=== PATIENT | female | born 1960 | race Caucasian/White ===

== ENCOUNTER → 2016-11-18 | Outpatient (CLI) | payer MEDICAID ==
[~2016-11-18] MED LIST: ACHD5005 PO; ALPR.25T PO; AMIT25TA9 PO; AMLO10TA2 PO; ASP81CT PO; ASP81TEC PO; ASPI-587 PO; ASPI-999 PO; ATOR80TA2 PO; ATOR80TA76 PO; CEPH250C PO; CITA20TA4 PO; CLOP75TA PO; CLOP75TA28 PO; CYCL-97 PO; CYCL10TA9 PO; DOCU-143 PO; DOXA2TAB2 PO; DULO30CA48 PO; DULO60CA58 PO; FURO20TA4 PO; FURO40TA4 PO; GABA-488 PO; GABA600T2 PO; GABA800T2 PO; GBPN100C PO; GBPN400C PO; HYDR-3714 PO; HYDR-3729 PO; IBUP-1773 PO; INSASP10V SC; INSU100C7 SQ; INSU100I14 SQ; INSU100I29 SQ; INSU100V16 SC; INSU100V16 SQ; INSU100V5 SQ; INSU100V6 SC; INSU100V6 SQ; ISM30TCR PO; ISOS30TA3 PO; LEVE1U SQ; LEVO75TA6 PO; LEVOTHYROXINE PO; LINA145C PO; LINA5TAB PO; LISI10TA PO; LISI10TA2 PO; LISI20TA PO; LISI40TA PO; LORA-794 PO; LORA0.5T PO; LVT.05T PO; MECL12.579 PO; MELO-195 PO; METF-380 PO; METO-270 PO; METO-333 PO; METO5TAB75 PO; MORP-33 PO; NAPR500T2 PO; NITR0.4T SL; NTR.4SL SL; OMEP-10 PO; OXYC-12 PO; PANT40TA2 PO; PANT40TA3 PO; PRD20T PO; PREG75CA PO; PROC5TAB52 PO; PROM25SU43 PO; SAXA5TAB PO; SUCR1TAB PO; TEMA15CA54 PO; TICA90TA PO; TMZP15C PO; TRAM50TA2; TRAM50TA2 PO; TRAZ150T42 PO
--- OUTSIDE RECORDS SUMMARY | 2016-11-18 13:41 | XMS REPORT | Continuity of Care Document ---
Author Author Interface Organization Interface Address Unknown Phone Unavailable Problems Problem Status Onset Date Classification Date Reported Comments Source No data available for this section Problem 06/02/2015 [facility]. Coronary atherosclerosis of unspecified type of vessel, seminole or graft 05/08/2015 Diagnosis 05/12/2015 [facility]. Benign essential hypertension 05/08/2015 Diagnosis 2014 [facility]. Mononeuritis of unspecified site 05/08/2015 Diagnosis 03/2015 [facility]. Myalgia and myositis, unspecified 05/08/2015 Diagnosis [facility]. Ingrowing nail 05/08/2015 Diagnosis 05/12/2015 [facility]. Fever, unspecified 2014 Diagnosis 06/02/2015 [facility]. Cough 05/29/2015 Diagnosis 06/02/2015 [facility]. Dysuria 05/29/2015 Diagnosis 06/02/2015 [facility]. Medications Medication Details Route Status Patient Instructions Ordering Provider Order Date Source No Known Medications No known medications Active [facility] Allergies, Adverse Reactions, Alerts Substance Category Reaction Severity Reaction type Status Date Reported Comments Source Immunizations Immunization Date Given Site Status Last Updated Comments Source No data available for this section No data available for this section [facility]. Results Order Name Results Value Reference Range Date Interpretation Comments Source Vital Signs Vital Sign Value Date Comments Source Encounters Location Location Details Encounter Type Encounter Number Reason For Visit Attending Provider ADM Date DC Date Status Source [facility] [id number] Clinic ( Outpatient) [id number] Ev Cobine 05/29/2015 Active [facility]FC[facility] [id number] Clinic ( Outpatient) [id number] [facility] 05/29/2015 Active [facility] AFCOS [id number] Clinic ( Outpatient) [id number] Ev Cobine 05/08/2015 Active [facility] AFCOS [id number] Clinic ( Outpatient) [id number] Ev Cobine 05/07/2015 Active [facility] Cancel/No Show [id number] Ev Cobine 05/21/2015 05/21/2015 [facility] Cancel/No Show [id number] Ev Cobine 05/07/2015 05/07/2015 [facility] [id number] Ev Cobine 05/08/20152014 [facility] [id number] Ev Cobine 05/29/20152014 [facility] [id number] Clinic ( Outpatient) [id number] Ev Cobine 05/21/2015 Active [facility] Procedures Procedure Code Date Perfomer Comments Source No data available for this section [facility].
--- NOTE | 2016-11-18 15:33 | Diagnostic Imaging Report ---
PROCEDURE: US Carotid Duplex Bilateral. TECHNIQUE: Multiple real-time grayscale images were obtained over the carotid arteries in various projections bilaterally. Additional duplex Doppler and color Doppler images were also obtained. INDICATION: Headache. FINDINGS: The grayscale images demonstrate no significant plaque. Color Doppler demonstrates patency of the common, internal and external carotid arteries bilaterally. The vertebral arteries demonstrate antegrade flow on both sides. Peak systolic velocities in the right ICA are 60, 74, and 102 cm/s from proximal to distal and on the left side 70, 91, and 132 cm/s from proximal to distal. The ICA/CCA ratios are up to 1.2 on the right and up to 2 on the left. The underlying arterial stenosis is in the range of 0-40% bilaterally. IMPRESSION: No significant plaque or evidence of stenosis. Dictated by: Dictated on workstation # [id number]
--- NOTE | 2016-11-25 08:11 | ECHOCARDIOGRAPHY REPORT ---
PROCEDURE PHYSICIAN: ADALBERTO GONZALEZ DATE OF PROCEDURE: 11/18/2016 TWO DIMENSIONAL ECHOCARDIOGRAM REPORT PRIMARY PHYSICIAN: Dr. Calderon OTHER PHYSICIAN: Dr. Gonzalez REFERRING PHYSICIAN: ORDERING PHYSICIAN: Jaylene Rodrigues APRN INDICATION FOR THE PROCEDURE: Chest discomfort. MEASUREMENTS DERIVED VALUES LV DIAMETER (LAX) NORMALS NORMALS Diastolic 4.3 (3.6-5.2) Eject. Fract. (60%+/-6%) Systolic (2.3-3.9) Diastolic Vol. % Shortening (0.22-0.42) Systolic Vol. Aortic Root 2.2 IVS THICKNESS Diastolic 1.2 (0.6-1.1) LVPW THICKNESS Diastolic 1.2 (0.6-1.1) LA DIAMETER Systolic 4 (2.1-3.7) DESCRIPTION: Two-dimensional echocardiography showed normal global left ventricular systolic function with normal regional wall motion. Aortic, mitral and tricuspid valve leaflets show good leaflet excursion. There does not appear to be significant pericardial effusion. Doppler imaging shows no significant valvular regurgitation or stenosis. Pulmonary artery systolic pressure is estimated to be approximately 20 mmHg. Mitral inflow is suggestive of grade I diastolic dysfunction of the left ventricle. Inferior vena cava does exhibit inspiratory collapse. CONCLUSION: 1. Normal global left ventricular systolic function with an ejection fraction of 60%. 2. No significant valvular regurgitation or stenosis seen on this study. Pulmonary artery systolic pressure is estimated to be approximately 20 mmHg. 3. Mild diastolic dysfunction of the left ventricle is indicated on this study. Job ID: [id number] Dictated Date: 11/24/2016 14:17:20 Pocket Creaser Date: 11/25/2016 08:07:03 / chetan
== END ==
LOC: CARD 13:39
PROVIDERS: ATTEND Nurse Practitioner Family
DX: R07.89 Other chest pain (principal); I25.10 Atherosclerotic heart disease of native coronary artery without angina pectoris; R06.09 Other forms of dyspnea; I65.23 Occlusion and stenosis of bilateral carotid arteries; E78.4 Other hyperlipidemia; I10 Essential (primary) hypertension
CPT/HCPCS: 93306; 93880

== ENCOUNTER → 2017-01-20 | Outpatient (CLI) | payer MEDICAID ==
--- NOTE | 2017-01-20 10:59 | Diagnostic Imaging Report ---
INDICATION: Abnormal laboratory values. TECHNIQUE: Multiple grayscale sonographic images were obtained of the right upper quadrant of the abdomen. CORRELATION STUDY: None FINDINGS: LIVER: The liver measures 17 cm. There is uniform echotexture. GALLBLADDER: Surgically absent. COMMON BILE DUCT: Within normal limits at 5 mm. RIGHT KIDNEY: Measures 13.1 cm. No hydronephrosis. PANCREAS: Obscured by overlying bowel gas. OTHER: None. IMPRESSION: 1. Postcholecystectomy changes. Otherwise unremarkable right upper quadrant ultrasound evaluation. Dictated by: Dictated on workstation # [id number]
== END ==
LOC: RAD 10:05
PROVIDERS: ATTEND Internal Medicine
DX: R74.8 Abnormal levels of other serum enzymes (principal); Z90.49 Acquired absence of other specified parts of digestive tract
CPT/HCPCS: 76705

== ENCOUNTER 2017-01-28 06:51 | Day surgery (SDC) | payer MEDICAID ==
[2017-01-28] VITALS (20 sets, daily range): BP systolic 100–183; BP diastolic 60–102
[~2017-01-28] VITALS: Ht 165.1 cm; Wt 104.4 kg
[~2017-01-28 06:51] MED LIST changes: -AMLO10TA2 PO; -ASPI-999 PO; -CEPH250C PO; -DOCU-143 PO; -DOXA2TAB2 PO; -DULO30CA48 PO; -DULO60CA58 PO; -HYDR-3729 PO; -IBUP-1773 PO; -INSU100V16 SC; -INSU100V16 SQ; -INSU100V5 SQ; -INSU100V6 SQ; -ISOS30TA3 PO; -LEVO75TA6 PO; -LINA145C PO; -LISI10TA2 PO; -LISI40TA PO; -LORA0.5T PO; -METO-270 PO; -MORP-33 PO; -PANT40TA3 PO; -PROC5TAB52 PO; -SAXA5TAB PO; -SUCR1TAB PO; -TICA90TA PO
[2017-01-28] MEDS ORDERED: NS IV 1000 ML 1,000 ML ONE ×2 (07:06→09:11)
[2017-01-28] MEDS ORDERED: HEParin (CATH LAB) 2,000 ML IV ONE (07:06)
[2017-01-28] MEDS ORDERED: LIDOCAINE 1% INJ 20 ML (XYLOCAINE) VIAL ONE (07:06)
[2017-01-28 07:37] LABS: MEAN PLATELET VOLUME 10.9 FL (7.4-10.4); RED BLOOD COUNT 3.92 10^6/uL (4.35-5.85); WHITE BLOOD COUNT 9.9 10^3/uL (4.3-11.0)
[2017-01-28] MEDS: NS IV 1000 ML 1,000 ML IV SCH ×4 (07:37→19:47)
[2017-01-28 07:47] LABS: INR 0.9 (0.8-1.4)
[2017-01-28 07:55] LABS: ALBUMIN 3.1 G/DL (3.2-4.5); BILIRUBIN,TOTAL 0.3 MG/DL (0.1-1.0); CALCIUM 9.1 MG/DL (8.5-10.1); CREATININE SERUM 1.51 MG/DL (0.60-1.30); TOTAL PROTEIN 6.7 G/DL (6.4-8.2)
[2017-01-28] MEDS ORDERED: LINA5TAB PO (08:04)
[2017-01-28] MEDS ORDERED: DULO60CA58 PO (08:04)
[2017-01-28] MEDS ORDERED: SAXA5TAB PO (08:04)
[2017-01-28] MEDS ORDERED: diphenhydrAMINE 50 MG/ML INJ (BENADRYL) ONE (08:23)
[2017-01-28] MEDS ORDERED: MIDAZOLAM 5 MG/5 ML (VERSED) VIAL ONE (08:23)
[2017-01-28] MEDS ORDERED: fentaNYL INJECTION 100 MCG/2 ML AMP ONE (08:23)
[2017-01-28] MEDS ORDERED: HEParin 1000 UNIT/ML (10ML VIAL) FOR BOLUS ONE (09:02)
[2017-01-28] MEDS ORDERED: NITROGLYCERIN DRIP 25 MG/D5W 250 ML IV ONE (09:02)
[2017-01-28] MEDS ORDERED: ADENOSINE 3 MG/1 ML (ADENOSCAN) 30ML VIAL IV ONE (09:02)
[2017-01-28] MEDS ORDERED: EPTIFIBATIDE BOLUS 20 ML IV ONE (09:41)
[2017-01-28] MEDS ORDERED: ASPIRIN 81 MG CHEW (CHILDREN'S ASA) ONE (10:02)
[2017-01-28] MEDS ORDERED: CLOPIDOGREL 300 MG (PLAVIX) TABLET PO ONE (10:02)
--- NOTE | 2017-01-28 10:40 | Cardiac Procedure Note-CS/ASA ---
Pre-Procedure Note Pre-Op Procedure Note H&P Reviewed The H&P was reviewed, patient examined and no changes noted. Date H&P Reviewed: Jan 28, 2017 Time H&P Reviewed: 08:45 Conscious Sedation Pre-Proced Time Reviewed: 08:45 ASA Class: 3 Airway Mallampati Classification: (red devil appropriate class) I. II. III, IV Lungs Heart ASA score ASA 1: a normal healthy patient ASA 2: a patient with a mild systemic disease (mid diabetes, controlled hypertension, obesity ASA 3: a patient with a severe systemic disease that limits activity (angina , COPD, prior Myocardial infarction) ASA 4: a patient with an incapacitating disease that is a constant threat to life (CHF, renal failure) ASA 5: a moribund patient not expected to survive 24 hrs. (ruptured aneurysm) ASA 6: a declared brain patient whose organs are being harvested. For emergent operations, add the letter E after the classification Grade 3 Sedation Plan: Analgesia, Amnesia, Plan communicated to team members, Discussed options with patient/fam, Discussed risks with patient/fam Note The patient is an appropriate candidate to undergo the planned procedure, sedation, and anesthesia. The patient immediately re-assessed prior to indication. ADALBERTO LEAVITT MD FACP FAC CCDS Jan 28, 2017 10:40
[2017-01-28] MEDS ORDERED: PATIENT MAY USE OWN MEDS, ALL PO SCH (10:45)
--- NOTE | 2017-01-28 12:46 | CARDIAC CATHETERIZATION ---
PROCEDURE PHYSICIAN: ADALBERTO LEAVITT DATE OF PROCEDURE: 01/28/2017 Reyna Read is a 56-year old lady with coronary artery disease and continuing coronary artery disease risk factors who has been experiencing chest discomfort suggestive of new angina. Cardiac catheterization was carried out today after having obtained an informed consent for cardiac catheterization and possible ad hoc coronary intervention. PROCEDURE: She was brought to the cardiac catheterization laboratory in a fasting state. The right groin was prepared and draped in usual sterile fashion. 1% lidocaine was used for local anesthesia. Modified Seldinger technique was used to advance a 5-Polish sheath in the right femoral artery. A 5-Polish JL4 catheter was used for the left coronary angiography. 5-Polish JR4 catheter was used for right coronary angiography. A 5-Polish pigtail catheter was used for left heart catheterization. Left ventricular angiography was not performed to conserve dye. The patient was exhibiting prerenal azotemia, as indicated by her lab work. Vigorous perioperative hydration was initiated well ahead of the procedure and continued throughout the procedure and afterwards. This was to reduce contrast-related renal injury. FRACTIONAL FLOW RESERVE MEASUREMENT IN THE LEFT ANTERIOR DESCENDING ARTERY: Fractional flow reserve measurement was carried out in the left anterior descending artery because there seemed to be 40 to 50% stenosis with some haziness just proximal to the proximal edge of a previously placed stent. We exchanged the sheath over a wire for a 6-Polish sheath. We used a 6-Polish JL4 guide catheter. We gave 6000 units of intravenous heparin. A pressure wire was advanced across the lesion and through the left anterior descending artery stent and the tip was placed in the distal vessel. 140 mcg/kg of adenosine was infused for 2 minutes and 15 seconds. Fractional flow reserve of 0.87, indicating hemodynamic non-significance. PERCUTANEOUS INTERVENTION TO THE RIGHT CORONARY ARTERY: We then proceeded with right coronary intervention. We exchanged the sheath over a wire for a 7-Polish sheath. We used a 7-Polish JR4 guide catheter with side holes. We advanced a BMW wire across 70 to 80% ostial stenosis right coronary artery and 90% stenosis in the distal right coronary artery, following the origin of the posterior descending branch of the right coronary artery. The tip of the wire was placed in distal vessel. Balloon angioplasty was carried out in the distal right coronary artery with 2.5 x 20 mm and 2.75 x 20 mm Emerge balloon. This reduced the stenosis to approximately 75%. We then advanced a ChoICE floppy wire into the posterior descending branch of the right coronary artery to protect the posterior descending artery branch while stenting the distal right coronary artery. Over the BMW wire, we advanced Alpine Xience 2.75 x 18 mm stent. This was carefully positioned to cover the entire lesion and the stent was deployed at 12 atmospheres. The balloon was inflated and pulled slightly proximally and then reinflated at 18 atmospheres. This was because the proximal part of the stented area is somewhat larger than the distal part of the stented area. The balloon was removed. Subsequent angiography revealed 0% residual stenosis in the distal right coronary artery. The posterior descending branch of the right coronary artery was patent and had 50% ostial stenosis, as at the beginning of the procedure. The wire was removed from the posterior descending branch while keeping the BMW wire in place. We then turned our attention to the ostial and proximal right coronary artery which was exhibiting 80% stenosis. This was stented with Alpine Xience 3.5 x 23 mm stent. This was carefully positioned so that the entire proximal portion of the right coronary and the ostial of the right coronary artery covered with only minimal projection, if any, into the ascending aorta. Following stent deployment, there is 0% residual stenosis in the ostial and proximal right coronary artery. Angioplasty equipment was removed. Angiography of the right femoral artery was carried out through the sheath. Mynx was used to achieve hemostasis. She tolerated the procedure well. She received a double bolus of Integrilin during the interventional procedure, as well. HEMODYNAMICS: Left ventricular end diastolic pressure following coronary angiography was 15 mmHg. There is no significant pressure gradient on pullback across the aortic valve. Ascending aortic pressure was 121/74 with a mean 112 mmHg. CORONARY ANGIOGRAPHY: The left main coronary artery is free of significant disease. Left anterior descending artery has patent stent, known to be Promus Premier 2.5 x 38 mm placed on 10/11/2014, at its midportion. This does not show significant disease. Proximal to the stented area, there is 40 to 50% stenosis and fractional flow reserve across this lesion is 0.87, indicating hemodynamic insignificance. The left circumflex artery has moderate disease in its very terminal portion. The right coronary artery is large and dominant and had 80% ostial and proximal stenosis and 90% distal stenosis following the origin of the posterior descending branch. The posterior descending branch had approximately 50% stenosis. The distal right coronary artery was successfully stented with Alpine Xience 2.75 x 18 mm stent. The ostial and proximal right coronary artery was successfully stented with Alpine Xience 3.5 x 23 mm stent. This stenting reduced the stenoses to 0% residual. CONCLUSION: 1. Coronary disease as detailed above. There is a widely patent stent in the mid left anterior descending artery that is known to be Promus Premier 2.5 x 38 mm placed on 10/11/2014. There is 40 to 50% proximal stenosis of the left anterior descending artery and fractional flow reserve across that 0.87, indicating hemodynamic insignificance. The right coronary artery had 80% ostial and proximal stenosis, to which successful stenting was carried out with Alpine Xience 3.5 x 23 mm stent. The right coronary artery had 90% distal stenosis, to which successful stenting was carried out using Alpine Xience 2.75 x 18 mm stent. The posterior descending branch of the right coronary artery has 50% ostial stenosis, which was not intervened on. 2. Mild to moderate elevation of left ventricular end diastolic pressure. DISCUSSION AND RECOMMENDATION: Her antiplatelet regimen is being continued. Risk factor modification has again been reviewed. She is being hospitalized for overnight observation and continuing hydration. Job ID: [id number] Dictated Date: 01/28/2017 10:27:28 Wardrobe Mistress Date: 01/28/2017 12:21:04 / bell MATHEWS
[2017-01-28] MEDS ORDERED: METOCLOPRAMIDE 5 MG (REGLAN) TAB PO SCH (13:00)
[2017-01-28] MEDS ORDERED: ANTACID SUSP 30 ML UDC (MYLANTA) PO ONE (14:30)
[2017-01-28] MEDS ORDERED: ANTACID SUSP 30 ML UDC (MYLANTA) PO PRN (14:30)
[2017-01-28] MEDS ORDERED: PANTOPRAZOLE 40 MG/10 ML (PROTONIX) VIAL IV NR (15:02)
[2017-01-28] MEDS ORDERED: inSUlin ASPART (NovoLOG) 1 UNIT/0.01 ML (CHARGE PER UNIT) SC SCH (16:00)
[2017-01-28] MEDS ORDERED: AMLO10TA2 PO (16:26)
[2017-01-28] MEDS ORDERED: LORA0.5T PO (16:26)
[2017-01-28] MEDS ORDERED: INSU100V6 SQ (16:26)
[2017-01-28] MEDS ORDERED: ASPI-999 PO (16:26)
[2017-01-28] MEDS ORDERED: LEVO75TA6 PO (16:26)
[2017-01-28] MEDS ORDERED: DOXA2TAB2 PO (16:26)
[2017-01-28] MEDS ORDERED: LISI40TA PO (16:42)
[2017-01-28] MEDS: GABAPENTIN 300 MG (NEURONTIN) CAP PO SCH ×2 (19:15→20:55)
[2017-01-28] MEDS ORDERED: inSUlin DETERMIR 1 UNIT/0.01 ML (LEVEMIR) CHARGE PER UNIT SQ SCH (21:00)
[2017-01-28] MEDS ORDERED: MELOXICAM 7.5 MG (MOBIC) TABLET PO SCH (21:00)
[2017-01-29] VITALS (10 sets, daily range): BP systolic 115–162; BP diastolic 64–101
[2017-01-29 03:40] LABS: MEAN PLATELET VOLUME 11.2 FL (7.4-10.4); RED BLOOD COUNT 3.23 10^6/uL (4.35-5.85); WHITE BLOOD COUNT 10.4 10^3/uL (4.3-11.0)
[2017-01-29] MEDS: NS IV 1000 ML 1,000 ML IV SCH (03:45)
[2017-01-29 03:58] LABS: CREATININE SERUM 1.47 MG/DL (0.60-1.30); POTASSIUM 4.2 MMOL/L (3.6-5.0)
[2017-01-29] MEDS ORDERED: ATORVASTATIN 80 MG (LIPITOR) TABLET PO SCH (09:00)
[2017-01-29] MEDS ORDERED: CLOPIDOGREL 75 MG (PLAVIX) TABLET PO SCH (09:00)
[2017-01-29] MEDS ORDERED: DULoxetine 30 MG (CYMBALTA) CAP PO SCH (09:00)
[2017-01-29] MEDS ORDERED: sitaGLIPtin 50 MG (JANUVIA) TAB PO SCH (09:00)
[2017-01-29] MEDS ORDERED: FUROSEMIDE 40 MG (LASIX) TAB PO SCH (09:00)
[2017-01-29] MEDS ORDERED: ASPIRIN 81 MG CHEW (CHILDREN'S ASA) PO SCH (09:00)
[2017-01-29] MEDS ORDERED: lisINopril 20 MG (ZESTRIL) TAB PO SCH (09:00)
[2017-01-29] MEDS ORDERED: LINAGLIPTIN 5 MG PO SCH (09:00)
[2017-01-29] MEDS ORDERED: ATOR80TA76 PO (09:36)
--- NOTE | 2017-01-29 09:37 | Discharge Inst-Post CATH ---
Discharge Inst-CATH Post Cardiac Cath D/C Inst Follow Up/Plan F/u with Dr Gonzalez in 1-2 weeks 1500 kCal ADA diet CARDIAC CATH DISCHARGE INSTRUCTIONS *Hold Metformin for 48 hours post heart cath. ACTIVITY * Go Home directly and rest. * Limit activity of the leg (or wrist if it was used) for 7 days including aerobics, swimming, jogging, bicycling, etc. * Restrict stair-climbing for 7 days if possible, if not, climb up with your non -cath leg, then bring together on the same step. * Avoid lifting, pushing, pulling or excessive movement of the affected extremity for 7 days. * Customary sexual activity may be resumed after 2 days-use caution not to use a position that strains or causes pain to the affected extremity. * No driving for 24 hours. * NO SMOKING. * Avoid straining for bowel movements for 7 days. * Gentle walking on level ground is allowed. * Returning to work will depend on the type of procedure and the results. Your doctor will discuss this with you. CALL YOUR DOCTOR FOR ANY OF THE FOLLOWING: *If bleeding from the puncture site occurs- Apply gentle pressure to site with clean cloth and call your doctor or EMS. * If a knot or lump forms under the skin, increases in size, or causes pain. * If bruising appears to be worsening or moving further down your leg instead of disappearing. * Temperature above 101 F. CARE OF YOUR GROIN INCISION; * Bruising or purple discoloration of the skin near the puncture site is common. * You may shower only, no bathtub bathing for 5 days. Be careful to avoid slipping as your leg may feel stiff. * If a closure device was used on your femoral artery, please see the attached guide regarding care of the device and your leg. * REMOVE the dressing from your groin the next day after your procedure in the shower. CARE OF YOUR WRIST INCISION; * Bruising or purple discoloration of the skin near the puncture site is common. * You may shower. * DO NOT submerge wrist. * Remove dressing in 24 hours. ADALBERTO GONZALEZ MD [facility] CCDS Jan 29, 2017 09:37
[2017-01-29] MEDS ORDERED: LISI10TA2 PO (09:39)
--- NOTE | 2017-01-29 09:41 | Discharge Inst-Cardiology ---
Discharge Inst-Cardiac Discharge Medications New Medications: Lisinopril (Lisinopril) 10 Mg Tablet 10 MG PO DAILY, #90 TAB 3 Refills Atorvastatin Calcium (Atorvastatin Calcium) 80 Mg Tablet 80 MG PO DAILY for 90 Days, #90 TAB 3 Refills Continued Medications: Amlodipine Besylate (Amlodipine Besylate) 10 Mg Tablet 10 MG PO DAILY, TAB Aspirin (Aspirin) 81 Mg Tab.chew 81 MG PO HS, TAB Citalopram Hydrobromide (Citalopram Hbr) 20 Mg Tablet 20 MG PO DAILY LAST FILLED 12/12/16 #30 Clopidogrel Bisulfate (Clopidogrel) 75 Mg Tablet 75 MG PO DAILY LAST FILLED 12/05/16 #30 Doxazosin Mesylate (Doxazosin Mesylate) 2 Mg Tablet 2 MG PO DAILY, TAB Duloxetine HCl (Duloxetine HCl) 60 Mg Capsule.dr 60 MG PO DAILY, CAP Furosemide (Furosemide) 40 Mg Tablet 40 MG PO DAILY Gabapentin (Gabapentin) 300 Mg Capsule 900 MG PO TID TAKES 3 (300 MG) CAPSULES Insulin Aspart (Novolog) 10 Unit/0.1 Ml Vial 40 UNIT SC AC LAST FILLED 09/21/16 #3 VIALS (30 ML) Insulin Glargine,Hum.rec.anlog (Lantus) 100 Unit/1 Ml Vial 80 UNITS SQ HS, VIAL LAST FILLED 09/21/16 #3 VIALS (30 ML) Levothyroxine Sodium (Levothyroxine Sodium) 75 Mcg Tablet 75 MCG PO DAILY, TAB Lorazepam (Lorazepam) 0.5 Mg Tablet 0.5 MG PO DAILY PRN for ANXIETY, TAB Meloxicam (Meloxicam) 15 Mg Tablet 15 MG PO HS Saxagliptin HCl (Onglyza) 5 Mg Tablet 5 MG PO DAILY, TAB LAST FILLED 12/12/16 #30 Discontinued Medications: Lisinopril (Lisinopril) 40 Mg Tablet 40 MG PO DAILY, TAB ADALBERTO LEAVITT MD FACP [facility] CCDS Jan 29, 2017 09:41
[2017-01-29] MEDS: GABAPENTIN 300 MG (NEURONTIN) CAP PO SCH (09:53)
--- NOTE | 2017-01-29 10:57 | Progress Note-Cardiology ---
Cardiology SOAP Progress Note Subjective: Feels well. No cp or palp or syncope. Wishes to go home No groin discomfort or leg discomfort Objective: I&O/Vital Signs Vital Sign - Last 12Hours 01/28/17 01/29/17 01/29/17 01/29/17 23:00 00:00 00:00 01:00 Temp 98.7 Pulse 63 66 63 Resp 10 13 10 B/P (MAP) 100/62 119/72 126/64 Pulse Ox 94 98 97 93 O2 Delivery Nasal Cannula Nasal Cannula Nasal Cannula Nasal Cannula O2 Flow Rate 2.00 2.00 2.00 01/29/17 01/29/17 01/29/17 01/29/17 01:13 02:00 03:00 04:00 Pulse 64 62 61 Resp 11 12 B/P (MAP) 119/66 130/72 Pulse Ox 97 97 99 O2 Delivery Nasal Cannula Nasal Cannula Nasal Cannula O2 Flow Rate 2.00 2.00 2.00 01/29/17 01/29/17 01/29/17 01/29/17 04:00 05:00 06:00 07:00 Temp 98.6 Pulse 61 62 60 63 Resp 10 11 10 B/P (MAP) 119/69 133/77 115/75 Pulse Ox 99 95 95 O2 Delivery Nasal Cannula Nasal Cannula Nasal Cannula O2 Flow Rate 2.00 2.00 2.00 01/29/17 01/29/17 01/29/17 07:00 08:00 09:00 Pulse 61 64 65 Resp 10 8 B/P (MAP) 144/78 149/73 162/101 O2 Delivery Nasal Cannula Nasal Cannula O2 Flow Rate 2.00 2.00 Weight (Pounds): 230 Weight (Ounces): 3.2 Weight (Calculated Kilograms): [phone] Groin site without hematoma: Yes Condition: DP/PT pulses palpable Bruising: mild bruising Constitutional: AAO x 3, well-developed, well-nourished Respiratory: No accessory muscle use, No respiratory distress, lungs clear to auscultation Cardiovascular: regular rate-rhythm, S1 and S2, systolic murmur (faint JANI at card base) Gastrointestional: No tender, No guarding, No rebound, audible bowel sounds Extremities: No clubbing, No cyanosis, No significant edema Neurologic/Psychiatric: oriented x 3, power is 5/5 both on sides Skin: No rash on exposed areas, No ulcerations on exposed areas Results/Procedures: Labs Laboratory Tests 01/28/17 19:29: Glucometer 283H 01/28/17 20:54: Glucometer 116H 01/29/17 03:13: White Blood Count 10.4, Red Blood Count 3.23L, Hemoglobin 9.6L, Hematocrit 28L, Mean Corpuscular Volume 88, Mean Corpuscular Hemoglobin 30, Mean Corpuscular Hemoglobin Concent 34, Red Cell Distribution Width 13.0, Platelet Count 267, Mean Platelet Volume 11.2H, Sodium Level 139, Potassium Level 4.2, Chloride Level 105, Carbon Dioxide Level 24, Anion Gap 10, Blood Urea Nitrogen 35H, Creatinine 1.47H, Estimat Glomerular Filtration Rate 37, BUN/Creatinine Ratio 24 , Glucose Level 79, Calcium Level 8.0L Laboratory Tests 01/28/17 07:26 01/29/17 03:13 A/P: Assessment: Coronary disease. Last card cath of 01/28/17 showed is a widely patent stent in the mid left anterior descending artery that is known to be Promus Premier 2.5 x 38 mm placed on 10/11/2014. There is 40 to 50% proximal stenosis of the left anterior descending artery and fractional flow reserve across that 0.87, indicating hemodynamic insignificance. The right coronary artery had 80% ostial and proximal stenosis, to which successful stenting was carried out with Alpine Xience 3.5 x 23 mm stent. The right coronary artery had 90% distal stenosis, to which successful stenting was carried out using Alpine Xience 2.75 x 18 mm stent. The posterior descending branch of the right coronary artery has 50% ostial stenosis, which was not intervened on. There was mild to moderate elevation of left ventricular end diastolic pressure Echocardiogram from November 2016 showed LVEF 60%. No significant valvular regurg or stenosis seen. PASP estimated to be approx 20mmHg. Mild diastolic dysfunction of the LV. 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 We have advised compliance * We recommended wgt loss and discussed strategies * We are reducing JULIA-inhib because of recent contrast use in this lady with CKD due to diabetic nephropathy * I answered her and her family's concerns and questions * Close outpatient f/u is advised ADALBERTO LEAVITT MD FACP [facility] CCDS Jan 29, 2017 10:56
--- OUTSIDE RECORDS SUMMARY | 2017-01-31 08:20 | XMS REPORT | Continuity of Care Document ---
Author Author [employer] Organization [facility] Address Unknown Phone Unavailable Care Team Providers Care Straightening Press Operator Helper Name Role Phone [employer] Unavailable Unavailable Problems Problem Status Onset Date Classification Date Reported Comments Source Fever, unspecified 2014 Diagnosis 06/02/2015 [facility] [place] Cough 05/29/2015 Diagnosis 06/02/2015 [facility] [place] Dysuria 05/29/2015 Diagnosis 06/02[facility]2015 [facility] [place] Coronary atherosclerosis of unspecified type of vessel, [place] or graft 05/08/2015 Diagnosis 05/12/2015 [facility] [place] Benign essential hypertension 05/08/2015 Diagnosis 2014 [facility] [place] Mononeuritis of unspecified site 05/08/2015 Diagnosis 03/2015 [facility] [place] Myalgia and myositis, unspecified 05/08/2015 Diagnosis [facility] [place] Ingrowing nail 05/08/2015 Diagnosis 05/12/2015 [facility] [place] No data available for this section Problem 06/02/2015 [facility] [place] Medications Medication Details Route Status Patient Instructions Ordering Provider Order Date Source No Known Medications No known medications Active [facility] [place] Allergies, Adverse Reactions, Alerts Immunizations Immunization Date Given Site Status Last Updated Comments Source No data available for this section No data available for this section [facility] [place] Results Vital Signs Encounters Location Location Details Encounter Type Encounter Number Reason For Visit Attending Provider ADM Date DC Date Status Source [facility] [place] Cancel/No Show [id number] Ev Knott 05/07/2015 05/07/2015 [facility] [place] [facility] [place] [facility] [id number] Ev Knott 05/08/20152014 [facility] [place] [facility] [place] Cancel/No Show [id number] Ev Knott 05/21/2015 05/21/2015 [facility] [place] AFCOS [id number] Clinic ( Outpatient) [id number] Ev Knott 05/29/2015 Active [facility] [place] [facility] [place] [facility] [id number] Ev Knott 05/29/20152014 [facility] [place] Procedures Procedure Code Date Perfomer Comments Source No data available for this section [facility] [place] Plan of Care Social History Assessment and Plan Family History Value Date Source Advance Directives Order Name Results Value Date Source
--- OUTSIDE RECORDS SUMMARY | 2017-01-31 08:21 | XMS REPORT ---
Author Author [facility] Medical Staff Organization [facility] Address [address] [place], [place] [address] Phone [phone] Summary purpose CCDA Sent to [facility] Chief Complaint and Reason for Visit No authorized Reason for Visit (Admitting Diagnosis) is available for this visit. Problem list No authorized problems tracked for continuity of care are available for this visit. Encounters No authorized problems tracked for encounter diagnoses are available for this visit. Medications No medications recorded for this patient visit Allergies, adverse reactions, alerts No allergy information is available for this patient. Immunizations No immunizations recorded for this patient visit Relevant diagnostic tests and/or laboratory data No authorized results are available for this patient visit History of procedures No procedures recorded for this patient visit. Functional status No functional or cognitive status observations are available for this visit. Vital signs No authorized vital signs are available for this visit. Social history No Social History or smoking status observations were recorded for this visit. ( Unknown if ever smoked.) Treatment Plan No treatment plan text is available for this visit. Hospital discharge instructions No discharge instruction text is available for this visit.
--- OUTSIDE RECORDS SUMMARY | 2017-01-31 08:21 | XMS REPORT ---
Author Author MITCH CARVALHO Organization [employer] Address Unknown Phone Unavailable Care Team Providers Care Resident Care Supervisor Name Role Phone MITCH CARVALHO CP Unavailable Allergies No Known Allergies Problems Problem Type Condition Code Onset Dates Condition Status Problem Coronary atherosclerosis of unspecified type of vessel, [place] or graft 414.00 Active Assessment Anxiety F41.9 Active Problem Diabetes E11.9 Active Problem Hypertension I10 Active Problem Stroke I63.9 Active Problem Reflux esophagitis 530.11 Active Problem Depressive disorder, not elsewhere classified 311 Active Problem Anxiety F41.9 Active Problem Diabetic neuropathy E11.40 Active Medications Medication Code System Code Instructions Start Date End Date Status Dosage Celexa [facility] [address]-72 20 mg Orally Once a day February 25, 2016 1 tablet Results No Known Results Summary Purpose [employer]Clinical[employer] Submission
--- OUTSIDE RECORDS SUMMARY | 2017-01-31 08:21 | XMS REPORT ---
Author Author MITCH CARVALHO [facility] e[employer] Address Unknown Phone Unavailable Care Team Providers Care Supervisor Prep Name Role Phone MITCH CARVALHO CP Unavailable Allergies, Adverse Reactions, Alerts Substance Reaction Event Type Metformin HCl blisters Drug Allergy Estrogens, Conjugated Info Not Available Drug Allergy Problems Problem Type Condition Code Onset Dates Condition Status Assessment Diabetes E11.9 Active Problem Coronary atherosclerosis of unspecified type of vessel, [place] or graft 414.00 Active Assessment Lumbar strain S39.012A Active Assessment Edema R60.9 Active Problem Diabetes E11.9 Active Problem Hypertension I10 Active Problem Stroke I63.9 Active Problem Reflux esophagitis 530.11 Active Problem Depressive disorder, not elsewhere classified 311 Active Problem Anxiety F41.9 Active Problem Diabetic neuropathy E11.40 Active Medications Medication Code System Code Instructions Start Date End Date Status Dosage Lantus [facility] [address]-43 100 UNIT/ML Once a day January 21, 2015 inject 75-85 Units by Subcutaneous route 2 times per day (75 units in AM & 85 units at hs) Lasix [facility] 65938592205 40 MG 1 TAB PO DAILY,x30 day(s) Glucometer NDC 0 1 Sep 16, 2015 as directed Meloxicam [facility] 00013450540 15 MG TAKE ONE TABLET BY MOUTH EACH DAY Aspirin [facility] [address]-31 81 MG Orally Once a day 1 tablet Tradjenta [facility] [address]-36 5 MG Orally Once a day 1 tablet NovoLog [facility] [address]-53 100 UNIT/ML Subcutaneous 3 times a day 40 units atorvastatin ND 0 80 mg January 19, 2014 take 1 tablet (80 mg) by oral route once daily Avoid grapefruit juice Ativan [facility] [address]-07 0.5 MG Oct 15, 2014 1 tablet by Oral route 2 times per day PRN anxiety Gabapentin [facility] [address]-39 300 MG Orally Three times a day Sep 16, 2015 3 capsule Plavix [facility] [address]-77 75 MG Orally Once a day 1 tablet Metoprolol Tartrate [facility] [address]-99 100 MG Orally Twice a day 1 tablet Nitroglycerin [facility] [address]-72 0.4 mg January 19, 2014 place 1 tablet by Sublingual route every 5 min PRN chest pain; NTE 3 tabs within a 15 minutes Cyclobenzaprine HCl [facility] [address]-58 10 mg Orally Once a day, hs February 1 tablet Furosemide [facility] 85164106386 40 MG 1 TAB BY MOUTH DAILY Lisinopril [facility] [address]-81 20 mg Oct 30, 2014 take 1 tablet by Oral route 1 time per day As directed Metoclopramide HCl [facility] [address]-80 5 MG Orally not defined Blood Glucose Test Strip [facility] 0 Blood Glucose 4 times a day Sep 16, 2015 as directed Glimepiride [facility] [address]-17 2 MG Orally Once a day 1 tablet with breakfast or the first main meal of the day levothyroxine [place] 0 50 mcg Jul 03, 2014 take 1 tablet (50 mcg) by oral route once daily Procedures Procedure Coding System Code Date Office Visit, Est Pt., Level 4 CPT-4 72897 February 20, 2016 Vital Signs Date/Time: February 20, 2016 Temperature 98.6 F Weight 261.1 lbs Height 62 in BMI 47.75 Index Blood Pressure Diastolic 89 mmHg Blood Pressure Systolic 138 mmHg Cardiac Monitoring Heart Rate 77 bpm Results No Known Results Summary Purpose [employer]ClinicalWorks Submission
--- OUTSIDE RECORDS SUMMARY | 2017-01-31 08:21 | XMS REPORT ---
Author Author [facility] Medical Staff Organization [facility] Address [address], [place] [address] Phone [phone] Summary purpose CCDA Sent to [facility] Chief Complaint and Reason for Visit No [...] for this patient visit History of procedures Procedure Code Code Type Description Date Performed Performing Physician 87498 CPT-4 OFFICE/OUTPATIENT VISIT, EST 07-20-2016 DARION ANN Functional status No functional or cognitive status [...]
--- OUTSIDE RECORDS SUMMARY | 2017-01-31 08:21 | XMS REPORT ---
Author Author MITCH CARVALHO [facility] [employer] Address Unknown Phone Unavailable Care Team Providers Care Refuse Driver Name Role Phone MITCH CARVALHO CP Unavailable Allergies, Adverse Reactions, Alerts Substance Reaction Event Type Metformin HCl blisters Drug Allergy Estrogens, Conjugated Info Not Available Drug Allergy Problems Problem Type Condition Code Onset Dates Condition Status Problem Pain in joint, ankle and foot 719.47 Active Problem Depressive disorder, not elsewhere classified 311 Active Problem Coronary atherosclerosis of unspecified type of vessel, [place] or graft 414.00 Active Problem Hypertension I10 Active Problem Anxiety F41.9 Active Problem Diabetes E11.9 Active Problem Edema 782.3 Active Problem Reflux esophagitis 530.11 Active Problem Diabetic neuropathy E11.40 Active Problem Other and unspecified hyperlipidemia 272.4 Active Assessment Anxiety F41.9 Active Assessment Hypertension I10 Active Assessment nursing home current use of insulin Z79.4 Active Assessment Encounter for immunization Z23 Active Assessment Diabetic neuropathy E11.40 Active Assessment Diabetes E11.9 Active Medications Medication Code System Code Instructions Start Date End Date Status Dosage Furosemide [facility] 06823237487 40 MG TAKE 1 TABLET BY ORAL ROUTE 1 TIME PER DAY Ativan [facility] [address]-32 0.5 MG Oct 15, 2014 1 tablet by Oral route 2 times per day PRN anxiety atorvastatin [place] 0 80 mg January 19, 2014 take 1 tablet (80 mg) by oral route once daily Avoid grapefruit juice Nitroglycerin [facility] [address]-57 0.4 mg January 19, 2014 place 1 tablet by Sublingual route every 5 min PRN chest pain; NTE 3 tabs within a 15 minutes Tradjenta [facility] [address]-97 5 MG Orally Once a day 1 tablet levothyroxine NDC 0 50 mcg Jul 03, 2014 take 1 tablet (50 mcg) by oral route once daily Plavix [facility] [address]-20 75 MG Orally Once a day 1 tablet Meloxicam [facility] 12651805310 15 MG TAKE ONE TABLET BY MOUTH EACH DAY Glucometer [place] 0 1 Sep 16, 2015 as directed Lisinopril [facility] [address]-73 20 mg Oct 30, 2014 take 1 tablet by Oral route 1 time per day As directed Tramadol HCl [facility] 87218318450 50 MG TAKE ONE TABLET BY MOUTH EVERY SIX HOURS NEEDED Lyrica [facility] [address]-34 75 MG Orally Twice a day 1 capsule Metoprolol Tartrate [facility] [address]-05 100 MG Orally Twice a day 1 tablet Blood Glucose Test Strip [facility] 0 Blood Glucose 4 times a day Sep 16, 2015 as directed Glimepiride [facility] [address]-86 2 MG Orally Once a day 1 tablet with breakfast or the first main meal of the day Lantus [facility] [address]-96 100 unit/mL January 21, 2015 inject 75-85 Units by Subcutaneous route 2 times per day (75 units in AM & 85 units at hs) Gabapentin [facility] [address]-93 300 MG Orally Three times a day Sep 16, 2015 3 capsule Metoclopramide HCl [facility] [address]-38 5 MG Orally not defined Procedures Procedure Coding System Code Date Office Visit, Est Pt., Level 4 CPT-4 16480 Sep 16, 2015 FLUARIX QUAD (3 & UP)-[employer]2014 CPT-4 18839 Sep 16, 2015 GLYCATED HEMOGLOBIN TEST CPT-4 66909 Sep 16, 2015 SINGLE IMMUNIZATION ADMIN CPT-4 51370 Sep 16, 2015 Vital Signs Date/Time: Sep 16, 2015 Temperature 87.0 F Weight 244 lbs Height 62 in BMI 44.62 Index Blood Pressure Diastolic 98 mmHg Blood Pressure Systolic 168 mmHg Cardiac Monitoring Heart Rate 70 bpm Results Name Result Date Reference Range Unit Abnormality Flag A1C (IN HOUSE) Immunizations Vaccine Administration Date FLUARIX QUAD (3 & UP)-[facility]-2014Sep 16, 2015 Summary Purpose eClinicalWorks Submission
--- OUTSIDE RECORDS SUMMARY | 2017-01-31 08:22 | XMS REPORT ---
Author Author MITCH CARVALHO [facility] eClinicalWorks Address Unknown Phone Unavailable Care Team Providers Care Sap Grc Security Name Role Phone MITCH CARVALHO CP Unavailable Allergies, Adverse Reactions, Alerts Substance Reaction Event Type Metformin HCl blisters Drug Allergy Estrogens, Conjugated Info Not Available Drug Allergy Problems Problem Type Condition Code Onset Dates Condition Status Assessment Anxiety F41.9 Active Assessment Diabetes E11.9 Active Assessment Hypertension I10 Active Problem Venous insufficiency I87.2 Active Problem Stroke I63.9 Active Problem Arthritis M19.90 Active Problem Anxiety F41.9 Active Problem Diabetic neuropathy E11.40 Active Problem Diabetes E11.9 Active Problem Hypertension I10 Active Assessment Encounter for immunization Z23 Active Assessment Venous insufficiency I87.2 Active Assessment Arthralgia of left temporomandibular joint M26.622 Active Assessment Arthritis M19.90 Active Medications Medication Code System Code Instructions Start Date End Date Status Dosage Aspirin [facility] [address]-33 81 MG Orally Once a day 1 tablet atorvastatin NDC 0 80 mg January 19, 2014 take 1 tablet (80 mg) by oral route once daily Avoid grapefruit juice Meloxicam [facility] 24969511555 15MG TAKE ONE TABLET BY MOUTH ONCE DAILY [facility] Lancets [facility] 17814-[address]83 - subcutaneously 3 times a day Sep 21, 2016 test FSBS Furosemide [facility] [address]-09 40 mg Orally Once a day 1 tablet Plavix [facility] [address]-05 75 MG Orally Once a day 1 tablet Gabapentin [facility] [address]-20 300 MG Orally Three times a day Sep 16, 2015 3 capsule Blood Glucose Test Strip ND 0 Blood Glucose 3 times a day Sep 16, 2015 test blood sugar Glucometer ND 0 1 subcutaneously one time Sep 16, 2015 use to check FSBS levothyroxine ND 0 50 mcg Once a day Jul 03, 2014 take 1 tablet ( 50 mcg) by oral route once daily Tradjenta [facility] [address]-58 5 mg Orally Once a day 1 tablet Celexa [facility] [address]-79 20 mg Orally Once a day February 25, 2016 1 tablet Lantus [facility] [address]-28 100 UNIT/ML Once a day January 21, 2015 inject 75-85 Units by Subcutaneous route 2 times per day (75 units in AM & 85 units at hs) NovoLog [facility] [address]-52 100 UNIT/ML Subcutaneous 3 times a day 40 units Ativan [facility] [address]-61 0.5 MG Orally qd prn anxiety Oct 15, 2014 1 tablet Procedures Procedure Coding System Code Date [facility]-4 NOBLL Sep 21, 2016 PPV23 (PNEUMOVAX) CPT-4 34065 Sep 21, 2016 GLYCATED HEMOGLOBIN TEST CPT-4 11913 Sep 21, 2016 Office Visit, Est Pt., Level 4 CPT-4 28289 Sep 21, 2016 SINGLE IMMUNIZATION ADMIN CPT-4 15231 Sep 21, 2016 FLUARIX QUAD P-FREE 3 AND UP .50 2015 CPT-4 98441 Sep 21, 2016 VENIPUNCT, ROUTINE* CPT-4 93604 Sep 21, 2016 IMMUNIZATION ADMIN, EACH ADD (please include units) CPT-4 62535 Sep 21, 2016 Vital Signs Date/Time: Sep 21, 2016 Cardiac Monitoring Heart Rate 80 bpm Weight 258 lbs Height 62 in BMI 47.18 Index Blood Pressure Diastolic 100 mmHg Blood Pressure Systolic 150 mmHg Results Name Result Date Reference Range Unit Abnormality Flag A1C (IN HOUSE) ----Lot [id number] ----Exp date [id number] ----A1C IN HOUSE 13.5 20160921 4.3 - 5.6 % ----Previous A1c 11.0 20160921 ROUTINE VENIPUNCTURE CMP ----Sodium, Serum 139 20160921 136-144 mmol/L ----BUN/Creatinine Ratio 14 20160921 9-23 ----Chloride, Serum 97 20160921 97-106 mmol/L ----Potassium, Serum 4.4 20160921 3.5-5.2 mmol/L ----Calcium, Serum 8.9 20160921 8.7-10.2 mg/dL ----Protein, Total, Serum 5.7 20160921 6.0-8.5 g/dL L ----Carbon Dioxide, Total 29 20160921 18-29 mmol/L ----A/G Ratio 1.3 11848222 1.1-2.5 ----eGFR If NonAfricn Am 55 [id number] >59 mL/min/1.73 L ----Bilirubin, Total 0.4 26109422 0.0-1.2 mg/dL ----eGFR If Africn Am 64 [id number] >59 mL/min/1.73 ----BUN 15 20590128 6-24 mg/dL ----Albumin, Serum 3.2 75840484 3.5-5.5 g/dL L ----Globulin, Total 2.5 12492379 1.5-4.5 g/dL ----Creatinine, Serum 1.11 83559341 0.57-1.00 mg/dL H ----ALT (SGPT) 35 58717940 0-32 IU/L H ----Glucose, Serum 537 14069221 65-99 mg/dL > ----Alkaline Phosphatase, S 329 24152429 39-117 IU/L H ----AST (SGOT) 30 97751021 0-40 IU/L Immunizations Vaccine Administration Date PPV23 (PNEUMOVAX) Sep 21, 2016 FLUARIX QUAD P-FREE 3 AND UP .50 2015Sep 21, 2016 Summary Purpose eClinicalWorks Submission
--- OUTSIDE RECORDS SUMMARY | 2017-01-31 08:22 | XMS REPORT ---
Author Author Ra Phelps Organization [employer] Address Unknown Phone Unavailable Care Team Providers Care Survey Superintendent Name Role Phone Ra Phelps CP Unavailable Allergies, Adverse Reactions, Alerts Substance Reaction Event Type Metformin HCl Info Not Available Drug Allergy Estrogens Conjugated Info Not Available Drug Allergy Problems Problem Type Condition Code Onset Dates Condition Status Assessment Type 2 diabetes mellitus with diabetic neuropathy, unspecified E11.40 Active Assessment Postprocedural hypertension I97.3 Active Assessment Angina pectoris, unspecified I20.9 Active Assessment Hypothyroidism, unspecified E03.9 Active Problem Hyperlipidemia, unspecified E78.5 Active Assessment Type 2 diabetes mellitus without complications E11.9 Active Problem Type 2 diabetes mellitus without complications E11.9 Active Assessment Atherosclerotic heart disease of [place] coronary artery with other forms of angina pectoris I25.118 Active Assessment Hyperlipidemia, unspecified E78.5 Active Assessment Other chest pain R07.89 Active Assessment Shortness of breath R06.02 Active Medications Medication Code System Code Instructions Start Date End Date Status Dosage Plavix [facility] [address]-25 75 MG Orally Once a day 1 tablet NovoLog [facility] [address]-46 100 UNIT/ML Subcutaneous 3x a day before meals 20 units Lantus [facility] [address]-51 100 UNIT/ML Subcutaneous Once a day at HS 20 units Tramadol HCl [facility] [address]-69 50 MG Orally every 6 hrs 1 tablet as needed Atorvastatin Calcium [facility] [address]-01 80 MG Orally Once a day 1 tablet Levothyroxine Sodium [facility] [address]-23 50 MCG Orally Once a day 1 tablet on an empty stomach in the morning Tradjenta [facility] [address]-30 5 MG Orally Once a day 1 tablet Lisinopril [facility] [address]-33 20 MG Orally Once a day 1 tablet Procedures Procedure Coding System Code Date OFFICE VISIT, OTOLARYNGOLOGY REP-LOW COMPLEXITY (30 MIN.) CPT-4 10894 Sep 04, 2015 Vital Signs Date/Time: Sep 04, 2015 Height 64 in Weight 231.1 lbs Temperature 97.8 F Blood Pressure Diastolic 86 mm Hg Blood Pressure Systolic 130 mm Hg Cardiac Monitoring Heart Rate 72 /min BMI 39.66 Index Oximetry 97 % Respiratory Rate 16 /min Results No Known Results Summary Purpose eClinicalWorks Submission
--- OUTSIDE RECORDS SUMMARY | 2017-01-31 08:22 | XMS REPORT ---
Author Author DENY AMBROSE [facility] eClinicalWorks Address Unknown Phone Unavailable Care Team Providers Care German Professor Name Role Phone DENY AMBROSE CP Unavailable Allergies, Adverse Reactions, Alerts Substance Reaction Event Type Metformin HCl blisters Drug Allergy Estrogens, Conjugated Info Not Available Drug Allergy Problems Problem Type Condition Code Onset Dates Condition Status Assessment Right elbow pain M25.521 Active Problem Coronary atherosclerosis of unspecified type of vessel, [place] or graft 414.00 Active Assessment Stroke I63.9 Active Assessment Diabetes E11.9 Active Assessment Right hip pain M25.551 Active Problem Diabetes E11.9 Active Problem Hypertension I10 Active Problem Stroke I63.9 Active Problem Reflux esophagitis 530.11 Active Problem Depressive disorder, not elsewhere classified 311 Active Problem Anxiety F41.9 Active Problem Diabetic neuropathy E11.40 Active Medications Medication Code System Code Instructions Start Date End Date Status Dosage Lantus [facility] [address]-65 100 UNIT/ML Once a day January 21, 2015 inject 75-85 Units by Subcutaneous route 2 times per day (75 units in AM & 85 units at hs) Furosemide [facility] 84850251177 40 MG 1 TAB BY MOUTH DAILY Ativan [facility] [address]-99 0.5 MG Oct 15, 2014 1 tablet by Oral route 2 times per day PRN anxiety Blood Glucose Test Strip [facility] 0 Blood Glucose 4 times a day Sep 16, 2015 as directed levothyroxine [facility] 0 50 mcg Jul 03, 2014 take 1 tablet (50 mcg) by oral route once daily Gabapentin [facility] [address]-79 300 MG Orally Three times a day Sep 16, 2015 3 capsule Tradjenta [facility] [address]-74 5 MG Orally Once a day 1 tablet Meloxicam [facility] 46212141722 15 MG TAKE ONE TABLET BY MOUTH EACH DAY Aspirin [facility] [address]-27 81 MG Orally Once a day 1 tablet Glimepiride [facility] [address]-24 2 MG Orally Once a day 1 tablet with breakfast or the first main meal of the day atorvastatin ND 0 80 mg January 19, 2014 take 1 tablet (80 mg) by oral route once daily Avoid grapefruit juice Metoprolol Tartrate [facility] [address]-85 100 MG Orally Twice a day 1 tablet Lisinopril [facility] [address]-60 20 mg Oct 30, 2014 take 1 tablet by Oral route 1 time per day As directed NovoLog [facility] [address]-58 100 UNIT/ML Subcutaneous 3 times a day 40 units Lasix [facility] 86779755420 40 MG 1 TAB PO DAILY,x30 day(s) Metoclopramide HCl [facility] [address]-89 5 MG Orally not defined Glucometer [facility] 0 1 Sep 16, 2015 as directed Nitroglycerin [facility] [address]-04 0.4 mg January 19, 2014 place 1 tablet by Sublingual route every 5 min PRN chest pain; NTE 3 tabs within a 15 minutes Plavix [facility] [address]-38 75 MG Orally Once a day 1 tablet Procedures Procedure Coding System Code Date Office Visit, Est Pt., Level 4 CPT-4 46146 February 12, 2016 GLYCATED HEMOGLOBIN TEST CPT-4 11407 February 12, 2016 Vital Signs Date/Time: February 12, 2016 Temperature 98.4 F Weight 260.0 lbs Height 62 in BMI 47.55 Index Blood Pressure Diastolic 94 mmHg Blood Pressure Systolic 144 mmHg Cardiac Monitoring Heart Rate 68 bpm Results No Known Results Summary Purpose eClinicalWorks Submission
--- OUTSIDE RECORDS SUMMARY | 2017-01-31 08:23 | XMS REPORT ---
Author Author DENY AMBROSE Organization [employer] Address Unknown Phone Unavailable Care Team Providers Care Filter Cloth Maker Name Role Phone DENY AMBROSE CP Unavailable Allergies No Known Allergies Problems Problem Type Condition Code Onset Dates Condition Status Problem Pain in joint, ankle and foot 719.47 Active Problem Depressive disorder, not elsewhere classified 311 Active Problem Coronary atherosclerosis of unspecified type of vessel, [place] or graft 414.00 Active Problem Hypertension I10 Active Problem Anxiety F41.9 Active Problem Diabetes E11.9 Active Problem Edema 782.3 Active Problem Reflux esophagitis 530.11 Active Problem Diabetic neuropathy E11.40 Active Problem Other and unspecified hyperlipidemia 272.4 Active Medications Medication Code System Code Instructions Start Date End Date Status Dosage Glimepiride [facility] [address]-37 2 MG Orally Once a day 1 tablet with breakfast or the first main meal of the day Results No Known Results Summary Purpose [employer] Submission
--- OUTSIDE RECORDS SUMMARY | 2017-01-31 08:23 | XMS REPORT ---
Author Author [facility] Medical Staff Organization [facility] Address [address] [place], [place] [id number] Phone [phone] Summary purpose CCDA Sent to [facility] Chief Complaint and Reason for Visit No [...] Code Type Description Date Performed Performing Physician 96242 CPT-4 OFFICE/OUTPATIENT VISIT, EST 06-24-2016 DARION ANN Functional status No functional or [...]
--- OUTSIDE RECORDS SUMMARY | 2017-01-31 08:23 | XMS REPORT ---
Author Author [facility] Medical Staff Organization [facility] Address [address] [place], [place] [address] Phone [phone] Summary purpose CCDA Sent to [facility] Chief Complaint and Reason for Visit No [...] Code Type Description Date Performed Performing Physician 74406 CPT-4 OFFICE/OUTPATIENT VISIT, EST 07-22-2016 DARION ANN Functional status No functional or [...]
--- OUTSIDE RECORDS SUMMARY | 2017-01-31 08:23 | XMS REPORT ---
Author Author Ra Phelps Organization [employer] Address Unknown Phone Unavailable Care Team Providers Care Program Manager Slp Name Role Phone Ra Phelps CP Unavailable Allergies No Known Allergies Problems Problem Type Condition Code Onset Dates Condition Status Problem Hyperlipidemia, unspecified E78.5 Active Assessment Abnormal results of liver function studies R94.5 Active Problem Type 2 diabetes mellitus without complications E11.9 Active Medications No Known Medications Results No Known Results Summary Purpose [employer] Submission
--- OUTSIDE RECORDS SUMMARY | 2017-01-31 08:25 | XMS REPORT ---
Author Author [facility] Medical Staff Organization [facility] Address [address] [place], [place] [address] Phone [phone] Summary purpose CCDA Sent to [facility] Chief Complaint and Reason for [...] are available for this visit. Vital signs Type Value Date Respirations 20 11-01-291178:24 Pulse 66 :24 O2 Saturation 96% :24 Systolic Blood Press 179mm/HG :24 Diastolic Blood Pres 102mm/HG 94-93-060578:24 Social history No Social History or smoking status observations were recorded for this visit. ( Unknown if ever smoked.) Treatment Plan No treatment plan text is available for this visit. Hospital discharge instructions No discharge instruction text is available for this visit.
--- OUTSIDE RECORDS SUMMARY | 2017-01-31 08:25 | XMS REPORT ---
Author Author MITCH CARVALHO Organization [employer] Address Unknown Phone Unavailable Care Team Providers Care Earth Boring Machine Operator Name Role Phone MITCH CARVALHO CP Unavailable Allergies No Known Allergies Problems Problem Type Condition Code Onset Dates Condition Status Problem Hypertension I10 Active Problem Anxiety F41.9 Active Problem Diabetes E11.9 Active Problem Depressive disorder, not elsewhere classified 311 Active Problem Coronary atherosclerosis of unspecified type of vessel, [place] or graft 414.00 Active Problem Diabetic neuropathy E11.40 Active Problem Reflux esophagitis 530.11 Active Medications No Known Medications Results No Known Results Summary Purpose [employer] Submission
--- OUTSIDE RECORDS SUMMARY | 2017-01-31 08:25 | XMS REPORT ---
Author Author MITCH CARVALHO Organization [employer] Address Unknown Phone Unavailable Care Team Providers Care Historical Archeologist Name Role Phone MITCH CARVALHO CP Unavailable Allergies No Known Allergies Problems Problem Type Condition Code Onset Dates Condition Status Problem Hypertension I10 Active Problem Anxiety F41.9 Active Problem Diabetes E11.9 Active Problem Depressive disorder, not elsewhere classified 311 Active Problem Coronary atherosclerosis of unspecified type of vessel, [place] or graft 414.00 Active Problem Diabetic neuropathy E11.40 Active Problem Reflux esophagitis 530.11 Active Medications No Known Medications Results No Known Results Summary Purpose [employer] Submission
--- OUTSIDE RECORDS SUMMARY | 2017-01-31 08:25 | XMS REPORT ---
Author Author [facility] Medical Staff Organization [facility] Address [address] [place], [place] [address] Phone [phone] Summary purpose CCDA Sent to [facility] Chief Complaint and Reason for Visit [...] Code Type Description Date Performed Performing Physician 98806 CPT-4 OFFICE/OUTPATIENT VISIT, NEW 06-17-2016 DARION ANN Functional status No functional or [...]
--- OUTSIDE RECORDS SUMMARY | 2017-01-31 08:25 | XMS REPORT ---
Author Author Ra Phelps Organization [employer] Address Unknown Phone Unavailable Care Team Providers Care Fruit Sprayer Name Role Phone Ra Phelps CP Unavailable Allergies No Known Allergies Problems Problem Type Condition Code Onset Dates Condition Status Problem Hyperlipidemia, unspecified E78.5 Active Problem Type 2 diabetes mellitus without complications E11.9 Active Medications No Known Medications Results No Known Results Summary Purpose [employer] Submission
--- OUTSIDE RECORDS SUMMARY | 2017-01-31 08:25 | XMS REPORT ---
Author Author Ra Phelps Organization [employer] Address Unknown Phone Unavailable Care Team Providers Care Retail Support Manager Name Role Phone Ra Phelps CP Unavailable Allergies No Known Allergies Problems Problem Type Condition Code Onset Dates Condition Status Problem Hyperlipidemia, unspecified E78.5 Active Assessment Type 2 diabetes mellitus without complications E11.9 Active Problem Type 2 diabetes mellitus without complications E11.9 Active Medications No Known Medications Procedures Procedure Coding System Code Date VITAMIN B12 CPT-4 20346 Sep 04, 2015 COMPLETE CBC W/AUTO DIFF WBC CPT-4 98117 Sep 04, 2015 FOLATE- VIT B12 AND FOLATE CPT-4 20049 Sep 04, 2015 CREATINE KINASE (CPK) CPT-4 62854 Sep 04, 2015 COMPREHENSIVE METABOLIC PANEL CPT-4 23266 Sep 04, 2015 TSH CPT-4 69154 Sep 04, 2015 Results No Known Results Summary Purpose [employer] Submission
--- OUTSIDE RECORDS SUMMARY | 2017-01-31 08:25 | XMS REPORT | Continuity of Care Document ---
Author Author [facility] Address Unknown Phone Unavailable Allergies Active Description Code Type Severity Reaction Onset Reported/Identified Relationship to Patient Clinical Status Yes codeine Drug Allergy N/A N/A 11/12/2011 Yes Ultram Drug Allergy N/A N/A 11/12/2011 Yes codeine Drug Allergy 11/12/2011 Yes Ultram Drug Allergy 11/12/2011 Yes metformin 1000 mg tablet Drug Allergy N/A N/A 01/07/2012 Yes metformin 1000 mg tablet Drug Allergy 01/07/2012 Yes Estrogens Drug Allergy N/A N/A 03/02/2013 Yes codeine [id number] Drug Allergy Unknown RASH 04/19/2013 Yes Estrogens [id number] Drug Allergy Unknown BLISTERS ON BUT 12/17/2014 Yes metformin [id number] Drug Allergy Unknown BLISTERS ON BUT 12/17/2014 Medications Problems Date Dx Coded Attending Type Code Diagnosis Diagnosed By 11/12/2011 CAMILA COWAN MD 250.00 DIABETES MELLITUS WITHOUT MENTION OF COMPLICATION TYPE II OR UNSPECIFIED TYPE NOT STATED UNCONTROLLED 11/12/2011 CAMILA COWAN MD 311 DEPRESSIVE DISORDER NOT ELSEWHERE CLASSIFIED 11/12/2011 CAMILA COWAN MD 357.2 DIABETES MELLITUS DIABETIC PERIPHERAL NEUROPATHY 11/12/2011 CAMILA COWAN MD 401.9 UNSPECIFIED ESSENTIAL HYPERTENSION 11/12/2011 CAMILA COWAN MD 414.00 CORONARY ARTERY DISEASE 11/12/2011 CAMILA COWAN MD 530.11 REFLUX ESOPHAGITIS 11/12/2011 SARATH LEES DO 250.00 DIABETES MELLITUS WITHOUT MENTION OF COMPLICATION TYPE II OR UNSPECIFIED TYPE NOT STATED UNCONTROLLED 11/12/2011 SARATH LEES DO 311 DEPRESSIVE DISORDER NOT ELSEWHERE CLASSIFIED 11/12/2011 SARATH LEES DO 357.2 DIABETES MELLITUS DIABETIC PERIPHERAL NEUROPATHY 11/12/2011 SARATH LEES DO 401.9 UNSPECIFIED ESSENTIAL HYPERTENSION 11/12/2011 SARATH LEES DO 414.00 CORONARY ARTERY DISEASE 11/12/2011 SARATH LEES DO 530.11 REFLUX ESOPHAGITIS 11/12/2011 MITCH CARVALHO MD 250.00 DIABETES MELLITUS WITHOUT MENTION OF COMPLICATION TYPE II OR UNSPECIFIED TYPE NOT STATED UNCONTROLLED 11/12/2011 MITCH CARVALHO MD 311 DEPRESSIVE DISORDER NOT ELSEWHERE CLASSIFIED 11/12/2011 MITCH CARVALHO MD 357.2 DIABETES MELLITUS DIABETIC PERIPHERAL NEUROPATHY 11/12/2011 MITCH CARVALHO MD 401.9 UNSPECIFIED ESSENTIAL HYPERTENSION 11/12/2011 MITCH CARVALHO MD 414.00 CORONARY ARTERY DISEASE 11/12/2011 MITCH CARVALHO MD 530.11 REFLUX ESOPHAGITIS 11/12/2011 250.00 DIABETES MELLITUS WITHOUT MENTION OF COMPLICATION TYPE II OR UNSPECIFIED TYPE NOT STATED UNCONTROLLED 11/12/2011 311 DEPRESSIVE DISORDER NOT ELSEWHERE CLASSIFIED 11/12/2011 357.2 POLYNEUROPATHY IN DIABETES 11/12/2011 401.9 UNSPECIFIED ESSENTIAL HYPERTENSION 11/12/2011 414.00 CAD 11/12/2011 530.11 REFLUX ESOPHAGITIS 11/12/2011 MITCH CARVALHO MD 250.00 DIABETES MELLITUS WITHOUT MENTION OF COMPLICATION TYPE II OR UNSPECIFIED TYPE NOT STATED UNCONTROLLED 11/12/2011 MITCH CARVALHO MD 311 DEPRESSIVE DISORDER NOT ELSEWHERE CLASSIFIED 11/12/2011 MITCH CARVALHO MD 357.2 DIABETES MELLITUS DIABETIC PERIPHERAL NEUROPATHY 11/12/2011 MITCH CARVALHO MD 401.9 UNSPECIFIED ESSENTIAL HYPERTENSION 11/12/2011 MITCH CARVALHO MD 414.00 CORONARY ARTERY DISEASE 11/12/2011 MITCH CARVALHO MD 530.11 REFLUX ESOPHAGITIS 11/12/2011 MITCH CARVALHO MD 250.00 DIABETES MELLITUS WITHOUT MENTION OF COMPLICATION TYPE II OR UNSPECIFIED TYPE NOT STATED UNCONTROLLED 11/12/2011 MITCH CARVALHO MD 311 DEPRESSIVE DISORDER NOT ELSEWHERE CLASSIFIED 11/12/2011 MITCH CARVALHO MD 357.2 DIABETES MELLITUS DIABETIC PERIPHERAL NEUROPATHY 11/12/2011 MITCH CARVALHO MD 401.9 UNSPECIFIED ESSENTIAL HYPERTENSION 11/12/2011 MITCH CARVALHO MD 414.00 CORONARY ARTERY DISEASE 11/12/2011 MITCH CARVALHO MD 530.11 REFLUX ESOPHAGITIS 11/12/2011 MITCH CARVALHO MD 250.00 DIABETES MELLITUS WITHOUT MENTION OF COMPLICATION TYPE II OR UNSPECIFIED TYPE NOT STATED UNCONTROLLED 11/12/2011 MITCH CARVALHO MD 311 DEPRESSIVE DISORDER NOT ELSEWHERE CLASSIFIED 11/12/2011 MITCH CARVALHO MD 357.2 DIABETES MELLITUS DIABETIC PERIPHERAL NEUROPATHY 11/12/2011 MITCH CARVALHO MD 401.9 UNSPECIFIED ESSENTIAL HYPERTENSION 11/12/2011 MITCH CARVALHO MD 414.00 CORONARY ARTERY DISEASE 11/12/2011 MITCH CARVALHO MD 530.11 REFLUX ESOPHAGITIS 11/12/2011 MITCH CARVALHO MD 250.00 DIABETES MELLITUS WITHOUT MENTION OF COMPLICATION TYPE II OR UNSPECIFIED TYPE NOT STATED UNCONTROLLED 11/12/2011 MITCH CARVALHO MD 311 DEPRESSIVE DISORDER NOT ELSEWHERE CLASSIFIED 11/12/2011 MITCH CARVALHO MD 357.2 DIABETES MELLITUS DIABETIC PERIPHERAL NEUROPATHY 11/12/2011 MITCH CARVALHO MD 401.9 UNSPECIFIED ESSENTIAL HYPERTENSION 11/12/2011 MITCH CARVALHO MD 414.00 CORONARY ARTERY DISEASE 11/12/2011 MITCH CARVALHO MD 530.11 REFLUX ESOPHAGITIS 11/12/2011 MITCH CARVALHO MD 250.00 DIABETES MELLITUS WITHOUT MENTION OF COMPLICATION TYPE II OR UNSPECIFIED TYPE NOT STATED UNCONTROLLED 11/12/2011 MITCH CARVALHO MD 311 DEPRESSIVE DISORDER NOT ELSEWHERE CLASSIFIED 11/12/2011 MITCH CARVALHO MD 357.2 DIABETES MELLITUS DIABETIC PERIPHERAL NEUROPATHY 11/12/2011 MITCH CARVALHO MD 401.9 UNSPECIFIED ESSENTIAL HYPERTENSION 11/12/2011 MITCH CARVALHO MD 414.00 CORONARY ARTERY DISEASE 11/12/2011 MITCH CARVALHO MD 530.11 REFLUX ESOPHAGITIS 11/12/2011 MITCH CARVALHO MD 250.00 DIABETES MELLITUS WITHOUT MENTION OF COMPLICATION TYPE II OR UNSPECIFIED TYPE NOT STATED UNCONTROLLED 11/12/2011 MITCH CARVALHO MD 311 DEPRESSIVE DISORDER NOT ELSEWHERE CLASSIFIED 11/12/2011 MITCH CARVALHO MD 357.2 DIABETES MELLITUS DIABETIC PERIPHERAL NEUROPATHY 11/12/2011 MITCH CARVALHO MD 401.9 UNSPECIFIED ESSENTIAL HYPERTENSION 11/12/2011 MITCH CARVALHO MD 414.00 CORONARY ARTERY DISEASE 11/12/2011 MITCH CARVALHO MD 530.11 REFLUX ESOPHAGITIS 11/12/2011 MITCH CARVALHO MD 250.00 DIABETES MELLITUS WITHOUT MENTION OF COMPLICATION TYPE II OR UNSPECIFIED TYPE NOT STATED UNCONTROLLED 11/12/2011 MITCH CARVALHO MD 311 DEPRESSIVE DISORDER NOT ELSEWHERE CLASSIFIED 11/12/2011 MITCH CARVALHO MD 357.2 DIABETES MELLITUS DIABETIC PERIPHERAL NEUROPATHY 11/12/2011 MITCH CARVALHO MD 401.9 UNSPECIFIED ESSENTIAL HYPERTENSION 11/12/2011 MITCH CARVALHO MD 414.00 CORONARY ARTERY DISEASE 11/12/2011 MITCH CARVALHO MD 530.11 REFLUX ESOPHAGITIS 11/12/2011 MITCH CARVALHO MD 250.00 DIABETES MELLITUS WITHOUT MENTION OF COMPLICATION TYPE II OR UNSPECIFIED TYPE NOT STATED UNCONTROLLED 11/12/2011 MITCH CARVALHO MD 311 DEPRESSIVE DISORDER NOT ELSEWHERE CLASSIFIED 11/12/2011 MITCH CARVALHO MD 357.2 DIABETES MELLITUS DIABETIC PERIPHERAL NEUROPATHY 11/12/2011 MITCH CARVALHO MD 401.9 UNSPECIFIED ESSENTIAL HYPERTENSION 11/12/2011 MITCH CARVALHO MD 414.00 CORONARY ARTERY DISEASE 11/12/2011 MITCH CARVALHO MD 530.11 REFLUX ESOPHAGITIS 11/12/2011 MITCH CARVALHO MD 250.00 DIABETES MELLITUS WITHOUT MENTION OF COMPLICATION TYPE II OR UNSPECIFIED TYPE NOT STATED UNCONTROLLED 11/12/2011 MITCH CARVALHO MD 311 DEPRESSIVE DISORDER NOT ELSEWHERE CLASSIFIED 11/12/2011 MITCH CARVALHO MD 357.2 DIABETES MELLITUS DIABETIC PERIPHERAL NEUROPATHY 11/12/2011 MITCH CARVALHO MD 401.9 UNSPECIFIED ESSENTIAL HYPERTENSION 11/12/2011 MITCH CARVALHO MD 414.00 CORONARY ARTERY DISEASE 11/12/2011 MITCH CARVALHO MD 530.11 REFLUX ESOPHAGITIS 11/12/2011 MITCH CARVALHO MD 250.00 DIABETES MELLITUS WITHOUT MENTION OF COMPLICATION TYPE II OR UNSPECIFIED TYPE NOT STATED UNCONTROLLED 11/12/2011 MITCH CARVALHO MD 311 DEPRESSIVE DISORDER NOT ELSEWHERE CLASSIFIED 11/12/2011 MITCH CARVALHO MD 357.2 DIABETES MELLITUS DIABETIC PERIPHERAL NEUROPATHY 11/12/2011 MITCH CARVALHO MD 401.9 UNSPECIFIED ESSENTIAL HYPERTENSION 11/12/2011 MITCH CARVALHO MD 414.00 CORONARY ARTERY DISEASE 11/12/2011 MITCH CARVALHO MD 530.11 REFLUX ESOPHAGITIS 11/12/2011 MITCH CARVALHO MD 250.00 DIABETES MELLITUS WITHOUT MENTION OF COMPLICATION TYPE II OR UNSPECIFIED TYPE NOT STATED UNCONTROLLED 11/12/2011 MITCH CARVALHO MD 311 DEPRESSIVE DISORDER NOT ELSEWHERE CLASSIFIED 11/12/2011 MITCH CARVALHO MD 357.2 DIABETES MELLITUS DIABETIC PERIPHERAL NEUROPATHY 11/12/2011 MITCH CARVALHO MD 401.9 UNSPECIFIED ESSENTIAL HYPERTENSION 11/12/2011 MITCH CARVALHO MD 414.00 CORONARY ARTERY DISEASE 11/12/2011 MITCH CARVALHO MD 530.11 REFLUX ESOPHAGITIS 11/12/2011 MITCH CARVALHO MD 250.00 DIABETES MELLITUS WITHOUT MENTION OF COMPLICATION TYPE II OR UNSPECIFIED TYPE NOT STATED UNCONTROLLED 11/12/2011 MITCH CARVALHO MD 311 DEPRESSIVE DISORDER NOT ELSEWHERE CLASSIFIED 11/12/2011 MITCH CARVALHO MD 357.2 DIABETES MELLITUS DIABETIC PERIPHERAL NEUROPATHY 11/12/2011 MITCH CARVALHO MD 401.9 UNSPECIFIED ESSENTIAL HYPERTENSION 11/12/2011 MITCH CARVALHO MD 414.00 CORONARY ARTERY DISEASE 11/12/2011 MITCH CARVALHO MD 530.11 REFLUX ESOPHAGITIS 11/12/2011 MITCH CARVALHO MD 250.00 DIABETES MELLITUS WITHOUT MENTION OF COMPLICATION TYPE II OR UNSPECIFIED TYPE NOT STATED UNCONTROLLED 11/12/2011 MITCH CARVALHO MD 311 DEPRESSIVE DISORDER NOT ELSEWHERE CLASSIFIED 11/12/2011 MITCH CARVALHO MD 357.2 DIABETES MELLITUS DIABETIC PERIPHERAL NEUROPATHY 11/12/2011 MITCH CARVALHO MD 401.9 UNSPECIFIED ESSENTIAL HYPERTENSION 11/12/2011 MITCH CARVALHO MD 414.00 CORONARY ARTERY DISEASE 11/12/2011 MITCH CARVALHO MD 530.11 REFLUX ESOPHAGITIS 11/12/2011 MITCH CARVALHO MD 250.00 DIABETES MELLITUS WITHOUT MENTION OF COMPLICATION TYPE II OR UNSPECIFIED TYPE NOT STATED UNCONTROLLED 11/12/2011 MITCH CARVALHO MD 311 DEPRESSIVE DISORDER NOT ELSEWHERE CLASSIFIED 11/12/2011 MITCH CARVALHO MD 357.2 DIABETES MELLITUS DIABETIC PERIPHERAL NEUROPATHY 11/12/2011 MITCH CARVALHO MD 401.9 UNSPECIFIED ESSENTIAL HYPERTENSION 11/12/2011 MITCH CARVALHO MD 414.00 CORONARY ARTERY DISEASE 11/12/2011 MITCH CARVALHO MD 530.11 REFLUX ESOPHAGITIS 12/11/2011 CAMILA COWAN MD 782.3 EDEMA 12/11/2011 SARATH LEES DO 782.3 EDEMA 12/11/2011 MAIA JOSEPH, MITCH 782.3 EDEMA 12/11/2011 782.3 EDEMA 12/11/2011 MITCH CARVALHO MD 782.3 EDEMA 12/11/2011 MAIA JOSEPH, MITCH 782.3 EDEMA 12/11/2011 MITCH CARVALHO MD 782.3 EDEMA 12/11/2011 MAIA JOSEPH, MITCH 782.3 EDEMA 12/11/2011 MITCH CARVALHO MD 782.3 EDEMA 12/11/2011 MITCH CARVALHO MD 782.3 EDEMA 12/11/2011 MAIA JOSEPH, MITCH 782.3 EDEMA 12/11/2011 MAIA JOSEPH, MITCH 782.3 EDEMA 12/11/2011 MAIA JOSEPH, MITCH 782.3 EDEMA 12/11/2011 MAIA JOSEPH, MITCH 782.3 EDEMA 12/11/2011 MAIA JOSEPH, MITCH 782.3 EDEMA 12/11/2011 MAIA JOSEPH, MITCH 782.3 EDEMA 12/11/2011 MAIA JOSEPH, MITCH 782.3 EDEMA 12/11/2011 MAIA JOSEPH, MITCH 782.3 EDEMA 12/23/2011 CHAPO JOSEPH, CAMILA 428.0 CONGESTIVE HEART FAILURE UNSPECIFIED 12/23/2011 CHAPO JOSEPH, CAMILA 786.50 CHEST PAIN 12/23/2011 LEES SARATH BYRNE 428.0 CONGESTIVE HEART FAILURE UNSPECIFIED 12/23/2011 LEES SARATH BYRNE 786.50 CHEST PAIN 12/23/2011 MAIA JOSEPH, MITCH 428.0 CONGESTIVE HEART FAILURE UNSPECIFIED 12/23/2011 MAIA JOSEPH, MITCH 786.50 CHEST PAIN 12/23/2011 428.0 CONGESTIVE HEART FAILURE UNSPECIFIED 12/23/2011 786.50 CHEST PAIN 12/23/2011 MAIA JOSEPH, MITCH 428.0 CONGESTIVE HEART FAILURE UNSPECIFIED 12/23/2011 MAIA JOSEPH, MITCH 786.50 CHEST PAIN 12/23/2011 MAIA JOSEPH, MITCH 428.0 CONGESTIVE HEART FAILURE UNSPECIFIED 12/23/2011 MAIA JOSEPH, MITCH 786.50 CHEST PAIN 12/23/2011 MAIA JOSEPH, MITCH 428.0 CONGESTIVE HEART FAILURE UNSPECIFIED 12/23/2011 MAIA JOSEPH, MITCH 786.50 CHEST PAIN 12/23/2011 MAIA JOSEPH, MITCH 428.0 CONGESTIVE HEART FAILURE UNSPECIFIED 12/23/2011 MAIA JOSEPH, MITCH 786.50 CHEST PAIN 12/23/2011 MAIA JOSEPH, MITCH 428.0 CONGESTIVE HEART FAILURE UNSPECIFIED 12/23/2011 MAIA JOSEPH, MITCH 786.50 CHEST PAIN 12/23/2011 MAIA JOSEPH, MITCH 428.0 CONGESTIVE HEART FAILURE UNSPECIFIED 12/23/2011 MAIA JOSEPH, MITCH 786.50 CHEST PAIN 12/23/2011 MAIA JOSEPH, MTICH 428.0 CONGESTIVE HEART FAILURE UNSPECIFIED 12/23/2011 MAIA JOSEPH, MITCH 786.50 CHEST PAIN 12/23/2011 MAIA JOSEPH, MITCH 428.0 CONGESTIVE HEART FAILURE UNSPECIFIED 12/23/2011 MAIA JOSEPH, MITCH 786.50 CHEST PAIN 12/23/2011 MAIA JOSEPH, MITCH 428.0 CONGESTIVE HEART FAILURE UNSPECIFIED 12/23/2011 MAIA JOSEPH, MITCH 786.50 CHEST PAIN 12/23/2011 MAIA JOSEPH, MITCH 428.0 CONGESTIVE HEART FAILURE UNSPECIFIED 12/23/2011 MAIA JOSEPH, MITCH 786.50 CHEST PAIN 12/23/2011 MAIA JOSEPH, MITCH 428.0 CONGESTIVE HEART FAILURE UNSPECIFIED 12/23/2011 MAIA JOSEPH, MITCH 786.50 CHEST PAIN 12/23/2011 MAIA JOSEPH, MITCH 428.0 CONGESTIVE HEART FAILURE UNSPECIFIED 12/23/2011 MAIA JOSEPH, MITCH 786.50 CHEST PAIN 12/23/2011 MAIA JOSEPH, MITCH 428.0 CONGESTIVE HEART FAILURE UNSPECIFIED 12/23/2011 MAIA JOSEPH, MITCH 786.50 CHEST PAIN 12/23/2011 MAIA JOSEPH, MITCH 428.0 CONGESTIVE HEART FAILURE UNSPECIFIED 12/23/2011 MAIA JOSEPH, MITCH 786.50 CHEST PAIN 01/05/2012 Ot 250.00 DIAB ALISON WO COMPL, TYPE II OR UNSPEC TY 01/05/2012 Ot 401.9 HYPERTENSION NOS 01/05/2012 Ot 414.01 CORONARY ATHEROSCLEROSIS OF MARY'S [place]GL[place] CORON 01/05/2012 Ot 428.0 CONGESTIVE HEART FAILURE NOS 01/05/2012 Ot 786.59 CHEST PAIN NEC 01/05/2012 Ot V12.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, CEREBRAL INFARCTION 01/05/2012 Ot V17.49 FAMILY HISTORY OF OTHER CARDIOVASCULAR D 01/05/2012 Ot V58.67 LONG-TERM (CURRENT) USE OF INSULIN 01/05/2012 Ot V58.69 OTH MED,LT,CURRENT USE 04/19/2012 CAMILA COWAN MD 250.03 DIABETES MELLITUS TYPE 1 - UNCONTROLLED 04/19/2012 CAMILA COWAN MD 816.00 CLOSED FRACTURE OF PHALANX OR PHALANGES OF HAND UNSPECIFIED 04/19/2012 SARATH LEES DO 250.03 DIABETES MELLITUS TYPE 1 - UNCONTROLLED 04/19/2012 SARATH LEES DO 816.00 CLOSED FRACTURE OF PHALANX OR PHALANGES OF HAND UNSPECIFIED 04/19/2012 MITCH CARVALHO MD 250.03 DIABETES MELLITUS TYPE 1 - UNCONTROLLED 04/19/2012 MAIA JOSEPH, MITCH 816.00 CLOSED FRACTURE OF PHALANX OR PHALANGES OF HAND UNSPECIFIED 04/19/2012 250.03 DIABETES MELLITUS WITHOUT MENTION OF COMPLICATION TYPE I [ JUVENILE TYPE] UNCONTROLLED 04/19/2012 816.00 CLOSED FRACTURE OF PHALANX OR PHALANGES OF HAND UNSPECIFIED 04/19/2012 MAIA JOSEPH, MITCH 250.03 DIABETES MELLITUS TYPE 1 - UNCONTROLLED 04/19/2012 MAIA JOSEPH, MITCH 816.00 CLOSED FRACTURE OF PHALANX OR PHALANGES OF HAND UNSPECIFIED 04/19/2012 MAIA JOSEPH, MITCH 250.03 DIABETES MELLITUS TYPE 1 - UNCONTROLLED 04/19/2012 MAIA JOSEPH, MITCH 816.00 CLOSED FRACTURE OF PHALANX OR PHALANGES OF HAND UNSPECIFIED 04/19/2012 MAIA JOSEPH, MITCH 250.03 DIABETES MELLITUS TYPE 1 - UNCONTROLLED 04/19/2012 MAIA JOSEPH, MITCH 816.00 CLOSED FRACTURE OF PHALANX OR PHALANGES OF HAND UNSPECIFIED 04/19/2012 MAIA JOSEPH, MITCH 250.03 DIABETES MELLITUS TYPE 1 - UNCONTROLLED 04/19/2012 MAIA JOSEPH, MITCH 816.00 CLOSED FRACTURE OF PHALANX OR PHALANGES OF HAND UNSPECIFIED 04/19/2012 MAIA JOSEPH, MITCH 250.03 DIABETES MELLITUS TYPE 1 - UNCONTROLLED 04/19/2012 MAIA JOSEPH, MITCH 816.00 CLOSED FRACTURE OF PHALANX OR PHALANGES OF HAND UNSPECIFIED 04/19/2012 MAIA JOSEPH, MITCH 250.03 DIABETES MELLITUS TYPE 1 - UNCONTROLLED 04/19/2012 MAIA JOSEPH, MITCH 816.00 CLOSED FRACTURE OF PHALANX OR PHALANGES OF HAND UNSPECIFIED 04/19/2012 MAIA JOSEPH, MITCH 250.03 DIABETES MELLITUS TYPE 1 - UNCONTROLLED 04/19/2012 MAIA JOSEPH, MITCH 816.00 CLOSED FRACTURE OF PHALANX OR PHALANGES OF HAND UNSPECIFIED 04/19/2012 MAIA JOSEPH, MITCH 250.03 DIABETES MELLITUS TYPE 1 - UNCONTROLLED 04/19/2012 MAIA JOSEPH, MITCH 816.00 CLOSED FRACTURE OF PHALANX OR PHALANGES OF HAND UNSPECIFIED 04/19/2012 MAIA JOSEPH, MITCH 250.03 DIABETES MELLITUS TYPE 1 - UNCONTROLLED 04/19/2012 MAIA JOSEPH, MITCH 816.00 CLOSED FRACTURE OF PHALANX OR PHALANGES OF HAND UNSPECIFIED 04/19/2012 MITCH CARVALHO MD 250.03 DIABETES MELLITUS TYPE 1 - UNCONTROLLED 04/19/2012 MITCH CARVALHO MD 816.00 CLOSED FRACTURE OF PHALANX OR PHALANGES OF HAND UNSPECIFIED 04/19/2012 MITCH CARVALHO MD 250.03 DIABETES MELLITUS TYPE 1 - UNCONTROLLED 04/19/2012 MAIA JOSEPH, MITCH 816.00 CLOSED FRACTURE OF PHALANX OR PHALANGES OF HAND UNSPECIFIED 04/19/2012 MITCH CARVALHO MD 250.03 DIABETES MELLITUS TYPE 1 - UNCONTROLLED 04/19/2012 MAIA JOSEPH, MITCH 816.00 CLOSED FRACTURE OF PHALANX OR PHALANGES OF HAND UNSPECIFIED 04/19/2012 MITCH CARVALHO MD 250.03 DIABETES MELLITUS TYPE 1 - UNCONTROLLED 04/19/2012 MAIA JOSEPH, MITCH 816.00 CLOSED FRACTURE OF PHALANX OR PHALANGES OF HAND UNSPECIFIED 04/19/2012 MITCH CARVALHO MD 250.03 DIABETES MELLITUS TYPE 1 - UNCONTROLLED 04/19/2012 MITCH CARVALHO MD 816.00 CLOSED FRACTURE OF PHALANX OR PHALANGES OF HAND UNSPECIFIED 03/10/2013 HILARIO ÁLVAREZ MD Ot 250.00 DIAB ALISON WO COMPL, TYPE II OR UNSPEC TY 03/10/2013 HILARIO ÁLVAREZ MD Ot 401.9 HYPERTENSION NOS 03/10/2013 HILARIO ÁLVAREZ MD Ot 414.01 CORONARY ATHEROSCLEROSIS OF [place]GL[place] CORON 03/10/2013 HILARIO ÁLVAREZ MD Ot 786.50 CHEST PAIN NOS 03/10/2013 HILARIO ÁLVAREZ MD Ot V12.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, CEREBRAL INFARCTION 03/10/2013 HILARIO ÁLVAREZ MD Ot V45.82 PERCUTANEOUS TRANSLUM CORON ANGIOPLASTY 03/10/2013 HILARIO ÁLVAREZ MD Ot V58.63 LONG-TERM(CURRENT)USE OF ANTIPLATELET/AN 03/10/2013 HILARIO ÁLVAREZ MD, Ot V58.66 LONG-TERM (CURRENT) USE OF ASPIRIN 03/10/2013 HILARIO ÁLVAREZ MD, Ot V58.67 LONG-TERM (CURRENT) USE OF INSULIN 03/10/2013 HILARIO ÁLVAREZ MD, Ot V58.69 OTH MED,LT,CURRENT USE 04/20/2013 CHAPO JOSEPH, CAMILA 724.3 SCIATICA 04/20/2013 SARATH LEES DO 724.3 SCIATICA 04/20/2013 MAIA JOSEPH, MITCH 724.3 SCIATICA 04/20/2013 MAIA JOSEPH, MITCH 724.3 SCIATICA 04/20/2013 MAIA JOSEPH, MITCH 724.3 SCIATICA 04/20/2013 MAIA JOSEPH, MITCH 724.3 SCIATICA 04/20/2013 MAIA JOSEPH, MITCH 724.3 SCIATICA 04/20/2013 MAIA JOSEPH, MITCH 724.3 SCIATICA 04/20/2013 MAIA JOSEPH, MITCH 724.3 SCIATICA 04/20/2013 MAIA JOSEPH, MITCH 724.3 SCIATICA 04/20/2013 MAIA JOSEPH, MITCH 724.3 SCIATICA 04/20/2013 MAIA JOSEPH, MITCH 724.3 SCIATICA 04/20/2013 MAIA JOSEPH, MITCH 724.3 SCIATICA 04/20/2013 MAIA JOSEPH, MITCH 724.3 SCIATICA 04/20/2013 MAIA JOSEPH, MITCH 724.3 SCIATICA 04/20/2013 MAIA JOSEPH, MITCH 724.3 SCIATICA 04/20/2013 MAIA JOSEPH, MITCH 724.3 SCIATICA 04/20/2013 CHAPO JOSEPH, CAMILA Deutsch Ot 244.9 HYPOTHYROIDISM NOS 04/20/2013 CHAPO JOSEPH, CAMILA Deutsch Ot 250.02 DIAB ALISON WO COMPL, TYPE II OR UNSPEC TY 04/20/2013 CHAPO JOSEPH, CAMILA Deutsch Ot 278.01 MORBID OBESITY 04/20/2013 CHAPO JOSEPH, CAMILA Deutsch Ot 355.9 MONONEURITIS NOS 04/20/2013 CHAPO JOSEPH, CAMILA Deutsch Ot 414.01 CORONARY ATHEROSCLEROSIS OF [place] CORON 04/20/2013 CAMILA COWAN MD L Ot 724.3 SCIATICA 04/20/2013 CHAPO JOSEPH, CAMILA Deutsch Ot V85.41 BODY MASS INDEX 40.0-44.9, ADULT 05/03/2013 CAMILA COWAN MD 356.9 NEUROPATHY 05/03/2013 YOANA BYRNE SARATH K 356.9 NEUROPATHY 05/03/2013 MITCH CARVALHO MD 356.9 NEUROPATHY 05/03/2013 MAIA JOSEPH, MITCH 356.9 NEUROPATHY 05/03/2013 MITCH CARVALHO MD 356.9 NEUROPATHY 05/03/2013 MITCH CARVALHO MD 356.9 NEUROPATHY 05/03/2013 MAIA JOSEPH, MITCH 356.9 NEUROPATHY 05/03/2013 MAIA JOSEPH, MITCH 356.9 NEUROPATHY 05/03/2013 MAIA JOSEPH, MITCH 356.9 NEUROPATHY 05/03/2013 MAIA JOSEPH, MITCH 356.9 NEUROPATHY 05/03/2013 MAIA JOSEPH, MITCH 356.9 NEUROPATHY 05/03/2013 MAIA JOSEPH, MITCH 356.9 NEUROPATHY 05/03/2013 MAIA JOSEPH, MITCH 356.9 NEUROPATHY 05/03/2013 MAIA JOSEPH, MITCH 356.9 NEUROPATHY 05/03/2013 MAIA JOSEPH, MITCH 356.9 NEUROPATHY 05/03/2013 MAIA JOSEPH, MITCH 356.9 NEUROPATHY 05/03/2013 MAIA JOSEPH, MITCH 356.9 NEUROPATHY 07/07/2013 JUSTIN DO, RUBIA K Ot 780.96 GENERALIZED PAIN 07/07/2013 JUSTIN DO, RUBIA K Ot 787.02 NAUSEA ALONE 08/09/2013 LEES DO, SARAHT K 272.4 HYPERLIPIDEMIA 08/09/2013 LEES DO, SARATH K 401.0 HYPERTENSION MALIGNANT ESSENTIAL 08/09/2013 MITCH CARVALHO MD 272.4 HYPERLIPIDEMIA 08/09/2013 MAIA JOSEPH, MITCH 401.0 HYPERTENSION MALIGNANT ESSENTIAL 08/09/2013 MITCH CARVALHO MD 272.4 HYPERLIPIDEMIA 08/09/2013 MAIA JOSEPH, MITCH 401.0 HYPERTENSION MALIGNANT ESSENTIAL 08/09/2013 MAIA JOSEPH, MITCH 272.4 HYPERLIPIDEMIA 08/09/2013 MAIA JOSEPH, MITCH 401.0 HYPERTENSION MALIGNANT ESSENTIAL 08/09/2013 MITCH CARVALHO MD 272.4 HYPERLIPIDEMIA 08/09/2013 MITCH CARVALHO MD 401.0 HYPERTENSION MALIGNANT ESSENTIAL 08/09/2013 MITCH CARVALHO MD 272.4 HYPERLIPIDEMIA 08/09/2013 MAIA JOSEPH, MITCH 401.0 HYPERTENSION MALIGNANT ESSENTIAL 08/09/2013 MAIA JOSEPH, MITCH 272.4 HYPERLIPIDEMIA 08/09/2013 MAIA JOSEPH, MITCH 401.0 HYPERTENSION MALIGNANT ESSENTIAL 08/09/2013 MAIA JOSEPH, MITCH 272.4 HYPERLIPIDEMIA 08/09/2013 MITCH CARVALHO MD 401.0 HYPERTENSION MALIGNANT ESSENTIAL 08/09/2013 MAIA JOSEPH, MITCH 272.4 HYPERLIPIDEMIA 08/09/2013 MAIA JOSEPH, MITCH 401.0 HYPERTENSION MALIGNANT ESSENTIAL 08/09/2013 MITCH CARVALHO MD 272.4 HYPERLIPIDEMIA 08/09/2013 MAIA JOSEPH, MITCH 401.0 HYPERTENSION MALIGNANT ESSENTIAL 08/09/2013 MAIA JOSEPH, MITCH 272.4 HYPERLIPIDEMIA 08/09/2013 MAIA JOSEPH, MITCH 401.0 HYPERTENSION MALIGNANT ESSENTIAL 08/09/2013 MAIA JOSEPH, MITCH 272.4 HYPERLIPIDEMIA 08/09/2013 MAIA JOSEPH, MITCH 401.0 HYPERTENSION MALIGNANT ESSENTIAL 08/09/2013 MAIA JOSEPH, MITCH 272.4 HYPERLIPIDEMIA 08/09/2013 MAIA JOSEPH, MITCH 401.0 HYPERTENSION MALIGNANT ESSENTIAL 08/09/2013 MAIA JOSEPH, MITCH 272.4 HYPERLIPIDEMIA 08/09/2013 MAIA JOSEPH, MITCH 401.0 HYPERTENSION MALIGNANT ESSENTIAL 08/09/2013 MAIA JOSEPH, MITCH 272.4 HYPERLIPIDEMIA 08/09/2013 MAIA JOSEPH, MITCH 401.0 HYPERTENSION MALIGNANT ESSENTIAL 08/09/2013 MAIA JOSEPH, MITCH 272.4 HYPERLIPIDEMIA 08/09/2013 MAIA JOSEPH, MITCH 401.0 HYPERTENSION MALIGNANT ESSENTIAL 12/28/2013 MAIA JOSEPH, MITCH 436 ACUTE BUT ILL-DEFINED CEREBROVASCULAR DISEASE 12/28/2013 MAIA JOSEPH, MITCH 436 ACUTE BUT ILL-DEFINED CEREBROVASCULAR DISEASE 12/28/2013 MAIA JOSEPH, MITCH 436 ACUTE BUT ILL-DEFINED CEREBROVASCULAR DISEASE 12/28/2013 MAIA JOSEPH, MITCH 436 ACUTE BUT ILL-DEFINED CEREBROVASCULAR DISEASE 12/28/2013 MAIA JOSEPH, MITCH 436 ACUTE BUT ILL-DEFINED CEREBROVASCULAR DISEASE 12/28/2013 MAIA JOSEPH, MITCH 436 ACUTE BUT ILL-DEFINED CEREBROVASCULAR DISEASE 12/28/2013 MAIA JOSEPH, MITCH 436 ACUTE BUT ILL-DEFINED CEREBROVASCULAR DISEASE 12/28/2013 MAIA JOSEPH, MITCH 436 ACUTE BUT ILL-DEFINED CEREBROVASCULAR DISEASE 12/28/2013 MAIA JOSEPH, MITCH 436 ACUTE BUT ILL-DEFINED CEREBROVASCULAR DISEASE 12/28/2013 MAIA JOSEPH, MITCH 436 ACUTE BUT ILL-DEFINED CEREBROVASCULAR DISEASE 12/28/2013 MAIA JOSEPH, MITCH 436 ACUTE BUT ILL-DEFINED CEREBROVASCULAR DISEASE 12/28/2013 MAIA JOSEPH, MITCH 436 ACUTE BUT ILL-DEFINED CEREBROVASCULAR DISEASE 12/28/2013 MAIA JOSEPH, MITCH [place]lower ACUTE BUT ILL-DEFINED CEREBROVASCULAR DISEASE 12/31/2013 MITCH CARVALHO MD Ot 244.9 HYPOTHYROIDISM NOS 12/31/2013 MAIA JOSEPH, MITCH [place] Ot 250.00 DIAB ALISON WO COMPL, TYPE II OR UNSPEC TY 12/31/2013 MITCH CARVALHO MD Ot 272.4 HYPERLIPIDEMIA NEC/NOS 12/31/2013 MITCH CARVALHO MD Ot 401.9 HYPERTENSION NOS 12/31/2013 MITCH CARVALHO MD Ot 414.01 CORONARY ATHEROSCLEROSIS OF [place] CORON 12/31/2013 MITCH CARVALHO MD Ot 715.90 OSTEOARTHROS NOS-UNSPEC 12/31/2013 MITCH CARVALHO MD Ot 729.5 PAIN IN LIMB 12/31/2013 MITCH CARVALHO MD Ot 786.50 CHEST PAIN NOS 12/31/2013 MITCH CARVALHO MD Ot 787.01 NAUSEA WITH VOMITING 12/31/2013 MITCH CARVALHO MD Ot 790.6 ABN BLOOD CHEMISTRY NEC 12/31/2013 MITCH CARVALHO MD Ot V12.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, CEREBRAL INFARCTION 12/31/2013 MITCH CARVALHO MD Ot V45.82 PERCUTANEOUS TRANSLUM CORON ANGIOPLASTY 12/31/2013 MITCH CARVALHO MD Ot V58.67 LONG-TERM (CURRENT) USE OF INSULIN 01/19/2014 MITCH CARVALHO MD 250.02 DIABETES MELLITUS WITHOUT MENTION OF COMPLICATION TYPE II OR UNSPECIFIED TYPE UNCONTROLLED 01/19/2014 MITCH CARVALHO MD 250.02 DIABETES MELLITUS WITHOUT MENTION OF COMPLICATION TYPE II OR UNSPECIFIED TYPE UNCONTROLLED 01/19/2014 MITCH CARVALHO MD 250.02 DIABETES MELLITUS WITHOUT MENTION OF COMPLICATION TYPE II OR UNSPECIFIED TYPE UNCONTROLLED 01/19/2014 MITCH CARVALHO MD 250.02 DIABETES MELLITUS WITHOUT MENTION OF COMPLICATION TYPE II OR UNSPECIFIED TYPE UNCONTROLLED 01/19/2014 MITCH CARVALHO MD 250.02 DIABETES MELLITUS WITHOUT MENTION OF COMPLICATION TYPE II OR UNSPECIFIED TYPE UNCONTROLLED 01/19/2014 MITCH CARVALHO MD 250.02 DIABETES MELLITUS WITHOUT MENTION OF COMPLICATION TYPE II OR UNSPECIFIED TYPE UNCONTROLLED 01/19/2014 MITCH CARVALHO MD 250.02 DIABETES MELLITUS WITHOUT MENTION OF COMPLICATION TYPE II OR UNSPECIFIED TYPE UNCONTROLLED 01/19/2014 MITCH CARVALHO MD 250.02 DIABETES MELLITUS WITHOUT MENTION OF COMPLICATION TYPE II OR UNSPECIFIED TYPE UNCONTROLLED 01/19/2014 MITCH CARVALHO MD 250.02 DIABETES MELLITUS WITHOUT MENTION OF COMPLICATION TYPE II OR UNSPECIFIED TYPE UNCONTROLLED 01/19/2014 MITCH CARVALHO MD 250.02 DIABETES MELLITUS WITHOUT MENTION OF COMPLICATION TYPE II OR UNSPECIFIED TYPE UNCONTROLLED 01/19/2014 MITCH CARVALHO MD 250.02 DIABETES MELLITUS WITHOUT MENTION OF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
--- OUTSIDE RECORDS SUMMARY | 2017-01-31 08:26 | XMS REPORT ---
Author Author BLAS SHIRLEY Organization [employer] Address Unknown Phone Unavailable Care Team Providers Care Back End Web Developer Name Role Phone BLAS SHIRLEY CP Unavailable Allergies, Adverse Reactions, Alerts Substance Reaction Event Type Metformin HCl blisters Drug Allergy Estrogens, Conjugated Info Not Available Drug Allergy Problems Problem Type Condition Code Onset Dates Condition Status Assessment Pain of left knee after injury M25.562 Active Assessment Injury of left hand S69.92XA Active Problem Hypertension I10 Active Problem Anxiety F41.9 Active Problem Diabetes E11.9 Active Problem Depressive disorder, not elsewhere classified 311 Active Problem Coronary atherosclerosis of unspecified type of vessel, [place] or graft 414.00 Active Problem Diabetic neuropathy E11.40 Active Problem Reflux esophagitis 530.11 Active Medications Medication Code System Code Instructions Start Date End Date Status Dosage Ativan [facility] [address]-11 0.5 MG Oct 15, 2014 1 tablet by Oral route 2 times per day PRN anxiety Furosemide [facility] 05703636071 40 MG TAKE 1 TABLET BY ORAL ROUTE 1 TIME PER DAY levothyroxine [facility] 0 50 mcg Jul 03, 2014 take 1 tablet (50 mcg) by oral route once daily Tradjenta [facility] [address]-91 5 MG Orally Once a day 1 tablet Glimepiride [facility] [address]-61 2 MG Orally Once a day 1 tablet with breakfast or the first main meal of the day Gabapentin [facility] [address]-23 300 MG Orally Three times a day Sep 16, 2015 3 capsule Nitroglycerin [facility] [address]-08 0.4 mg January 19, 2014 place 1 tablet by Sublingual route every 5 min PRN chest pain; NTE 3 tabs within a 15 minutes Aspirin [facility] [address]-02 81 MG Orally Once a day 1 tablet NovoLog [facility] [address]-17 100 UNIT/ML Subcutaneous 3 times a day 40 units Metoprolol Tartrate [facility] [address]-68 100 MG Orally Twice a day 1 tablet Plavix NDC [address]-92 75 MG Orally Once a day 1 tablet Meloxicam [facility] 84160957877 15 MG TAKE ONE TABLET BY MOUTH EACH DAY Blood Glucose Test Strip [facility] 0 Blood Glucose 4 times a day Sep 16, 2015 as directed Metoclopramide HCl [facility] [address]-46 5 MG Orally not defined atorvastatin ND 0 80 mg January 19, 2014 take 1 tablet (80 mg) by oral route once daily Avoid grapefruit juice Glucometer ND 0 1 Sep 16, 2015 as directed Lisinopril [facility] [address]-31 20 mg Oct 30, 2014 take 1 tablet by Oral route 1 time per day As directed Lantus [facility] [address]-41 100 UNIT/ML Once a day January 21, 2015 inject 75-85 Units by Subcutaneous route 2 times per day (75 units in AM & 85 units at hs) Procedures Procedure Coding System Code Date X-RAY EXAM OF HAND CPT-4 63505 Dec 10, 2015 Office Visit, Est Pt., Level 3 CPT-4 50222 Dec 10, 2015 X-RAY EXAM OF KNEE, 3 CPT-4 40306 Dec 10, 2015 Vital Signs Date/Time: Dec 10, 2015 Temperature 98.0 F Weight 241.7 lbs Height 62 in BMI 44.20 Index Blood Pressure Diastolic 88 mmHg Blood Pressure Systolic 158 mmHg Cardiac Monitoring Heart Rate 70 bpm Results No Known Results Summary Purpose [employer] Submission
--- OUTSIDE RECORDS SUMMARY | 2017-01-31 08:27 | XMS REPORT ---
Author Author MITCH CARVALHO Organization [employer] Address Unknown Phone Unavailable Care Team Providers Care Signaler Name Role Phone MITCH CARVALHO CP Unavailable Allergies No Known Allergies Problems Problem Type Condition Code Onset Dates Condition Status Problem Venous insufficiency I87.2 Active Problem Stroke I63.9 Active Problem Arthritis M19.90 Active Problem Anxiety F41.9 Active Problem Diabetic neuropathy E11.40 Active Problem Diabetes E11.9 Active Problem Hypertension I10 Active Medications No Known Medications Results No Known Results Summary Purpose [employer] Submission
--- OUTSIDE RECORDS SUMMARY | 2017-01-31 08:27 | XMS REPORT ---
Author Author [facility] Medical Staff Organization [facility] Address [address], [place] [address] Phone [phone] Summary purpose CCDA Sent to [facility] Chief Complaint and Reason for Visit No [...] Code Type Description Date Performed Performing Physician 06981 CPT-4 OFFICE/OUTPATIENT VISIT, EST 08-31-2016 DARION ANN J0696 CPT-4 CEFTRIAXONE SODIUM INJECTION 08-31-2016 DARION ANN Functional status No functional or [...]
--- OUTSIDE RECORDS SUMMARY | 2017-01-31 08:27 | XMS REPORT ---
Author Author GAYLE BOOGIE [facility] [employer] Address Unknown Phone Unavailable Care Team Providers Care Autobody Technician Name Role Phone GAYLE BOOGIE CP Unavailable Allergies No Known Allergies Problems Problem Type Condition Code Onset Dates Condition Status Problem Pain in joint, ankle and foot 719.47 Active Problem Depressive disorder, not elsewhere classified 311 Active Problem Coronary atherosclerosis of unspecified type of vessel, [place] or graft 414.00 Active Assessment Persistent mood [affective] disorder, unspecified F34.9 Active Problem Hypertension I10 Active Problem Anxiety F41.9 Active Problem Diabetes E11.9 Active Problem Edema 782.3 Active Problem Reflux esophagitis 530.11 Active Problem Diabetic neuropathy E11.40 Active Problem Other and unspecified hyperlipidemia 272.4 Active Medications No Known Medications Procedures Procedure Coding System Code Date Psych diagnostic evaluation, new patient CPT-4 33149 Sep 16, 2015 Results No Known Results Summary Purpose [employer] Submission
--- OUTSIDE RECORDS SUMMARY | 2017-01-31 08:27 | XMS REPORT ---
Author Author MITCH CARVALHO Organization [employer] Address Unknown Phone Unavailable Care Team Providers Care Marketing Database Consultant Name Role Phone MITCH CARVALHO CP Unavailable [...]
--- OUTSIDE RECORDS SUMMARY | 2017-01-31 08:27 | XMS REPORT ---
Author Author [facility] Medical Staff Organization [facility] Address [address], [place] [address] Phone [phone] Summary purpose CCDA Sent to [facility] Chief Complaint and Reason for Visit [...] visit Relevant diagnostic tests and/or laboratory data RESULTS Complete Blood Count 06-13-759638:34:00 Result Normal Range Units White Blood Count 9.72 4.8-10.8 x 103/uL Red Blood Cells L 4.29 4.7-6.1 x 106/uL Hemoglobin L 13.2 14.0-18.0 g/dl Hematocrit L 37.9 42.0-52.0 % Mean Darrell Volume 88.3 80-100 FL Mean Darrell Hemoglobin 30.8 27-31 pg Mean Darrell Hemoglobin Conc 34.8 32-36 g/dl Red Cell Distribution Width 12.9 11.5-14.5 % Platelet Count 280 150-350 x 103/uL Mean Platelet Volume H 11.3 7.4-10.4 FL Neutrophil % 59.2 50-70 % Neutrophil # 5.75 1.4-6.5 x 103/uL Lymphocyte % 29.7 20.0-44.0 % Lymphocyte # 2.89 1.2-3.4 x 103/uL Monocyte % 8.0 2.0-9.0 % Monocyte # H 0.78 0.1-0.6 x 103/uL Eosinophil % 2.5 0.0-6.0 % Eosinophil # 0.24 0.0-0.4 x 103/uL Basophil % 0.6 0.0-1.0 % Basophil # 0.06 0.0-0.1 x 103/uL Urinalysis 25-32-196300:34:00 Result Normal Range Units Site Clean Catch Urine Appearance Clear Clear Urine Color Yellow Yellow;Lt Yellow Urine Bilirubin (Dipstick) Negative Negative Urine Blood (Dipstick) AB 1+ Negative Urine Glucose (Dipsitck) AB 2+ Negative Urine Ketones (Dipsitck) Negative Negative Urine Leukocyte (Dipstick) Negative Negative Urine Nitrite (Dipstick) Negative Negative Urine pH (Dipstick) 6.0 Urine Protein (Dipstick) AB 3+ Negative Urine Specific [place] (Dipsti 1.025 Urine Urobilinogen (Dipstick) 0.2 EU/dL Urine RBC 3-5 Urine WBC None Seen Urine Bacteria Few Urine Epi's 3-5 Chemistry Group 42-14-317476:34:00 Result Normal Range Units Urea Nitrogen (BUN) H 26 7-18 mg/dl Creatinine H 1.32 0.6-1.3 mg/dl Glucose HC 405 74-106 mg/dl CALLED TO [facility] Sodium L 135 136-145 mmol/L Potassium 4.4 3.5-5.1 mmol/L Chloride L 96 98-107 mmol/L CO2 29.1 21-32 mmol/L Calcium 9.4 8.5-10.1 mg/dl Albumin L 3.0 3.4-5.0 g/dl Alkaline Phosphatase H 195 46-116 U/L ALT 42 30-65 U/L AST 30 15-37 U/L Protein Total 7.4 6.4-8.2 g/dl Bilirubin Total 0.5 0.2-1.0 mg/dl Osmolality Calculation 292 Hemoglobin A1C H 10.9 4.8-6.0 % Amylase 34 25-115 U/L Lipase 333 73-393 U/L Cholesterol H 350 0-200 mg/dl Triglycerides >400 HDL Cholesterol 50 40-60 mg/dl LDL Calculated NONREPORTABLE DUE TO TRIG Risk 7.0 TSH 2.176 0.358-3.740 uIU/mL History of procedures Procedure Code Code Type Description Date Performed Performing Physician 85145 CPT-4 CT HEAD/BRAIN W/O & W/DYE 06-17-2016 DARION ANN Q9967 CPT-4 LOCM 300-399MG/ML IODINE,1ML 06-17-2016 DARION ANN 79715 CPT-4 COMPLETE CBC W/AUTO DIFF WBC 06-17-2016 DARION ANN 40088 CPT-4 COMPREHEN METABOLIC PANEL 06-17-2016 DARION ANN 95266 CPT-4 LIPID PANEL 06-17-2016 DARION ANN 84992 CPT-4 ASSAY THYROID STIM HORMONE 06-17-2016 DARION ANN 28874 CPT-4 ASSAY OF AMYLASE 06-17-2016 DARION ANN 88472 CPT-4 ASSAY OF LIPASE 06-17-2016 DARION ANN 49127 CPT-4 GLYCOSYLATED HEMOGLOBIN TEST 06-17-2016 DARION ANN 50033 CPT-4 URINALYSIS, AUTO W/SCOPE 06-17-2016 DARION ANN 81223 CPT-4 CHEST X-RAY 06-17-2016 DARION ANN 00738 CPT-4 ROUTINE VENIPUNCTURE 06-17-2016 DARION ANN Functional status No functional [...]
--- OUTSIDE RECORDS SUMMARY | 2017-01-31 08:27 | XMS REPORT ---
Author Author MITCH CARVALHO Organization [employer] Address Unknown Phone Unavailable Care Team Providers Care Transplant Surgeon Name Role Phone MITCH CARVALHO CP Unavailable [...]
[2017-02-25] MEDS ORDERED: HYDR-3729 PO (11:34)
[2017-02-25] MEDS ORDERED: MORP-33 PO (11:34)
[2017-02-25] MEDS ORDERED: IBUP-1773 PO (11:34)
[2017-02-25] MEDS ORDERED: DOCU-143 PO (11:35)
== END 2017-01-29 10:20 ==
LOC: DELPENDDIS → CATH 06:51 → ICU 11:40 → CATH 01-29 10:20
PROVIDERS: ATTEND Internal Medicine Cardiovascular Disease
DX: R07.89 Other chest pain (principal); I25.10 Atherosclerotic heart disease of native coronary artery without angina pectoris; R00.2 Palpitations; R06.00 Dyspnea, unspecified; I10 Essential (primary) hypertension; E78.5 Hyperlipidemia, unspecified; E03.9 Hypothyroidism, unspecified; E11.40 Type 2 diabetes mellitus with diabetic neuropathy, unspecified; Z87.891 Personal history of nicotine dependence; Z79.4 Long term (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; Z79.899 Other long term (current) drug therapy; Z95.5 Presence of coronary angioplasty implant and graft
CPT/HCPCS: 36415; 80048; 80053; 80061; 82962; 85027; 85610; 85730; 87081; 93005; 93458; 93571

== ENCOUNTER 2017-02-10 09:17 | Inpatient (IN) | payer MEDICAID ==
[2017-02-10] VITALS (39 sets, daily range): BP systolic 80–190; BP diastolic 56–113
[~2017-02-10] VITALS: Ht 162.6 cm; Wt 128.6 kg
[~2017-02-10 09:17] MED LIST changes: +AMLO10TA2 PO; +ASPI-999 PO; +DOXA2TAB2 PO; +DULO60CA58 PO; +INSU100V6 SQ; +LEVO75TA6 PO; +LISI10TA2 PO; +LISI40TA PO; +LORA0.5T PO; +SAXA5TAB PO
--- NOTE | 2017-02-10 09:21 | Cardiology History & Physical ---
HPI-Cardiology Cardiology Consultation Date of Consultation 02/10/17 Date of Admission Indication: chest pain HPI 56 years old lady with history of coronary artery disease, hypertension hyperlipidemia in addition to diabetes mellitus, underwent complex stenting to the right coronary artery by Dr. Gonzalez on January 28, 2017, started having chest pain at 5 a.m. went to [place] emergency room where she was noted to have ST elevation myocardial infarction, she was transferred for emergency cardiac catheterization on arrival patient was still having active chest pain. Mildly short of breath and diaphoretic, lethargic. Denied any palpitation, syncope or near syncopal episodes. Has been compliant with her medications. PMH-Cardiology Immunizations Up To Date Tetanus Booster (DTap): Unknown Date of Pneumonia Vaccine: Sep 18, 2014 Date of Influenza Vaccine: Sep 16, 2016 Surgeries HX Surgeries: Yes (right forearm repair with plates et screws) Surgeries: Gall Bladder, Hysterectomy, Cardiac Respiratory Hx Respiratory Disorders: No Respiratory Disorders: Sleep Apnea Cardiovascular Hx Cardiovascular Disorders: Yes Cardiac Disorders: Coronary Artery Disease Neurological Hx Neurological Disorders: Yes Reproductive System Hx Reproductive Disorders: No Sexually Transmitted Disease: No HIV/AIDS: No Female Reproductive Disorders: Denies Genitourinary Hx Genitourinary Disorders: No Gastrointestinal Hx Gastrointestinal Disorders: No Gastrointestinal Disorders: Gastroesophageal Reflux, Gall Bladder Disease Musculoskeletal Hx Musculoskeletal Disorders: Yes (right arm fracture with screws and pin placements) Musculoskeletal Disorders: Arthritis, Fibromyalgia, Fractures Endocrine Hx Endocrine Disorders: Yes Endocrine Disorders: Diabetes, Insulin dep, Hypothyroidsim HEENT HX ENT Disorders: Yes (GLASSES) HEENT Disorders: Double Vision Hearing Impairment: Hard of Hearing Cancer Hx Cancer: Yes Cancer: Ovarian, Uterine Psychosocial Hx Psychiatric Problems: Yes Behavioral Health Disorders: Depression Integumentary HX Skin/Integumentary Disorder: Yes (DIABETIC SORES) Skin/Integumentary Disorders: Recent Skin Changes Blood Transfusions Hx Blood Disorders: No Adverse Reaction to a Blood Tr: No Other PMHx Other PMHx: past medical history as discussed below Social History Patient Social History Marrital Status: Dip or chew tobacco?: No Family Hx Significant Family History: No Pertinent Family Hx Family History: Cardiovascular disease 19 FATHER G8 SISTER Diabetes mellitus 19 FATHER G8 BROTHER G8 SISTER FH: lung cancer 19 MOTHER FH: skin cancer 19 FATHER Parkinson's disease G8 SISTER Psychosocial problem G8 BROTHER ROS-Cardiology Review of Systems General: No Chills, No Night Sweats, Fatigue, Malaise, No Appetite HEENT: No Head Aches, No Visual Changes, No Eye Pain, No Ear Pain, No Dysphasia , No Sinus Congestion, No Post Nasal Drip, No Sore Throat Pulmonary: Dyspnea, No Cough, No Pleuritic Chest Pain Cardiovascular: Chest Pain, No: Edema, Lt Headedness, Orthopnea, Palpitations, Paroxysmal Noc. Dyspnea Gastrointestinal: No: Abdominal Pain, Constipation, Diarrhea, Hematochezia, Melena, Nausea, Vomiting Genitourinary: No Dysuria, No Frequency, No Incontinence, No Hematuria, No Retention Musculoskeletal: No: arm pain, back pain, foot pain, hand pain, leg pain, neck pain, shoulder pain Neurological: No: Change in speech, Confusion, Incoordination, Numbness, Seizures, Weakness Home Medications & Allergies Allergies: Coded Allergies: Estrogens (Unverified Allergy, Unknown, BLISTERS ON BUTT, 12/17/14) metformin (Unverified Allergy, Unknown, BLISTERS ON BUTT, 12/17/14) Exam-Cardiology Exam General Appearance: Alert, Oriented X3, Cooperative, No Acute Distress HEENT: Atraumatic, PERRLA Respiratory: Clear to Auscultation, Normal Air Movement Cardiovascular: Regular Rate, Normal S1, Normal S2, No Murmurs Abdominal: Normal Bowel Sounds, Soft, No Tenderness, No Hepatosplenomegaly, No Masses Extremities: No Clubbing, No Cyanosis, No Edema, Normal Pulses, No Tenderness/ Swelling Skin: No Rashes, No Breakdown, No Significant Lesion Neuro: Normal Gait, Normal Speech, Strength at 5/5 X4 Ext, Normal Tone, Sensation Intact Psych/Mental Status: Mental Status NL, Mood NL Results Labs Labs labs were reviewed from [facility] A/P-Cardiology Admission Diagnosis Acute ST elevation myocardial infarction the inferior wall Coronary artery disease Hypertensive shock Hyperlipidemia Assessment/Plan Acute inferior wall ST elevation myocardial infarction, status post recent stenting to the right coronary artery with Xcience Alpine 3.5 to the proximal right coronary artery and 2.75. The distal right coronary artery and right PDA. Brought for emergency cardiac catheterization, total occlusion of the right coronary artery, underwent emergency angioplasty and thrombectomy door to thrombectomy device was 24 minutes with excellent results. Chest pain, diaphoresis, secondary to acute myocardial infarction Status post severe bradycardia during cardiac catheterization required one dose of atropine. Hypotensive shock, likely better at this time, continue to monitor closely. History of hypertension. Monitor blood pressure Hyperlipidemia. Monitor lipids Diabetes mellitus, restart home medication monitor Obesity. JACK PARISH MD Feb 10, 2017 09:21
--- NOTE | 2017-02-10 09:21 | Cardiac Procedure Note-CS/ASA ---
Pre-Procedure Note Pre-Op Procedure Note H&P Reviewed The H&P was reviewed, patient examined and no changes noted. Date H&P Reviewed: Feb 10, 2017 Time H&P Reviewed: 09:21 Conscious Sedation Pre-Proced Time Reviewed: 09:21 ASA Class: 3 Airway Mallampati Classification: (nightmute appropriate class) I. II. III, IV Lungs Heart ASA score ASA 1: a normal healthy patient ASA 2: a patient with a mild systemic disease (mid diabetes, controlled hypertension, obesity X ASA 3: a patient with a severe systemic disease that limits activity (angina , COPD, prior Myocardial infarction) ASA 4: a patient with an incapacitating disease that is a constant threat to life (CHF, renal failure) ASA 5: a moribund patient not expected to survive 24 hrs. (ruptured aneurysm) ASA 6: a declared brain patient whose organs are being harvested. For emergent operations, add the letter E after the classification Grade 3 Sedation Plan: Analgesia, Amnesia, Plan communicated to team members, Discussed options with patient/fam, Discussed risks with patient/fam Note The patient is an appropriate candidate to undergo the planned procedure, sedation, and anesthesia. The patient immediately re-assessed prior to indication. JACK PARISH MD Feb 10, 2017 09:21
[2017-02-10] MEDS ORDERED: fentaNYL INJECTION 100 MCG/2 ML AMP ONE ×2 (09:23→13:42)
[2017-02-10] MEDS ORDERED: MIDAZOLAM 5 MG/5 ML (VERSED) VIAL ONE (09:23)
[2017-02-10] MEDS ORDERED: ATROPINE INJECTION 1 MG/10 ML SYR (ABBOTT) ONE ×2 (09:30→13:41)
[2017-02-10] MEDS ORDERED: NITROGLYCERIN DRIP 25 MG/D5W 250 ML IV ONE (09:31)
[2017-02-10] MEDS ORDERED: HEParin (CATH LAB) 2,000 ML IV ONE (09:31)
[2017-02-10] MEDS ORDERED: NS IV 1000 ML 1,000 ML ONE (09:31)
[2017-02-10] MEDS ORDERED: LIDOCAINE 1% INJ 20 ML (XYLOCAINE) VIAL ONE (09:31)
[2017-02-10] MEDS ORDERED: NS (IVPB) 250 ML ONE (09:39)
[2017-02-10] MEDS ORDERED: niCARdipine 25 MG/10 ML (CARDENE) AMP IV ONE (09:39)
[2017-02-10] MEDS ORDERED: TICAGRELOR 90 MG TABLET (BRILINTA) PO ONE (10:06)
[2017-02-10] MEDS: NS IV 1000 ML 1,000 ML IV SCH ×2 (10:25→16:00)
[2017-02-10] MEDS ORDERED: LORazepam 0.5 MG (ATIVAN) TABLET PO PRN (10:30)
[2017-02-10] MEDS ORDERED: PATIENT MAY USE OWN MEDS, ALL PO SCH (10:30)
[2017-02-10] MEDS ORDERED: GABAPENTIN 300 MG (NEURONTIN) CAP PO SCH (13:00)
--- NOTE | 2017-02-10 13:59 | CARDIAC CATHETERIZATION ---
PROCEDURE PHYSICIAN: JACK PARISH DATE OF PROCEDURE: 02/10/2017 BRIEF HISTORY: Mrs. Read is a 56-year-old lady with history of coronary artery disease, multiple interventions in the past. On 01/28/2017, she underwent 2 stent deployment to the right coronary artery. The patient woke up at 5 o'clock a.m. with acute chest pain, went to [facility] where she was noted to have ST elevation IN in the inferior wall. She was transferred to [place] for evaluation. PROCEDURE NOTE: After explaining the procedure to the patient, all pros and cons were explained. All questions were answered. The patient was placed on the cardiac catheterization laboratory. The right groin was prepped in a sterile fashion. Local anesthesia applied to right groin. 6-Slovak sheath was placed in the right femoral artery. Dee left was advanced to the left coronary system. One view was obtained. Then FR guide was advanced to the right coronary artery. The patient received 4000 units of heparin in [facility]. I gave her an additional 3000 units of heparin and double bolus of Integrilin. The patient had total occlusion of the right coronary artery. BMW wire was advanced to the right coronary artery then I advanced 6-Slovak Expressway catheter. Door to thrombectomy device was 24 minutes. Flow was established after advancement of the wire and there were multiple clots noted. Expressway catheter did not remove much of the clots. I advanced an Emerge balloon 3.0 x 30 inflated multiple times distally and proximally. Then I used in Quantum balloon to the proximal stent 4.0 x 20 with multiple inflations. Excellent result was noted, establishment of flow and no residual thrombosis. At that point, I advanced the pigtail catheter to the left ventricular cavity. Left ventriculogram was done. Then I reintroduced the Dee left catheter and performed multiple views to the left coronary system. At the end of the procedure, sheath was sutured in place. FINDINGS: HEMODYNAMICS: LV pressure 85/18, end-diastolic pressure of 18, aortic pressure 85/52, mean of 33. ANATOMY: 1. LEFT MAIN CORONARY ARTERY: The left main coronary artery is bifurcating to left anterior descending and left circumflex artery with no obstructive disease. 2. LEFT ANTERIOR DESCENDING ARTERY: The left anterior descending artery is moderate in size. Stent in the proximal LAD has 50% stenosis. It had an FFR done 2 weeks ago and showed moderate disease, nonobstructive disease. 3. RIGHT CORONARY ARTERY: The right coronary artery has multiple stents that was totally occluded. Successful balloon thrombectomy, then balloon angioplasty using 3.0 x 30 mm to the distal stent and 4.0 x 20 mm NC Quantum balloon to the proximal stent with excellent results. Door to thrombectomy device was 24 minutes. 4. LEFT VENTRICULAR: Normal left ventricular size with mild hypokinesia at the inferior wall. Estimated ejection fraction 50%. CONCLUSION: 1. Acute ST elevation myocardial infarction involving the inferior wall, with total occlusion of both stents in the proximal and distal right coronary artery. Successful thrombectomy, then balloon angioplasty using 3.0 x 30 mm Emerge balloon to the distal right coronary artery and 4.0 x 20 mm NC Quantum balloon to the proximal right coronary artery with excellent results. No residual thrombus or stenosis was noted. 2. 50% mid LAD in-stent stenosis, nonobstructive disease with mild disease distally. 3. Normal left ventricular size with mild hypokinesia at the inferior wall. Estimated ejection fraction 50%. DISCUSSION AND RECOMMENDATION: Mrs. Read had subacute thrombosis of the stent in the right coronary artery. It could be due to Plavix resistance. I bolused the patient with Brilinta in addition to the aspirin. I will continue on Brilinta. In addition, I will evaluate [id number] and evaluate Plavix metabolism. Job ID: [id number] Dictated Date: 02/10/2017 11:24:11 Data Center Architect Date: 02/10/2017 13:47:48 / carlo
[2017-02-10] MEDS: inSUlin ASPART (NovoLOG) 1 UNIT/0.01 ML (CHARGE PER UNIT) SC SCH ×4 (14:42→21:00)
[2017-02-10] MEDS ORDERED: LISI40TA PO (14:44)
[2017-02-10] MEDS ORDERED: LINA145C PO (14:44)
[2017-02-10] MEDS ORDERED: MORP-33 PO (14:44)
[2017-02-10] MEDS ORDERED: ATOR80TA76 PO (14:44)
[2017-02-10] MEDS ORDERED: LISI10TA2 PO (14:44)
[2017-02-10] MEDS ORDERED: fentaNYL INJECTION 100 MCG/2 ML AMP IVP ONE (15:30)
[2017-02-10] MEDS ORDERED: DULO30CA48 PO (15:46)
[2017-02-10] MEDS ORDERED: ONDANSETRON 4 MG/2 ML (SDV) Z0FRAN IVP PRN (17:45)
[2017-02-10] MEDS ORDERED: MELOXICAM 7.5 MG (MOBIC) TABLET PO SCH (21:00)
[2017-02-10] MEDS: MELOXICAM 15 MG TAB PO SCH (21:00)
[2017-02-10] MEDS ORDERED: INSULIN GLARGINE HUM REC ANLOG 80 UNIT SQ SCH (21:00)
[2017-02-10] MEDS: inSUlin DETERMIR 1 UNIT/0.01 ML (LEVEMIR) CHARGE PER UNIT SQ SCH (21:03)
[2017-02-10] MEDS: TICAGRELOR 90 MG TABLET (BRILINTA) PO SCH (21:04)
[2017-02-10] MEDS: GABAPENTIN 300 MG (NEURONTIN) CAP PO SCH (21:14)
[2017-02-10] MEDS ORDERED: PANTOPRAZOLE 40 MG/10 ML (PROTONIX) VIAL IV ONE (21:15)
[2017-02-10] MEDS ORDERED: NS IV 1000 ML 1,000 ML IV SCH (21:15)
[2017-02-10] MEDS ORDERED: ONDANSETRON 4 MG/2 ML (SDV) Z0FRAN IVP ONE (21:15)
[2017-02-10] MEDS ORDERED: METOCLOPRAMIDE INJ 10 MG/2 ML (REGLAN) IVP ONE (22:00)
[2017-02-10] MEDS ORDERED: PROCHLORPERAZINE 25 MG (COMPAZINE) SUPP PR PRN (22:00)
[2017-02-10] MEDS ORDERED: PROMETHAZINE 25 MG (PHENERGAN) SUPP ONE (22:01)
[2017-02-10] MEDS: PROCHLORPERAZINE 10 MG/2ML INJ (COMPAZINE) IV PRN (23:24)
[2017-02-11] VITALS (25 sets, daily range): BP systolic 78–136; BP diastolic 51–98
[2017-02-11] MEDS ORDERED: NS IV 500 ML 500 ML ONE (01:17)
[2017-02-11] MEDS: NS IV 500 ML 500 ML IV SCH ×2 (01:21→02:30)
[2017-02-11] MEDS: DOPamine DRIP 250 ML IV SCH (02:24)
[2017-02-11 04:25] LABS: MEAN PLATELET VOLUME 11.2 FL (7.4-10.4); RED BLOOD COUNT 3.4 10^6/uL (4.35-5.85); RED CELL DISTRIBUTION WIDTH 13.7 % (10.0-14.5); WHITE BLOOD COUNT 16.2 10^3/uL (4.3-11.0)
[2017-02-11 04:48] LABS: CALCIUM 8.2 MG/DL (8.5-10.1); CREATININE SERUM 2.25 MG/DL (0.60-1.30); POTASSIUM 4.3 MMOL/L (3.6-5.0)
[2017-02-11] MEDS: NS IV 1000 ML 1,000 ML IV SCH ×2 (05:02→15:26)
[2017-02-11 05:12] LABS: THYROID STIMULATING HORMONE 5.28 UIU/ML (0.35-4.94)
[2017-02-11 05:17] LABS: TROPONIN I 320.42 NG/ML (<0.30)
[2017-02-11] MEDS: inSUlin ASPART (NovoLOG) 1 UNIT/0.01 ML (CHARGE PER UNIT) SC SCH ×7 (05:26→19:57)
[2017-02-11] MEDS: LEVOTHYROXINE 75 MCG (LEVOTHROID) TABLET PO SCH (06:09)
[2017-02-11 08:31] LABS: AMYLASE 38 U/L (25-125); LIPASE 19 U/L (8-78)
[2017-02-11] MEDS: SCOPOLAMINE 1.5 MG (TRANSDERM-SCOP) PATCH TOP SCH (08:48)
[2017-02-11] MEDS: PANTOPRAZOLE 40 MG/10 ML (PROTONIX) VIAL IV SCH (08:52)
[2017-02-11] MEDS ORDERED: lisINopril 10 MG (PRINIVIL) TAB PO SCH (09:00)
[2017-02-11] MEDS ORDERED: ATORVASTATIN 80 MG (LIPITOR) TABLET PO SCH ×2 (09:00→21:00)
[2017-02-11] MEDS ORDERED: SAXAGLIPTIN HCL 5 MG PO SCH (09:00)
[2017-02-11] MEDS: GABAPENTIN 300 MG (NEURONTIN) CAP PO SCH ×3 (09:56→20:19)
[2017-02-11] MEDS: DULoxetine 30 MG (CYMBALTA) CAP PO SCH (09:56)
[2017-02-11] MEDS: TICAGRELOR 90 MG TABLET (BRILINTA) PO SCH ×2 (09:57→20:18)
[2017-02-11] MEDS: ASPIRIN E.C. 81 MG (ECOTRIN) TAB PO SCH (09:57)
[2017-02-11] MEDS: doxAzosin 2 MG (CARDURA) TAB PO SCH (10:11)
--- NOTE | 2017-02-11 10:58 | Consultation ---
Consultation Consultation/Plan Reason for consolation: Severe nausea with ARF HPI: This is a 56yo[address] pt of [address] Calderon at [facility] that presents following an acute SD. Was able to perform intervention within 24 minutes of arrival, Now troponin is 300 but renal insufficient of 2.45 after judicious use in cath. 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 golf ball marker: Zofran makes pt vomit and have nausea. Pt will receive Scopolamine patch now. Pt is having difficulty urinating. Bladder scan will be done. Pt creatinine is elevated today. SW Review: Pt came from [facility] [place]. Troponin was 300. Patient Interview: Pt states she normally does not have nausea. Physical exam was stable. Pt denies smoking and drinking ETOH. Pt states she is disabled. Pt states she has bad DM. Pt states she checks her sugars frequently. Pt states her HgA1C has been getting lower recently. Pt states she received Scopolamine patch. Scribed by Mik Lou under the direct supervision of Dr. Aleman. Allergies and Home Medications Allergies Coded Allergies: ondansetron (Verified Allergy, Severe, N/V, 02/10/17) Estrogens (Unverified Allergy, Unknown, BLISTERS ON BUTT, 12/17/14) metformin (Unverified Allergy, Unknown, BLISTERS ON BUTT, 12/17/14) Home Medications Amlodipine Besylate 10 Mg Tablet, 10 MG PO DAILY, (Reported) Aspirin 81 Mg Tab.chew, 162 MG PO DAILY, (Reported) Atorvastatin Calcium 80 Mg Tablet, 80 MG PO HS, (Reported) Citalopram Hydrobromide 20 Mg Tablet, 20 MG PO DAILY, (Reported) LAST FILLED 02/03/17 #30 Clopidogrel Bisulfate 75 Mg Tablet, 75 MG PO DAILY, (Reported) LAST FILLED 12/05/16 #30 Doxazosin Mesylate 2 Mg Tablet, 2 MG PO DAILY, (Reported) Duloxetine HCl 30 Mg Capsule.dr, 30 MG PO DAILY, (Reported) Furosemide 40 Mg Tablet, 40 MG PO DAILY, (Reported) Gabapentin 300 Mg Capsule, 900 MG PO TID, (Reported) TAKES 3 (300 MG) CAPSULES Insulin Aspart 10 Unit/0.1 Ml Vial, 40 UNIT SC AC, (Reported) LAST FILLED 09/21/16 #3 VIALS (30 ML) Insulin Glargine,Hum.rec.anlog 100 Unit/1 Ml Vial, 80 UNITS SQ HS, (Reported) LAST FILLED 09/21/16 #3 VIALS (30 ML) Levothyroxine Sodium 75 Mcg Tablet, 75 MCG PO DAILY, (Reported) Linaclotide 145 Mcg Capsule, 145 MCG PO DAILY, (Reported) Lisinopril 10 Mg Tablet, 10 MG PO DAILY, (Reported) Lisinopril 40 Mg Tablet, 40 MG PO DAILY, (Reported) Lorazepam 0.5 Mg Tablet, 0.5 MG PO DAILY PRN for ANXIETY, (Reported) Meloxicam 15 Mg Tablet, 15 MG PO HS, (Reported) Morphine Sulfate 15 Mg Tablet.er, 15 MG PO HS, (Reported) Saxagliptin HCl 5 Mg Tablet, 5 MG PO DAILY, (Reported) LAST FILLED 01/2917 #30 Clinical Quality Measures DVT/VTE Risk/Contraindication: Risk Factor Score Per Nursin RFS Level Per Nursing on Admit: 4+=Very High QUINN ALEMAN DO Feb 11, 2017 10:58
--- NOTE | 2017-02-11 11:55 | Consultation-Hospitalist ---
HPI History of Present Illness: HPI/Chief Complaint CC: Reason for consolation: Severe nausea with ARF in DM HPI: This is a 56yoWF pt of Dr. Calderon's at [facility] that presents following an acute ID. Was able to perform intervention within 24 minutes of arrival, Now troponin is 300 but renal insufficient of 2.45 after judicious use of contrast in cath. 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 Pt will receive Scopolamine patch now. Pt is having difficulty urinating. Bladder scan will be done. Pt creatinine is elevated today. SW Review: Pt came from [place]. Troponin was 300. Patient Interview: Pt states she normally does not have nausea. Physical exam was stable. Pt denies smoking and drinking ETOH. Pt states she is disabled. Pt states she has bad DM. Pt states she checks her sugars frequently. Pt states her HgA1C has been getting lower recently. Pt states she received Scopolamine patch. Scribed by Mik Lou under the direct supervision of Dr. Aleman. Source: patient Exam Limitations: no limitations Date Seen 02/11/17 Attending Physician Ana Fenton MD PCP Jose Calderon MD Referring Physician Date of Admission Feb 10, 2017 at 10:19 Home Medications & Allergies Home Medications Reviewed patient Home Medication Reconciliation Form Allergies Allergies Coded Allergies ondansetron (Verified Allergy, Severe, N/V, 02/10/17) Estrogens (Unverified Allergy, Unknown, BLISTERS ON BUTT, 12/17/14) metformin (Unverified Allergy, Unknown, BLISTERS ON BUTT, 12/17/14) Past Pnxietz-Hdtduh-Ahgxom Hx Patient Social History Marrital Status: Employed/Student: unemployed Alcohol Use: Denies Use Recreational Drug Use: No Smoking Status: Never a Smoker Physical Abuse Screen: No Sexual Abuse: No Recent Foreign Travel: No Contact w/other who traveled: No Recent Hopitalizations: Yes (stents placed in dec 2016) Recent Infectious Disease Expo: No Immunizations Up To Date Tetanus Booster (TDap): Unknown Date of Pneumonia Vaccine: Sep 18, 2014 Date of Influenza Vaccine: Sep 16, 2016 Seasonal Allergies Seasonal Allergies: No Surgeries HX Surgeries: Yes (right forearm repair with plates et screws) Surgeries: Coronary Stent, Gallbladder, Hysterectomy Respiratory Hx Respiratory Disorders: No Respiratory Disorders: Sleep Apnea Cardiovascular Hx Cardiovascular Disorders: Yes Cardiac Disorders: Heart Attack, High Cholesterol, Hypertension Neurological Hx Neurological Disorders: Yes Neurological Disorders: Neuropathy Reproductive System Hx Reproductive Disorders: No Sexually Transmitted Disease: No HIV/AIDS: No Female Reproductive Disorders: Denies Genitourinary Hx Genitourinary Disorders: Yes Genitourinary Disorders: Renal Failure Gastrointestinal Hx Gastrointestinal Disorders: No Gastrointestinal Disorders: Gastroesophageal Reflux, Gall Bladder Disease Musculoskeletal Hx Musculoskeletal Disorders: Yes (right arm fracture with screws and pin placements) Musculoskeletal Disorders: Arthritis, Fibromyalgia, Fractures Endocrine Hx Endocrine Disorders: Yes Endocrine Disorders: Diabetes, Insulin dep, Hypothyroidsim HEENT HX ENT Disorders: Yes (GLASSES) HEENT Disorders: Double Vision Hearing Impairment: Hard of Hearing Cancer Hx Cancer: Yes Cancer: Ovarian, Uterine Psychosocial Hx Psychiatric Problems: Yes Behavioral Health Disorders: Depression Integumentary HX Skin/Integumentary Disorder: Yes (DIABETIC SORES) Skin/Integumentary Disorders: Recent Skin Changes Blood Transfusions Hx Blood Disorders: No Adverse Reaction to a Blood Tr: No Family Medical History Significant Family History: No Pertinent Family Hx Family Hx: Cardiovascular disease 19 FATHER G8 SISTER Diabetes mellitus 19 FATHER G8 BROTHER G8 SISTER FH: lung cancer 19 MOTHER FH: skin cancer 19 FATHER Parkinson's disease G8 SISTER Psychosocial problem G8 BROTHER Review of Systems Constitutional: see HPI EENTM: no symptoms reported Respiratory: no symptoms reported Cardiovascular: chest pain (yesterday) Gastrointestinal: nausea Genitourinary: no symptoms reported Musculoskeletal: back pain Skin: no symptoms reported Psychiatric/Neurological: No Symptoms Reported All Other Systems Reviewed Negative Unless Noted: Yes Physical Exam Physical Exam Vital Signs Vital Sign - Last 12Hours 02/10/17 10:17 Temp 96.9 Pulse 76 Resp 12 B/P (MAP) 130/79 145/73 Pulse Ox 97 O2 Delivery Nasal Cannula O2 Flow Rate 2.00 Capillary Refill : Less Than 3 Seconds General Appearance: No Apparent Distress, WD/WN, Chronically ill, Mild Distress (due to nausea) Eyes: Bilateral Eye Normal Inspection, Bilateral Eye PERRL HEENT: PERRL/EOMI, Normal ENT Inspection, Pharynx Normal Neck: Full Range of Motion, Normal Inspection, Non Tender, Supple, Carotid Bruit Respiratory: Chest Non Tender, Lungs Clear, Normal Breath Sounds, No Accessory Muscle Use, No Respiratory Distress Cardiovascular: Regular Rate, Rhythm, No Edema, No Gallop, No JVD, No Murmur, Normal Peripheral Pulses Gastrointestinal: Normal Bowel Sounds, No Organomegaly, No Pulsatile Mass, Non Tender, Soft Back: Normal Inspection, No CVA Tenderness, No Vertebral Tenderness Extremity: Normal Capillary Refill, Normal Inspection, Normal Range of Motion, Non Tender, No Calf Tenderness, No Pedal Edema Neurologic/Psychiatric: Alert, Oriented x3, No Motor/Sensory Deficits, Normal Mood/Affect Skin: Normal Color, Warm/Dry Lymphatic: No Adenopathy Results Results/Procedures Lab Laboratory Tests 02/11/17 03:35 Assessment/Plan Admission Diagnosis Assessment: Status post acute myocardial infarction with troponin of [address] 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
--- NOTE | 2017-02-11 13:03 | Cardiology Progress Note ---
Subjective Subjective/Events-last exam patient was seen earlier this morning, was having nausea and vomiting, currently feeling better, denied any chest pain, denied any palpitation, was started on low-dose dopamine drip but her blood pressure is better, currently off the pressor. Review of Systems General: No Chills, No Night Sweats, No Fatigue, No Malaise, No Appetite, No Other HEENT: No Head Aches, No Visual Changes, No Eye Pain, No Ear Pain, No Dysphasia , No Sinus Congestion, No Post Nasal Drip, No Sore Throat, No Other Pulmonary: No Dyspnea, No Cough, No Pleuritic Chest Pain, No Other Cardiovascular: No: Chest Pain, Edema, Lt Headedness, Orthopnea, Other, Palpitations, Paroxysmal Noc. Dyspnea Gastrointestinal: Nausea, Vomiting Objective-Cardiology Exam Last Set of Vital Signs Vital Signs 02/11/17 02/11/17 02/11/17 02/11/17 02/11/17 06:00 07:00 08:00 08:48 10:19 Temp 99.0 Pulse 81 Resp 11 B/P (MAP) 106/77 Pulse Ox 94 O2 Delivery Room Air O2 Flow Rate 4.00 Capillary Refill : Less Than 3 Seconds I&O Bad tableGeneral: Alert, Oriented X3, Cooperative, No Acute Distress HEENT: Atraumatic, PERRLA Lungs: Clear to Auscultation, Normal Air Movement Heart: Regular Rate, Normal S1, Normal S2, No Murmurs Abdomen: Normal Bowel Sounds, Soft, No Tenderness, No Hepatosplenomegaly, No Masses Extremities: No Clubbing, No Cyanosis, No Edema, Normal Pulses, No Tenderness/ Swelling Skin: No Rashes, No Breakdown, No Significant Lesion Neuro: Normal Gait, Normal Speech, Strength at 5/5 X4 Ext, Normal Tone, Sensation Intact Psych/Mental Status: Mental Status NL, Mood NL Results Lab Laboratory Tests 02/11/17 03:35 A/P-Cardiology Admission Diagnosis Acute ST elevation myocardial infarction the inferior wall Coronary artery disease Hypertensive shock Hyperlipidemia Assessment/Plan Acute inferior wall ST elevation myocardial infarction, status post recent stenting to the right coronary artery with Xcience Alpine 3.5 to the proximal right coronary artery and 2.75 to The distal right coronary artery and right PDA. Brought for emergency cardiac catheterization, total occlusion of the right coronary artery, underwent emergency angioplasty and thrombectomy door to thrombectomy device was 24 minutes with excellent results. Neurogenic shock, hypotensive shock, started on low-dose dopamine, feeling better at this time. Blood pressure is better. Continue to monitor Hyperlipidemia, poorly controlled, maintained on Lipitor 80 mg daily, probably will need Repatha Chest pain, diaphoresis, secondary to acute myocardial infarction, improved, no chest pain at this time. Status post severe bradycardia during cardiac catheterization required one dose of atropine, continue to monitor heart rate Diabetes mellitus, restart home medication monitor Obesity. Clinical Quality Measures DVT/VTE Risk/Contraindication: Risk Factor Score Per Nursin RFS Level Per Nursing on Admit: 4+=Very High JACK PARISH MD Feb 11, 2017 13:03
[2017-02-11] MEDS: MELOXICAM 15 MG TAB PO SCH (20:19)
[2017-02-11] MEDS: inSUlin DETERMIR 1 UNIT/0.01 ML (LEVEMIR) CHARGE PER UNIT SQ SCH (22:23)
[2017-02-11] MEDS: PROCHLORPERAZINE 10 MG/2ML INJ (COMPAZINE) IV PRN (23:34)
[2017-02-12] VITALS (22 sets, daily range): BP systolic 79–169; BP diastolic 62–97
[2017-02-12] MEDS: NS IV 1000 ML 1,000 ML IV SCH ×4 (01:43→17:53)
[2017-02-12] MEDS: DOPamine DRIP 250 ML IV SCH (01:44)
[2017-02-12 03:51] LABS: MEAN PLATELET VOLUME 11.3 FL (7.4-10.4); RED BLOOD COUNT 2.88 10^6/uL (4.35-5.85); RED CELL DISTRIBUTION WIDTH 13.9 % (10.0-14.5); WHITE BLOOD COUNT 12.4 10^3/uL (4.3-11.0)
[2017-02-12 04:21] LABS: ALBUMIN 2.5 G/DL (3.2-4.5); BILIRUBIN,TOTAL 0.4 MG/DL (0.1-1.0); CREATININE SERUM 3.53 MG/DL (0.60-1.30); POTASSIUM 4.1 MMOL/L (3.6-5.0); TOTAL PROTEIN 5.2 G/DL (6.4-8.2)
[2017-02-12 04:51] LABS: TROPONIN I 120.36 NG/ML (<0.30)
[2017-02-12] MEDS: inSUlin ASPART (NovoLOG) 1 UNIT/0.01 ML (CHARGE PER UNIT) SC SCH ×7 (05:52→23:25)
[2017-02-12] MEDS: LEVOTHYROXINE 75 MCG (LEVOTHROID) TABLET PO SCH (06:40)
--- NOTE | 2017-02-12 07:31 | ECHOCARDIOGRAPHY REPORT ---
PROCEDURE PHYSICIAN: JACK PARISH DATE OF PROCEDURE: 02/11/2017 TWO DIMENSIONAL ECHOCARDIOGRAM REPORT PRIMARY PHYSICIAN: OTHER PHYSICIAN: REFERRING PHYSICIAN: Dr. Jose Calderon ORDERING PHYSICIAN: INDICATION FOR THE PROCEDURE: Coronary artery disease, acute myocardial infarction. MEASUREMENTS DERIVED VALUES LV DIAMETER (LAX) NORMALS NORMALS Diastolic 3.9 (3.6-5.2) Eject. Fract. 50% (60%+/-6%) Systolic (2.3-3.9) Diastolic Vol. % Shortening (0.22-0.42) Systolic Vol. Aortic Root IVS THICKNESS Diastolic 1.2 (0.6-1.1) LVPW THICKNESS Diastolic 1.2 (0.6-1.1) LA DIAMETER Systolic 3.8 (2.1-3.7) FINDINGS: 1. Technically suboptimal study. 2. The left ventricle is normal in size with mild to moderate left ventricular hypertrophy noted diffusely. Mild hypokinesia was noted at the inferior wall. Systolic function is preserved. Estimated ejection fraction 50%. 3. The left atrium is normal in size. No clot or thrombus were seen within the left atrium. 4. The right atrium and right ventricle are normal in size. No clot or thrombus were seen within the right side. 5. Mitral valve is calcified with mild mitral regurgitation noted by color Doppler flow. No mitral valve prolapse. No mitral valve stenosis. Doppler across the mitral valve showed equalization of E:A, which is suggestive diastolic dysfunction. 6. Aortic valve is functioning normally trileaflet with normal opening and closing pattern. 7. Tricuspid valve is normal in morphology with mild tricuspid regurgitation noted by color Doppler flow. Doppler across tricuspid valve estimated pulmonary artery pressure of 13+ right atrial pressure. 8. Pulmonic valve is functioning normally. 9. No pericardial effusion. CONCLUSION: 1. Mild to moderate left ventricular hypertrophy noted diffusely. Normal left ventricular size. Mild hypokinesia at the inferior wall. Systolic function is preserved. Estimated ejection fraction 50%. Diastolic dysfunction is suggested by Doppler. 2. Mild mitral and tricuspid regurgitation. 3. Estimated pulmonary artery pressure of 20 mmHg. Job ID: [id number] Dictated Date: 02/11/2017 16:22:00 Costume Seamstress Date: 02/12/2017 07:26:35 / bell
--- NOTE | 2017-02-12 08:36 | Cardiology Progress Note ---
Subjective Subjective/Events-last exam patient is laying down in bed, still having mild nausea, no chest pain. Worsening renal function today. Elevated liver enzymes. Review of Systems General: No Chills, No Night Sweats, No Fatigue, No Malaise, No Appetite, No Other HEENT: No Head Aches, No Visual Changes, No Eye Pain, No Ear Pain, No Dysphasia , No Sinus Congestion, No Post Nasal Drip, No Sore Throat, No Other Pulmonary: No Dyspnea, No Cough, No Pleuritic Chest Pain, No Other Cardiovascular: No: Chest Pain, Edema, Lt Headedness, Orthopnea, Other, Palpitations, Paroxysmal Noc. Dyspnea Objective-Cardiology Exam Last Set of Vital Signs Vital Signs 02/12/17 02/12/17 02/12/17 04:00 06:00 07:00 Temp 97.8 Pulse 63 Resp 11 B/P (MAP) 79/82 Pulse Ox 96 O2 Delivery Nasal Cannula O2 Flow Rate 1.00 Capillary Refill : Less Than 3 Seconds I&O Intake and Output 02/12/17 00:00 Intake Total 3390 ml Output Total 700 ml Balance 2690 ml Intake Oral 890 ml IV Total 2500 ml Output Urine Total 650 ml Oral Regurgitation 50 ml # Voids 2 # Emeses 50 General: Alert, Oriented X3, Cooperative, No Acute Distress HEENT: Atraumatic, PERRLA Neck: Supple, No JVD Lungs: Clear to Auscultation, Normal Air Movement Heart: Regular Rate, Normal S1, Normal S2, No Murmurs Abdomen: Normal Bowel Sounds, Soft, No Tenderness, No Hepatosplenomegaly, No Masses Extremities: No Clubbing, No Cyanosis, No Edema, Normal Pulses, No Tenderness/ Swelling Skin: No Rashes, No Breakdown, No Significant Lesion Neuro: Normal Gait, Normal Speech, Strength at 5/5 X4 Ext, Normal Tone, Sensation Intact Psych/Mental Status: Mental Status NL, Mood NL Results Lab Laboratory Tests 02/12/17 03:35 A/P-Cardiology Admission Diagnosis Acute ST elevation myocardial infarction the inferior wall Coronary artery disease Hypertensive shock Hyperlipidemia Assessment/Plan Acute inferior wall ST elevation myocardial infarction, status post recent stenting to the right coronary artery with Xcience Alpine 3.5 to the proximal right coronary artery and 2.75 to The distal right coronary artery and right PDA. Brought for emergency cardiac catheterization, total occlusion of the right coronary artery, underwent emergency angioplasty and thrombectomy door to thrombectomy device was 24 minutes with excellent results.chest pain is better, reporting improvement. Cardiogenic shock, hypotensive shock, better at this time. Continue to monitor Acute renal failure, probably a combination of chronic renal insufficiency with hypotension and diabetes mellitus and contrast, I will hold lisinopril at this time due to renal failure. Start low-dose beta blockers and evaluate her tolerance. Hyperlipidemia, poorly controlled, maintained on Lipitor 80 mg daily, I think she has been noncompliant with medication. hold Lipitor at this time due to elevated liver enzymes. Chest pain, diaphoresis, secondary to acute myocardial infarction, improved, no chest pain at this time. Status post severe bradycardia during cardiac catheterization required one dose of atropine, continue to monitor heart rate Diabetes mellitus, restart home medication monitor Obesity. Clinical Quality Measures DVT/VTE Risk/Contraindication: Risk Factor Score Per Nursin RFS Level Per Nursing on Admit: 4+=Very High JACK PARISH MD Feb 12, 2017 08:36
[2017-02-12] MEDS: PANTOPRAZOLE 40 MG/10 ML (PROTONIX) VIAL IV SCH (08:47)
[2017-02-12] MEDS: GABAPENTIN 300 MG (NEURONTIN) CAP PO SCH ×3 (08:47→22:03)
[2017-02-12] MEDS: TICAGRELOR 90 MG TABLET (BRILINTA) PO SCH ×2 (08:47→21:59)
[2017-02-12] MEDS: ASPIRIN E.C. 81 MG (ECOTRIN) TAB PO SCH (08:47)
[2017-02-12] MEDS: DULoxetine 30 MG (CYMBALTA) CAP PO SCH (08:49)
[2017-02-12] MEDS: doxAzosin 2 MG (CARDURA) TAB PO SCH (08:51)
--- NOTE | 2017-02-12 10:39 | Progress Note-Hospitalist ---
Progress Note HPI/CC on Admission CC: Reason for consolation: Severe nausea with ARF in DM HPI: This is a 56yoWF pt of Dr. Calderon'yanni at [facility] that presents following an acute [place]. Was able to perform intervention within 24 minutes of arrival, Now troponin is 300 but renal insufficient of 2.45 after judicious use of contrast in cath. 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 Pt will receive Scopolamine patch now. Pt is having difficulty urinating. Bladder scan will be done. Pt creatinine is elevated today. SW Review: Pt came from [facility]. Troponin was 300. Patient Interview: Pt states she normally does not have nausea. Physical exam was stable. Pt denies smoking and drinking ETOH. Pt states she is disabled. Pt states she has bad DM. Pt states she checks her sugars frequently. Pt states her HgA1C has been getting lower recently. Pt states she received Scopolamine patch. Scribed by Mik Lou under the direct supervision of Dr. Aleman. Progress Notes/Assess & Plan Date Seen 02/12/17 Admission Dx/Process Assessment: Status post acute myocardial infarction with troponin of [address] 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 Troponin is coming down. 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 Patient Interview: Pt states she is feeling better today. Pt states she was informed about her elevated creat level. Pt will be given IVF. Pt states she is eating and drinking okay. Pt states she still gets nausea now and then. Pt still has Scopolamine patch on. Physical exam was stable. Pt denies BM. Pt states she has no needs currently. Scribed by Mik Lou under the direct supervision of Dr. Aleman. No fever, vital signs stable, pleasant, improved Regular rate and rhythm, clear to auscultation bilaterally No edema Assessment: Status post acute myocardial infarction with troponin of [address] 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
[2017-02-12] MEDS: PROCHLORPERAZINE 10 MG/2ML INJ (COMPAZINE) IV PRN (11:06)
[2017-02-12] MEDS: MELOXICAM 15 MG TAB PO SCH (22:03)
[2017-02-12] MEDS: inSUlin DETERMIR 1 UNIT/0.01 ML (LEVEMIR) CHARGE PER UNIT SQ SCH (23:27)
[2017-02-13] VITALS (21 sets, daily range): BP systolic 103–164; BP diastolic 36–93
[2017-02-13] MEDS: NS IV 1000 ML 1,000 ML IV SCH ×4 (00:42→21:08)
[2017-02-13 04:16] LABS: ALBUMIN 2.6 G/DL (3.2-4.5); BILIRUBIN,TOTAL 0.3 MG/DL (0.1-1.0); CALCIUM 7.9 MG/DL (8.5-10.1); CREATININE SERUM 4.13 MG/DL (0.60-1.30); POTASSIUM 4.1 MMOL/L (3.6-5.0); TOTAL PROTEIN 5.5 G/DL (6.4-8.2)
[2017-02-13] MEDS ORDERED: NS IV 1000 ML 1,000 ML IV SCH (06:15)
[2017-02-13] MEDS: LEVOTHYROXINE 75 MCG (LEVOTHROID) TABLET PO SCH (06:15)
[2017-02-13] MEDS: inSUlin ASPART (NovoLOG) 1 UNIT/0.01 ML (CHARGE PER UNIT) SC SCH ×7 (07:36→21:00)
[2017-02-13] MEDS: DOPamine DRIP 250 ML IV SCH (07:37)
[2017-02-13] MEDS: TICAGRELOR 90 MG TABLET (BRILINTA) PO SCH ×2 (08:43→21:05)
[2017-02-13] MEDS: ASPIRIN E.C. 81 MG (ECOTRIN) TAB PO SCH (08:43)
[2017-02-13] MEDS: GABAPENTIN 300 MG (NEURONTIN) CAP PO SCH ×2 (08:44→21:07)
[2017-02-13] MEDS: doxAzosin 2 MG (CARDURA) TAB PO SCH (08:44)
[2017-02-13] MEDS: DULoxetine 30 MG (CYMBALTA) CAP PO SCH (08:44)
[2017-02-13] MEDS: PANTOPRAZOLE 40 MG/10 ML (PROTONIX) VIAL IV SCH (08:44)
--- NOTE | 2017-02-13 09:07 | Cardiology Progress Note ---
Subjective Subjective/Events-last exam patient is sitting in a chair, feeling well, still having low urine output, renal function are worse. Denied any chest pain, palpitation. Review of Systems General: No Chills, No Night Sweats, No Fatigue, No Malaise, No Appetite, No Other HEENT: No Head Aches, No Visual Changes, No Eye Pain, No Ear Pain, No Dysphasia , No Sinus Congestion, No Post Nasal Drip, No Sore Throat, No Other Pulmonary: No Dyspnea, No Cough, No Pleuritic Chest Pain, No Other Cardiovascular: Edema, No: Chest Pain, Lt Headedness, Orthopnea, Other, Palpitations, Paroxysmal Noc. Dyspnea Objective-Cardiology Exam Last Set of Vital Signs Vital Signs 02/13/17 08:00 Temp 98.8 Pulse 75 Resp 19 B/P (MAP) 154/91 Pulse Ox 98 O2 Delivery Nasal Cannula O2 Flow Rate 1.50 Capillary Refill : Less Than 3 Seconds I&O Intake and Output 02/13/17 00:00 Intake Total 4530 ml Output Total 450 ml Balance 4080 ml Intake Oral 1530 ml IV Total 3000 ml Output Urine Total 450 ml General: Alert, Oriented X3, Cooperative, No Acute Distress HEENT: Atraumatic, PERRLA Neck: Supple, No JVD Lungs: Clear to Auscultation, Normal Air Movement Heart: Regular Rate, Normal S1, Normal S2, No Murmurs Abdomen: Normal Bowel Sounds, Soft, No Tenderness, No Hepatosplenomegaly, No Masses Extremities: No Clubbing, No Cyanosis, No Edema, Normal Pulses, No Tenderness/ Swelling Skin: No Rashes, No Breakdown, No Significant Lesion Neuro: Normal Gait, Normal Speech, Strength at 5/5 X4 Ext, Normal Tone, Sensation Intact Psych/Mental Status: Mental Status NL, Mood NL Results Lab Laboratory Tests 02/13/17 03:25 A/P-Cardiology Admission Diagnosis Acute ST elevation myocardial infarction the inferior wall Coronary artery disease Hypertensive shock Hyperlipidemia Assessment/Plan Acute inferior wall ST elevation myocardial infarction, status post recent stenting to the right coronary artery with Xcience Alpine 3.5 to the proximal right coronary artery and 2.75 to The distal right coronary artery and right PDA. Brought for emergency cardiac catheterization, total occlusion of the right coronary artery, underwent emergency angioplasty and thrombectomy door to thrombectomy device was 24 minutes with excellent results.chest pain is better, reporting improvement. Cardiogenic shock, hypotensive shock, better at this time. Continue to monitor Acute renal failure, probably a combination of chronic renal insufficiency with hypotension and diabetes mellitus and contrast nephropathy, worsening today, mild oliguria, receiving large amount of fluid, over the past 48 hours she got over 10 L of fluid, I will give one dose of Lasix and evaluate her response. Continue to monitor renal function closely. Hyperlipidemia, poorly controlled, maintained on Lipitor 80 mg daily, I think she has been noncompliant with medication. hold Lipitor at this time due to elevated liver enzymes and continue to monitor, slight improvement in liver enzymes today. Chest pain, diaphoresis, secondary to acute myocardial infarction, improved, no chest pain at this time. Status post severe bradycardia during cardiac catheterization required one dose of atropine, continue to monitor heart rate Diabetes mellitus, restart home medication monitor Obesity. Clinical Quality Measures DVT/VTE Risk/Contraindication: Risk Factor Score Per Nursin RFS Level Per Nursing on Admit: 4+=Very High JACK PARISH MD Feb 13, 2017 09:07
[2017-02-13] MEDS ORDERED: FUROSEMIDE 40 MG/4 ML INJ (LASIX) IVP NR (09:15)
--- NOTE | 2017-02-13 10:53 | Progress Note-Hospitalist ---
Subjective HPI/CC On Admission CC: Reason for consolation: Severe nausea with ARF in DM HPI: This is a 56yoWF pt of Dr[address] Calderon'yanni at [facility] that presents following an acute [place]. Was able to perform intervention within 24 minutes of arrival, Now troponin is 300 but renal insufficient of 2.45 after judicious use of contrast in cath. 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 Pt will receive Scopolamine patch now. Pt is having difficulty urinating. Bladder scan will be done. Pt creatinine is elevated today. SW Review: Pt came from [place]. Troponin was 300. Patient Interview: Pt states she normally does not have nausea. Physical exam was stable. Pt denies smoking and drinking ETOH. Pt states she is disabled. Pt states she has bad DM. Pt states she checks her sugars frequently. Pt states her HgA1C has been getting lower recently. Pt states she received Scopolamine patch. Scribed by Mik Lou under the direct supervision of Dr. Amaya. Date Seen 02/13/17 Subjective/Events-last exam Mrs. Read reports some mild pleuritic chest discomfort and some generalized fatigue. She denies nausea or vomiting. She also denies shortness of breath or cough. Urine output was 450 mL yesterday over the last 10 hours she says 750 mL out. Objective Exam Vital Signs Vital Sign - Last 12Hours 02/10/17 10:17 Temp 96.9 Pulse 76 Resp 12 B/P (MAP) 130/79 145/73 Pulse Ox 97 O2 Delivery Nasal Cannula O2 Flow Rate 2.00 Capillary Refill : Less Than 3 Seconds General Appearance: No Apparent Distress, Obese HEENT: Pale Conjunctivae (L), Pale Conjunctivae (R) Respiratory: Chest Non Tender, Lungs Clear, Normal Breath Sounds, No Accessory Muscle Use, No Respiratory Distress Cardiovascular: Regular Rate, Rhythm, No Edema, No Gallop, No JVD, No Murmur, Normal Peripheral Pulses Gastrointestinal: Normal Bowel Sounds, No Organomegaly, No Pulsatile Mass, Non Tender, Soft Extremity: Normal Inspection, Normal Range of Motion, Other (1+ extremity edema. Calf pain this reported.) Neurologic/Psychiatric: Alert, Oriented x3 Results/Procedures Lab Laboratory Tests 02/13/17 03:25 Assessment/Plan Assessment and Plan Assess & Plan/Chief Complaint 1. Progressive kidney injury compatible with contrast nephropathy patient still has urine output without evidence for heart failure albeit sluggish intake and U IV fluids and monitoring with 1 dose of Lasix. 2. Pleuritic pain may be very early pericarditis if it is getting worse will initiate Solu-Medrol but will hold therapy for now. 3. ST elevation HI secondary to in-stent thrombosis of the right coronary stent status post successful angioplasty per Dr. Perez. KAY STAUFFER MD Feb 13, 2017 10:53
[2017-02-13] MEDS: PROCHLORPERAZINE 10 MG/2ML INJ (COMPAZINE) IV PRN (15:11)
[2017-02-13] MEDS ORDERED: HYDROcodone/APAP 5 MG/325 MG (LORTAB) TAB ONE (17:35)
[2017-02-13] MEDS ORDERED: HYDROcodone/APAP 5 MG/325 MG (LORTAB) TAB PO ONE ×2 (17:45→22:30)
[2017-02-13] MEDS: inSUlin DETERMIR 1 UNIT/0.01 ML (LEVEMIR) CHARGE PER UNIT SQ SCH (21:00)
[2017-02-13] MEDS: MELOXICAM 15 MG TAB PO SCH (21:06)
[2017-02-14] VITALS (22 sets, daily range): BP systolic 92–141; BP diastolic 60–91
[2017-02-14] MEDS: DOPamine DRIP 250 ML IV SCH (02:15)
[2017-02-14] MEDS: NS IV 1000 ML 1,000 ML IV SCH (03:57)
[2017-02-14 04:55] LABS: CREATININE SERUM 4.2 MG/DL (0.60-1.30); POTASSIUM 4.6 MMOL/L (3.6-5.0)
[2017-02-14 04:56] LABS: CALCIUM 7.7 MG/DL (8.5-10.1); MAGNESIUM 1.5 MG/DL (1.8-2.4)
[2017-02-14] MEDS: inSUlin ASPART (NovoLOG) 1 UNIT/0.01 ML (CHARGE PER UNIT) SC SCH ×6 (06:00→21:48)
[2017-02-14] MEDS: LEVOTHYROXINE 75 MCG (LEVOTHROID) TABLET PO SCH (06:31)
[2017-02-14] MEDS: PROCHLORPERAZINE 10 MG/2ML INJ (COMPAZINE) IV PRN ×2 (06:49→21:38)
--- NOTE | 2017-02-14 08:42 | Cardiology Progress Note ---
Subjective Subjective/Events-last exam patient is laying down in bed, denied any chest pain, complaining of shortness of breath, no chest pain. No palpitation. Review of Systems General: No Chills, No Night Sweats, Fatigue, No Malaise, No Appetite, No Other HEENT: No Head Aches, No Visual Changes, No Eye Pain, No Ear Pain, No Dysphasia , No Sinus Congestion, No Post Nasal Drip, No Sore Throat, No Other Pulmonary: Dyspnea, No Cough, No Pleuritic Chest Pain, No Other Cardiovascular: Edema, No: Chest Pain, Lt Headedness, Orthopnea, Other, Palpitations, Paroxysmal Noc. Dyspnea Objective-Cardiology Exam Last Set of Vital Signs Vital Signs 02/13/17 16:15 Temp 97.5 Capillary Refill : Less Than 3 Seconds I&O Intake and Output 02/14/17 00:00 Intake Total 8350 ml Output Total 1900 ml Balance 6450 ml Intake Oral 2350 ml IV Total 6000 ml Output Urine Total 1900 ml General: Alert, Oriented X3, Cooperative, No Acute Distress HEENT: Atraumatic, PERRLA Neck: Supple, No JVD Lungs: Normal Air Movement, Other (bilateral rhonchi) Heart: Regular Rate, Normal S1, Normal S2, No Murmurs Abdomen: Normal Bowel Sounds, Soft, No Tenderness, No Hepatosplenomegaly, No Masses Extremities: No Clubbing, No Cyanosis, Normal Pulses, No Tenderness/Swelling, Other (mild edema) Skin: No Rashes, No Breakdown, No Significant Lesion Neuro: Normal Gait, Normal Speech, Strength at 5/5 X4 Ext, Normal Tone, Sensation Intact Psych/Mental Status: Mental Status NL, Mood NL Results Lab Laboratory Tests 02/14/17 03:53 A/P-Cardiology Admission Diagnosis Acute ST elevation myocardial infarction the inferior wall Coronary artery disease Hypertensive shock Hyperlipidemia Assessment/Plan Acute inferior wall ST elevation myocardial infarction, status post recent stenting to the right coronary artery with Xcience Alpine 3.5 to the proximal right coronary artery and 2.75 to The distal right coronary artery and right PDA. Brought for emergency cardiac catheterization, total occlusion of the right coronary artery, underwent emergency angioplasty and thrombectomy door to thrombectomy device was 24 minutes with excellent results. Continue to monitor. No changes Cardiogenic shock, hypotensive shock, better at this time. Continue to monitor Acute renal failure, combination of chronic renal insufficiency with hypotension and diabetes mellitus and contrast nephropathy, worsening today, mild oliguria, receiving large amount of fluid, had about 20 L intake over the last 3 days, I will discontinue IV fluid, patient is having worsening shortness of breath, responded to Lasix 40, I will start her on Lasix 40 mg IV twice a day and evaluate her response. Hyperlipidemia, poorly controlled, maintained on Lipitor 80 mg daily, I think she has been noncompliant with medication. hold Lipitor at this time due to elevated liver enzymes and continue to monitor, I will reevaluate liver enzymes in the morning Chest pain, diaphoresis, secondary to acute myocardial infarction, improved, no chest pain at this time. Status post severe bradycardia during cardiac catheterization required one dose of atropine, continue to monitor heart rate Diabetes mellitus, restart home medication monitor Obesity. Clinical Quality Measures DVT/VTE Risk/Contraindication: Risk Factor Score Per Nursin RFS Level Per Nursing on Admit: 4+=Very High JACK PARISH MD Feb 14, 2017 08:41
[2017-02-14] MEDS: PANTOPRAZOLE 40 MG/10 ML (PROTONIX) VIAL IV SCH (09:29)
[2017-02-14] MEDS: FUROSEMIDE 40 MG/4 ML INJ (LASIX) IVP SCH ×2 (09:30→17:57)
[2017-02-14] MEDS: ASPIRIN E.C. 81 MG (ECOTRIN) TAB PO SCH (09:30)
[2017-02-14] MEDS: SCOPOLAMINE 1.5 MG (TRANSDERM-SCOP) PATCH TOP SCH (09:30)
[2017-02-14] MEDS: TICAGRELOR 90 MG TABLET (BRILINTA) PO SCH ×2 (09:30→19:53)
[2017-02-14] MEDS: DULoxetine 30 MG (CYMBALTA) CAP PO SCH (09:32)
[2017-02-14] MEDS: doxAzosin 2 MG (CARDURA) TAB PO SCH (09:32)
[2017-02-14] MEDS: SCOPOLAMINE PATCH REMOVAL TP SCH (09:35)
[2017-02-14] MEDS ORDERED: SENNA W/DOCUSATE (SENOKOT S) TABLET ONE (10:05)
[2017-02-14] MEDS ORDERED: SENNA W/DOCUSATE (SENOKOT S) TABLET PO PRN (10:15)
--- NOTE | 2017-02-14 11:13 | Progress Note-Hospitalist ---
Subjective HPI/CC On Admission CC: Reason for consolation: Severe nausea with ARF in DM HPI: This is a 56yo[address] pt of [address] Calderon'yanni at [facility] that presents following an acute OK. Was able to perform intervention within 24 minutes of arrival, Now troponin is 300 but renal insufficient of 2.45 after judicious use of contrast in cath. 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 bi analyst: Zofran makes pt vomit and have nausea. Pt will receive Scopolamine patch now. Pt is having difficulty urinating. Bladder scan will be done. Pt creatinine is elevated today. SW Review: Pt came from [facility]. Troponin was 300. Patient Interview: Pt states she normally does not have nausea. Physical exam was stable. Pt denies smoking and drinking ETOH. Pt states she is disabled. Pt states she has bad DM. Pt states she checks her sugars frequently. Pt states her HgA1C has been getting lower recently. Pt states she received Scopolamine patch. Scribed by Mik Lou under the direct supervision of Dr. Amaya. Date Seen 02/14/17 Subjective/Events-last exam she reports feeling tired with some intermittent vertigo. She denies chest pain pleuritic or otherwise today. She does report constipation and requests a laxative. Objective Exam Vital Signs Vital Sign - Last 12Hours 02/10/17 10:17 Temp 96.9 Pulse 76 Resp 12 B/P (MAP) 130/79 145/73 Pulse Ox 97 O2 Delivery Nasal Cannula O2 Flow Rate 2.00 Capillary Refill : Less Than 3 Seconds General Appearance: No Apparent Distress, Obese Respiratory: Chest Non Tender, Lungs Clear, Normal Breath Sounds, No Accessory Muscle Use, No Respiratory Distress Cardiovascular: Regular Rate, Rhythm, No Edema, No Gallop, No JVD, No Murmur, Normal Peripheral Pulses Gastrointestinal: Normal Bowel Sounds, No Organomegaly, No Pulsatile Mass, Non Tender, Soft Extremity: Non Tender, Other (1+ upper and lower extremity edema.) Results/Procedures Lab Laboratory Tests 02/14/17 03:53 Assessment/Plan Assessment and Plan Assess & Plan/Chief Complaint 1.contrast nephropathy with stable creatinine level 4.2 today is encouraging. Output was significantly increased as well as a little over 1.5 L yesterday. 2. Pleuritic pain improved today as well.. 3. ST elevation OK secondary to in-stent thrombosis of the right coronary stent status post successful angioplasty per Dr. Perez. 4. Constipation order for Talib[place]ot given. KAY STAUFFER MD Feb 14, 2017 11:13
[2017-02-14] MEDS ORDERED: HYDROcodone/APAP 5 MG/325 MG (LORTAB) TAB ONE (13:25)
[2017-02-14] MEDS: HYDROcodone/APAP 5 MG/325 MG (LORTAB) TAB PO PRN ×2 (13:31→21:38)
[2017-02-14] MEDS: MELOXICAM 15 MG TAB PO SCH (19:54)
[2017-02-14] MEDS: GABAPENTIN 300 MG (NEURONTIN) CAP PO SCH (19:54)
[2017-02-14] MEDS: inSUlin DETERMIR 1 UNIT/0.01 ML (LEVEMIR) CHARGE PER UNIT SQ SCH (19:58)
[2017-02-15] VITALS (21 sets, daily range): BP systolic 91–154; BP diastolic 67–99
[2017-02-15] MEDS: inSUlin ASPART (NovoLOG) 1 UNIT/0.01 ML (CHARGE PER UNIT) SC SCH ×8 (01:07→21:54)
[2017-02-15] MEDS: DOPamine DRIP 250 ML IV SCH (02:15)
[2017-02-15 04:27] LABS: BASOPHILS # (AUTO) 0.1 10^3/uL (0.0-0.1); BASOPHILS % (AUTO) 1 % (0-10); EOSINOPHILS # (AUTO) 0.4 10^3/uL (0.0-0.3); EOSINOPHILS % (AUTO) 4 % (0-10); LYMPHOCYTES % (AUTO) 20 % (12-44); MEAN CORPUSCULAR HEMOGLOBIN 29 PG (25-34); MEAN CORPUSCULAR HGB CONC 32 G/DL (32-36); MEAN CORPUSCULAR VOLUME 92 FL (80-99); MEAN PLATELET VOLUME 11.9 FL (7.4-10.4); MONOCYTES # (AUTO) 0.9 X 10^3 (0.0-1.0); MONOCYTES % (AUTO) 9 % (0-12); NEUTROPHILS # (AUTO) 6.6 X 10^3 (1.8-7.8); NEUTROPHILS % (AUTO) 66 % (42-75); PLATELET COUNT 258 10^3/uL (130-400); RED BLOOD COUNT 2.73 10^6/uL (4.35-5.85); RED CELL DISTRIBUTION WIDTH 13.4 % (10.0-14.5)
[2017-02-15 04:48] LABS: ALBUMIN 2.4 G/DL (3.2-4.5); BILIRUBIN,TOTAL 0.4 MG/DL (0.1-1.0); CALCIUM 8.3 MG/DL (8.5-10.1); CREATININE SERUM 4.14 MG/DL (0.60-1.30); MAGNESIUM 1.6 MG/DL (1.8-2.4); PHOSPHORUS 5.7 MG/DL (2.3-4.7); POTASSIUM 4.8 MMOL/L (3.6-5.0); TOTAL PROTEIN 5.4 G/DL (6.4-8.2)
[2017-02-15 05:03] LABS: TROPONIN I 23.15 NG/ML (<0.30)
[2017-02-15] MEDS: MAGNESIUM 1 GM/100 ML IVPB 100 ML IV SCH (05:08)
[2017-02-15] MEDS: POTASSIUM CL 10MEQ/50ML IVPB 50 ML IV SCH (05:08)
[2017-02-15] MEDS: KCL 20 MEQ TAB (K-DUR) PO SCH (05:09)
[2017-02-15] MEDS: FUROSEMIDE 40 MG/4 ML INJ (LASIX) IVP SCH ×3 (06:55→16:36)
[2017-02-15] MEDS: LEVOTHYROXINE 75 MCG (LEVOTHROID) TABLET PO SCH (06:56)
--- NOTE | 2017-02-15 07:27 | Pulmonary Progress Note ---
Subjective Subjective/Events-last exam 56yo with hx of CAD and hx of stent placement last was 01/28/17 presented seconary to acute CP at [place] ED found to have STEMI and was transferred to [facility] [place]. Exam Exam Vital Signs Date Time Temp Pulse Resp B/P (MAP) Pulse Ox O2 Delivery O2 Flow Rate FiO2 02/15/17 06:00 67 10 91/68 92 Room Air 02/15/17 05:00 67 24 117/81 93 Room Air 02/15/17 04:00 65 9 122/79 93 Room Air 02/15/17 04:00 94 Room Air 0.00 02/15/17 03:00 64 11 121/73 93 Room Air 02/15/17 02:00 62 12 122/82 91 Room Air 02/15/17 01:00 65 10 126/88 97 Room Air 02/15/17 01:00 65 02/15/17 00:00 94 Room Air 0.00 02/15/17 00:00 62 11 106/71 100 Room Air 02/14/17 23:00 61 17 101/60 97 Room Air 02/14/17 22:08 97.5 02/14/17 22:00 65 11 137/91 97 Room Air 02/14/17 21:38 97.5 02/14/17 21:00 64 8 102/63 97 Room Air 02/14/17 20:00 100 Nasal Cannula 1.50 02/14/17 20:00 61 17 125/83 100 Nasal Cannula 1.00 02/14/17 19:58 97.5 02/14/17 19:53 1.00 02/14/17 19:00 63 17 141/78 95 Nasal Cannula 1.00 02/14/17 19:00 63 02/14/17 18:00 60 12 93/69 95 Nasal Cannula 1.00 02/14/17 17:00 57 11 116/79 94 Nasal Cannula 1.00 02/14/17 16:00 60 10 119/72 94 Nasal Cannula 1.00 02/14/17 16:00 98 Nasal Cannula 1.50 02/14/17 15:00 64 12 110/72 95 Nasal Cannula 1.00 02/14/17 14:00 65 16 106/71 95 Nasal Cannula 1.00 02/14/17 13:00 63 11 92/61 Nasal Cannula 1.00 02/14/17 13:00 63 02/14/17 12:30 97.5 02/14/17 12:00 98 Nasal Cannula 1.50 02/14/17 12:00 65 21 118/71 Nasal Cannula 1.00 02/14/17 11:00 70 15 Nasal Cannula 1.00 02/14/17 10:00 64 12 93 Nasal Cannula 1.00 02/14/17 09:00 62 8 115/75 91 Nasal Cannula 1.00 02/14/17 08:00 62 10 106/68 92 Nasal Cannula 1.00 02/14/17 08:00 98.0 Nasal Cannula 02/14/17 08:00 98 Nasal Cannula 1.50 I & O 02/15/17 07:00 Intake Total 2100 ml Output Total 1200 ml Balance 900 ml General Appearance: No Apparent Distress, Obese HEENT: Pale Conjunctivae (L), Pale Conjunctivae (R) Neck: Full Range of Motion, Normal Inspection, Non Tender, Supple, Carotid Bruit Respiratory: Chest Non Tender, Lungs Clear, Normal Breath Sounds, No Accessory Muscle Use, No Respiratory Distress Cardiovascular: Regular Rate, Rhythm, No Edema, No Gallop, No JVD, No Murmur, Normal Peripheral Pulses Capillary Refill: Less Than 3 Seconds Extremity: Non Tender, Other (1+ upper and lower extremity edema.) Neurologic/Psychiatric: Alert, Oriented x3 Skin: Normal Color, Warm/Dry Lymphatic: No Adenopathy Results Lab Laboratory Tests 02/14/17 03:53 02/15/17 03:42 Assessment/Plan Assessment/Plan Acute STEMI inferior wall s/p cath - found to have total occlusion of RCA cardiogenic shock - resolved ARF- with decreased UO Clinical Quality Measures DVT/VTE Risk/Contraindication: Risk Factor Score Per Nursin RFS Level Per Nursing on Admit: 4+=Very High ANNIE BECKHAM DO Feb 15, 2017 07:27
--- NOTE | 2017-02-15 07:33 | Pulmonary Consultation ---
History of Present Illness History of Present Illness Date of Consultation 02/15/17 07:33 Date of Admission Reason for Visit: chest pain Allergies and Home Medications Allergies Coded Allergies: ondansetron (Verified Allergy, Severe, N/V, 02/10/17) Estrogens (Unverified Allergy, Unknown, BLISTERS ON BUTT, 12/17/14) metformin (Unverified Allergy, Unknown, BLISTERS ON BUTT, 12/17/14) Home Medications Amlodipine Besylate 10 Mg Tablet, 10 MG PO DAILY, (Reported) Aspirin 81 Mg Tab.chew, 162 MG PO DAILY, (Reported) Atorvastatin Calcium 80 Mg Tablet, 80 MG PO HS, (Reported) Citalopram Hydrobromide 20 Mg Tablet, 20 MG PO DAILY, (Reported) LAST FILLED 02/03/17 #30 Clopidogrel Bisulfate 75 Mg Tablet, 75 MG PO DAILY, (Reported) LAST FILLED 12/05/16 #30 Doxazosin Mesylate 2 Mg Tablet, 2 MG PO DAILY, (Reported) Duloxetine HCl 30 Mg Capsule.dr, 30 MG PO DAILY, (Reported) Furosemide 40 Mg Tablet, 40 MG PO DAILY, (Reported) Gabapentin 300 Mg Capsule, 900 MG PO TID, (Reported) TAKES 3 (300 MG) CAPSULES Insulin Aspart 10 Unit/0.1 Ml Vial, 40 UNIT SC AC, (Reported) LAST FILLED 09/21/16 #3 VIALS (30 ML) Insulin Glargine,Hum.rec.anlog 100 Unit/1 Ml Vial, 80 UNITS SQ HS, (Reported) LAST FILLED 09/21/16 #3 VIALS (30 ML) Levothyroxine Sodium 75 Mcg Tablet, 75 MCG PO DAILY, (Reported) Linaclotide 145 Mcg Capsule, 145 MCG PO DAILY, (Reported) Lisinopril 10 Mg Tablet, 10 MG PO DAILY, (Reported) Lisinopril 40 Mg Tablet, 40 MG PO DAILY, (Reported) Lorazepam 0.5 Mg Tablet, 0.5 MG PO DAILY PRN for ANXIETY, (Reported) Meloxicam 15 Mg Tablet, 15 MG PO HS, (Reported) Morphine Sulfate 15 Mg Tablet.er, 15 MG PO HS, (Reported) Saxagliptin HCl 5 Mg Tablet, 5 MG PO DAILY, (Reported) LAST FILLED 01/2917 #30 Past Jpggiho-Smmuxx-Rtffud Hx Patient Social History Alcohol Use: Denies Use Recreational Drug Use: No Smoking Status: Never a Smoker Recent Foreign Travel: No Contact w/Someone Who Travel: No Recent Infectious Disease Expo: No Recent Hopitalizations: Yes (stents placed in dec 2016) Physical Abuse Screen: No Sexual Abuse: No Immunizations Up To Date Tetanus Booster (TDap): Unknown PED Vaccines UTD: Yes Date of Pneumonia Vaccine: Sep 18, 2014 Date of Influenza Vaccine: Sep 16, 2016 Seasonal Allergies Seasonal Allergies: No Surgeries HX Surgeries: Yes (right forearm repair with plates et screws) Surgeries: Coronary Stent, Gallbladder, Hysterectomy Respiratory Hx Respiratory Disorders: No Respiratory Disorders: Emphysema Cardiovascular Hx Cardiac Disorders: Yes Cardiac Disorders: Heart Attack, High Cholesterol, Hypertension Neurological Hx Neurological Disorders: Yes Neurological Disorders: Neuropathy Reproductive System Hx Reproductive Disorders: No Sexually Transmitted Disease: No HIV/AIDS: No Female 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 Genitourinary Hx Genitourinary Disorders: Yes Genitourinary Disorders: Renal Failure Gastrointestinal Hx Gastrointestinal Disorders: No Gastrointestinal Disorders: Gastroesophageal Reflux, Gall Bladder Disease Musculoskeletal Hx Musculoskeletal Disorders: Yes (right arm fracture with screws and pin placements) Musculoskeletal Disorders: Arthritis, Fibromyalgia, Fractures Endocrine Hx Endocrine Disorders: Yes Endocrine Disorders: Diabetes, Insulin dep, Hypothyroidsim HEENT HX ENT Disorders: Yes (GLASSES) HEENT Disorders: Double Vision Hearing Impairment: Hard of Hearing Cancer Hx Cancer: Yes Cancer: Ovarian, Uterine Psychosocial Hx Psychiatric Problems: Yes Behavioral Health Disorders: Depression Integumentary HX Skin/Integumentary Disorder: Yes (DIABETIC SORES) Skin/Integumentary Disorders: Recent Skin Changes Blood Transfusions Hx Blood Disorders: No Adverse Reaction to a Blood Tr: No Family Medical History Significant Family History: No Pertinent Family Hx Family Medial History: Cardiovascular disease 19 FATHER G8 SISTER Diabetes mellitus 19 FATHER G8 BROTHER G8 SISTER FH: lung cancer 19 MOTHER FH: skin cancer 19 FATHER Parkinson's disease G8 SISTER Psychosocial problem G8 BROTHER Exam Exam Vital Signs Date Time Temp Pulse Resp B/P (MAP) Pulse Ox O2 Delivery O2 Flow Rate FiO2 02/15/17 06:00 67 10 91/68 92 Room Air 02/15/17 05:00 67 24 117/81 93 Room Air 02/15/17 04:00 65 9 122/79 93 Room Air 02/15/17 04:00 94 Room Air 0.00 02/15/17 03:00 64 11 121/73 93 Room Air 02/15/17 02:00 62 12 122/82 91 Room Air 02/15/17 01:00 65 10 126/88 97 Room Air 02/15/17 01:00 65 02/15/17 00:00 94 Room Air 0.00 02/15/17 00:00 62 11 106/71 100 Room Air 02/14/17 23:00 61 17 101/60 97 Room Air 02/14/17 22:08 97.5 02/14/17 22:00 65 11 137/91 97 Room Air 02/14/17 21:38 97.5 02/14/17 21:00 64 8 102/63 97 Room Air 02/14/17 20:00 100 Nasal Cannula 1.50 02/14/17 20:00 61 17 125/83 100 Nasal Cannula 1.00 02/14/17 19:58 97.5 02/14/17 19:53 1.00 02/14/17 19:00 63 17 141/78 95 Nasal Cannula 1.00 02/14/17 19:00 63 02/14/17 18:00 60 12 93/69 95 Nasal Cannula 1.00 02/14/17 17:00 57 11 116/79 94 Nasal Cannula 1.00 02/14/17 16:00 60 10 119/72 94 Nasal Cannula 1.00 02/14/17 16:00 98 Nasal Cannula 1.50 02/14/17 15:00 64 12 110/72 95 Nasal Cannula 1.00 02/14/17 14:00 65 16 106/71 95 Nasal Cannula 1.00 02/14/17 13:00 63 11 92/61 Nasal Cannula 1.00 02/14/17 13:00 63 02/14/17 12:30 97.5 02/14/17 12:00 98 Nasal Cannula 1.50 02/14/17 12:00 65 21 118/71 Nasal Cannula 1.00 02/14/17 11:00 70 15 Nasal Cannula 1.00 02/14/17 10:00 64 12 93 Nasal Cannula 1.00 02/14/17 09:00 62 8 115/75 91 Nasal Cannula 1.00 02/14/17 08:00 62 10 106/68 92 Nasal Cannula 1.00 02/14/17 08:00 98.0 Nasal Cannula 02/14/17 08:00 98 Nasal Cannula 1.50 I & O 02/15/17 07:00 Intake Total 2100 ml Output Total 1200 ml Balance 900 ml General Appearance: No Apparent Distress, Obese HEENT: Pale Conjunctivae (L), Pale Conjunctivae (R) Neck: Full Range of Motion, Normal Inspection, Non Tender, Supple, Carotid Bruit Respiratory: Chest Non Tender, Lungs Clear, Normal Breath Sounds, No Accessory Muscle Use, No Respiratory Distress Cardiovascular: Regular Rate, Rhythm, No Edema, No Gallop, No JVD, No Murmur, Normal Peripheral Pulses Capillary Refill: Less Than 3 Seconds Extremity: Non Tender, Other (1+ upper and lower extremity edema.) Neurologic/Psychiatric: Alert, Oriented x3 Skin: Normal Color, Warm/Dry Lymphatic: No Adenopathy Results Lab Laboratory Tests 02/14/17 03:53 02/15/17 03:42 Assessment/Plan Assessment/Plan Acute STEMI inferior wall s/p cath - found to have total occlusion of RCA cardiogenic shock - resolved ARF- with decreased UO Clinical Quality Measures DVT/VTE Risk/Contraindication: Risk Factor Score Per Nursin RFS Level Per Nursing on Admit: 4+=Very High ANNIE BECKHAM DO Feb 15, 2017 07:33
--- NOTE | 2017-02-15 07:36 | Pulmonary Consultation ---
History of Present Illness History of Present Illness Date of Consultation 02/15/17 07:34 Date of Admission Reason for Visit: chest pain History of Present Illness 56yo with hx of CAD and hx of stent placement last was 01/28/17 presented seconary to acute CP at [place] ED found to have STEMI and was transferred to [facility]. She was admitted to ICU and treated for cardiogenic shock. PT is now doing much better. I am consulted for ICU management. Allergies and Home Medications Allergies Coded Allergies: ondansetron (Verified Allergy, Severe, N/V, 02/10/17) Estrogens (Unverified Allergy, Unknown, BLISTERS ON BUTT, 12/17/14) metformin (Unverified Allergy, Unknown, BLISTERS ON BUTT, 12/17/14) Home Medications Amlodipine Besylate 10 Mg Tablet, 10 MG PO DAILY, (Reported) Aspirin 81 Mg Tab.chew, 162 MG PO DAILY, (Reported) Atorvastatin Calcium 80 Mg Tablet, 80 MG PO HS, (Reported) Citalopram Hydrobromide 20 Mg Tablet, 20 MG PO DAILY, (Reported) LAST FILLED 02/03/17 #30 Clopidogrel Bisulfate 75 Mg Tablet, 75 MG PO DAILY, (Reported) LAST FILLED 12/05/16 #30 Doxazosin Mesylate 2 Mg Tablet, 2 MG PO DAILY, (Reported) Duloxetine HCl 30 Mg Capsule.dr, 30 MG PO DAILY, (Reported) Furosemide 40 Mg Tablet, 40 MG PO DAILY, (Reported) Gabapentin 300 Mg Capsule, 900 MG PO TID, (Reported) TAKES 3 (300 MG) CAPSULES Insulin Aspart 10 Unit/0.1 Ml Vial, 40 UNIT SC AC, (Reported) LAST FILLED 09/21/16 #3 VIALS (30 ML) Insulin Glargine,Hum.rec.anlog 100 Unit/1 Ml Vial, 80 UNITS SQ HS, (Reported) LAST FILLED 09/21/16 #3 VIALS (30 ML) Levothyroxine Sodium 75 Mcg Tablet, 75 MCG PO DAILY, (Reported) Linaclotide 145 Mcg Capsule, 145 MCG PO DAILY, (Reported) Lisinopril 10 Mg Tablet, 10 MG PO DAILY, (Reported) Lisinopril 40 Mg Tablet, 40 MG PO DAILY, (Reported) Lorazepam 0.5 Mg Tablet, 0.5 MG PO DAILY PRN for ANXIETY, (Reported) Meloxicam 15 Mg Tablet, 15 MG PO HS, (Reported) Morphine Sulfate 15 Mg Tablet.er, 15 MG PO HS, (Reported) Saxagliptin HCl 5 Mg Tablet, 5 MG PO DAILY, (Reported) LAST FILLED 01/2917 #30 Past Muilarw-Aurcuz-Nlmeoe Hx Patient Social History Alcohol Use: Denies Use Recreational Drug Use: No Smoking Status: Never a Smoker Recent Foreign Travel: No Contact w/Someone Who Travel: No Recent Infectious Disease Expo: No Recent Hopitalizations: Yes (stents placed in dec 2016) Physical Abuse Screen: No Sexual Abuse: No Immunizations Up To Date Tetanus Booster (TDap): Unknown PED Vaccines UTD: Yes Date of Pneumonia Vaccine: Sep 18, 2014 Date of Influenza Vaccine: Sep 16, 2016 Seasonal Allergies Seasonal Allergies: No Surgeries HX Surgeries: Yes (right forearm repair with plates et screws) Surgeries: Coronary Stent, Gallbladder, Hysterectomy Respiratory Hx Respiratory Disorders: No Respiratory Disorders: Emphysema Cardiovascular Hx Cardiac Disorders: Yes Cardiac Disorders: Heart Attack, High Cholesterol, Hypertension Neurological Hx Neurological Disorders: Yes Neurological Disorders: Neuropathy Reproductive System Hx Reproductive Disorders: No Sexually Transmitted Disease: No HIV/AIDS: No 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 Genitourinary Hx Genitourinary Disorders: Yes Genitourinary Disorders: Renal Failure Gastrointestinal Hx Gastrointestinal Disorders: No Gastrointestinal Disorders: Gastroesophageal Reflux, Gall Bladder Disease Musculoskeletal Hx Musculoskeletal Disorders: Yes (right arm fracture with screws and pin placements) Musculoskeletal Disorders: Arthritis, Fibromyalgia, Fractures Endocrine Hx Endocrine Disorders: Yes Endocrine Disorders: Diabetes, Insulin dep, Hypothyroidsim HEENT HX ENT Disorders: Yes (GLASSES) HEENT Disorders: Double Vision Hearing Impairment: Hard of Hearing Cancer Hx Cancer: Yes Cancer: Ovarian, Uterine Psychosocial Hx Psychiatric Problems: Yes Behavioral Health Disorders: Depression Integumentary HX Skin/Integumentary Disorder: Yes (DIABETIC SORES) Skin/Integumentary Disorders: Recent Skin Changes Blood Transfusions Hx Blood Disorders: No Adverse Reaction to a Blood Tr: No Family Medical History Significant Family History: No Pertinent Family Hx Family Medial History: Cardiovascular disease 19 FATHER G8 SISTER Diabetes mellitus 19 FATHER G8 BROTHER G8 SISTER FH: lung cancer 19 MOTHER FH: skin cancer 19 FATHER Parkinson's disease G8 SISTER Psychosocial problem G8 BROTHER Exam Exam Vital Signs Date Time Temp Pulse Resp B/P (MAP) Pulse Ox O2 Delivery O2 Flow Rate FiO2 02/15/17 06:00 67 10 91/68 92 Room Air 02/15/17 05:00 67 24 117/81 93 Room Air 02/15/17 04:00 65 9 122/79 93 Room Air 02/15/17 04:00 94 Room Air 0.00 02/15/17 03:00 64 11 121/73 93 Room Air 02/15/17 02:00 62 12 122/82 91 Room Air 02/15/17 01:00 65 10 126/88 97 Room Air 02/15/17 01:00 65 02/15/17 00:00 94 Room Air 0.00 02/15/17 00:00 62 11 106/71 100 Room Air 02/14/17 23:00 61 17 101/60 97 Room Air 02/14/17 22:08 97.5 02/14/17 22:00 65 11 137/91 97 Room Air 02/14/17 21:38 97.5 02/14/17 21:00 64 8 102/63 97 Room Air 02/14/17 20:00 100 Nasal Cannula 1.50 02/14/17 20:00 61 17 125/83 100 Nasal Cannula 1.00 02/14/17 19:58 97.5 02/14/17 19:53 1.00 02/14/17 19:00 63 17 141/78 95 Nasal Cannula 1.00 02/14/17 19:00 63 02/14/17 18:00 60 12 93/69 95 Nasal Cannula 1.00 02/14/17 17:00 57 11 116/79 94 Nasal Cannula 1.00 02/14/17 16:00 60 10 119/72 94 Nasal Cannula 1.00 02/14/17 16:00 98 Nasal Cannula 1.50 02/14/17 15:00 64 12 110/72 95 Nasal Cannula 1.00 02/14/17 14:00 65 16 106/71 95 Nasal Cannula 1.00 02/14/17 13:00 63 11 92/61 Nasal Cannula 1.00 02/14/17 13:00 63 02/14/17 12:30 97.5 02/14/17 12:00 98 Nasal Cannula 1.50 02/14/17 12:00 65 21 118/71 Nasal Cannula 1.00 02/14/17 11:00 70 15 Nasal Cannula 1.00 02/14/17 10:00 64 12 93 Nasal Cannula 1.00 02/14/17 09:00 62 8 115/75 91 Nasal Cannula 1.00 02/14/17 08:00 62 10 106/68 92 Nasal Cannula 1.00 02/14/17 08:00 98.0 Nasal Cannula 02/14/17 08:00 98 Nasal Cannula 1.50 I & O 02/15/17 07:00 Intake Total 2100 ml Output Total 1200 ml Balance 900 ml General Appearance: No Apparent Distress, Obese HEENT: Pale Conjunctivae (L), Pale Conjunctivae (R) Neck: Full Range of Motion, Normal Inspection, Non Tender, Supple, Carotid Bruit Respiratory: Chest Non Tender, Lungs Clear, Normal Breath Sounds, No Accessory Muscle Use, No Respiratory Distress Cardiovascular: Regular Rate, Rhythm, No Edema, No Gallop, No JVD, No Murmur, Normal Peripheral Pulses Capillary Refill: Less Than 3 Seconds Extremity: Non Tender, Other (1+ upper and lower extremity edema.) Neurologic/Psychiatric: Alert, Oriented x3 Skin: Normal Color, Warm/Dry Lymphatic: No Adenopathy Results Lab Laboratory Tests 02/14/17 03:53 02/15/17 03:42 Assessment/Plan Assessment/Plan Acute STEMI inferior wall s/p cath - found to have total occlusion of RCA cardiogenic shock - resolved ARF- with decreased UO Clinical Quality Measures DVT/VTE Risk/Contraindication: Risk Factor Score Per Nursin RFS Level Per Nursing on Admit: 4+=Very High ANNIE BECKHAM DO Feb 15, 2017 07:36
--- NOTE | 2017-02-15 07:44 | Diagnostic Imaging Report ---
INDICATION: Dyspnea. COMPARISON: 01/23/2015. FINDINGS: Single frontal radiographic view of the chest was obtained and demonstrates moderate cardiomegaly and probable mild prominence of pulmonary vasculature. Left hemidiaphragm is obscured. There is no pneumothorax. Bony structures show no acute abnormalities. IMPRESSION: 1. Obscuration of left lung base. Findings may be related to atelectasis and obscuration by overlying soft tissue structures. Underlying infiltrate cannot be excluded. 2. Cardiomegaly and probable mild pulmonary vascular congestion. Dictated by: Dictated on workstation # [id number]
[2017-02-15] MEDS: PANTOPRAZOLE 40 MG/10 ML (PROTONIX) VIAL IV SCH (09:00)
--- NOTE | 2017-02-15 09:20 | Diagnostic Imaging Report ---
EXAMINATION: PA and lateral views of the chest. INDICATION: Shortness of breath. COMPARISON: 02/15/2017. FINDINGS: The heart is moderately enlarged. The pulmonary vascular congestion has improved compared to a prior study performed on the same day 4 hours earlier. There is a left basilar infiltrate or atelectasis with a small left effusion. No pneumothorax. IMPRESSION: Cardiomegaly with improving pulmonary vascular congestion. Left basilar infiltrate or atelectasis with a small left effusion seen. Dictated by: Dictated on workstation # [id number]
[2017-02-15] MEDS: ASPIRIN E.C. 81 MG (ECOTRIN) TAB PO SCH (09:21)
[2017-02-15] MEDS: TICAGRELOR 90 MG TABLET (BRILINTA) PO SCH ×2 (09:22→21:53)
[2017-02-15] MEDS: doxAzosin 2 MG (CARDURA) TAB PO SCH (09:23)
[2017-02-15] MEDS: DULoxetine 30 MG (CYMBALTA) CAP PO SCH (09:26)
[2017-02-15] MEDS: SCOPOLAMINE PATCH REMOVAL TP SCH (09:28)
--- NOTE | 2017-02-15 09:29 | Progress Note-Hospitalist ---
Progress Note HPI/CC on Admission CC: Reason for consolation: Severe nausea with ARF in DM HPI: This is a 56yoWF pt of Dr. Calderon'yanni at [facility] that presents following an acute OR. Was able to perform intervention within 24 minutes of arrival, Now troponin is 300 but renal insufficient of 2.45 after judicious use of contrast in cath. 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 Pt will receive Scopolamine patch now. Pt is having difficulty urinating. Bladder scan will be done. Pt creatinine is elevated today. SW Review: Pt came from [place]. Troponin was 300. Patient Interview: Pt states she normally does not have nausea. Physical exam was stable. Pt denies smoking and drinking ETOH. Pt states she is disabled. Pt states she has bad DM. Pt states she checks her sugars frequently. Pt states her HgA1C has been getting lower recently. Pt states she received Scopolamine patch. Scribed by Mik Lou under the direct supervision of Dr. Aleman. Progress Notes/Assess & Plan Date Seen 02/15/17 Admission Dx/Process Assessment: Status post acute myocardial infarction with troponin of [address] Fenton Severe nausea likely due to myocardial infarction and gastroparesis from diabetes Acute renal failure on chronic renal insufficiency Diabetes mellitus with history of neuropathy causing disability Diagonsis/Assessment & Plan Feeling dyspneic so ordered BNP and CXR Creat 4.1 no elevated potassium Checked meds and labs Updated patient and No fever, vital signs stable, pleasant, improved Regular rate and rhythm, clear to auscultation bilaterally No edema Assessment: Status post acute myocardial infarction with troponin of [address] Fenton now 23 Severe nausea likely due to myocardial infarction and gastroparesis from diabetes responded to scopolamine patch and doing well and now resolved Acute renal failure on chronic renal insufficiency elevated creatinine to 3.5 after cath placed on IV fluids and stopped lisinopril and Lasix now 4.1 but non- oliguric Diabetes mellitus with history of neuropathy causing disability Plan: Scopolamine patch to be maintained Monitor creatinine Gentle IV fluids Monitor blood sugar Will follow with you until Dr Colindres takes over the case tomorrow 02/16/17 QUINN ALEMAN DO Feb 15, 2017 09:29
[2017-02-15] MEDS: PANTOPRAZOLE 40 MG (PROTONIX) TAB PO SCH (09:30)
[2017-02-15 09:35] LABS: CYP2C19 GENO *17/Neg; CYP2C19 SPEC Whole Blood
[2017-02-15 09:36] LABS: CYP2C19 PHENOTYPE INTERP Rapid
--- NOTE | 2017-02-15 10:37 | Diagnostic Imaging Report ---
EXAMINATION: Portable upright radiograph of the chest. INDICATION: PICC line placement. FINDINGS: There is cardiomegaly with pulmonary vascular congestion. There is a PICC line in place over the left arm with the tip at the cavoatrial junction. There are bibasilar infiltrates, more on the left side, and a small left effusion. IMPRESSION: Cardiomegaly with pulmonary vascular congestion and bibasilar infiltrate or atelectasis. Dictated by: Dictated on workstation # [id number]
--- NOTE | 2017-02-15 11:12 | Cardiology Progress Note ---
Subjective Subjective/Events-last exam patient is sitting in bed, feeling better, reporting episodes of chest pain and shortness of breath with exertion which has been worsening. Review of Systems General: No Chills, No Night Sweats, No Fatigue, No Malaise, No Appetite, No Other HEENT: No Head Aches, No Visual Changes, No Eye Pain, No Ear Pain, No Dysphasia , No Sinus Congestion, No Post Nasal Drip, No Sore Throat, No Other Pulmonary: Dyspnea, No Cough, No Pleuritic Chest Pain, No Other Cardiovascular: Chest Pain, No: Edema, Lt Headedness, Orthopnea, Other, Palpitations, Paroxysmal Noc. Dyspnea Objective-Cardiology Exam Last Set of Vital Signs Vital Signs 02/14/17 02/15/17 02/15/17 22:08 04:00 06:00 Temp 97.5 Pulse 67 Resp 10 B/P (MAP) 91/68 Pulse Ox 92 O2 Delivery Room Air O2 Flow Rate 0.00 Capillary Refill : Less Than 3 Seconds I&O Intake and Output 02/15/17 00:00 Intake Total 1950 ml Output Total 1350 ml Balance 600 ml Intake Oral 1050 ml IV Total 900 ml Output Urine Total 1350 ml # Voids 1 # Bowel Movements 1 General: Alert, Oriented X3, Cooperative, No Acute Distress HEENT: Atraumatic, PERRLA Neck: Supple, No JVD Lungs: Normal Air Movement, Other (bilateral rhonchi) Heart: Regular Rate, Normal S1, Normal S2, No Murmurs Abdomen: Normal Bowel Sounds, Soft, No Tenderness, No Hepatosplenomegaly, No Masses Extremities: No Clubbing, No Cyanosis, Normal Pulses, No Tenderness/Swelling, Other (mild edema) Skin: No Rashes, No Breakdown, No Significant Lesion Neuro: Normal Gait, Normal Speech, Strength at 5/5 X4 Ext, Normal Tone, Sensation Intact Psych/Mental Status: Mental Status NL, Mood NL Results Lab Laboratory Tests 02/15/17 03:42 A/P-Cardiology Admission Diagnosis Acute ST elevation myocardial infarction the inferior wall Coronary artery disease Hypertensive shock Hyperlipidemia Assessment/Plan Acute inferior wall ST elevation myocardial infarction, status post recent stenting to the right coronary artery with Xcience Alpine 3.5 to the proximal right coronary artery and 2.75 to The distal right coronary artery and right PDA. Brought for emergency cardiac catheterization, total occlusion of the right coronary artery, underwent emergency angioplasty and thrombectomy door to thrombectomy device was 24 minutes with excellent results. Chest pain and shortness of breath, EKG showed Q wave in the inferior leads. Chest x-ray showed worsening pulmonary edema, received large amount of fluid over the past few days, IV fluid was his continued yesterday, I still encouraged her to increase fluid intake and I am using Lasix 40 mg IV twice a day, continue to monitor renal function closely. Cardiogenic shock, hypotensive shock, better at this time. Continue to monitor Acute renal failure, combination of chronic renal insufficiency with hypotension and diabetes mellitus and contrast nephropathy, worsening today, mild oliguria, receiving large amount of fluid, had about 20 L intake over the last 3 days, I will discontinue IV fluid, patient is having worsening shortness of breath, pulmonary edema, continue with IV Lasix. Hyperlipidemia, poorly controlled, maintained on Lipitor 80 mg daily, I think she has been noncompliant with medication. hold Lipitor at this time due to elevated liver enzymes and continue to monitor, I will reevaluate liver enzymes in the morning Chest pain, diaphoresis, secondary to acute myocardial infarction, improved, no chest pain at this time. Status post severe bradycardia during cardiac catheterization required one dose of atropine, continue to monitor heart rate Diabetes mellitus, restart home medication monitor Obesity. Clinical Quality Measures DVT/VTE Risk/Contraindication: Risk Factor Score Per Nursin RFS Level Per Nursing on Admit: 4+=Very High JACK PARISH MD Feb 15, 2017 11:12
[2017-02-15] MEDS ORDERED: inSUlin ASPART (NovoLOG) 1 UNIT/0.01 ML (CHARGE PER UNIT) SC SCH (18:00)
[2017-02-15] MEDS: inSUlin DETERMIR 1 UNIT/0.01 ML (LEVEMIR) CHARGE PER UNIT SQ SCH (21:00)
[2017-02-15] MEDS: MELOXICAM 15 MG TAB PO SCH (21:52)
[2017-02-15] MEDS: GABAPENTIN 300 MG (NEURONTIN) CAP PO SCH (21:53)
[2017-02-15] MEDS: PROCHLORPERAZINE 10 MG/2ML INJ (COMPAZINE) IV PRN (23:19)
[2017-02-16] VITALS (14 sets, daily range): BP systolic 117–172; BP diastolic 68–97
[2017-02-16] MEDS: HYDROcodone/APAP 5 MG/325 MG (LORTAB) TAB PO PRN ×2 (00:05→20:30)
[2017-02-16] MEDS: LORazepam 0.5 MG (ATIVAN) TABLET PO PRN (00:05)
[2017-02-16] MEDS: DOPamine DRIP 250 ML IV SCH (02:15)
[2017-02-16 05:12] LABS: BASOPHILS % (AUTO) 0 % (0-10); EOSINOPHILS # (AUTO) 0.4 10^3/uL (0.0-0.3); EOSINOPHILS % (AUTO) 4 % (0-10); LYMPHOCYTES # (AUTO) 2.1 X 10^3 (1.0-4.0); LYMPHOCYTES % (AUTO) 21 % (12-44); MEAN CORPUSCULAR HEMOGLOBIN 30 PG (25-34); MEAN CORPUSCULAR HGB CONC 32 G/DL (32-36); MEAN CORPUSCULAR VOLUME 92 FL (80-99); MEAN PLATELET VOLUME 11.3 FL (7.4-10.4); MONOCYTES # (AUTO) 1.1 X 10^3 (0.0-1.0); MONOCYTES % (AUTO) 12 % (0-12); NEUTROPHILS # (AUTO) 6.1 X 10^3 (1.8-7.8); NEUTROPHILS % (AUTO) 63 % (42-75); PLATELET COUNT 262 10^3/uL (130-400); RED BLOOD COUNT 2.49 10^6/uL (4.35-5.85); RED CELL DISTRIBUTION WIDTH 13.5 % (10.0-14.5); WHITE BLOOD COUNT 9.7 10^3/uL (4.3-11.0)
[2017-02-16 05:39] LABS: CALCIUM 8.3 MG/DL (8.5-10.1); CREATININE SERUM 3.19 MG/DL (0.60-1.30); MAGNESIUM 1.6 MG/DL (1.8-2.4); PHOSPHORUS 5.1 MG/DL (2.3-4.7)
[2017-02-16] MEDS: MAGNESIUM 1 GM/100 ML IVPB 100 ML IV SCH (06:00)
[2017-02-16] MEDS: POTASSIUM CL 10MEQ/50ML IVPB 50 ML IV SCH (06:00)
[2017-02-16] MEDS: inSUlin ASPART (NovoLOG) 1 UNIT/0.01 ML (CHARGE PER UNIT) SC SCH ×7 (06:00→21:00)
[2017-02-16] MEDS: KCL 20 MEQ TAB (K-DUR) PO SCH (06:00)
[2017-02-16] MEDS: FUROSEMIDE 40 MG/4 ML INJ (LASIX) IVP SCH ×2 (06:39→17:24)
[2017-02-16] MEDS: LEVOTHYROXINE 75 MCG (LEVOTHROID) TABLET PO SCH (06:40)
[2017-02-16] MEDS: PANTOPRAZOLE 40 MG (PROTONIX) TAB PO SCH (06:40)
[2017-02-16] MEDS ORDERED: METO-270 PO (06:45)
[2017-02-16] MEDS ORDERED: PANT40TA3 PO (06:45)
[2017-02-16] MEDS ORDERED: TICA90TA PO (06:45)
--- NOTE | 2017-02-16 06:46 | Discharge Inst-Post CATH ---
Discharge Inst-CATH Post Cardiac Cath D/C Inst Follow Up/Plan Appointment with Dr. Fenton's office next week CARDIAC CATH DISCHARGE INSTRUCTIONS *Hold Metformin for 48 hours post heart cath. ACTIVITY * Go Home directly and rest. * Limit activity of the leg (or wrist if it was used) for 7 days including aerobics, swimming, jogging, bicycling, etc. * Restrict stair-climbing for 7 days if possible, if not, climb up with your non -cath leg, then bring together on the same step. * Avoid lifting, pushing, pulling or excessive movement of the affected extremity for 7 days. * Customary sexual activity may be resumed after 2 days-use caution not to use a position that strains or causes pain to the affected extremity. * No driving for 24 hours. * NO SMOKING. * Avoid straining for bowel movements for 7 days. * Gentle walking on level ground is allowed. * Returning to work will depend on the type of procedure and the results. Your doctor will discuss this with you. CALL YOUR DOCTOR FOR ANY OF THE FOLLOWING: *If bleeding from the puncture site occurs- Apply gentle pressure to site with clean cloth and call your doctor or EMS. * If a knot or lump forms under the skin, increases in size, or causes pain. * If bruising appears to be worsening or moving further down your leg instead of disappearing. * Temperature above 101 F. CARE OF YOUR GROIN INCISION; * Bruising or purple discoloration of the skin near the puncture site is common. * You may shower only, no bathtub bathing for 5 days. Be careful to avoid slipping as your leg may feel stiff. * If a closure device was used on your femoral artery, please see the attached guide regarding care of the device and your leg. * REMOVE the dressing from your groin the next day after your procedure in the shower. CARE OF YOUR WRIST INCISION; * Bruising or purple discoloration of the skin near the puncture site is common. * You may shower. * DO NOT submerge wrist. * Remove dressing in 24 hours. JACK FENTON MD Feb 16, 2017 06:46
--- NOTE | 2017-02-16 06:51 | Cardiology Discharge Summary ---
Diagnosis/Chief Complaint Date of Admission Feb 10, 2017 at 10:19 Date of Discharge Admission Diagnosis Acute ST elevation myocardial infarction the inferior wall Coronary artery disease Hypotensive shock Hyperlipidemia Discharge Diagnosis acute ST elevation myocardial infarction that her wall Coronary artery disease Hypotensive shock Hyperlipidemia Chief Complaint/HPI Chief Complaint/HPI 56 years old lady with history of coronary artery disease, diabetes mellitus, chronic renal insufficiency, had a recent stent, admitted with acute ST elevation myocardial infarction in the inferior wall. Patient was brought for emergency cardiac catheterization and angioplasty and stenting. Postintervention she did well continue to have chest pain and shortness of breath. It appear that she progressed into acute renal failure, today she is feeling better, good diuresis. Planning to discharge home Discharge Summary Hospital Course Hospital Course Acute inferior wall ST elevation myocardial infarction, status post recent stenting to the right coronary artery with Xcience Alpine 3.5 to the proximal right coronary artery and 2.75 to The distal right coronary artery and right PDA. Brought for emergency cardiac catheterization, total occlusion of the right coronary artery, underwent emergency angioplasty and thrombectomy door to thrombectomy device was 24 minutes with excellent results. Chest pain and shortness of breath, EKG showed Q wave in the inferior leads. better at this time. Continue to monitor. Congestive heart failure, acute left ventricular systolic dysfunction, ischemic cardiomyopathy secondary to acute myocardial infarction mild hypokinesia of them for wall, preserved ejection fraction, elevated BMP, responding to diuretics, continue on Lasix and monitor renal function closely. Cannot tolerate JULIA inhibitor and/or ARB due to acute renal failure. Cardiogenic shock, hypotensive shock, better at this time. Continue to monitor Acute renal failure, combination of chronic renal insufficiency with hypotension and diabetes mellitus and contrast nephropathy, Improving, continue on Lasix as an outpatient. Monitor renal function closely. Hyperlipidemia, poorly controlled, maintained on Lipitor 80 mg daily, I think she has been noncompliant with medication. liver enzymes are better, restart Lipitor at 10 mg daily and monitor, and fish oil daily. Chest pain, diaphoresis, secondary to acute myocardial infarction, improved, no chest pain at this time. Status post severe bradycardia during cardiac catheterization required one dose of atropine, continue to monitor heart rate Diabetes mellitus, restart home medication monitor Obesity. Labs Laboratory Tests 02/13/17 12:47: 02/13/17 17:44: Glucometer 168H 02/13/17 21:10: 02/14/17 03:53: Chloride Level 112H, Carbon Dioxide Level 17L, Blood Urea Nitrogen 52H, Creatinine 4.20H, Glucose Level 118H, Calcium Level 7.7L, Magnesium Level 1.5L 02/14/17 12:06: Glucometer 223H 02/14/17 17:58: Glucometer 137H 02/14/17 20:00: Glucometer 122H 02/14/17 21:46: Glucometer 123H 02/15/17 03:42: Red Blood Count 2.73L, Hemoglobin 8.0L, Hematocrit 25L, Mean Platelet Volume 11.9H, Eosinophils # (Auto) 0.4H, Chloride Level 110H, Carbon Dioxide Level 18L , Blood Urea Nitrogen 58H, Creatinine 4.14H, Calcium Level 8.3L, Phosphorus Level 5.7H, Magnesium Level 1.6L, Alkaline Phosphatase 395H, Troponin I 23.15*H , Total Protein 5.4L, Albumin 2.4L 02/15/17 12:03: Glucometer 171H 02/15/17 12:05: B-Type Natriuretic Peptide 573.0H 02/15/17 16:33: 02/15/17 17:18: Glucometer 63L 02/15/17 21:39: Glucometer 68L 02/15/17 23:29: Glucometer 63L 02/16/17 00:32: Glucometer 116H 02/16/17 05:00: Red Blood Count 2.49L, Hemoglobin 7.4L, Hematocrit 23L, Mean Platelet Volume 11.3H, Monocytes # (Auto) 1.1H, Eosinophils # (Auto) 0.4H, Chloride Level 112H, Carbon Dioxide Level 18L, Blood Urea Nitrogen 57H, Creatinine 3.19H, Glucose Level 107H, Calcium Level 8.3L, Phosphorus Level 5.1H, Magnesium Level 1.6L, B- Type Natriuretic Peptide 768.8H Procedures None. Discharge Physical Examination Allergies: Coded Allergies: ondansetron (Verified Allergy, Severe, N/V, 02/10/17) Estrogens (Unverified Allergy, Unknown, BLISTERS ON BUTT, 12/17/14) metformin (Unverified Allergy, Unknown, BLISTERS ON BUTT, 12/17/14) Vitals & I&Os Vital Signs Date Time Temp Pulse Resp B/P (MAP) Pulse Ox O2 Delivery O2 Flow Rate FiO2 02/16/17 06:00 66 10 117/68 99 Nasal Cannula 3.00 02/14/17 22:08 97.5 General Appearance: Alert, Oriented X3, Cooperative, No Acute Distress HEENT: Atraumatic, PERRLA Respiratory: Clear to Auscultation, Normal Air Movement Cardiovascular: Regular Rate, Normal S1, Normal S2, No Murmurs Abdominal: Normal Bowel Sounds, Soft, No Tenderness, No Hepatosplenomegaly, No Masses Extremities: No Clubbing, No Cyanosis, No Edema, Normal Pulses, No Tenderness/ Swelling Skin: No Rashes, No Breakdown, No Significant Lesion Neuro: Normal Gait, Normal Speech, Strength at 5/5 X4 Ext, Normal Tone, Sensation Intact, Cranial Nerves 3-12 NL, Reflexes 2+ Psych/Mental Status: Mental Status NL, Mood NL Discharge Home Medications Reviewed and agree with Discharge Medication list on patient's Discharge Instruction sheet Instructions to Patient/Family Please see electonic discharge instructions given to patient. Clinical Quality Measures DVT/VTE Risk/Contraindication: Risk Factor Score Per Nursin RFS Level Per Nursing on Admit: 4+=Very High JACK PARISH MD Feb 16, 2017 06:51
--- NOTE | 2017-02-16 07:30 | Pulmonary Progress Note ---
Subjective Subjective/Events-last exam PT is doing much better. Exam Exam Vital Signs Date Time Temp Pulse Resp B/P (MAP) Pulse Ox O2 Delivery O2 Flow Rate FiO2 02/16/17 06:00 66 10 117/68 99 Nasal Cannula 3.00 02/16/17 05:00 70 10 121/72 94 Nasal Cannula 3.00 02/16/17 04:00 94 Room Air 3.00 02/16/17 04:00 68 12 117/83 97 Nasal Cannula 3.00 02/16/17 03:00 71 12 144/95 98 Nasal Cannula 3.00 02/16/17 02:00 68 10 126/81 98 Nasal Cannula 3.00 02/16/17 01:00 71 13 132/88 99 Nasal Cannula 3.00 02/16/17 01:00 71 02/16/17 00:00 94 Room Air 3.00 02/16/17 00:00 80 19 142/84 100 Nasal Cannula 3.00 02/15/17 23:00 74 14 122/77 97 Nasal Cannula 3.00 02/15/17 22:00 73 21 133/82 98 Nasal Cannula 3.00 02/15/17 21:00 72 18 126/77 99 Nasal Cannula 3.00 02/15/17 20:00 75 21 142/80 97 Nasal Cannula 3.00 02/15/17 20:00 94 Room Air 3.00 02/15/17 19:00 71 02/15/17 19:00 71 12 128/89 100 Nasal Cannula 3.00 02/15/17 18:00 66 9 140/86 97 Room Air 02/15/17 17:00 71 16 148/91 98 Room Air 02/15/17 16:00 94 Room Air 3.00 02/15/17 16:00 70 12 110/96 98 Room Air 02/15/17 15:00 73 19 125/93 96 Room Air 02/15/17 14:00 74 14 154/92 98 Room Air 02/15/17 13:00 71 20 154/77 97 Room Air 02/15/17 13:00 72 02/15/17 12:00 73 16 120/67 100 Room Air 02/15/17 12:00 94 Room Air 3.00 02/15/17 11:00 73 14 96 Room Air 02/15/17 10:00 78 19 96 Room Air 02/15/17 09:00 153/99 Room Air 02/15/17 08:00 94 Room Air 3.00 02/15/17 08:00 75 11 95 Room Air I & O 02/16/17 07:00 Intake Total 1820 ml Output Total 3875 ml Balance -2055 ml General Appearance: No Apparent Distress, Obese HEENT: Pale Conjunctivae (L), Pale Conjunctivae (R) Neck: Full Range of Motion, Normal Inspection, Non Tender, Supple, Carotid Bruit Respiratory: Chest Non Tender, Lungs Clear, Normal Breath Sounds, No Accessory Muscle Use, No Respiratory Distress Cardiovascular: Regular Rate, Rhythm, No Edema, No Gallop, No JVD, No Murmur, Normal Peripheral Pulses Capillary Refill: Less Than 3 Seconds Extremity: Non Tender, Other (1+ upper and lower extremity edema.) Neurologic/Psychiatric: Alert, Oriented x3 Skin: Normal Color, Warm/Dry Lymphatic: No Adenopathy Results Lab Laboratory Tests 02/15/17 03:42 02/16/17 05:00 Assessment/Plan Assessment/Plan Acute STEMI inferior wall s/p cath - found to have total occlusion of RCA cardiogenic shock - resolved ARF- with decreased UO Morbid obesity, snoring, waking up SOB -Will order PSG as out patient Pt is doing better. Dr. Fenton is planning on sending her home today. Clinical Quality Measures DVT/VTE Risk/Contraindication: Risk Factor Score Per Nursin RFS Level Per Nursing on Admit: 4+=Very High ANNIE BECKHAM DO Feb 16, 2017 07:30
[2017-02-16] MEDS: SCOPOLAMINE PATCH REMOVAL TP SCH (08:44)
--- NOTE | 2017-02-16 08:47 | Diagnostic Imaging Report ---
EXAMINATION: Portable upright radiograph of the chest. INDICATION: Dyspnea. FINDINGS: The heart is moderately enlarged. There is a stable left basilar infiltrate or atelectasis with a small effusion. There is a tiny right pleural effusion and minimal atelectasis on the right side as well. There is mild background vascular congestion. The mediastinum and natividad appear unremarkable. The PICC line with the tip at the distal SVC level is again seen. There is minimal change compared to the prior study from one day prior to this exam. IMPRESSION: Cardiomegaly with mild vascular congestion. Bibasilar infiltrates, atelectasis, and effusion, worse on the left side. Dictated by: Dictated on workstation # [id number]
[2017-02-16] MEDS ORDERED: GABA-488 PO (09:05)
--- NOTE | 2017-02-16 09:07 | Discharge Instructions ---
Discharge [facility] Discharge Medications New, Converted or Re-Newed RX: Transmitted to Pharmacy New Medications: Gabapentin (Gabapentin) 300 Mg Capsule 600 MG PO Q24H, #60 CAP 0 Refills Metoprolol Succinate (Metoprolol Succinate) 25 Mg Tab.er.24h 25 MG PO DAILY, #30 TAB 3 Refills Pantoprazole Sodium (Pantoprazole Sodium) 40 Mg Tablet.dr 40 MG PO DAILY@0700, #30 TAB 4 Refills Ticagrelor (Brilinta) 90 Mg Tablet 90 MG PO BID, #60 TAB 6 Refills Continued Medications: Amlodipine Besylate (Amlodipine Besylate) 10 Mg Tablet 10 MG PO DAILY, TAB Aspirin (Aspirin) 81 Mg Tab.chew 162 MG PO DAILY, TAB Atorvastatin Calcium (Atorvastatin Calcium) 80 Mg Tablet 80 MG PO HS, TAB Citalopram Hydrobromide (Citalopram Hbr) 20 Mg Tablet 20 MG PO DAILY LAST FILLED 02/03/17 #30 Doxazosin Mesylate (Doxazosin Mesylate) 2 Mg Tablet 2 MG PO DAILY, TAB Duloxetine HCl (Duloxetine HCl) 30 Mg Capsule.dr 30 MG PO DAILY, CAP Furosemide (Furosemide) 40 Mg Tablet 40 MG PO DAILY Insulin Aspart (Novolog) 10 Unit/0.1 Ml Vial 40 UNIT SC AC LAST FILLED 09/21/16 #3 VIALS (30 ML) Insulin Glargine,Hum.rec.anlog (Lantus) 100 Unit/1 Ml Vial 80 UNITS SQ HS, VIAL LAST FILLED 09/21/16 #3 VIALS (30 ML) Levothyroxine Sodium (Levothyroxine Sodium) 75 Mcg Tablet 75 MCG PO DAILY, TAB Linaclotide (Linzess) 145 Mcg Capsule 145 MCG PO DAILY, CAP Lorazepam (Lorazepam) 0.5 Mg Tablet 0.5 MG PO DAILY PRN for ANXIETY, TAB Morphine Sulfate (Morphine Sulfate ER) 15 Mg Tablet.er 15 MG PO HS, TAB Saxagliptin HCl (Onglyza) 5 Mg Tablet 5 MG PO DAILY, TAB LAST FILLED 01/2917 #30 Discontinued Medications: Clopidogrel Bisulfate (Clopidogrel) 75 Mg Tablet 75 MG PO DAILY LAST FILLED 12/05/16 #30 Gabapentin (Gabapentin) 300 Mg Capsule 900 MG PO TID TAKES 3 (300 MG) CAPSULES Lisinopril (Lisinopril) 10 Mg Tablet 10 MG PO DAILY, TAB Lisinopril (Lisinopril) 40 Mg Tablet 40 MG PO DAILY, TAB Meloxicam (Meloxicam) 15 Mg Tablet 15 MG PO HS Patient Instructions Goal/Follow Up Appt: Follow up with Dr. Fenton as instructed. Follow up with Dr. Carvalho February 19 at 10:20 am. Patient Instructions: Decrease gabapentin dose from 900 mg three times per day to 600 mg once per day until kidney function is improved (when Dr. Carvalho instructs to increase). Copy Copies To 1: MITCH CARVALHO MD, BETHANY N MD Feb 16, 2017 09:07
[2017-02-16] MEDS: doxAzosin 2 MG (CARDURA) TAB PO SCH (09:12)
[2017-02-16] MEDS: ASPIRIN E.C. 81 MG (ECOTRIN) TAB PO SCH (09:12)
[2017-02-16] MEDS: TICAGRELOR 90 MG TABLET (BRILINTA) PO SCH ×2 (09:12→20:30)
[2017-02-16] MEDS: DULoxetine 30 MG (CYMBALTA) CAP PO SCH (09:12)
--- NOTE | 2017-02-16 10:34 | Progress Note (SOAP) ---
Subjective Subjective/Events-last exam Afebrile, kidney function slightly improved this am and increasing urine output , but weight is still increasing. Objective Exam Last Set of Vital Signs Vital Signs Date Time Temp Pulse Resp B/P (MAP) Pulse Ox O2 Delivery O2 Flow Rate FiO2 02/16/17 08:00 98.7 02/16/17 07:00 74 02/16/17 06:00 10 117/68 99 Nasal Cannula 3.00 Capillary Refill : Less Than 3 Seconds I&O Intake and Output 02/16/17 00:00 Intake Total 2120 ml Output Total 3025 ml Balance -905 ml Intake Oral 2120 ml Output Urine Total 3025 ml General: Alert, No Acute Distress Neuro: Normal Speech Psych/Mental Status: Mental Status NL Results/Procedures Lab Laboratory Tests 02/15/17 12:03: Glucometer 171H 02/15/17 12:05: B-Type Natriuretic Peptide 573.0H 02/15/17 16:33: Glucometer 71 02/15/17 17:18: Glucometer 63L 02/15/17 21:39: Glucometer 68L 02/15/17 23:29: Glucometer 63L 02/16/17 00:32: Glucometer 116H 02/16/17 05:00: White Blood Count 9.7, Red Blood Count 2.49L, Hemoglobin 7.4L, Hematocrit 23L, Mean Corpuscular Volume 92, Mean Corpuscular Hemoglobin 30, Mean Corpuscular Hemoglobin Concent 32, Red Cell Distribution Width 13.5, Platelet Count 262, Mean Platelet Volume 11.3H, Neutrophils (%) (Auto) 63, Lymphocytes (%) (Auto) 21 , Monocytes (%) (Auto) 12, Eosinophils (%) (Auto) 4, Basophils (%) (Auto) 0, Neutrophils # (Auto) 6.1, Lymphocytes # (Auto) 2.1, Monocytes # (Auto) 1.1H, Eosinophils # (Auto) 0.4H, Basophils # (Auto) 0.0, Sodium Level 140, Potassium Level 5.0, Chloride Level 112H, Carbon Dioxide Level 18L, Anion Gap 10, Blood Urea Nitrogen 57H, Creatinine 3.19H, Estimat Glomerular Filtration Rate 15, BUN/ Creatinine Ratio 18, Glucose Level 107H, Calcium Level 8.3L, Phosphorus Level 5.1H, Magnesium Level 1.6L, B-Type Natriuretic Peptide 768.8H Microbiology 02/10/17 MRSA Screen - Final, Complete MRSA not isolated Procedures None. Assessment/Plan Assessment/Plan Admission Dx 1. Acute inferior wall ST elevation myocardial infarction, s/p recent stenting to the right coronary artery found to have total occlusion of the right coronary artery, underwent emergency angioplasty and thrombectomy 2. Hypotensive shock 3. History of hypertension 4. Hyperlipidemia 5. Acute renal insufficiency 6. Diabetes mellitus with peripheral neuropathy 7. Hypoxia Plan 1. Acute inferior wall ST elevation myocardial infarction, s/p recent stenting to the right coronary artery found to have total occlusion of the right coronary artery, underwent emergency angioplasty and thrombectomy -Management per Cardiology 2. Hypotensive shock -Improved but renal function still poor 3. History of hypertension -Management per Cardiology -Holding lisinopril due to renal insufficiency 4. Hyperlipidemia -Management per Cardiology 5. Acute renal insufficiency likely secondary to hypotension and contrast -Improving slowly, increased urination noted today, will continue to monitor for today given increased weight and BNP increasing still -Continue lasix 40 mg BID 6. Diabetes mellitus with peripheral neuropathy -Decreased gabapentin due to renal function -Resumed home long acting 80 units qhs but is getting 40 units or less per night due to low blood sugars, diet is not the same at home per patient report. Resumed home 40 units of mealtime insulin but not receiving consistently due to low blood sugars -Diabetic diet, sliding scale insulin prn 7. Hypoxia- likely secondary to fluid overload due to renal dysfunction -Was on oxygen at home at night for unclear diagnosis, now using oxygen consistently, will monitor with diuresis and have RT check for need for home continuous O2 tomorrow if ready for d/c Diagnosis/Problems: Clinical Quality Measures DVT/VTE Risk/Contraindication: Risk Factor Score Per Nursin RFS Level Per Nursing on Admit: 4+=Very High TWIN ERICKSON MD Feb 16, 2017 10:34 am
--- NOTE | 2017-02-16 10:54 | Progress Note-Hospitalist ---
Subjective HPI/CC On Admission CC: Reason for consolation: Severe nausea with ARF in DM HPI: This is a 56yoWF pt of Dr. Calderon'yanni at [facility] that presents following an acute WI. Was able to perform intervention within 24 minutes of arrival, Now troponin is 300 but renal insufficient of 2.45 after judicious use of contrast in cath. 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 chief merchandising officer: Zofran makes pt vomit and have nausea. Pt will receive Scopolamine patch now. Pt is having difficulty urinating. Bladder scan will be done. Pt creatinine is elevated today. SW Review: Pt came from [facility]. Troponin was 300. Patient Interview: Pt states she normally does not have nausea. Physical exam was stable. Pt denies smoking and drinking ETOH. Pt states she is disabled. Pt states she has bad DM. Pt states she checks her sugars frequently. Pt states her HgA1C has been getting lower recently. Pt states she received Scopolamine patch. Scribed by Mik Lou under the direct supervision of Dr. Amaya. Date Seen 02/16/17 Subjective/Events-last exam patient denies shortness of breath at rest with increasing urine output she denies chest discomfort. Objective Exam Vital Signs Vital Sign - Last 12Hours 02/10/17 10:17 Temp 96.9 Pulse 76 Resp 12 B/P (MAP) 130/79 145/73 Pulse Ox 97 O2 Delivery Nasal Cannula O2 Flow Rate 2.00 Capillary Refill : Less Than 3 Seconds General Appearance: No Apparent Distress Respiratory: Chest Non Tender, Lungs Clear, Normal Breath Sounds, No Accessory Muscle Use, No Respiratory Distress Cardiovascular: Regular Rate, Rhythm, No Edema, No Gallop, No JVD, No Murmur, Normal Peripheral Pulses Neurologic/Psychiatric: Other (1-2+ edema of the hands and feet.) Results/Procedures Lab Laboratory Tests 02/16/17 05:00 Assessment/Plan Assessment and Plan Assess & Plan/Chief Complaint 1.contrast nephropathy with stable creatinine level down appointment to the low 3 range today today is encouraging. Output was significantly increased as well as a little over 2L yesterday.while she has been on a significant amount of fluid weight she started to mobilize. We discussed the importance of continuing diuretic therapy for now. She'll be following up with [facility] on Wednesday and agree with discharge later today. 2. Pleuritic pain improved today as well.. 3. ST elevation WI secondary to in-stent thrombosis of the right coronary stent status post successful angioplasty per Dr. Perez. KAY STAUFFER MD Feb 16, 2017 10:54
[2017-02-16] MEDS: PROCHLORPERAZINE 10 MG/2ML INJ (COMPAZINE) IV PRN (19:15)
[2017-02-16] MEDS: MELOXICAM 15 MG TAB PO SCH (20:31)
[2017-02-16] MEDS: GABAPENTIN 300 MG (NEURONTIN) CAP PO SCH (20:31)
[2017-02-16] MEDS: inSUlin DETERMIR 1 UNIT/0.01 ML (LEVEMIR) CHARGE PER UNIT SQ SCH (21:24)
[2017-02-17 00:40] VITALS: BP 158/87
[2017-02-17] MEDS: DOPamine DRIP 250 ML IV SCH (02:15)
[2017-02-17 03:59] LABS: BASOPHILS # (AUTO) 0.1 10^3/uL (0.0-0.1); BASOPHILS % (AUTO) 1 % (0-10); EOSINOPHILS # (AUTO) 0.3 10^3/uL (0.0-0.3); EOSINOPHILS % (AUTO) 3 % (0-10); LYMPHOCYTES # (AUTO) 1.6 X 10^3 (1.0-4.0); LYMPHOCYTES % (AUTO) 16 % (12-44); MEAN CORPUSCULAR HEMOGLOBIN 29 PG (25-34); MEAN CORPUSCULAR HGB CONC 32 G/DL (32-36); MEAN CORPUSCULAR VOLUME 92 FL (80-99); MEAN PLATELET VOLUME 11.9 FL (7.4-10.4); MONOCYTES # (AUTO) 1.4 X 10^3 (0.0-1.0); MONOCYTES % (AUTO) 13 % (0-12); NEUTROPHILS # (AUTO) 6.9 X 10^3 (1.8-7.8); NEUTROPHILS % (AUTO) 68 % (42-75); PLATELET COUNT 285 10^3/uL (130-400); RED BLOOD COUNT 2.66 10^6/uL (4.35-5.85); RED CELL DISTRIBUTION WIDTH 13.3 % (10.0-14.5); WHITE BLOOD COUNT 10.2 10^3/uL (4.3-11.0)
[2017-02-17 04:19] LABS: ALBUMIN 2.5 G/DL (3.2-4.5); BILIRUBIN,TOTAL 0.6 MG/DL (0.1-1.0); CALCIUM 8.7 MG/DL (8.5-10.1); CREATININE SERUM 2.7 MG/DL (0.60-1.30); MAGNESIUM 1.5 MG/DL (1.8-2.4); PHOSPHORUS 4.1 MG/DL (2.3-4.7); POTASSIUM 4.8 MMOL/L (3.6-5.0); TOTAL PROTEIN 5.7 G/DL (6.4-8.2)
[2017-02-17 04:26] VITALS: BP 150/78
[2017-02-17] MEDS: KCL 20 MEQ TAB (K-DUR) PO SCH (06:00)
[2017-02-17] MEDS: inSUlin ASPART (NovoLOG) 1 UNIT/0.01 ML (CHARGE PER UNIT) SC SCH ×4 (06:00→11:00)
[2017-02-17] MEDS: POTASSIUM CL 10MEQ/50ML IVPB 50 ML IV SCH (06:00)
[2017-02-17] MEDS: FUROSEMIDE 40 MG/4 ML INJ (LASIX) IVP SCH (06:12)
[2017-02-17] MEDS: LEVOTHYROXINE 75 MCG (LEVOTHROID) TABLET PO SCH (06:13)
[2017-02-17] MEDS: PANTOPRAZOLE 40 MG (PROTONIX) TAB PO SCH (06:13)
[2017-02-17] MEDS: MAGNESIUM 1 GM/100 ML IVPB 100 ML IV SCH ×4 (06:13→08:02)
--- NOTE | 2017-02-17 07:28 | Pulmonary Progress Note ---
Subjective Subjective/Events-last exam Pt plans on discharge today. Exam Exam Vital Signs Date Time Temp Pulse Resp B/P (MAP) Pulse Ox O2 Delivery O2 Flow Rate FiO2 02/17/17 04:27 Nasal Cannula 2.00 02/17/17 04:26 98.4 83 22 150/78 97 Nasal Cannula 2.00 02/17/17 01:00 75 02/17/17 00:48 Nasal Cannula 2.00 02/17/17 00:40 99.1 78 20 158/87 94 Nasal Cannula 2.00 02/16/17 20:00 Nasal Cannula 2.00 02/16/17 20:00 100.3 99 22 159/91 95 Nasal Cannula 2.00 02/16/17 19:00 79 02/16/17 16:30 97.9 73 18 155/87 100 Nasal Cannula 2.00 02/16/17 16:00 98 Nasal Cannula 2.00 02/16/17 13:00 74 02/16/17 12:00 98 Nasal Cannula 2.00 02/16/17 11:00 75 13 126/85 100 Nasal Cannula 3.00 02/16/17 10:00 77 28 172/96 95 Nasal Cannula 3.00 02/16/17 09:00 76 12 149/89 94 Nasal Cannula 3.00 02/16/17 08:00 77 17 152/97 99 Nasal Cannula 3.00 02/16/17 08:00 98 Nasal Cannula 2.00 02/16/17 08:00 98.7 I & O 02/17/17 07:00 Intake Total 720 ml Output Total 4250 ml Balance -3530 ml General Appearance: No Apparent Distress HEENT: Pale Conjunctivae (L), Pale Conjunctivae (R) Neck: Full Range of Motion, Normal Inspection, Non Tender, Supple, Carotid Bruit Respiratory: Chest Non Tender, Lungs Clear, Normal Breath Sounds, No Accessory Muscle Use, No Respiratory Distress Cardiovascular: Regular Rate, Rhythm, No Edema, No Gallop, No JVD, No Murmur, Normal Peripheral Pulses Capillary Refill: Less Than 3 Seconds Extremity: Non Tender, Other (1+ upper and lower extremity edema.) Neurologic/Psychiatric: Other (1-2+ edema of the hands and feet.) Skin: Normal Color, Warm/Dry Lymphatic: No Adenopathy Results Lab Laboratory Tests 02/16/17 05:00 02/17/17 03:20 Assessment/Plan Assessment/Plan Acute STEMI inferior wall s/p cath - found to have total occlusion of RCA cardiogenic shock - resolved ARF- with decreased UO Morbid obesity, snoring, waking up SOB -Will order PSG as out patient Pt is doing better. Dr. Fenton is planning on sending her home today. discharge was held yesterday secondary to confusion about oxygen. Pt states she does have oxygen at home. I will follow her as out patient Clinical Quality Measures DVT/VTE Risk/Contraindication: Risk Factor Score Per Nursin RFS Level Per Nursing on Admit: 4+=Very High ANNIE BECKHAM DO Feb 17, 2017 07:28
[2017-02-17 07:59] VITALS: BP 150/82
--- NOTE | 2017-02-17 08:27 | Diagnostic Imaging Report ---
INDICATION: Dyspnea. COMPARISON: 02/16/2017 FINDINGS: Single frontal radiographic view of the chest was obtained and again demonstrates cardiomegaly and pulmonary vascular congestion. Lungs continue to show bibasilar airspace opacities, left greater than right. Overall, there has been no significant change since prior exam. Small effusions cannot be excluded. There is no pneumothorax. Bony structures show no acute interval change. IMPRESSION: 1. Essentially stable exam of the chest demonstrating bibasilar airspace disease and possible effusions, left greater than right. 2. Cardiomegaly with pulmonary vascular congestion. Dictated by: Dictated on workstation # [id number]
[2017-02-17] MEDS: ASPIRIN E.C. 81 MG (ECOTRIN) TAB PO SCH (08:32)
[2017-02-17] MEDS: TICAGRELOR 90 MG TABLET (BRILINTA) PO SCH (08:32)
[2017-02-17] MEDS: DULoxetine 30 MG (CYMBALTA) CAP PO SCH (08:33)
[2017-02-17] MEDS: doxAzosin 2 MG (CARDURA) TAB PO SCH (08:34)
[2017-02-17] MEDS: SCOPOLAMINE 1.5 MG (TRANSDERM-SCOP) PATCH TOP SCH (08:34)
[2017-02-17] MEDS: SCOPOLAMINE PATCH REMOVAL TP SCH (08:35)
[2017-02-17] MEDS ORDERED: ISOSORBIDE MONONITRATE 30 MG (IMDUR) TAB PO NR (10:00)
--- NOTE | 2017-02-17 10:10 | Progress Note (SOAP) ---
Subjective Subjective/Events-last exam Afebrile, increasing urine output and decreasing creatinine. This morning when I arrived, her nurse was in her room because Reyna was complaining of left sided chest pain, shortness of breath and fatigue. Reyna states this started a few moments ago while laying in bed. She did eat breakfast about 45 minutes prior. Her oxygen level was normal and unchanged from prior. She denies dizziness, nausea, sweatiness and her heart rate was also normal. Clarified her home oxygen, she states she was to use 3 lpm at home 24 hours per day, but mostly used it at night. She feels she does need it all the time now and will use it. She has an oxygen concentrator and a couple of large bottles at home and 8 bottles of portable oxygen. She states she needs a script for more portable bottles. Date seen by provider: Feb 17, 2017 Time seen by provider: 09:00 Objective Exam Last Set of Vital Signs Vital Signs Date Time Temp Pulse Resp B/P (MAP) Pulse Ox O2 Delivery O2 Flow Rate FiO2 02/17/17 07:59 97.3 80 20 150/82 96 Nasal Cannula 2.00 Capillary Refill : Less Than 3 Seconds I&O Intake and Output 02/17/17 00:00 Intake Total 820 ml Output Total 4900 ml Balance -4080 ml Intake Oral 820 ml Output Urine Total 4900 ml # Bowel Movements 2 General: Alert, No Acute Distress Lungs: Clear to Auscultation Heart: Regular Rate, No Murmurs Abdomen: Normal Bowel Sounds, Soft Neuro: Normal Speech Psych/Mental Status: Mental Status NL Results/Procedures Lab Laboratory Tests 02/16/17 12:44: Glucometer 167H 02/16/17 13:46: Glucometer 217H 02/16/17 19:10: Glucometer 75 02/16/17 21:19: Glucometer 182H 02/17/17 03:20: White Blood Count 10.2, Red Blood Count 2.66L, Hemoglobin 7.8L, Hematocrit 24L, Mean Corpuscular Volume 92, Mean Corpuscular Hemoglobin 29, Mean Corpuscular Hemoglobin Concent 32, Red Cell Distribution Width 13.3, Platelet Count 285, Mean Platelet Volume 11.9H, Neutrophils (%) (Auto) 68, Lymphocytes (%) (Auto) 16 , Monocytes (%) (Auto) 13H, Eosinophils (%) (Auto) 3, Basophils (%) (Auto) 1, Neutrophils # (Auto) 6.9, Lymphocytes # (Auto) 1.6, Monocytes # (Auto) 1.4H, Eosinophils # (Auto) 0.3, Basophils # (Auto) 0.1, Sodium Level 141, Potassium Level 4.8, Chloride Level 108H, Carbon Dioxide Level 26, Anion Gap 7, Blood Urea Nitrogen 54H, Creatinine 2.70H, Estimat Glomerular Filtration Rate 18, BUN/ Creatinine Ratio 20, Glucose Level 126H, Calcium Level 8.7, Phosphorus Level 4.1 , Magnesium Level 1.5L, Total Bilirubin 0.6, Aspartate Amino Transf (AST/SGOT) 28, Alanine Aminotransferase (ALT/SGPT) 35, Alkaline Phosphatase 688H, B-Type Natriuretic Peptide 875.7H, Total Protein 5.7L, Albumin 2.5L 02/17/17 09:27: Microbiology 02/10/17 MRSA Screen - Final, Complete MRSA not isolated Procedures None. Assessment/Plan Assessment/Plan Admission Dx 1. Acute inferior wall ST elevation myocardial infarction, s/p recent stenting to the right coronary artery found to have total occlusion of the right coronary artery, underwent emergency angioplasty and thrombectomy 2. Hypotensive shock 3. History of hypertension 4. Hyperlipidemia 5. Acute renal insufficiency 6. Diabetes mellitus with peripheral neuropathy 7. Hypoxia Plan 1. Acute inferior wall ST elevation myocardial infarction, s/p recent stenting to the right coronary artery found to have total occlusion of the right coronary artery, underwent emergency angioplasty and thrombectomy -Management per Cardiology -02/17 Chest pain this am- EKG unchanged, no increase in oxygen requirement and CXR this am without significant change from prior, check troponin. Dr. Fenton aware and suspects related to pulmonary edema. Will f/u on troponin, if negative , plan to proceed with d/c today. 2. Hypotensive shock -Improved but renal function still poor 3. History of hypertension -Management per Cardiology -Holding lisinopril due to renal insufficiency 4. Hyperlipidemia -Management per Cardiology 5. Acute renal insufficiency likely secondary to hypotension and contrast -Improving slowly, increased urination noted today, will continue to monitor for today given increased weight and BNP increasing still -Continue lasix 40 mg BID 6. Diabetes mellitus with peripheral neuropathy -Decreased gabapentin due to renal function -Resumed home long acting 80 units qhs but is getting 40 units or less per night due to low blood sugars, diet is not the same at home per patient report. Resumed home 40 units of mealtime insulin but not receiving consistently due to low blood sugars -Diabetic diet, sliding scale insulin prn 7. Hypoxia- likely secondary to fluid overload due to renal dysfunction -Was on oxygen at home at night for unclear diagnosis, now using oxygen consistently, will monitor with diuresis and have RT check for need for home continuous O2 tomorrow if ready for d/c -02/17 patient reports adequate oxygen supply currently, just needs new script for more, will consult social work to ensure her oxygen needs are addressed Diagnosis/Problems: Clinical Quality Measures DVT/VTE Risk/Contraindication: Risk Factor Score Per Nursin RFS Level Per Nursing on Admit: 4+=Very High TWIN ERICKSON MD Feb 17, 2017 10:10 am
[2017-02-17] MEDS: LORazepam 0.5 MG (ATIVAN) TABLET PO PRN (10:11)
[2017-02-17] MEDS: PROCHLORPERAZINE 10 MG/2ML INJ (COMPAZINE) IV PRN (11:32)
[2017-02-17] MEDS: HYDROcodone/APAP 5 MG/325 MG (LORTAB) TAB PO PRN (11:32)
[2017-02-17 11:51] VITALS: BP 151/89
[2017-02-17] MEDS ORDERED: ISOS30TA3 PO (13:02)
[2017-02-17 16:00] VITALS: BP 151/89
[2017-02-25] MEDS ORDERED: IBUP-1773 PO (11:34)
[2017-02-25] MEDS ORDERED: MORP-33 PO (11:34)
[2017-02-25] MEDS ORDERED: HYDR-3729 PO (11:34)
[2017-02-25] MEDS ORDERED: DOCU-143 PO (11:35)
== END 2017-02-17 16:00 | disposition home or self-care (01) | DRG 250 ==
LOC: CATH 09:17 → ICU 10:17 → CATH 10:18 → ICU 10:19
PROVIDERS: ADMIT Internal Medicine Cardiovascular Disease; ATTEND Internal Medicine Cardiovascular Disease
PROC: 02C03ZZ Extirpation of Matter from Coronary Artery, One Artery, Percutaneous Approach (ICD-10-PCS; principal; 2017-02-10)
PROC: 4A023N7 Measurement of Cardiac Sampling and Pressure, Left Heart, Percutaneous Approach (ICD-10-PCS; 2017-02-10)
PROC: B2111ZZ Fluoroscopy of Multiple Coronary Arteries using Low Osmolar Contrast (ICD-10-PCS; 2017-02-10)
PROC: B2151ZZ Fluoroscopy of Left Heart using Low Osmolar Contrast (ICD-10-PCS; 2017-02-10)
DX: T82.868A Thrombosis due to vascular prosthetic devices, implants and grafts, initial encounter (principal); T82.858A Stenosis of other vascular prosthetic devices, implants and grafts, initial encounter; I21.19 ST elevation (STEMI) myocardial infarction involving other coronary artery of inferior wall; R57.0 Cardiogenic shock; R57.8 Other shock; N17.9 Acute kidney failure, unspecified; I13.0 Hypertensive heart and chronic kidney disease with heart failure and stage 1 through stage 4 chronic kidney disease, or unspecified chronic kidney disease; I50.21 Acute systolic (congestive) heart failure; I25.10 Atherosclerotic heart disease of native coronary artery without angina pectoris; E11.43 Type 2 diabetes mellitus with diabetic autonomic (poly)neuropathy; E11.42 Type 2 diabetes mellitus with diabetic polyneuropathy; N18.9 Chronic kidney disease, unspecified; I25.5 Ischemic cardiomyopathy; E66.01 Morbid (severe) obesity due to excess calories; Z68.42 Body mass index [BMI] 45.0-49.9, adult; K59.00 Constipation, unspecified; E78.5 Hyperlipidemia, unspecified; K21.9 Gastro-esophageal reflux disease without esophagitis; E03.9 Hypothyroidism, unspecified; Z79.4 Long term (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; Z95.5 Presence of coronary angioplasty implant and graft
CPT/HCPCS: 36415; 36569; 71010; 71020; 76937; 80048; 80053; 80061; 81225; 82150; 82962; 83690; 83735; 83880; 84100; 84443; 84484; 85025; 85027; 85347; 85730; 87081; 92941; 93005; 93306; 93458; 94761

== ENCOUNTER 2017-02-21 13:07 | Inpatient (IN) | payer MEDICAID ==
[2017-02-21] VITALS (13 sets, daily range): BP systolic 124–159; BP diastolic 68–89
[~2017-02-21] VITALS: Ht 162.6 cm; Wt 128.4 kg
[~2017-02-21 13:07] MED LIST changes: +DULO30CA48 PO; +ISOS30TA3 PO; +LINA145C PO; +METO-270 PO; +MORP-33 PO; +PANT40TA3 PO; +TICA90TA PO
[2017-02-21 14:01] LABS: BASOPHILS % (AUTO) 0 % (0-10); EOSINOPHILS # (AUTO) 0.3 10^3/uL (0.0-0.3); EOSINOPHILS % (AUTO) 3 % (0-10); LYMPHOCYTES # (AUTO) 1.9 X 10^3 (1.0-4.0); LYMPHOCYTES % (AUTO) 20 % (12-44); MEAN CORPUSCULAR HEMOGLOBIN 29 PG (25-34); MEAN CORPUSCULAR HGB CONC 31 G/DL (32-36); MEAN CORPUSCULAR VOLUME 92 FL (80-99); MEAN PLATELET VOLUME 11.1 FL (7.4-10.4); MONOCYTES # (AUTO) 0.7 X 10^3 (0.0-1.0); MONOCYTES % (AUTO) 8 % (0-12); NEUTROPHILS # (AUTO) 6.6 X 10^3 (1.8-7.8); NEUTROPHILS % (AUTO) 69 % (42-75); PLATELET COUNT 362 10^3/uL (130-400); RED BLOOD COUNT 2.57 10^6/uL (4.35-5.85); RED CELL DISTRIBUTION WIDTH 13.3 % (10.0-14.5); WHITE BLOOD COUNT 9.5 10^3/uL (4.3-11.0)
[2017-02-21] MEDS ORDERED: ASPIRIN 81 MG CHEW (CHILDREN'S ASA) ONE (14:02)
[2017-02-21 14:05] LABS: PROTHROMBIN TIME PATIENT 13.3 SEC (12.2-14.7)
[2017-02-21 14:12] LABS: POTASSIUM 3.7 MMOL/L (3.6-5.0)
[2017-02-21 14:13] LABS: ALBUMIN 2.8 G/DL (3.2-4.5); BILIRUBIN,TOTAL 0.6 MG/DL (0.1-1.0); CALCIUM 8.9 MG/DL (8.5-10.1); CREATININE SERUM 1.36 MG/DL (0.60-1.30); MAGNESIUM 1.5 MG/DL (1.8-2.4); TOTAL PROTEIN 6.3 G/DL (6.4-8.2)
[2017-02-21] MEDS ORDERED: NITROGLYCERIN 2% OINT 1 GM UNIT DOSE PACKET TOP ONE (14:15)
[2017-02-21] MEDS ORDERED: ASPIRIN 81 MG CHEW (CHILDREN'S ASA) PO ONE (14:15)
[2017-02-21] MEDS ORDERED: FUROSEMIDE 40 MG/4 ML INJ (LASIX) IVP ONE (14:15)
[2017-02-21 14:19] LABS: MYOGLOBIN SERUM 70.7 NG/ML (10.0-92.0)
--- NOTE | 2017-02-21 14:25 | Diagnostic Imaging Report ---
EXAM: CHEST 1 VIEW, AP/PA ONLY INDICATION: Chest pain. COMPARISON: Chest radiograph 02/17/2017. FINDINGS: Prominent heart size and pulmonary vascularity. Bibasilar atelectasis and or infiltrate, greater on the left. Small bilateral pleural effusions. No pneumothorax. No acute osseous findings. IMPRESSION: 1. Persistent cardiomegaly and increased pulmonary venous congestion. 2. Probable bilateral pleural effusions, greater on the left. 3. Bibasilar atelectasis and/or infiltrate, similar to the prior exam. Dictated by: Dictated on workstation # [id number]
--- NOTE | 2017-02-21 14:36 | ED Cardiac General ---
History of Present Illness General Chief Complaint: Respiratory Problems Stated Complaint: SOA/CP Nursing Triage Note: PT C/O SOA AND CP. SHE REPORTS HAVING 4 STENTS PLACED APPROX 1 WEEK AGO AND WAS PLACED ON HOME O2 AT DISCHARGE. SHE C/O INCREASED SOA WITH EXERTION. Source: patient, old records History of Present Illness Time seen by provider: 14:00 Initial Comments C/O CHEST PAIN AND SHORTNESS OF BREATH FOR OVER 2 WEEKS CHEST PAIN RADIATES THROUGH TO BACK STATES PAIN AND SHORTNESS OF BREATH IS CONSTANT AND NEVER GOES AWAY, AND HAS NOT IMPROVED AND IS GETTING WORSE C/O SHORTNESS OF BREATH WITH MINIMAL MOVEMENT/EXERTION PT IS ALSO VERY ORTHOPNEIC HAS CHRONIC SWELLING IN LEGS/ FEET AND IS GETTING WORSE NO SWEATS NO NAUSEA/VOMITING NO DIZZINESS NO PALPITATIONS PT HAD AN OUTPATIENT CARDIAC CATH WITH 2 STENTS 01/28 PT ADMITTED 02/10-02/17 FOR STEMI AND HAD 2 MORE STENTS PLACED PT STATES SHE HAS HAD SHORTNESS OF BREATH AND CHEST PAIN SINCE THEN PT HAS AN APPOINTMENT WITH DR. PARISH ON WEDNESDAY, BUT DID NOT FEEL LIKE SHE COULD WAIT PCP:[facility] [employer] CAR MECHANIC: DR. PARISH Allergies and Home Medications Allergies Coded Allergies: ondansetron (Verified Allergy, Severe, N/V, 02/10/17) Estrogens (Unverified Allergy, Unknown, BLISTERS ON BUTT, 12/17/14) metformin (Unverified Allergy, Unknown, BLISTERS ON BUTT, 12/17/14) Home Medications Amlodipine Besylate 10 Mg Tablet, 10 MG PO DAILY, (Reported) Aspirin 81 Mg Tab.chew, 162 MG PO DAILY, (Reported) Atorvastatin Calcium 80 Mg Tablet, 80 MG PO HS, (Reported) Citalopram Hydrobromide 20 Mg Tablet, 20 MG PO DAILY, (Reported) LAST FILLED 02/03/17 #30 Doxazosin Mesylate 2 Mg Tablet, 2 MG PO DAILY, (Reported) Duloxetine HCl 30 Mg Capsule.dr, 30 MG PO DAILY, (Reported) Furosemide 40 Mg Tablet, 40 MG PO DAILY, (Reported) Gabapentin 300 Mg Capsule, 600 MG PO Q24H, #60 Ref 0 Prescribed by: TWIN ERICKSON on 02/16/17 0905 Insulin Aspart 10 Unit/0.1 Ml Vial, 40 UNIT SC AC, (Reported) LAST FILLED 09/21/16 #3 VIALS (30 ML) Insulin Glargine,Hum.rec.anlog 100 Unit/1 Ml Vial, 80 UNITS SQ HS, (Reported) LAST FILLED 09/21/16 #3 VIALS (30 ML) Isosorbide Mononitrate 30 Mg Tab.er.24h, 30 MG PO DAILY, #30 Ref 3 Prescribed by: JACK PARISH on 02/17/17 1302 Levothyroxine Sodium 75 Mcg Tablet, 75 MCG PO DAILY, (Reported) Linaclotide 145 Mcg Capsule, 145 MCG PO DAILY, (Reported) Lorazepam 0.5 Mg Tablet, 0.5 MG PO DAILY PRN for ANXIETY, (Reported) Metoprolol Succinate 25 Mg Tab.er.24h, 25 MG PO DAILY, #30 Ref 3 Prescribed by: JACK PARISH on 02/16/17 0645 Morphine Sulfate 15 Mg Tablet.er, 15 MG PO HS, (Reported) Pantoprazole Sodium 40 Mg Tablet.dr, 40 MG PO DAILY@0700, #30 Ref 4 Prescribed by: JACK PARISH on 02/16/17 0645 Saxagliptin HCl 5 Mg Tablet, 5 MG PO DAILY, (Reported) LAST FILLED 01/2917 #30 Ticagrelor 90 Mg Tablet, 90 MG PO BID, #60 Ref 6 Prescribed by: JACK PARISH on 02/16/17 0645 Review of Systems Constitutional: no symptoms reported Respiratory: See HPI, Denies Cough, Orthopnea, Shortness of Air, SOA With Exertion, SOA at Rest, Denies Wheezing Cardiovascular: See HPI, Edema, Denies Lightheadedness, Denies Palpitations, Denies Syncope Gastrointestinal: No Symptoms Reported Genitourinary: No Symptoms Reported Musculoskeletal: see HPI Skin: no symptoms reported Psychiatric/Neurological: No Symptoms Reported Endocrine: No Symptoms Reported Hematologic/Lymphatic: No Symptoms Reported Past Fsaghwu-Mvpgsk-Xhjyxa Hx Patient Social History Alcohol Use: Denies Use Recreational Drug Use: No Smoking Status: Former Smoker 2nd Hand Smoke Exposure: Yes Recent Foreign Travel: No Contact w/Someone Who Travel: No Recent Infectious Disease Expo: No Recent Hopitalizations: Yes (02/10/17-02/17/17) Immunizations Up To Date Tetanus Booster (TDap): Unknown PED Vaccines UTD: Yes Date of Pneumonia Vaccine: Sep 18, 2014 Date of Influenza Vaccine: Sep 16, 2016 Seasonal Allergies Seasonal Allergies: No Surgeries HX Surgeries: Yes (RIGHT FOREARM FX/ORIF; CARDIAC CATHS --STENTS X 4; HYST/BSO) Surgeries: Cardiac, Coronary Stent, Gallbladder, Hysterectomy, Oophorectomy Respiratory Hx Respiratory Disorders: No Respiratory Disorders: Emphysema Cardiovascular Hx Cardiac Disorders: Yes (CAROTID DISEASE) Cardiac Disorders: Coronary Artery Disease, Heart Attack, High Cholesterol, Hypertension Neurological Hx Neurological Disorders: Yes Neurological Disorders: Neuropathy, TIA Reproductive System Hx Reproductive Disorders: No Sexually Transmitted Disease: No HIV/AIDS: No Female Reproductive Disorders: Denies [employer]CH[employer]IC History: Hysterectomy Genitourinary Hx Genitourinary Disorders: Yes Genitourinary Disorders: Renal Failure Gastrointestinal Hx Gastrointestinal Disorders: Yes Gastrointestinal Disorders: Gastroesophageal Reflux, Gall Bladder Disease Musculoskeletal Hx Musculoskeletal Disorders: Yes (right arm fracture with screws and pin placements) Musculoskeletal Disorders: Arthritis, Fibromyalgia, Fractures Endocrine Hx Endocrine Disorders: Yes Endocrine Disorders: Diabetes, Insulin dep, Hypothyroidsim HEENT HX ENT Disorders: Yes (GLASSES) HEENT Disorders: Double Vision Hearing Impairment: Hard of Hearing Cancer Hx Cancer: Yes Cancer: Ovarian, Uterine Psychosocial Hx Psychiatric Problems: Yes Behavioral Health Disorders: Depression Integumentary HX Skin/Integumentary Disorder: Yes (DIABETIC SORES) Skin/Integumentary Disorders: Recent Skin Changes Blood Transfusions Hx Blood Disorders: Yes (ANEMIA) Adverse Reaction to a Blood Tr: No Family Medical History Significant Family History: No Pertinent Family Hx Family Medial History: Cardiovascular disease 19 FATHER G8 SISTER Diabetes mellitus 19 FATHER G8 BROTHER G8 SISTER FH: lung cancer 19 MOTHER FH: skin cancer 19 FATHER Parkinson's disease G8 SISTER Psychosocial problem G8 BROTHER Physical Exam Vital Signs Vital Sign - Last 12Hours 02/21/17 13:20 Temp 98.4 Pulse 81 Resp 27 B/P (MAP) 158/78 Pulse Ox 91 O2 Delivery Nasal Cannula O2 Flow Rate 3.00 Capillary Refill : Less Than 3 Seconds General Appearance: No Apparent Distress, Obese HEENT: Other (EDENTULOUS) Neck: Full Range of Motion, Normal Inspection, Non Tender Respiratory: Normal Breath Sounds, No Accessory Muscle Use, No Respiratory Distress Cardiovascular: Regular Rate, Rhythm, No Murmur, Normal Peripheral Pulses Gastrointestinal: Soft Extremity: Normal Range of Motion, Non Tender, No Calf Tenderness, Pedal Edema (1+ BILATERALLY) Neurologic/Psychiatric: Alert, Oriented x3, No Motor/Sensory Deficits, Normal Mood/Affect, project account manager II-XII Norm as Tested Skin: Normal Color, Warm/Dry Progress/Results/Core Measures Results/Orders Lab Results Laboratory Tests Test 02/21/17 13:38 Range/Units White Blood Count 9.5 4.3-11.0 10^3/uL Red Blood Count 2.57 L 4.35-5.85 10^6/uL Hemoglobin 7.4 L 11.5-16.0 G/DL Hematocrit 24 L 35-52 % Mean Corpuscular Volume 92 80-99 FL Mean Corpuscular Hemoglobin 29 25-34 PG Mean Corpuscular Hemoglobin Concent 31 L 32-36 G/DL Red Cell Distribution Width 13.3 10.0-14.5 % Platelet Count 362 130-400 10^3/uL Mean Platelet Volume 11.1 H 7.4-10.4 FL Neutrophils (%) (Auto) 69 42-75 % Lymphocytes (%) (Auto) 20 12-44 % Monocytes (%) (Auto) 8 0-12 % Eosinophils (%) (Auto) 3 0-10 % Basophils (%) (Auto) 0 0-10 % Neutrophils # (Auto) 6.6 1.8-7.8 X 10^3 Lymphocytes # (Auto) 1.9 1.0-4.0 X 10^3 Monocytes # (Auto) 0.7 0.0-1.0 X 10^3 Eosinophils # (Auto) 0.3 0.0-0.3 10^3/uL Basophils # (Auto) 0.0 0.0-0.1 10^3/uL Prothrombin Time 13.3 12.2-14.7 SEC INR Comment 1.0 0.8-1.4 Activated Partial Thromboplast Time 41 H 24-35 SEC Sodium Level 142 135-145 MMOL/L Potassium Level 3.7 3.6-5.0 MMOL/L Chloride Level 104 98-107 MMOL/L Carbon Dioxide Level 27 21-32 MMOL/L Anion Gap 11 5-14 MMOL/L Blood Urea Nitrogen 27 H 7-18 MG/DL Creatinine 1.36 H 0.60-1.30 MG/DL Estimat Glomerular Filtration Rate 40 BUN/Creatinine Ratio 20 Glucose Level 193 H 70-105 MG/DL Calcium Level 8.9 8.5-10.1 MG/DL Magnesium Level 1.5 L 1.8-2.4 MG/DL Total Bilirubin 0.6 0.1-1.0 MG/DL Aspartate Amino Transf (AST/SGOT) 19 5-34 U/L Alanine Aminotransferase (ALT/SGPT) 29 0-55 U/L Alkaline Phosphatase 757 H 40-136 U/L Myoglobin 70.7 10.0-92.0 NG/ML Troponin I 1.19 *H <0.30 NG/ML B-Type Natriuretic Peptide 509.5 H <100.0 PG/ML Total Protein 6.3 L 6.4-8.2 G/DL Albumin 2.8 L 3.2-4.5 G/DL My Orders Orders - RUBIA ANDERSON DO Cbc With Automated Diff (02/21/17 13:54) Magnesium (02/21/17 13:54) Chest 1 View, Ap/Pa Only (02/21/17 13:54) Ekg Tracing (02/21/17 13:54) Cardiac Profile 1 (02/21/17 13:54) Comprehensive Metabolic Panel (02/21/17 13:54) Myoglobin Serum (02/21/17 13:54) Protime With Inr (02/21/17 13:54) Partial Thromboplastin Time (02/21/17 13:54) O2 (02/21/17 13:54) Monitor-Rhythm Ecg Trace Only (02/21/17 13:54) Lipid Panel (02/22/17 06:00) Saline Lock/Iv-Start (02/21/17 13:54) Aspirin Chewable Tablet (Baby Aspirin Ch (02/21/17 14:15) BNP (02/21/17 14:01) Aspirin Chewable Tablet (Baby Aspirin Ch (02/21/17 14:02) Nitroglycerin Ointment (Nitrobid Ointme (02/21/17 14:15) Furosemide Injection (Lasix Injection) (02/21/17 14:15) Catheter(Urinary) Insert & Ass ,15 (02/21/17 14:13) Medications Given in ED Current Medications Medications Dose Ordered Sig/Irineo Route Start Time Stop Time Status Last Admin Dose Admin Aspirin 324 mg ONCE ONCE PO 02/21/17 14:15 02/21/17 14:16 DC 02/21/17 14:06 324 MG Furosemide 80 mg ONCE ONCE IVP 02/21/17 14:15 02/21/17 14:16 DC 02/21/17 14:31 80 MG Nitroglycerin 1 inch ONCE ONCE TOP 02/21/17 14:15 02/21/17 14:16 DC 02/21/17 14:25 1 INCH Vital Signs/I&O Vital Sign - Last 12Hours 02/21/17 02/21/17 13:20 13:25 Temp 98.4 Pulse 81 Resp 27 B/P (MAP) 158/78 Pulse Ox 91 94 O2 Delivery Nasal Cannula Nasal Cannula O2 Flow Rate 3.00 4.00 Blood Pressure Mean: 104 Progress Note : Progress Note INITIAL O2 SAT 91% ON O2 AT 2L/NC--O2 INCREASED TO 4L/NC AND SATS UP TO 94% PAIN AND SHORTNESS OF BREATH ALSO IMPROVED WITH NITROPASTE. NO DETERIORATION IN PT'S CONDITION DURING ER STAY ECG Initial ECG Impression Time: 13:25 Initial ECG Rate: 53 Initial ECG Rhythm: Normal Sinus Initial ECG Comparisson: Unchanged Diagnostic Imaging Comments CXR--INCREASED VASCULAR CONGESTION, BILATERAL PLEURAL EFFUSIONS, BILATERAL ATELECTASIS/INFILTRATES--PER RADIOLOGIST REPORT @ 1430 Reviewed: Reviewed by Me Departure Communication Progress Notes 1430--ATTEMPTING TO CONTACT. DR. MAYES, [employer]IC [employer]. MESSAGE LEFT ON CELL PHONE 1433--SPOKE WITH DR. ARTHUR, SILK WEAVER FOR [facility], ACCEPTS PT FOR ADMITS 1448--SPOKE WITH DR. MAYES, INFORMED OF CONSULT. Impression Impression: Primary Impression: Chest pain Additional Impressions: CHF (congestive heart failure) Recent myocardial infarction Anemia Disposition: 09 ADMITTED INPATIENT Condition: Improved Decision to Admit Reason: Admit from ER (General) Decision to Admit/Date: Feb 21, 2017 Time/Decision to Admit Time: 14:35 Departure-Patient Inst. Referrals: MITCH CARVALHO MD (PCP/Family) Primary Care Physician RBUIA ANDERSON DO Feb 21, 2017 14:36
[2017-02-21] MEDS ORDERED: NS IV 500 ML 500 ML ONE ×2 (16:19→19:53)
[2017-02-21] MEDS ORDERED: NITROGLYCERIN SUBLINGUAL 0.4 MG TAB (NITROSTAT) SL ONE ×2 (16:49→18:24)
[2017-02-21] MEDS ORDERED: FUROSEMIDE 40 MG/4 ML INJ (LASIX) ONE (18:23)
--- NOTE | 2017-02-21 18:28 | History & Physicial (CHS) ---
HPI History of Present Illness: 56-year-old female presents to [facility] emergency department with reports of chest pain as well as shortness of breath. She reports the chest pain does radiate clear through to her back. She has had shortness of breath off and on over the past 2 weeks. Apparently her shortness of breath is with minimal exertion. She does have a history of chronic swelling in her lower extremities as well. She does have a history of 2 stent placements twice over the past few months. She denies any nausea, vomiting, sweats, or dizziness. Source: patient Exam Limitations: clinical condition Date seen by provider: Feb 21, 2017 Attending Physician Trenton Arthur MD PCP Jose Calderon MD Consult Date of Admission Feb 21, 2017 at 14:35 Home Medications Home Medications Reviewed patient Home Medication Reconciliation Form Allergies Coded Allergies: ondansetron (Verified Allergy, Severe, N/V, 02/10/17) Estrogens (Unverified Allergy, Unknown, BLISTERS ON BUTT, 12/17/14) metformin (Unverified Allergy, Unknown, BLISTERS ON BUTT, 12/17/14) [id number] Hx Patient Social History Alcohol Use: Denies Use Recreational Drug Use: No Smoking Status: Former Smoker 2nd Hand Smoke Exposure: Yes Recent Foreign Travel: No Contact w/other who traveled: No Recent Hopitalizations: Yes (02/10/17-02/17/17) Recent Infectious Disease Expo: No Physical Abuse Screen: No Sexual Abuse: No Immunizations Up To Date Tetanus Booster (TDap): Unknown Date of Pneumonia Vaccine: Sep 18, 2014 Date of Influenza Vaccine: Sep 16, 2016 Past Medical History Past medical history 1. Diabetes mellitus2 2. Hypothyroidism 3. Peripheral neuropathy 4. Coronary artery disease with history of stent 5. Hypertension 6. Morbid obesity 7. Depression 8. Achilles tendon rupture Past surgical history 1. Cardiac catheterization 3 2. Cholecystectomy 3. Hysterectomy 4. Surgical repair of right arm fracture Family Medical History Significant Family History: No Pertinent Family Hx Family History: Cardiovascular disease 19 FATHER G8 SISTER Diabetes mellitus 19 FATHER G8 BROTHER G8 SISTER FH: lung cancer 19 MOTHER FH: skin cancer 19 FATHER Parkinson's disease G8 SISTER Psychosocial problem G8 BROTHER Review of Systems (CHC) Constitutional: see HPI Reviewed Test Results Reviewed Test Results Lab Laboratory Tests Test 02/21/17 13:38 Range/Units White Blood Count 9.5 4.3-11.0 10^3/uL Red Blood Count 2.57 L 4.35-5.85 10^6/uL Hemoglobin 7.4 L 11.5-16.0 G/DL Hematocrit 24 L 35-52 % Mean Corpuscular Volume 92 80-99 FL Mean Corpuscular Hemoglobin 29 25-34 PG Mean Corpuscular Hemoglobin Concent 31 L 32-36 G/DL Red Cell Distribution Width 13.3 10.0-14.5 % Platelet Count 362 130-400 10^3/uL Mean Platelet Volume 11.1 H 7.4-10.4 FL Neutrophils (%) (Auto) 69 42-75 % Lymphocytes (%) (Auto) 20 12-44 % Monocytes (%) (Auto) 8 0-12 % Eosinophils (%) (Auto) 3 0-10 % Basophils (%) (Auto) 0 0-10 % Neutrophils # (Auto) 6.6 1.8-7.8 X 10^3 Lymphocytes # (Auto) 1.9 1.0-4.0 X 10^3 Monocytes # (Auto) 0.7 0.0-1.0 X 10^3 Eosinophils # (Auto) 0.3 0.0-0.3 10^3/uL Basophils # (Auto) 0.0 0.0-0.1 10^3/uL Prothrombin Time 13.3 12.2-14.7 SEC INR Comment 1.0 0.8-1.4 Activated Partial Thromboplast Time 41 H 24-35 SEC Sodium Level 142 135-145 MMOL/L Potassium Level 3.7 3.6-5.0 MMOL/L Chloride Level 104 98-107 MMOL/L Carbon Dioxide Level 27 21-32 MMOL/L Anion Gap 11 5-14 MMOL/L Blood Urea Nitrogen 27 H 7-18 MG/DL Creatinine 1.36 H 0.60-1.30 MG/DL Estimat Glomerular Filtration Rate 40 BUN/Creatinine Ratio 20 Glucose Level 193 H 70-105 MG/DL Calcium Level 8.9 8.5-10.1 MG/DL Magnesium Level 1.5 L 1.8-2.4 MG/DL Total Bilirubin 0.6 0.1-1.0 MG/DL Aspartate Amino Transf (AST/SGOT) 19 5-34 U/L Alanine Aminotransferase (ALT/SGPT) 29 0-55 U/L Alkaline Phosphatase 757 H 40-136 U/L Myoglobin 70.7 10.0-92.0 NG/ML Troponin I 1.19 *H <0.30 NG/ML B-Type Natriuretic Peptide 509.5 H <100.0 PG/ML Total Protein 6.3 L 6.4-8.2 G/DL Albumin 2.8 L 3.2-4.5 G/DL Radiology NAME: ANGIE JANE [facility] REC#: [id number] PT STATUS: ADM IN : 1960 PHYSICIAN: RUBIA ANDERSON DO ADMIT DATE: 02/21/17/ICU Signed Date of Exam: 02/21/17 CHEST 1 VIEW, AP/PA ONLY EXAM: CHEST 1 VIEW, AP/PA ONLY INDICATION: Chest pain. COMPARISON: Chest radiograph 02/17/2017. FINDINGS: Prominent heart size and pulmonary vascularity. Bibasilar atelectasis and or infiltrate, greater on the left. Small bilateral pleural effusions. No pneumothorax. No acute osseous findings. IMPRESSION: 1. Persistent cardiomegaly and increased pulmonary venous congestion. 2. Probable bilateral pleural effusions, greater on the left. 3. Bibasilar atelectasis and/or infiltrate, similar to the prior exam. Dictated by: Dictated on workstation # [id number] <Dictated by FRANSISCO MORRIS MD> 02/21/17 1652 Physical Exam-(CHC) Physical Exam Vital Signs VS - Last 72 Hours, by Label 02/21/17 02/21/17 02/21/17 02/21/17 13:20 13:25 15:29 15:35 Temp 98.4 98.4 Pulse 81 73 82 Resp 27 25 B/P (MAP) 158/78 Pulse Ox 91 94 94 O2 Delivery Nasal Cannula Nasal Cannula O2 Flow Rate 3.00 4.00 4.00 02/21/17 02/21/17 02/21/17 02/21/17 16:00 16:00 16:00 16:27 Temp 98.3 Pulse 78 80 Resp 11 15 B/P (MAP) 155/80 153/82 Pulse Ox 93 98 93 O2 Delivery Nasal Cannula Nasal Cannula O2 Flow Rate 3.00 4.00 3.00 3.00 02/21/17 02/21/17 02/21/17 02/21/17 16:27 16:45 17:00 18:00 Temp 98.5 Pulse 80 80 77 Resp 13 13 20 B/P (MAP) 155/80 154/73 139/75 Pulse Ox 98 93 O2 Delivery Nasal Cannula Nasal Cannula O2 Flow Rate 3.00 4.00 4.00 02/21/17 18:35 Temp 98.7 Pulse 77 Resp 18 B/P (MAP) 135/75 Pulse Ox 98 O2 Flow Rate 3.00 Capillary Refill : Less Than 3 Seconds General Appearance: no apparent distress Eyes: Bilateral Eye Normal Inspection HEENT: other (Slight irritation along the gumline upper) Neck: supple Respiratory: decreased breath sounds (In the bases) Cardiovascular: normal peripheral pulses, regular rate, rhythm Gastrointestinal: soft Rectal: deferred Extremities: pedal edema (And is pitting bilaterally) Neurologic/Psychiatric: alert, oriented x 3 Skin: normal color Assessment/Plan Assessment/Plan Admission Dx 1. Chest pain with a history of coronary artery disease 2. Congestive heart failure 3. Recent myocardial infarction 4. Anemia Plan 1. Chest pain with a history of coronary artery disease -To be admitted to cardiac stepdown -Cardiology consultation 2. Congestive heart failure -IV Lasix 80 mg given in the emergency department 3. Recent myocardial infarction -Cardiology input 4. Anemia -Transfuse with 1 unit of packed red blood cells -Recheck CBC in the a.m. Diagnosis/Problems: Clinical Quality Measures DVT/VTE Risk/Contraindication: Risk Factor Score Per Nursin RFS Level Per Nursing on Admit: 4+=Very High TRENTON ARTHUR MD Feb 21, 2017 18:28
[2017-02-21] MEDS ORDERED: NITROGLYCERIN SUBLINGUAL 0.4 MG TAB (NITROSTAT) SL PRN (20:15)
[2017-02-21] MEDS ORDERED: morphine INJ 4 MG/ML 1 ML (VIAL/SYRINGE) IVP PRN (20:15)
[2017-02-21] MEDS ORDERED: LORazepam 0.5 MG (ATIVAN) TABLET PO PRN (20:15)
[2017-02-21] MEDS ORDERED: GABAPENTIN 300 MG (NEURONTIN) CAP PO SCH (20:15)
[2017-02-21] MEDS ORDERED: GABAPENTIN 600 MG (NEURONTIN) TAB ONE (20:37)
[2017-02-21] MEDS ORDERED: INSULIN GLARGINE HUM REC ANLOG 80 UNIT SQ SCH (21:00)
[2017-02-21] MEDS ORDERED: ATORVASTATIN 80 MG (LIPITOR) TABLET PO SCH (21:00)
[2017-02-21] MEDS ORDERED: inSUlin DETERMIR 1 UNIT/0.01 ML (LEVEMIR) CHARGE PER UNIT SQ ONE (21:17)
[2017-02-21] MEDS: morphine ER 15 MG (MS CONTIN) TAB PO SCH (21:22)
[2017-02-21] MEDS: TICAGRELOR 90 MG TABLET (BRILINTA) PO SCH (21:22)
[2017-02-21] MEDS: NITROGLYCERIN 2% OINT 1 GM UNIT DOSE PACKET TOP SCH (23:57)
[2017-02-22] VITALS (20 sets, daily range): BP systolic 96–152; BP diastolic 60–86
[2017-02-22 04:10] LABS: BASOPHILS # (AUTO) 0.1 10^3/uL (0.0-0.1); BASOPHILS % (AUTO) 1 % (0-10); EOSINOPHILS # (AUTO) 0.3 10^3/uL (0.0-0.3); EOSINOPHILS % (AUTO) 4 % (0-10); LYMPHOCYTES # (AUTO) 2.6 X 10^3 (1.0-4.0); LYMPHOCYTES % (AUTO) 30 % (12-44); MEAN CORPUSCULAR HEMOGLOBIN 29 PG (25-34); MEAN CORPUSCULAR HGB CONC 32 G/DL (32-36); MEAN CORPUSCULAR VOLUME 91 FL (80-99); MEAN PLATELET VOLUME 10.6 FL (7.4-10.4); MONOCYTES % (AUTO) 11 % (0-12); NEUTROPHILS # (AUTO) 4.7 X 10^3 (1.8-7.8); NEUTROPHILS % (AUTO) 55 % (42-75); PLATELET COUNT 329 10^3/uL (130-400); RED BLOOD COUNT 2.82 10^6/uL (4.35-5.85); WHITE BLOOD COUNT 8.6 10^3/uL (4.3-11.0)
[2017-02-22 04:44] LABS: ALBUMIN 2.6 G/DL (3.2-4.5); BILIRUBIN,TOTAL 0.9 MG/DL (0.1-1.0); CALCIUM 8.7 MG/DL (8.5-10.1); CREATININE SERUM 1.48 MG/DL (0.60-1.30); POTASSIUM 3.5 MMOL/L (3.6-5.0); TOTAL PROTEIN 5.8 G/DL (6.4-8.2)
[2017-02-22 04:50] LABS: MYOGLOBIN SERUM 49.6 NG/ML (10.0-92.0)
[2017-02-22] MEDS ORDERED: INSULIN ASPART 40 UNIT SC SCH (06:00)
[2017-02-22] MEDS: NITROGLYCERIN 2% OINT 1 GM UNIT DOSE PACKET TOP SCH ×3 (06:47→18:10)
[2017-02-22] MEDS ORDERED: PANTOPRAZOLE 40 MG (PROTONIX) TAB PO SCH (07:00)
--- NOTE | 2017-02-22 08:07 | Progress Note (SOAP) ---
Subjective Subjective/Events-last exam Patient reports she is breathing better this morning. No chest pain. Date seen by provider: Feb 22, 2017 Objective Exam Last Set of Vital Signs Vital Signs Date Time Temp Pulse Resp B/P (MAP) Pulse Ox O2 Delivery O2 Flow Rate FiO2 02/22/17 06:21 63 12 121/78 93 Nasal Cannula 3.00 02/22/17 04:00 97.5 Capillary Refill : Less Than 3 Seconds I&O Bad tableGeneral: No Acute Distress Lungs: Clear to Auscultation Heart: Regular Rate Extremities: Other (She is noted to have edema of the ankles and senior living up the legs but decreased from yesterday) Results/Procedures Lab Laboratory Tests 02/21/17 13:38: White Blood Count 9.5, Red Blood Count 2.57L, Hemoglobin 7.4L, Hematocrit 24L, Mean Corpuscular Volume 92, Mean Corpuscular Hemoglobin 29, Mean Corpuscular Hemoglobin Concent 31L, Red Cell Distribution Width 13.3, Platelet Count 362, Mean Platelet Volume 11.1H, Neutrophils (%) (Auto) 69, Lymphocytes (%) (Auto) 20 , Monocytes (%) (Auto) 8, Eosinophils (%) (Auto) 3, Basophils (%) (Auto) 0, Neutrophils # (Auto) 6.6, Lymphocytes # (Auto) 1.9, Monocytes # (Auto) 0.7, Eosinophils # (Auto) 0.3, Basophils # (Auto) 0.0, Prothrombin Time 13.3, INR Comment 1.0, Activated Partial Thromboplast Time 41H, Sodium Level 142, Potassium Level 3.7, Chloride Level 104, Carbon Dioxide Level 27, Anion Gap 11, Blood Urea Nitrogen 27H, Creatinine 1.36H, Estimat Glomerular Filtration Rate 40 , BUN/Creatinine Ratio 20, Glucose Level 193H, Calcium Level 8.9, Magnesium Level 1.5L, Total Bilirubin 0.6, Aspartate Amino Transf (AST/SGOT) 19, Alanine Aminotransferase (ALT/SGPT) 29, Alkaline Phosphatase 757H, Myoglobin 70.7, Troponin I 1.19*H, B-Type Natriuretic Peptide 509.5H, Total Protein 6.3L, Albumin 2.8L 02/21/17 19:39: Troponin I 1.09*H 02/21/17 21:16: Glucometer 225H 02/22/17 04:06: White Blood Count 8.6, Red Blood Count 2.82L, Hemoglobin 8.2L, Hematocrit 26L, Mean Corpuscular Volume 91, Mean Corpuscular Hemoglobin 29, Mean Corpuscular Hemoglobin Concent 32, Red Cell Distribution Width 14.0, Platelet Count 329, Mean Platelet Volume 10.6H, Neutrophils (%) (Auto) 55, Lymphocytes (%) (Auto) 30 , Monocytes (%) (Auto) 11, Eosinophils (%) (Auto) 4, Basophils (%) (Auto) 1, Neutrophils # (Auto) 4.7, Lymphocytes # (Auto) 2.6, Monocytes # (Auto) 1.0, Eosinophils # (Auto) 0.3, Basophils # (Auto) 0.1, Sodium Level 142, Potassium Level 3.5L, Chloride Level 104, Carbon Dioxide Level 30, Anion Gap 8, Blood Urea Nitrogen 26H, Creatinine 1.48H, Estimat Glomerular Filtration Rate 36, BUN/ Creatinine Ratio 18, Glucose Level 138H, Calcium Level 8.7, Total Bilirubin 0.9 , Aspartate Amino Transf (AST/SGOT) 23, Alanine Aminotransferase (ALT/SGPT) 27, Alkaline Phosphatase 838H, Myoglobin 49.6, Total Protein 5.8L, Albumin 2.6L, Triglycerides Level 102, Cholesterol Level 124, LDL Cholesterol Direct 56, VLDL Cholesterol 20, HDL Cholesterol 36L Radiology NAME: ANGIE JANE [facility] REC#: [id number] PT STATUS: ADM IN : 1960 PHYSICIAN: RUBIA ANDERSON DO ADMIT DATE: 02/21/17/ICU Signed Date of Exam: 02/21/17 CHEST 1 VIEW, AP/PA ONLY EXAM: CHEST 1 VIEW, AP/PA ONLY INDICATION: Chest pain. COMPARISON: Chest radiograph 02/17/2017. FINDINGS: Prominent heart size and pulmonary vascularity. Bibasilar atelectasis and or infiltrate, greater on the left. Small bilateral pleural effusions. No pneumothorax. No acute osseous findings. IMPRESSION: 1. Persistent cardiomegaly and increased pulmonary venous congestion. 2. Probable bilateral pleural effusions, greater on the left. 3. Bibasilar atelectasis and/or infiltrate, similar to the prior exam. Dictated by: Dictated on workstation # [id number] <Dictated by FRANSISCO MORRIS MD> 02/21/17 3579 Assessment/Plan Assessment/Plan Admission Dx 1. Chest pain with a history of coronary artery disease 2. Congestive heart failure 3. Recent myocardial infarction 4. Anemia Plan 1. Chest pain with a history of coronary artery disease -To be admitted to cardiac stepdown -Cardiology consultation 2. Congestive heart failure -IV Lasix 80 mg given in the emergency department 02/22 diuresis continues -Careful monitoring of creatinine 3. Recent myocardial infarction -Cardiology input 4. Anemia -Transfuse with 1 unit of packed red blood cells -Recheck CBC in the a.m. 02/22 hemoglobin increased to 8.2 Diagnosis/Problems: Clinical Quality Measures DVT/VTE Risk/Contraindication: Risk Factor Score Per Nursin RFS Level Per Nursing on Admit: 4+=Very High MARGOT ARTHUR MD Feb 22, 2017 08:07
[2017-02-22] MEDS ORDERED: NS IV 1000 ML 1,000 ML IV SCH (08:30)
[2017-02-22] MEDS ORDERED: TICAGRELOR 90 MG TABLET (BRILINTA) PO NR (08:30)
--- NOTE | 2017-02-22 08:33 | Consultation-Cardiology ---
HPI-Cardiology Cardiology Consultation Date of Consultation 02/22/17 Date of Admission Indication: chest pain HPI 56 years old lady with history of coronary artery disease, admitted with acute chest pain recently, had acute ST elevation myocardial infarction with occlusion of the right coronary artery, underwent complex intervention with stenting to the right coronary artery with excellent results, continue to have waxing and waning chest pain and shortness of breath. She was discharged home, up and her discharge she was educated and encouraged on taking her medication as prescribed. Her previous myocardial infarction was probably due to noncompliance with medications. Patient expressed that up and going home the pharmacy did not fill in her prescription, did not take her antiplatelet medications, returned last night with acute chest pain and shortness of breath reporting increasing tightness in her chest and shortness of breath with minimal exertion progressed to shortness of breath at rest. Denied any palpitation, syncope or near syncopal episodes. Upon my evaluation she was laying down in bed, having nitroglycerin patch and still having mild chest pain. Home Medications & Allergies Allergies: Coded Allergies: ondansetron (Verified Allergy, Severe, N/V, 02/10/17) Estrogens (Unverified Allergy, Unknown, BLISTERS ON BUTT, 12/17/14) metformin (Unverified Allergy, Unknown, BLISTERS ON BUTT, 12/17/14) Home Medication List Reviewed: Yes [id number] Hx Patient Social History Marital Status: Employed/Student: unemployed Alcohol Use: Denies Use Recreational Drug Use: No Smoking Status: Former Smoker 2nd Hand Smoke Exposure: Yes Recent Foreign Travel: No Recent Infectious Disease Expo: No Recent Hopitalizations: Yes (02/10/17-02/17/17) Physical Abuse Screen: No Sexual Abuse: No Immunizations Up To Date Tetanus Booster (TDap): Unknown Date of Pneumonia Vaccine: Sep 18, 2014 Date of Influenza Vaccine: Sep 16, 2016 Past Medical History past medical history as discussed below Family Medical History Significant Family History: No Pertinent Family Hx Family History: 19 FATHER Cardiovascular disease Diabetes mellitus FH: skin cancer 19 MOTHER FH: lung cancer G8 BROTHER Diabetes mellitus Psychosocial problem G8 SISTER Cardiovascular disease Diabetes mellitus Parkinson's disease Constitutional: see HPI, malaise, weakness EENTM: no symptoms reported, see HPI Respiratory: see HPI, No cough, dyspnea on exertion, No hemoptysis, No orthopnea, No phlegm, short of breath, No stridor, No wheezing, No other Cardiovascular: see HPI, chest pain, No edema, No Hx of Intervention, No palpitations, No syncope, No vascular heart diseas, No other Gastrointestinal: see HPI Genitourinary: no symptoms reported, see HPI Musculoskeletal: see HPI Skin: no symptoms reported, see HPI Psychiatric/Neurological: No Symptoms Reported, See HPI Reviewed Test Results Reviewed Test Results Lab Laboratory Tests Test 02/21/17 13:38 02/21/17 19:39 02/21/17 21:16 02/22/17 04:06 Range/Units White Blood Count 9.5 8.6 4.3-11.0 10^3/uL Red Blood Count 2.57 L 2.82 L 4.35-5.85 10^6/uL Hemoglobin 7.4 L 8.2 L 11.5-16.0 G/DL Hematocrit 24 L 26 L 35-52 % Mean Corpuscular Volume 92 91 80-99 FL Mean Corpuscular Hemoglobin 29 29 25-34 PG Mean Corpuscular Hemoglobin Concent 31 L 32 32-36 G/DL Red Cell Distribution Width 13.3 14.0 10.0-14.5 % Platelet Count 362 329 130-400 10^3/uL Mean Platelet Volume 11.1 H 10.6 H 7.4-10.4 FL Neutrophils (%) (Auto) 69 55 42-75 % Lymphocytes (%) (Auto) 20 30 12-44 % Monocytes (%) (Auto) 8 11 0-12 % Eosinophils (%) (Auto) 3 4 0-10 % Basophils (%) (Auto) 0 1 0-10 % Neutrophils # (Auto) 6.6 4.7 1.8-7.8 X 10^3 Lymphocytes # (Auto) 1.9 2.6 1.0-4.0 X 10^3 Monocytes # (Auto) 0.7 1.0 0.0-1.0 X 10^3 Eosinophils # (Auto) 0.3 0.3 0.0-0.3 10^3/uL Basophils # (Auto) 0.0 0.1 0.0-0.1 10^3/uL Prothrombin Time 13.3 12.2-14.7 SEC INR Comment 1.0 0.8-1.4 Activated Partial Thromboplast Time 41 H 24-35 SEC Sodium Level 142 142 135-145 MMOL/L Potassium Level 3.7 3.5 L 3.6-5.0 MMOL/L Chloride Level 104 104 98-107 MMOL/L Carbon Dioxide Level 27 30 21-32 MMOL/L Anion Gap 11 8 5-14 MMOL/L Blood Urea Nitrogen 27 H 26 H 7-18 MG/DL Creatinine 1.36 H 1.48 H 0.60-1.30 MG/DL Estimat Glomerular Filtration Rate 40 36 BUN/Creatinine Ratio 20 18 Glucose Level 193 H 138 H 70-105 MG/DL Calcium Level 8.9 8.7 8.5-10.1 MG/DL Magnesium Level 1.5 L 1.8-2.4 MG/DL Total Bilirubin 0.6 0.9 0.1-1.0 MG/DL Aspartate Amino Transf (AST/SGOT) 19 23 5-34 U/L Alanine Aminotransferase (ALT/SGPT) 29 27 0-55 U/L Alkaline Phosphatase 757 H 838 H 40-136 U/L Myoglobin 70.7 49.6 10.0-92.0 NG/ML Troponin I 1.19 *H 1.09 *H <0.30 NG/ML B-Type Natriuretic Peptide 509.5 H <100.0 PG/ML Total Protein 6.3 L 5.8 L 6.4-8.2 G/DL Albumin 2.8 L 2.6 L 3.2-4.5 G/DL Glucometer 225 H 70-110 MG/DL Triglycerides Level 102 <150 MG/DL Cholesterol Level 124 < 200 MG/DL LDL Cholesterol Direct 56 1-129 MG/DL VLDL Cholesterol 20 5-40 MG/DL HDL Cholesterol 36 L 40-60 MG/DL Physical Exam Vital Signs Vital Sign - Last 12Hours 02/21/17 13:20 Temp 98.4 Pulse 81 Resp 27 B/P (MAP) 158/78 Pulse Ox 91 O2 Delivery Nasal Cannula O2 Flow Rate 3.00 Capillary Refill : Less Than 3 Seconds General Appearance: No Apparent Distress, WD/WN Eyes: Bilateral Eye EOMI, Bilateral Eye Normal Inspection, Bilateral Eye PERRL HEENT: PERRL/EOMI, TMs Normal, Normal ENT Inspection, Pharynx Normal Neck: Full Range of Motion, Normal Inspection, Non Tender, Supple, Carotid Bruit Respiratory: Chest Non Tender, Lungs Clear, Normal Breath Sounds, No Accessory Muscle Use, No Respiratory Distress Cardiovascular: Regular Rate, Rhythm, No Edema, No Gallop, No JVD, No Murmur, Normal Peripheral Pulses Gastrointestinal: Normal Bowel Sounds, No Organomegaly, No Pulsatile Mass, Non Tender, Soft Back: Normal Inspection, No CVA Tenderness, No Vertebral Tenderness Extremity: Normal Capillary Refill, Normal Inspection, Normal Range of Motion, Non Tender, No Calf Tenderness, No Pedal Edema Neurologic/Psychiatric: Alert, Oriented x3, No Motor/Sensory Deficits, Normal Mood/Affect Skin: Normal Color, Warm/Dry Lymphatic: No Adenopathy A/P-Cardiology Admission Diagnosis Anterior chest wall pain Shortness of breath Coronary artery disease Hypertension Hyperlipidemia Assessment/Plan Acute chest pain, noncompliance with medication, patient had a recent stenting after acute myocardial infarction, did not take her prescribed medication although it was explained to her the importance of taking the medication, EKG showed Q wave in the inferior leads, still having active chest pain at rest, I will give her loading dose of Brilinta in addition to the aspirin and planning to proceed with coronary angiogram and evaluate the right coronary artery. Shortness of breath, saeed puntam has been having increasing dyspnea on exertion, she uses oxygen at home, had underlying COPD and was seen by Dr. Bui, her BNP was mildly elevated, echocardiogram showed mild hypokinesia at the inferior wall with preserved systolic function, I will evaluate left ventricular pressure Anemia, post transfusion, probably multifactorial, couldn't evaluate analyzer due to transfusion yesterday, continue to monitor Noncompliance with medication, patient was educated about the importance of taking her medication as prescribed, did not fill in her Brilinta, I will contact the pharmacy and evaluate the reason it was not felt Status post recent acute inferior wall ST elevation myocardial infarction, status post recent stenting to the right coronary artery with Xience Alpine 3.5 to the proximal right coronary artery and 2.75 to The distal right coronary artery and right PDA. Brought for emergency cardiac catheterization, total occlusion of the right coronary artery, had angioplasty and thrombectomy then stenting of the right coronary artery Congestive heart failure, acute on chronic left ventricular systolic dysfunction , ischemic cardiomyopathy secondary to acute myocardial infarction mild hypokinesia of them for wall, preserved ejection fraction, patient had mildly elevated BNP, received Lasix earlier, due to the fact that she is undergoing coronary angiogram I will give her 1 L of normal saline. Cannot tolerate JULIA inhibitor and/or ARB due to acute renal failure. Status post cardiogenic shock, hypotensive shock on the last admission, currently feeling better. status post acute renal failure multi-factorial, appear to be recovered, patient achieved creatinine level of over 4.5, creatinine clearance of 11, I will monitor her closely. Hyperlipidemia, poorly controlled, I will reevaluate lipid profile in the near future. Diabetes mellitus, followed and managed by primary care physician Obesity. Clinical Quality Measures DVT/VTE Risk/Contraindication: Risk Factor Score Per Nursin RFS Level Per Nursing on Admit: 4+=Very High JACK PARISH MD Feb 22, 2017 08:33
--- NOTE | 2017-02-22 08:34 | Cardiac Procedure Note-CS/ASA ---
Pre-Procedure Note Pre-Op Procedure Note H&P Reviewed The H&P was reviewed, patient examined and no changes noted. Date H&P Reviewed: Feb 22, 2017 Time H&P Reviewed: 08:33 Conscious Sedation Pre-Proced Time Reviewed: 08:33 ASA Class: 3 Airway Mallampati Classification: ([place] appropriate class) I. II. III, IV Lungs Heart ASA score ASA 1: a normal healthy patient ASA 2: a patient with a mild systemic disease (mid diabetes, controlled hypertension, obesity x ASA 3: a patient with a severe systemic disease that limits activity (angina , COPD, prior Myocardial infarction) ASA 4: a patient with an incapacitating disease that is a constant threat to life (CHF, renal failure) ASA 5: a moribund patient not expected to survive 24 hrs. (ruptured aneurysm) ASA 6: a declared brain patient whose organs are being harvested. For emergent operations, add the letter E after the classification Grade 3 Sedation Plan: Analgesia, Amnesia, Plan communicated to team members, Discussed options with patient/fam, Discussed risks with patient/fam Note The patient is an appropriate candidate to undergo the planned procedure, sedation, and anesthesia. The patient immediately re-assessed prior to indication. JACK PARISH MD Feb 22, 2017 8:34 am
--- NOTE | 2017-02-22 08:48 | Diagnostic Imaging Report ---
INDICATION: Congestive heart failure. FINDINGS: The heart is enlarged. There are perihilar and basilar infiltrates or edema, greatest at the level of the left lower lobe, now obscuring the left diaphragm. The upper lobe pulmonary veins are not grossly overdistended. No pneumothorax. IMPRESSION: The perihilar and basilar infiltrates, greatest on the left, have increased without gross overdistention of the vascularity. Dictated by: Dictated on workstation # [id number]
[2017-02-22] MEDS ORDERED: DULoxetine 30 MG (CYMBALTA) CAP PO SCH (09:00)
[2017-02-22] MEDS ORDERED: amLODIPine 10 MG (NORVASC) TAB PO SCH (09:00)
[2017-02-22] MEDS ORDERED: ASPIRIN 325 MG (5 GR) TABLET PO SCH (09:00)
[2017-02-22] MEDS ORDERED: FUROSEMIDE 40 MG (LASIX) TAB PO SCH (09:00)
[2017-02-22] MEDS ORDERED: NON-FORMULARY MEDICATION 1 EA EA (Linaclotide (Linzess) 145 MCG) PO SCH (09:00)
[2017-02-22] MEDS ORDERED: ISOSORBIDE MONONITRATE 30 MG (IMDUR) TAB PO SCH (09:00)
[2017-02-22] MEDS ORDERED: doxAzosin 2 MG (CARDURA) TAB PO SCH (09:00)
[2017-02-22] MEDS: sitaGLIPtin 50 MG (JANUVIA) TAB PO SCH (09:00)
[2017-02-22] MEDS ORDERED: LEVOTHYROXINE 75 MCG (LEVOTHROID) TABLET PO SCH (09:00)
[2017-02-22] MEDS ORDERED: SAXAGLIPTIN HCL 5 MG PO SCH (09:00)
[2017-02-22] MEDS: inSUlin ASPART (NovoLOG) 1 UNIT/0.01 ML (CHARGE PER UNIT) SC SCH ×3 (09:00→18:10)
[2017-02-22] MEDS: TICAGRELOR 90 MG TABLET (BRILINTA) PO SCH ×2 (09:00→21:58)
[2017-02-22] MEDS ORDERED: ASPIRIN 81 MG CHEW (CHILDREN'S ASA) PO SCH (09:00)
[2017-02-22] MEDS: MAGNESIUM 1 GM/100 ML IVPB 100 ML IV SCH ×2 (09:15→11:22)
[2017-02-22] MEDS ORDERED: LIDOCAINE 1% INJ 20 ML (XYLOCAINE) VIAL ONE (09:27)
[2017-02-22] MEDS ORDERED: HEParin (CATH LAB) 2,000 ML IV ONE (09:27)
[2017-02-22] MEDS ORDERED: NS IV 1000 ML 0 ML ONE (09:27)
[2017-02-22] MEDS ORDERED: MIDAZOLAM 5 MG/5 ML (VERSED) VIAL ONE (09:31)
[2017-02-22] MEDS ORDERED: fentaNYL INJECTION 100 MCG/2 ML AMP ONE (09:31)
[2017-02-22] MEDS ORDERED: GABA-488 PO (09:57)
[2017-02-22] MEDS ORDERED: ISOS30TA3 PO (09:57)
[2017-02-22] MEDS ORDERED: PANT40TA2 PO (09:57)
[2017-02-22] MEDS ORDERED: METO-270 PO (09:57)
[2017-02-22] MEDS ORDERED: LISI40TA PO (09:57)
[2017-02-22] MEDS ORDERED: TICA90TA PO (10:02)
[2017-02-22] MEDS: NS IV 1000 ML 1,000 ML IV SCH ×2 (10:20→18:10)
[2017-02-22] MEDS ORDERED: PATIENT MAY USE OWN MEDS, ALL PO SCH (10:30)
[2017-02-22] MEDS ORDERED: FUROSEMIDE 40 MG/4 ML INJ (LASIX) IVP NR (10:30)
--- NOTE | 2017-02-22 12:06 | CARDIAC CATHETERIZATION ---
PROCEDURE PHYSICIAN: JACK PARISH DATE OF PROCEDURE: 02/22/2017 REFERRING PHYSICIAN: [facility]. BRIEF HISTORY: Mrs. Read is a 56-year-old lady who has a history of coronary artery disease. She was admitted recently with acute ST elevation myocardial infarction due to noncompliance with medication and had a emergency angioplasty and stenting to the right coronary artery. Then the patient was discharged home, instructed on taking her medication. She expressed that she did not take the medicine that was prescribed especially the Brilinta. She returned with acute chest pain. She still has elevated troponin probably residual of her cardiac catheterization. During my evaluation, the patient was having active chest pain. I decided to proceed with cardiac catheterization. PROCEDURE NOTE: After explaining the procedure to the patient, all pros and cons were explained. All questions were answered. The patient signed a consent, then she was placed on the cardiac catheterization laboratory. The right groin was prepped in a sterile fashion. Local anesthesia applied right groin. 6-Maori sheath was placed in the right femoral artery. Dee right was advanced to the right coronary artery. Angiogram with minimal amount of contrast was used and it was prolapsed into the left ventricular cavity. Pressure was measured. Pullback LV to aorta was measured. At the end of the procedure, sheath was removed. Mynx device deployed. Hemostasis achieved. Total contrast used was 7 mL. Total radiation dose was 55 mGy. FINDINGS: HEMODYNAMICS: LV pressure 132/24, end-diastolic pressure of 24, aortic pressure 129/67, mean of 89. ANATOMY: 1. RIGHT CORONARY ARTERY: The right coronary artery is known to have stenting. The stent appeared patent with good flow in the right coronary system. 2. LEFT CORONARY SYSTEM: The left coronary system was not evaluated. It is known to have a stent in the LAD that has moderate disease. 3. LEFT VENTRICULOGRAM: No left ventriculogram was done to conserve the amount of contrast due to the renal insufficiency. CONCLUSION: 1. Patent stent in the right coronary artery with good brisk flow. 2. Elevated left ventricular end-diastolic pressure. DISCUSSION AND RECOMMENDATION: The patient will be diuresed aggressively. She has underlying anemia, which is multifactorial, for which I will transfuse her 1 unit of packed RBCs and evaluate anemia analyzer and educated again and instructed on compliance with medicine, Job ID: [id number] Dictated Date: 02/22/2017 10:27:56 Cardiac Exercise Specialist Date: 02/22/2017 12:00:25 / carlo
--- NOTE | 2017-02-22 12:12 | ECHOCARDIOGRAPHY REPORT ---
PROCEDURE PHYSICIAN: JACK PARISH DATE OF PROCEDURE: 02/21/2017 TWO DIMENSIONAL ECHOCARDIOGRAM REPORT PRIMARY PHYSICIAN: OTHER PHYSICIAN: REFERRING PHYSICIAN: Dr. Campa, [facility] ORDERING PHYSICIAN: INDICATION FOR THE PROCEDURE: 1. Chest pain. 2. Shortness of breath. MEASUREMENTS DERIVED VALUES LV DIAMETER (LAX) NORMALS NORMALS Diastolic 4.3 (3.6-5.2) Eject. Fract. 50% (60%+/-6%) Systolic (2.3-3.9) Diastolic Vol. % Shortening (0.22-0.42) Systolic Vol. Aortic Root IVS THICKNESS Diastolic 1.2 (0.6-1.1) LVPW THICKNESS Diastolic 1.3 (0.6-1.1) LA DIAMETER Systolic 3.7 (2.1-3.7) FINDINGS: 1. Technical quality is good. 2. The left ventricle is normal in size with mild left ventricular hypertrophy noted diffusely. Systolic function appeared to be preserved except for moderate hypokinesia involving the basal to mid inferior wall and inferolateral wall. Estimated ejection fraction 50%. 3. Left atrium is normal in size. No clot or thrombus were seen within the left atrium. 4. The right atrium and right ventricle are normal in size. No clot or thrombus were seen within the right side. 5. Mitral valve is normal in morphology with mild mitral regurgitation noted by color Doppler flow. No mitral valve prolapse. No mitral valve stenosis. 6. Aortic valve is trileaflet with normal opening and closing pattern. No significant aortic valve stenosis was seen. Mild aortic regurgitation noted by color Doppler flow. 7. Tricuspid valve is normal in morphology with mild tricuspid regurgitation noted by color Doppler flow. Doppler across tricuspid valve estimated pulmonary artery pressure of 23+ right atrial pressure. 8. Pulmonic valve is functioning normally. 9. No pericardial effusion. CONCLUSION: 1. Mild left ventricular hypertrophy with hypokinesia involving the basal to mid inferior wall and inferolateral wall. Systolic function is preserved in the lower normal limits. Estimated ejection fraction 50%. 2. Mild mitral and tricuspid regurgitation. 3. Mild aortic regurgitation. 4. Estimated pulmonary artery pressure of 30 mmHg. Job ID: [id number] Dictated Date: 02/22/2017 10:40:01 Cinder Snapper Date: 02/22/2017 12:08:24 / carlo
[2017-02-22] MEDS ORDERED: GABAPENTIN 300 MG (NEURONTIN) CAP PO SCH (15:45)
[2017-02-22] MEDS: FUROSEMIDE 40 MG/4 ML INJ (LASIX) IVP SCH (18:10)
[2017-02-22] MEDS ORDERED: inSUlin DETERMIR 1 UNIT/0.01 ML (LEVEMIR) CHARGE PER UNIT SQ SCH (21:00)
[2017-02-22] MEDS ORDERED: TICAGRELOR 90 MG TABLET (BRILINTA) PO SCH (21:00)
[2017-02-22] MEDS ORDERED: ATORVASTATIN 80 MG (LIPITOR) TABLET PO SCH (21:00)
[2017-02-22] MEDS: morphine ER 15 MG (MS CONTIN) TAB PO SCH (21:58)
[2017-02-22] MEDS ORDERED: DEXTROSE 50% 50 ML (IMS) SYR IV ONE (22:00)
[2017-02-23] VITALS: BP 130/85
[2017-02-23] MEDS: NITROGLYCERIN 2% OINT 1 GM UNIT DOSE PACKET TOP SCH ×2 (00:43→06:35)
[2017-02-23 04:00] VITALS: BP 147/85
[2017-02-23 04:03] LABS: MEAN PLATELET VOLUME 11.1 FL (7.4-10.4); RED BLOOD COUNT 2.94 10^6/uL (4.35-5.85)
[2017-02-23 04:59] LABS: CALCIUM 8.4 MG/DL (8.5-10.1); CREATININE SERUM 1.53 MG/DL (0.60-1.30); POTASSIUM 4.2 MMOL/L (3.6-5.0)
[2017-02-23] MEDS: inSUlin ASPART (NovoLOG) 1 UNIT/0.01 ML (CHARGE PER UNIT) SC SCH (06:35)
[2017-02-23] MEDS: NS IV 1000 ML 1,000 ML IV SCH (06:36)
[2017-02-23] MEDS ORDERED: PANTOPRAZOLE 40 MG (PROTONIX) TAB PO SCH (07:00)
[2017-02-23] MEDS: FUROSEMIDE 40 MG/4 ML INJ (LASIX) IVP SCH (07:02)
--- NOTE | 2017-02-23 07:50 | Progress Note (SOAP) ---
Subjective Subjective/Events-last exam Glucose low last evening. Date seen by provider: Feb 23, 2017 Objective Exam Last Set of Vital Signs Vital Signs Date Time Temp Pulse Resp B/P (MAP) Pulse Ox O2 Delivery O2 Flow Rate FiO2 02/23/17 04:00 97.6 63 16 147/85 95 Nasal Cannula 3.00 Capillary Refill : Less Than 3 Seconds I&O Intake and Output 02/23/17 00:00 Intake Total 1990 ml Output Total 1425 ml Balance 565 ml Intake Oral 790 ml IV Total 1200 ml Output Urine Total 1425 ml General: No Acute Distress Lungs: Clear to Auscultation Heart: Regular Rate Abdomen: Soft Results/Procedures Lab Laboratory Tests 02/22/17 12:08: Glucometer 68L 02/22/17 16:38: Glucometer 93 02/22/17 21:46: Glucometer 40*L 02/22/17 22:00: Glucometer 123H 02/23/17 03:45: White Blood Count 10.0, Red Blood Count 2.94L, Hemoglobin 8.6L, Hematocrit 27L, Mean Corpuscular Volume 93, Mean Corpuscular Hemoglobin 29, Mean Corpuscular Hemoglobin Concent 32, Red Cell Distribution Width 14.0, Platelet Count 313, Mean Platelet Volume 11.1H, Sodium Level 140, Potassium Level 4.2, Chloride Level 105, Carbon Dioxide Level 25, Anion Gap 10, Blood Urea Nitrogen 28H, Creatinine 1.53H, Estimat Glomerular Filtration Rate 35, BUN/Creatinine Ratio 18 , Glucose Level 87, Calcium Level 8.4L Assessment/Plan Assessment/Plan Admission Dx 1. Chest pain with a history of coronary artery disease 2. Congestive heart failure 3. Recent myocardial infarction 4. Anemia Plan 1. Chest pain with a history of coronary artery disease -To be admitted to cardiac stepdown -Cardiology consultation 2. Congestive heart failure -IV Lasix 80 mg given in the emergency department 02/22 diuresis continues -Careful monitoring of creatinine 3. Recent myocardial infarction -Cardiology input 4. Anemia -Transfuse with 1 unit of packed red blood cells -Recheck CBC in the a.m. 02/22 hemoglobin increased to 8.2 5. Diabetes -adjust novolog today to 20 u with meals. -Increase back up O/P as she improves. Diagnosis/Problems: Clinical Quality Measures DVT/VTE Risk/Contraindication: Risk Factor Score Per Nursin RFS Level Per Nursing on Admit: 4+=Very High MARGOT ARTHUR MD Feb 23, 2017 07:49
[2017-02-23] MEDS: TICAGRELOR 90 MG TABLET (BRILINTA) PO SCH (08:11)
[2017-02-23] MEDS ORDERED: TICA90TA PO (08:12)
--- NOTE | 2017-02-23 08:13 | Discharge Inst-Post CATH ---
Discharge Inst-CATH Post Cardiac Cath D/C Inst Follow Up/Plan Appointment with Dr. Fenton's office next week CARDIAC CATH DISCHARGE INSTRUCTIONS *Hold Metformin for 48 hours post heart cath. ACTIVITY * Go Home directly and rest. * Limit activity of the leg (or wrist if it was used) for 7 days including aerobics, swimming, jogging, bicycling, etc. * Restrict stair-climbing for 7 days if possible, if not, climb up with your non -cath leg, then bring together on the same step. * Avoid lifting, pushing, pulling or excessive movement of the affected extremity for 7 days. * Customary sexual activity may be resumed after 2 days-use caution not to use a position that strains or causes pain to the affected extremity. * No driving for 24 hours. * NO SMOKING. * Avoid straining for bowel movements for 7 days. * Gentle walking on level ground is allowed. * Returning to work will depend on the type of procedure and the results. Your doctor will discuss this with you. CALL YOUR DOCTOR FOR ANY OF THE FOLLOWING: *If bleeding from the puncture site occurs- Apply gentle pressure to site with clean cloth and call your doctor or EMS. * If a knot or lump forms under the skin, increases in size, or causes pain. * If bruising appears to be worsening or moving further down your leg instead of disappearing. * Temperature above 101 F. CARE OF YOUR GROIN INCISION; * Bruising or purple discoloration of the skin near the puncture site is common. * You may shower only, no bathtub bathing for 5 days. Be careful to avoid slipping as your leg may feel stiff. * If a closure device was used on your femoral artery, please see the attached guide regarding care of the device and your leg. * REMOVE the dressing from your groin the next day after your procedure in the shower. CARE OF YOUR WRIST INCISION; * Bruising or purple discoloration of the skin near the puncture site is common. * You may shower. * DO NOT submerge wrist. * Remove dressing in 24 hours. JACK FENTON MD Feb 23, 2017 08:13
--- NOTE | 2017-02-23 08:16 | Cardiology Progress Note ---
Subjective Subjective/Events-last exam patient is laying down in bed, feeling better, breathing better, no chest pain today Review of Systems General: No Chills, No Night Sweats, No Fatigue, No Malaise, No Appetite, No Other HEENT: No Head Aches, No Visual Changes, No Eye Pain, No Ear Pain, No Dysphasia , No Sinus Congestion, No Post Nasal Drip, No Sore Throat, No Other Pulmonary: No Dyspnea, No Cough, No Pleuritic Chest Pain, No Other Cardiovascular: No: Chest Pain, Edema, Lt Headedness, Orthopnea, Other, Palpitations, Paroxysmal Noc. Dyspnea Objective-Cardiology Exam Last Set of Vital Signs Vital Signs 02/23/17 04:00 Temp 97.6 Pulse 63 Resp 16 B/P (MAP) 147/85 Pulse Ox 95 O2 Delivery Nasal Cannula O2 Flow Rate 3.00 Capillary Refill : Less Than 3 Seconds I&O Intake and Output 02/23/17 00:00 Intake Total 1990 ml Output Total 1425 ml Balance 565 ml Intake Oral 790 ml IV Total 1200 ml Output Urine Total 1425 ml General: No Acute Distress HEENT: Atraumatic, PERRLA Neck: Supple, No JVD, No Thyromegaly Lungs: Clear to Auscultation Heart: Regular Rate, Normal S1, Normal S2 Abdomen: Soft Extremities: No Clubbing, No Cyanosis Skin: No Rashes, No Breakdown, No Significant Lesion Neuro: Normal Gait, Normal Speech, Strength at 5/5 X4 Ext, Normal Tone, Sensation Intact Psych/Mental Status: Mental Status NL, Mood NL Results Lab Laboratory Tests 02/23/17 03:45 A/P-Cardiology Admission Diagnosis Anterior chest wall pain Shortness of breath Coronary artery disease Hypertension Hyperlipidemia Assessment/Plan Anterior chest wall pain, cardiac catheterization showed patent stent in the right coronary artery with elevated left ventricular end-diastolic pressure, educated on compliance with medication. Shortness of breath, reporting improvement. Continue to monitor Anemia, post transfusion, probably multifactorial, couldn't evaluate analyzer due to transfusion yesterday, followed by primary care physician Noncompliance with medication, did not fill in her Brilinta, educated in length on the importance of compliance with medication, I asked her to stop by my office on the way out to take some samples Status post recent acute inferior wall ST elevation myocardial infarction, status post recent stenting to the right coronary artery with Xience Alpine 3.5 to the proximal right coronary artery and 2.75 to The distal right coronary artery and right PDA. Brought for emergency cardiac catheterization, total occlusion of the right coronary artery, had angioplasty and thrombectomy then stenting of the right coronary artery Congestive heart failure, acute on chronic left ventricular systolic dysfunction , ischemic cardiomyopathy secondary to acute myocardial infarction mild hypokinesia of them for wall, preserved ejection fraction 50 percent, responded to aggressive diuretics, slight deterioration kidney function, continue to monitor, planning to discharge today on beta blockers. Cannot tolerate JULIA inhibitor and/or ARB due to acute renal failure, she was started back on lisinopril 40 mg daily, I will evaluate metabolic profile in one week and evaluate her tolerance and response Status post cardiogenic shock, hypotensive shock on the last admission, currently feeling better. Status post acute renal failure multi-factorial, appear to be recovered, patient achieved creatinine level of over 4.5, creatinine clearance of 11, I will monitor her closely. Hyperlipidemia, poorly controlled, I will reevaluate lipid profile in the near future. Diabetes mellitus, followed and managed by primary care physician Obesity. Clinical Quality Measures DVT/VTE Risk/Contraindication: Risk Factor Score Per Nursin RFS Level Per Nursing on Admit: 4+=Very High JACK PARISH MD Feb 23, 2017 08:16
[2017-02-23 08:17] VITALS: BP 166/88
[2017-02-23] MEDS: sitaGLIPtin 50 MG (JANUVIA) TAB PO SCH (08:20)
[2017-02-23] MEDS ORDERED: INSU100V5 SQ (08:57)
[2017-02-23] MEDS ORDERED: INSU100V16 SC (08:57)
[2017-02-23] MEDS ORDERED: ASPIRIN E.C. 81 MG (ECOTRIN) TAB PO SCH (09:00)
[2017-02-23] MEDS ORDERED: LEVOTHYROXINE 75 MCG (LEVOTHROID) TABLET PO SCH (09:00)
[2017-02-23] MEDS ORDERED: doxAzosin 2 MG (CARDURA) TAB PO SCH (09:00)
[2017-02-23] MEDS ORDERED: ISOSORBIDE MONONITRATE 30 MG (IMDUR) TAB PO SCH (09:00)
[2017-02-23] MEDS ORDERED: amLODIPine 10 MG (NORVASC) TAB PO SCH (09:00)
[2017-02-23] MEDS ORDERED: DULoxetine 30 MG (CYMBALTA) CAP PO SCH (09:00)
[2017-02-23] MEDS ORDERED: LISI40TA PO (09:43)
[2017-02-23 10:45] VITALS: BP 166/88
[2017-02-23] MEDS ORDERED: inSUlin ASPART (NovoLOG) 1 UNIT/0.01 ML (CHARGE PER UNIT) SC SCH (11:00)
[2017-02-23] MEDS ORDERED: inSUlin DETERMIR 1 UNIT/0.01 ML (LEVEMIR) CHARGE PER UNIT SQ SCH (21:00)
[2017-02-25] MEDS ORDERED: MORP-33 PO (11:34)
[2017-02-25] MEDS ORDERED: IBUP-1773 PO (11:34)
[2017-02-25] MEDS ORDERED: HYDR-3729 PO (11:34)
[2017-02-25] MEDS ORDERED: DOCU-143 PO (11:35)
== END 2017-02-23 10:45 | disposition home or self-care (01) | DRG 280 ==
LOC: EDUNIT# 13:07 → ER 13:09 → ICU 14:35
PROVIDERS: ADMIT Family Medicine; ATTEND Family Medicine
PROC: 4A023N7 Measurement of Cardiac Sampling and Pressure, Left Heart, Percutaneous Approach (ICD-10-PCS; principal; 2017-02-22)
PROC: B2101ZZ Fluoroscopy of Single Coronary Artery using Low Osmolar Contrast (ICD-10-PCS; 2017-02-22)
DX: R07.89 Other chest pain (principal); I21.19 ST elevation (STEMI) myocardial infarction involving other coronary artery of inferior wall; I25.10 Atherosclerotic heart disease of native coronary artery without angina pectoris; I50.23 Acute on chronic systolic (congestive) heart failure; E11.9 Type 2 diabetes mellitus without complications; I10 Essential (primary) hypertension; D64.9 Anemia, unspecified; Z91.14 Patient's other noncompliance with medication regimen; Z68.42 Body mass index [BMI] 45.0-49.9, adult; E66.9 Obesity, unspecified; N28.9 Disorder of kidney and ureter, unspecified; E03.9 Hypothyroidism, unspecified; K21.9 Gastro-esophageal reflux disease without esophagitis; Z79.4 Long term (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; Z87.891 Personal history of nicotine dependence
CPT/HCPCS: 36415; 51702; 71010; 80048; 80053; 80061; 82962; 83735; 83874; 83880; 84484; 85025; 85027; 85610; 85730; 86850; 86900; 86901; 86920; 93005; 93041; 93306; 93458; 96374

== ENCOUNTER 2017-02-24 00:30 | Inpatient (IN) | payer MEDICAID ==
[~2017-02-24] VITALS: Ht 162.6 cm; Wt 125.2 kg
[2017-02-24] VITALS (31 sets, daily range): BP systolic 128–168; BP diastolic 62–98
[~2017-02-24 00:30] MED LIST changes: +INSU100V16 SC; +INSU100V5 SQ
[2017-02-24] MEDS ORDERED: HEParin DRIP 25000 UNIT/500ML 500 ML IV ONE (01:43)
[2017-02-24 02:02] LABS: BILIRUBIN,URINE NEGATIVE (NEGATIVE); KETONES,URINE NEGATIVE (NEGATIVE); LEUKOCYTE ESTERASE ,URINE NEGATIVE (NEGATIVE); NITRITE,URINE NEGATIVE (NEGATIVE); PH,URINE 5 (5-9); PROTEIN,URINE 3+ (NEGATIVE); UROBILINOGEN,URINE NORMAL (NORMAL)
[2017-02-24 02:12] LABS: WBC,URINE RARE /HPF
[2017-02-24 02:13] LABS: HYALINE CASTS, URINE RARE /LPF
[2017-02-24 02:28] LABS: BASOPHILS # (AUTO) 0.1 10^3/uL (0.0-0.1); BASOPHILS % (AUTO) 1 % (0-10); EOSINOPHILS # (AUTO) 0.4 10^3/uL (0.0-0.3); EOSINOPHILS % (AUTO) 4 % (0-10); LYMPHOCYTES # (AUTO) 1.9 X 10^3 (1.0-4.0); LYMPHOCYTES % (AUTO) 18 % (12-44); MEAN CORPUSCULAR HEMOGLOBIN 29 PG (25-34); MEAN CORPUSCULAR HGB CONC 32 G/DL (32-36); MEAN CORPUSCULAR VOLUME 92 FL (80-99); MEAN PLATELET VOLUME 10.5 FL (7.4-10.4); MONOCYTES # (AUTO) 0.9 X 10^3 (0.0-1.0); MONOCYTES % (AUTO) 9 % (0-12); NEUTROPHILS # (AUTO) 7.3 X 10^3 (1.8-7.8); NEUTROPHILS % (AUTO) 69 % (42-75); PLATELET COUNT 346 10^3/uL (130-400); RED BLOOD COUNT 3.17 10^6/uL (4.35-5.85); RED CELL DISTRIBUTION WIDTH 13.7 % (10.0-14.5); WHITE BLOOD COUNT 10.6 10^3/uL (4.3-11.0)
[2017-02-24 02:32] LABS: INR 1.1 (0.8-1.4); PROTHROMBIN TIME PATIENT 13.8 SEC (12.2-14.7)
[2017-02-24 02:43] LABS: ALBUMIN 2.8 G/DL (3.2-4.5); BILIRUBIN,TOTAL 0.5 MG/DL (0.1-1.0); CALCIUM 8.7 MG/DL (8.5-10.1); CREATININE SERUM 1.56 MG/DL (0.60-1.30); MAGNESIUM 1.8 MG/DL (1.8-2.4); PHOSPHORUS 3.3 MG/DL (2.3-4.7); POTASSIUM 3.9 MMOL/L (3.6-5.0); TOTAL PROTEIN 6.4 G/DL (6.4-8.2)
[2017-02-24] MEDS ORDERED: NITROGLYCERIN DRIP 25 MG/D5W 250 ML IV SCH (03:00)
[2017-02-24 03:22] LABS: CHOLESTEROL 120 MG/DL (< 200); DIRECT LDL 53 MG/DL (1-129); TRIGLYCERIDES 193 MG/DL (<150); VLDL CHOLESTEROL 39 MG/DL (5-40)
[2017-02-24] MEDS ORDERED: METOCLOPRAMIDE INJ 10 MG/2 ML (REGLAN) IVP ONE (03:45)
[2017-02-24] MEDS ORDERED: NITROGLYCERIN SUBLINGUAL 0.4 MG TAB (NITROSTAT) SL PRN (04:45)
[2017-02-24] MEDS: POTASSIUM CL 10MEQ/50ML IVPB 50 ML IV SCH (06:01)
[2017-02-24] MEDS: KCL 20 MEQ TAB (K-DUR) PO SCH (06:02)
[2017-02-24] MEDS: MAGNESIUM 1 GM/100 ML IVPB 100 ML IV SCH (06:02)
--- NOTE | 2017-02-24 07:04 | Diagnostic Imaging Report ---
INDICATION: Chest pain. COMPARISON: 02/22/2017. FINDINGS: There is cardiomegaly present. There is alveolar infiltrate noted throughout right lung. There are small bilateral pleural effusions. Left upper lung is relatively clear. Left hemidiaphragm is obscured. IMPRESSION: 1. Bilateral alveolar infiltrate with obscuration of the left hemidiaphragm. 2. Small bilateral pleural effusions. Could not exclude underlying pulmonary edema with superimposed pneumonia. Dictated by: Dictated on workstation # [id number]
[2017-02-24] MEDS ORDERED: ASPIRIN E.C. 325 MG (ECOTRIN) TABLET PO SCH (09:00)
[2017-02-24] MEDS ORDERED: LORazepam 0.5 MG (ATIVAN) TABLET PO PRN (10:00)
[2017-02-24] MEDS: morphine INJ 4 MG/ML 1 ML (VIAL/SYRINGE) IV PRN ×2 (10:28→18:58)
[2017-02-24] MEDS: FUROSEMIDE 40 MG (LASIX) TAB PO SCH (10:28)
[2017-02-24] MEDS: lisINopril 20 MG (ZESTRIL) TAB PO SCH (10:29)
[2017-02-24] MEDS: sitaGLIPtin 50 MG (JANUVIA) TAB PO SCH (10:29)
[2017-02-24] MEDS: GABAPENTIN 600 MG (NEURONTIN) TAB PO SCH (10:29)
[2017-02-24] MEDS: LEVOTHYROXINE 75 MCG (LEVOTHROID) TABLET PO SCH (10:29)
[2017-02-24] MEDS: DULoxetine 30 MG (CYMBALTA) CAP PO SCH (10:29)
[2017-02-24] MEDS: amLODIPine 10 MG (NORVASC) TAB PO SCH (10:29)
[2017-02-24] MEDS: ASPIRIN 81 MG CHEW (CHILDREN'S ASA) PO SCH (10:29)
[2017-02-24] MEDS: doxAzosin 2 MG (CARDURA) TAB PO SCH (10:29)
[2017-02-24] MEDS: TICAGRELOR 90 MG TABLET (BRILINTA) PO SCH ×2 (10:29→21:40)
[2017-02-24] MEDS: PANTOPRAZOLE 40 MG (PROTONIX) TAB PO SCH (10:30)
[2017-02-24] MEDS: ISOSORBIDE MONONITRATE 30 MG (IMDUR) TAB PO SCH (10:30)
--- NOTE | 2017-02-24 10:56 | Consultation-Cardiology ---
HPI-Cardiology Cardiology Consultation Date of Consultation 02/24/17 Date of Admission Indication: Chest pain HPI Mrs. Read is a 56 years old lady with recent ST elevation myocardial infarction, multiple admissions for chest pain, patient was discharged home yesterday, return to the emergency room with severe chest pain up and laying down, feeling better up and sitting up, having shortness of breath and hypoxemia , required oxygen, upper my evaluation she was fairly anxious, having chest pain up and laying down, pain was significantly worse when she lay down flat radiating up to her upper chest and neck, immediately feeling better up and sitting upright and leaning forward. She had mild shortness of breath. I reassured her that she is not having a heart attack, patient was feeling better at that time. Home Medications & Allergies Allergies: Coded Allergies: ondansetron (Verified Allergy, Severe, N/V, 02/10/17) Estrogens (Unverified Allergy, Unknown, BLISTERS ON BUTT, 12/17/14) metformin (Unverified Allergy, Unknown, BLISTERS ON BUTT, 12/17/14) Home Medication List Reviewed: Yes DND-[id number]-Zgmvfr Hx Patient Social History Marital Status: Alcohol Use: Denies Use Recreational Drug Use: No Smoking Status: Unknown if Ever Smoked 2nd Hand Smoke Exposure: Yes Recent Foreign Travel: No Recent Infectious Disease Expo: No Recent Hopitalizations: Yes (02/10/17-02/17/17, THEN WAS D/C 02/23/17) Physical Abuse Screen: No Sexual Abuse: No Immunizations Up To Date Tetanus Booster (TDap): Unknown Date of Pneumonia Vaccine: Sep 18, 2014 Date of Influenza Vaccine: Sep 16, 2016 Past Medical History past medical history as discussed below Family Medical History Significant Family History: No Pertinent Family Hx Family History: 19 FATHER Cardiovascular disease Diabetes mellitus FH: skin cancer 19 MOTHER FH: lung cancer G8 BROTHER Diabetes mellitus Psychosocial problem G8 SISTER Cardiovascular disease Diabetes mellitus Parkinson's disease Constitutional: see HPI, malaise, weakness EENTM: no symptoms reported, see HPI Respiratory: see HPI, No cough, dyspnea on exertion, No hemoptysis, No orthopnea, No phlegm, short of breath, No stridor, No wheezing, No other Cardiovascular: see HPI, chest pain, edema, No Hx of Intervention, No palpitations, No syncope, No vascular heart diseas, No other Gastrointestinal: no symptoms reported, see HPI Genitourinary: no symptoms reported, see HPI Musculoskeletal: no symptoms reported, see HPI Skin: no symptoms reported, see HPI Psychiatric/Neurological: No Symptoms Reported, See HPI Reviewed Test Results Reviewed Test Results Lab Laboratory Tests Test 02/24/17 01:35 02/24/17 02:14 02/24/17 07:25 02/24/17 09:22 Range/Units Urine Color YELLOW Urine Clarity CLEAR Urine pH 5 5-9 Urine Specific [place] 1.010 L 1.016-1.022 Urine Protein 3+ H NEGATIVE Urine Glucose (UA) 2+ H NEGATIVE Urine Ketones NEGATIVE NEGATIVE Urine Nitrite NEGATIVE NEGATIVE Urine Bilirubin NEGATIVE NEGATIVE Urine Urobilinogen NORMAL NORMAL MG/DL Urine Leukocyte Esterase NEGATIVE NEGATIVE Urine RBC (Auto) 1+ H NEGATIVE Urine RBC 0-2 /HPF Urine WBC RARE /HPF Urine Squamous Epithelial Cells NONE /HPF Urine Crystals NONE /LPF Urine Bacteria FEW H /HPF Urine Casts PRESENT /LPF Urine Hyaline Casts RARE /LPF Urine Mucus MODERATE H /LPF Urine Culture Indicated YES White Blood Count 10.6 4.3-11.0 10^3/uL Red Blood Count 3.17 L 4.35-5.85 10^6/uL Hemoglobin 9.3 L 11.5-16.0 G/DL Hematocrit 29 L 35-52 % Mean Corpuscular Volume 92 80-99 FL Mean Corpuscular Hemoglobin 29 25-34 PG Mean Corpuscular Hemoglobin Concent 32 32-36 G/DL Red Cell Distribution Width 13.7 10.0-14.5 % Platelet Count 346 130-400 10^3/uL Mean Platelet Volume 10.5 H 7.4-10.4 FL Neutrophils (%) (Auto) 69 42-75 % Lymphocytes (%) (Auto) 18 12-44 % Monocytes (%) (Auto) 9 0-12 % Eosinophils (%) (Auto) 4 0-10 % Basophils (%) (Auto) 1 0-10 % Neutrophils # (Auto) 7.3 1.8-7.8 X 10^3 Lymphocytes # (Auto) 1.9 1.0-4.0 X 10^3 Monocytes # (Auto) 0.9 0.0-1.0 X 10^3 Eosinophils # (Auto) 0.4 H 0.0-0.3 10^3/uL Basophils # (Auto) 0.1 0.0-0.1 10^3/uL Prothrombin Time 13.8 12.2-14.7 SEC INR Comment 1.1 0.8-1.4 Activated Partial Thromboplast Time 108 H 24-35 SEC Sodium Level 143 135-145 MMOL/L Potassium Level 3.9 3.6-5.0 MMOL/L Chloride Level 100 98-107 MMOL/L Carbon Dioxide Level 31 21-32 MMOL/L Anion Gap 12 5-14 MMOL/L Blood Urea Nitrogen 25 H 7-18 MG/DL Creatinine 1.56 H 0.60-1.30 MG/DL Estimat Glomerular Filtration Rate 34 BUN/Creatinine Ratio 16 Glucose Level 239 H 70-105 MG/DL Calcium Level 8.7 8.5-10.1 MG/DL Phosphorus Level 3.3 2.3-4.7 MG/DL Magnesium Level 1.8 1.8-2.4 MG/DL Total Bilirubin 0.5 0.1-1.0 MG/DL Aspartate Amino Transf (AST/SGOT) 24 5-34 U/L Alanine Aminotransferase (ALT/SGPT) 25 0-55 U/L Alkaline Phosphatase 982 H 40-136 U/L Total Protein 6.4 6.4-8.2 G/DL Albumin 2.8 L 3.2-4.5 G/DL Triglycerides Level 193 H <150 MG/DL Cholesterol Level 120 < 200 MG/DL LDL Cholesterol Direct 53 1-129 MG/DL VLDL Cholesterol 39 5-40 MG/DL HDL Cholesterol 33 L 40-60 MG/DL Glucometer 201 H 188 H 70-110 MG/DL Test 02/24/17 09:35 02/24/17 10:06 Range/Units Activated Partial Thromboplast Time 89 H 24-35 SEC Troponin I 0.72 *H <0.30 NG/ML Erythrocyte Sedimentation Rate > 140 H 0-30 MM/HR B-Type Natriuretic Peptide 811.9 H <100.0 PG/ML Physical Exam Vital Signs Vital Sign - Last 12Hours 02/24/17 02/24/17 01:20 01:21 Temp 98.9 Pulse 69 Resp 26 B/P (MAP) 134/80 Pulse Ox 91 O2 Delivery Nasal Cannula O2 Flow Rate 12.00 Capillary Refill : General Appearance: No Apparent Distress, WD/WN Eyes: Bilateral Eye EOMI, Bilateral Eye Normal Inspection, Bilateral Eye PERRL HEENT: PERRL/EOMI, TMs Normal, Normal ENT Inspection, Pharynx Normal Neck: Full Range of Motion, Normal Inspection, Non Tender, Supple, Carotid Bruit Respiratory: Chest Non Tender, Normal Breath Sounds, No Accessory Muscle Use, No Respiratory Distress, Decreased Breath Sounds Cardiovascular: Regular Rate, Rhythm, No JVD, Normal Peripheral Pulses, Systolic Murmur, Friction Rub Gastrointestinal: Normal Bowel Sounds, No Organomegaly, No Pulsatile Mass, Non Tender, Soft Back: Normal Inspection, No CVA Tenderness, No Vertebral Tenderness Extremity: Normal Capillary Refill, Normal Inspection, Normal Range of Motion, Non Tender, No Calf Tenderness, No Pedal Edema Neurologic/Psychiatric: Alert, Oriented x3, No Motor/Sensory Deficits, Normal Mood/Affect Skin: Normal Color, Warm/Dry Lymphatic: No Adenopathy A/P-Cardiology Admission Diagnosis Acute pericarditis Coronary artery disease Hypertension Hyperlipidemia Assessment/Plan Anterior chest wall pain, acute pericarditis, Ivnay syndrome post myocardial infarction pericarditis, elevated sedimentation rate, minimal EKG changes. I started the patient on Motrin 600 mg every 6 hours, added Carafate to the proton For GI protection. Continue to monitor. Shortness of breath, advanced COPD and pulmonary edema. Anemia, post transfusion, probably multifactorial, continue to monitor H&H Noncompliance with medication, patient was provided with samples, expressed that she took her medication last night. Status post recent acute inferior wall ST elevation myocardial infarction, status post recent stenting to the right coronary artery with Xience Alpine 3.5 to the proximal right coronary artery and 2.75 to The distal right coronary artery and right PDA. Brought for emergency cardiac catheterization, total occlusion of the right coronary artery, had angioplasty and thrombectomy then stenting of the right coronary artery, troponin was up to 300 initially after the TX, still coming down slowly. Repeat cardiac catheterization was done on February 22, 2017 which showed mild disease nonobstructive disease. Congestive heart failure, acute on chronic left ventricular systolic dysfunction , ischemic cardiomyopathy secondary to acute myocardial infarction mild hypokinesia of them for wall, preserved ejection fraction 50 percent, responded to aggressive diuretics, slight deterioration kidney function, continue to monitor, planning to discharge today on beta blockers. Cannot tolerate JULIA inhibitor and/or ARB due to acute renal failure, she was started back on lisinopril 40 mg daily, continue to monitor closely. Acute on chronic renal insufficiency, patient had acute renal failure reaching creatinine level up to 4.5, currently on JULIA inhibitor and Motrin, continue to monitor renal function closely. Receiving diuretics cautiously. Status post cardiogenic shock, hypotensive shock post myocardial infarction, severe bradycardia, occurred during the previous admission with her ST elevation myocardial infarction, currently better. Continue to monitor Hyperlipidemia, poorly controlled, continue to monitor lipids. Elevated alkaline phosphatase, normal liver enzymes at this time, no abdominal pain. Continue to monitor closely. Diabetes mellitus, followed and managed by primary care physician Obesity. Clinical Quality Measures DVT/VTE Risk/Contraindication: Risk Factor Score Per Nursin RFS Level Per Nursing on Admit: 3=High JACK PARISH MD Feb 24, 2017 10:55
[2017-02-24] MEDS ORDERED: inSUlin ASPART (NovoLOG) 1 UNIT/0.01 ML (CHARGE PER UNIT) SC SCH (11:00)
--- NOTE | 2017-02-24 11:20 | History & Physical-Hospitalist ---
HPI History of Present Illness: HPI/Chief Complaint CC: Chest Pain HPI: Pt was DC'd yesterday, but she presented to [facility] ER for chest pain. Had elevated Troponin and had a direct admit to [facility]. 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 Blood sugar at 200 Pt will be given something to eat. Patient Interview: Pt had the AK before, she had a stent placed. Dr. Fenton did her cath last time, but pt would like to leave without cath this admission. Pt will start seeing Dr. Fenton next Wednesday. Pt would like to leave AMA Pt uses 3L O2 at home and feels that current O2 is excessive. Pt does not use breathing treatments at home. Physical Exam was stable. Scribed by Manny Mcneil under the direct supervision of Dr. Amaya. Source: patient Date Seen 02/24/17 Attending Physician Luli Amaya David F MD Referring Physician Date of Admission Feb 24, 2017 at 01:21 Home Medications & Allergies Home Medications Reviewed patient Home Medication Reconciliation Form Allergies Allergies Coded Allergies ondansetron (Verified Allergy, Severe, N/V, 02/10/17) Estrogens (Unverified Allergy, Unknown, BLISTERS ON BUTT, 12/17/14) metformin (Unverified Allergy, Unknown, BLISTERS ON BUTT, 12/17/14) Past Zcleewx-Hzycro-Nijpkc Hx Patient Social History Marrital Status: Alcohol Use: Denies Use Recreational Drug Use: No Smoking Status: Unknown if Ever Smoked 2nd Hand Smoke Exposure: Yes Physical Abuse Screen: No Sexual Abuse: No Recent Foreign Travel: No Contact w/other who traveled: No Recent Hopitalizations: Yes (02/10/17-02/17/17, THEN WAS D/C 02/23/17) Recent Infectious Disease Expo: No Immunizations Up To Date Tetanus Booster (TDap): Unknown Date of Pneumonia Vaccine: Sep 18, 2014 Date of Influenza Vaccine: Sep 16, 2016 Seasonal Allergies Seasonal Allergies: No Surgeries HX Surgeries: Yes (RIGHT FOREARM FX/ORIF; CARDIAC CATHS --STENTS X 4; HYST/BSO) Surgeries: Cardiac, Coronary Stent, Gallbladder, Hysterectomy, Oophorectomy Respiratory Hx Respiratory Disorders: Yes Respiratory Disorders: Sleep Apnea Cardiovascular Hx Cardiovascular Disorders: Yes (CAROTID DISEASE) Cardiac Disorders: Coronary Artery Disease, Heart Attack, High Cholesterol, Hypertension Neurological Hx Neurological Disorders: Yes Neurological Disorders: Neuropathy, TIA Reproductive System Hx Reproductive Disorders: No Sexually Transmitted Disease: No HIV/AIDS: No Female Reproductive Disorders: Denies Genitourinary Hx Genitourinary Disorders: Yes Genitourinary Disorders: Renal Failure Gastrointestinal Hx Gastrointestinal Disorders: Yes Gastrointestinal Disorders: Gastroesophageal Reflux, Gall Bladder Disease Musculoskeletal Hx Musculoskeletal Disorders: Yes (right arm fracture with screws and pin placements) Musculoskeletal Disorders: Arthritis, Fibromyalgia, Fractures Endocrine Hx Endocrine Disorders: Yes Endocrine Disorders: Diabetes, Insulin dep, Hypothyroidsim HEENT HX ENT Disorders: Yes (GLASSES) HEENT Disorders: Double Vision Hearing Impairment: Hard of Hearing Cancer Hx Cancer: Yes Cancer: Ovarian, Uterine Psychosocial Hx Psychiatric Problems: Yes Behavioral Health Disorders: Anxiety, Depression Integumentary HX Skin/Integumentary Disorder: Yes (DIABETIC SORES) Skin/Integumentary Disorders: Recent Skin Changes Blood Transfusions Hx Blood Disorders: Yes (ANEMIA) Adverse Reaction to a Blood Tr: No Family Medical History Significant Family History: No Pertinent Family Hx Family Hx: Cardiovascular disease 19 FATHER G8 SISTER Diabetes mellitus 19 FATHER G8 BROTHER G8 SISTER FH: lung cancer 19 MOTHER FH: skin cancer 19 FATHER Parkinson's disease G8 SISTER Psychosocial problem G8 BROTHER Review of Systems Constitutional: see HPI, weakness EENTM: no symptoms reported Respiratory: short of breath Cardiovascular: chest pain Gastrointestinal: no symptoms reported Genitourinary: no symptoms reported Musculoskeletal: no symptoms reported Skin: no symptoms reported Psychiatric/Neurological: No Symptoms Reported All Other Systems Reviewed Negative Unless Noted: Yes Physical Exam Physical Exam Vital Signs Vital Sign - Last 12Hours 02/24/17 02/24/17 01:20 01:21 Temp 98.9 Pulse 69 Resp 26 B/P (MAP) 134/80 Pulse Ox 91 O2 Delivery Nasal Cannula O2 Flow Rate 12.00 Capillary Refill : General Appearance: No Apparent Distress, WD/WN, Chronically ill, Obese Eyes: Bilateral Eye Normal Inspection, Bilateral Eye PERRL HEENT: PERRL/EOMI, Normal ENT Inspection, Pharynx Normal Neck: Full Range of Motion, Normal Inspection, Non Tender, Supple, Carotid Bruit Respiratory: Chest Non Tender, Lungs Clear, Normal Breath Sounds, No Accessory Muscle Use, No Respiratory Distress Cardiovascular: Regular Rate, Rhythm, No Edema, No Gallop, No JVD, No Murmur, Normal Peripheral Pulses Gastrointestinal: Normal Bowel Sounds, No Organomegaly, No Pulsatile Mass, Non Tender, Soft Back: Normal Inspection, No CVA Tenderness, No Vertebral Tenderness Extremity: Normal Capillary Refill, Normal Inspection, Normal Range of Motion, Non Tender, No Calf Tenderness, No Pedal Edema Neurologic/Psychiatric: Alert, Oriented x3, No Motor/Sensory Deficits, Normal Mood/Affect Skin: Normal Color, Warm/Dry Lymphatic: No Adenopathy Results Results/Procedures Lab Laboratory Tests 02/24/17 02:14 Assessment/Plan Admission Diagnosis Assessment: Chest pain with recent AK with stent placement Chronic COPD on home oxygen Hyperlipidemia Hypertension Hypothyroidism Chronic angina Diabetes mellitus Obesity Assessment and Plan Plan: Restart home meds Reduce O2 if possible. Maintain O2 sat of 89% Heart healthy diet Patient may leave AMA Await cardiology recommendations Clinical Quality Measures DVT/VTE Risk/Contraindication: Risk Factor Score Per Nursin RFS Level Per Nursing on Admit: 3=High LULI AMAYA DO Feb 24, 2017 11:20
--- NOTE | 2017-02-24 13:05 | Pulmonary Consultation ---
History of Present Illness History of Present Illness Date of Consultation 02/24/17 13:00 Date of Admission Reason for Visit: Chest pain History of Present Illness 56yo with hx of severe COPD with home oxygen and recent STEMI with recent hospitalization and recently discharged home yesterday returned to ED seconary to severe CP upon laying down. PT is also have progressive SOB with hypoxemia. I am consulted for pulmonary management. Allergies and Home Medications Allergies Coded Allergies: ondansetron (Verified Allergy, Severe, N/V, 02/10/17) Estrogens (Unverified Allergy, Unknown, BLISTERS ON BUTT, 12/17/14) metformin (Unverified Allergy, Unknown, BLISTERS ON BUTT, 12/17/14) Home Medications Amlodipine Besylate 10 Mg Tablet, 10 MG PO DAILY, (Reported) Aspirin 81 Mg Tab.chew, 162 MG PO DAILY, (Reported) Citalopram Hydrobromide 20 Mg Tablet, 20 MG PO DAILY, (Reported) Doxazosin Mesylate 2 Mg Tablet, 2 MG PO DAILY, (Reported) Duloxetine HCl 30 Mg Capsule.dr, 30 MG PO DAILY, (Reported) Furosemide 40 Mg Tablet, 40 MG PO DAILY, (Reported) Gabapentin 300 Mg Capsule, 600 MG PO DAILY, (Reported) TAKES 2 (300 MG) CAPSULES Insulin Aspart 100 Unit/1 Ml Susp, 20 UNIT SC AC for 1 Days Please Decrease Your Dosage from 40 units to 20 units before meals Prescribed by: SUSAN CANTU on 02/23/17 0857 Insulin Determir 1,000 Units/10 Ml Soln, 60 UNIT SQ HS for 1 Days Please decrease Your scheduled dosage from 80 units to 60 units Prescribed by: SUSAN CANTU on 02/23/17 0857 Isosorbide Mononitrate 30 Mg Tab.er.24h, 30 MG PO DAILY, (Reported) Levothyroxine Sodium 75 Mcg Tablet, 75 MCG PO DAILY, (Reported) Lisinopril 40 Mg Tablet, 40 MG PO DAILY for 30 Days RESTART TOMORROW 02/24/17 Prescribed by: JACK PARISH on 02/23/17 0943 Lorazepam 0.5 Mg Tablet, 0.5 MG PO DAILY PRN for ANXIETY, (Reported) Metoprolol Succinate 25 Mg Tab.er.24h, 25 MG PO DAILY, (Reported) Morphine Sulfate 15 Mg Tablet.er, 15 MG PO HS, (Reported) Pantoprazole Sodium 40 Mg Tablet.dr, 40 MG PO DAILY, (Reported) Saxagliptin HCl 5 Mg Tablet, 5 MG PO DAILY, (Reported) Ticagrelor 90 Mg Tablet, 90 MG PO BID, #60 Ref 4 Prescribed by: JACK PARISH on 02/23/17 0812 Past Kodojoy-Qxtsfl-Xinpxu Hx Patient Social History Alcohol Use: Denies Use Recreational Drug Use: No Smoking Status: Unknown if Ever Smoked 2nd Hand Smoke Exposure: Yes Recent Foreign Travel: No Contact w/Someone Who Travel: No Recent Infectious Disease Expo: No Recent Hopitalizations: Yes (02/10/17-02/17/17, THEN WAS D/C 02/23/17) Physical Abuse Screen: No Sexual Abuse: No Immunizations Up To Date Tetanus Booster (TDap): Unknown PED Vaccines UTD: Yes Date of Pneumonia Vaccine: Sep 18, 2014 Date of Influenza Vaccine: Sep 16, 2016 Seasonal Allergies Seasonal Allergies: No Surgeries HX Surgeries: Yes (RIGHT FOREARM FX/ORIF; CARDIAC CATHS --STENTS X 4; HYST/BSO) Surgeries: Cardiac, Coronary Stent, Gallbladder, Hysterectomy, Oophorectomy Respiratory Hx Respiratory Disorders: Yes Respiratory Disorders: Emphysema Cardiovascular Hx Cardiac Disorders: Yes (CAROTID DISEASE) Cardiac Disorders: Coronary Artery Disease, Heart Attack, High Cholesterol, Hypertension Neurological Hx Neurological Disorders: Yes Neurological Disorders: Neuropathy, TIA Reproductive System Hx Reproductive Disorders: No Sexually Transmitted Disease: No HIV/AIDS: No Female Reproductive Disorders: 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 Genitourinary Hx Genitourinary Disorders: Yes Genitourinary Disorders: Renal Failure Gastrointestinal Hx Gastrointestinal Disorders: Yes Gastrointestinal Disorders: Gastroesophageal Reflux, Gall Bladder Disease Musculoskeletal Hx Musculoskeletal Disorders: Yes (right arm fracture with screws and pin placements) Musculoskeletal Disorders: Arthritis, Fibromyalgia, Fractures Endocrine Hx Endocrine Disorders: Yes Endocrine Disorders: Diabetes, Insulin dep, Hypothyroidsim HEENT HX ENT Disorders: Yes (GLASSES) HEENT Disorders: Double Vision Hearing Impairment: Hard of Hearing Cancer Hx Cancer: Yes Cancer: Ovarian, Uterine Psychosocial Hx Psychiatric Problems: Yes Behavioral Health Disorders: Anxiety, Depression Integumentary HX Skin/Integumentary Disorder: Yes (DIABETIC SORES) Skin/Integumentary Disorders: Recent Skin Changes Blood Transfusions Hx Blood Disorders: Yes (ANEMIA) Adverse Reaction to a Blood Tr: No Family Medical History Significant Family History: No Pertinent Family Hx Family Medial History: Cardiovascular disease 19 FATHER G8 SISTER Diabetes mellitus 19 FATHER G8 BROTHER G8 SISTER FH: lung cancer 19 MOTHER FH: skin cancer 19 FATHER Parkinson's disease G8 SISTER Psychosocial problem G8 BROTHER Exam Exam Vital Signs Date Time Temp Pulse Resp B/P (MAP) Pulse Ox O2 Delivery O2 Flow Rate FiO2 02/24/17 12:15 67 12 164/85 High Flow N/C 4.00 02/24/17 12:00 90 OxyMask 5.00 02/24/17 12:00 98.4 High Flow N/C 4.00 02/24/17 11:00 68 14 156/82 OxyMask 10.00 02/24/17 10:00 69 22 168/89 OxyMask 10.00 02/24/17 09:00 66 12 165/85 92 OxyMask 10.00 02/24/17 08:47 94 10.00 02/24/17 08:00 90 OxyMask 10.00 02/24/17 08:00 63 12 158/88 92 OxyMask 10.00 02/24/17 08:00 97.9 OxyMask 10.00 02/24/17 07:00 65 02/24/17 07:00 61 12 166/94 93 OxyMask 8.00 02/24/17 06:45 62 11 162/86 94 OxyMask 8.00 02/24/17 06:30 62 11 162/93 94 OxyMask 8.00 02/24/17 06:15 64 16 148/95 93 OxyMask 8.00 02/24/17 06:00 67 12 157/89 94 OxyMask 8.00 02/24/17 05:45 60 11 154/82 94 OxyMask 8.00 02/24/17 05:30 62 19 153/81 89 OxyMask 12.00 02/24/17 05:15 59 11 141/79 92 OxyMask 12.00 02/24/17 05:00 62 19 140/71 89 OxyMask 12.00 02/24/17 04:45 60 13 155/84 95 OxyMask 12.00 02/24/17 04:30 60 12 128/64 90 OxyMask 12.00 02/24/17 04:15 61 11 143/86 93 OxyMask 12.00 02/24/17 04:00 97.1 60 10 139/74 94 OxyMask 12.00 02/24/17 04:00 92 OxyMask 12.00 02/24/17 03:45 59 10 130/65 93 OxyMask 12.00 02/24/17 03:30 61 19 139/94 92 OxyMask 12.00 02/24/17 03:26 163/95 02/24/17 03:15 60 14 163/95 95 OxyMask 12.00 02/24/17 03:09 156/97 02/24/17 03:00 62 12 156/97 94 OxyMask 12.00 02/24/17 02:45 63 14 159/98 92 OxyMask 12.00 02/24/17 02:30 64 13 93 OxyMask 12.00 02/24/17 02:15 62 17 167/94 93 Nasal Cannula 12.00 02/24/17 02:01 61 02/24/17 02:00 62 20 151/81 95 Nasal Cannula 12.00 02/24/17 01:45 62 13 140/82 93 Nasal Cannula 12.00 02/24/17 01:30 68 25 158/88 91 Nasal Cannula 12.00 02/24/17 01:21 98.9 69 26 134/80 88 Nasal Cannula 12.00 02/24/17 01:20 91 12.00 I & O 02/24/17 07:00 Intake Total 0 ml Output Total 800 ml Balance -800 ml General Appearance: No Apparent Distress, WD/WN, Chronically ill, Obese HEENT: PERRL/EOMI, Normal ENT Inspection, Pharynx Normal Neck: Full Range of Motion, Normal Inspection, Non Tender, Supple, Carotid Bruit Respiratory: Chest Non Tender, Lungs Clear, Normal Breath Sounds, No Accessory Muscle Use, No Respiratory Distress Cardiovascular: Regular Rate, Rhythm, No Edema, No Gallop, No JVD, No Murmur, Normal Peripheral Pulses Extremity: Normal Capillary Refill, Normal Inspection, Normal Range of Motion, Non Tender, No Calf Tenderness, No Pedal Edema Neurologic/Psychiatric: Alert, Oriented x3, No Motor/Sensory Deficits, Normal Mood/Affect Skin: Normal Color, Warm/Dry Lymphatic: No Adenopathy Results Lab Laboratory Tests 02/24/17 02:14 Assessment/Plan Assessment/Plan Acute pericarditis -Cardilogy following Severe COPD with hypoxia -SVNS, oxygen Recent inferior wall STEMI Chf with EF of 50% -Continue lasix Atelectasis -IS, SVNs Acute on chronic renal insuff Clinical Quality Measures DVT/VTE Risk/Contraindication: Risk Factor Score Per Nursin RFS Level Per Nursing on Admit: 3=High ANNIE BECKHAM DO Feb 24, 2017 13:05
[2017-02-24] MEDS: IBUPROFEN 600 MG (MOTRIN) TAB PO SCH ×2 (13:34→18:21)
--- NOTE | 2017-02-24 14:22 | Diagnostic Imaging Report ---
EXAMINATION: Bilateral lower extremity duplex venous ultrasound. TECHNIQUE: DVT protocol. Multiple sonographic images with color Doppler and waveform interrogation were performed of the lower extremity veins, bilaterally, with compression and augmentation maneuvers. INDICATION: Bilateral leg weakness. FINDINGS: The lower extremity veins from the common femoral veins to below the knee veins were examined with normal color-flow, compressibility and normal waveform demonstrated. The great saphenous vein bilaterally is patent. IMPRESSION: No evidence of DVT in either lower extremity. Dictated by: Dictated on workstation # [id number]
[2017-02-24] MEDS: SUCRALFATE 1 GM (CARAFATE) TAB PO SCH ×3 (14:43→21:40)
[2017-02-24] MEDS: inSUlin ASPART (NovoLOG) 1 UNIT/0.01 ML (CHARGE PER UNIT) SC SCH (16:12)
[2017-02-24] MEDS: RT-ALBUTEROL/IPRATROPIUM 3 ML (DUONEB) VIAL INH SCH (18:37)
[2017-02-24] MEDS ORDERED: RT-ALBUTEROL/IPRATROPIUM 3 ML (DUONEB) VIAL INH PRN (20:00)
[2017-02-24] MEDS ORDERED: inSUlin DETERMIR 1 UNIT/0.01 ML (LEVEMIR) CHARGE PER UNIT SQ SCH (21:00)
[2017-02-24] MEDS ORDERED: morphine ER 15 MG (MS CONTIN) TAB PO SCH (21:00)
[2017-02-25] VITALS: BP 117/63
[2017-02-25] MEDS: IBUPROFEN 600 MG (MOTRIN) TAB PO SCH ×2 (00:28→06:33)
[2017-02-25] MEDS: RT-ALBUTEROL/IPRATROPIUM 3 ML (DUONEB) VIAL INH SCH ×4 (02:29→10:40)
[2017-02-25 04:00] VITALS: BP 118/72
[2017-02-25 05:17] LABS: BASOPHILS % (AUTO) 0 % (0-10); EOSINOPHILS # (AUTO) 0.3 10^3/uL (0.0-0.3); EOSINOPHILS % (AUTO) 3 % (0-10); LYMPHOCYTES # (AUTO) 2.1 X 10^3 (1.0-4.0); LYMPHOCYTES % (AUTO) 20 % (12-44); MEAN CORPUSCULAR HEMOGLOBIN 29 PG (25-34); MEAN CORPUSCULAR HGB CONC 31 G/DL (32-36); MEAN CORPUSCULAR VOLUME 93 FL (80-99); MEAN PLATELET VOLUME 10.6 FL (7.4-10.4); MONOCYTES # (AUTO) 1.2 X 10^3 (0.0-1.0); MONOCYTES % (AUTO) 11 % (0-12); NEUTROPHILS # (AUTO) 6.9 X 10^3 (1.8-7.8); NEUTROPHILS % (AUTO) 65 % (42-75); PLATELET COUNT 300 10^3/uL (130-400); RED BLOOD COUNT 3.03 10^6/uL (4.35-5.85); RED CELL DISTRIBUTION WIDTH 13.7 % (10.0-14.5); WHITE BLOOD COUNT 10.6 10^3/uL (4.3-11.0)
[2017-02-25 05:34] LABS: CALCIUM 8.8 MG/DL (8.5-10.1); CREATININE SERUM 1.58 MG/DL (0.60-1.30); MAGNESIUM 1.5 MG/DL (1.8-2.4); PHOSPHORUS 4.8 MG/DL (2.3-4.7); POTASSIUM 3.7 MMOL/L (3.6-5.0)
[2017-02-25] MEDS: POTASSIUM CL 10MEQ/50ML IVPB 50 ML IV SCH (05:58)
[2017-02-25] MEDS: MAGNESIUM 1 GM/100 ML IVPB 100 ML IV SCH (05:59)
[2017-02-25] MEDS: KCL 20 MEQ TAB (K-DUR) PO SCH (06:32)
[2017-02-25] MEDS: PANTOPRAZOLE 40 MG (PROTONIX) TAB PO SCH (06:33)
[2017-02-25] MEDS: LEVOTHYROXINE 75 MCG (LEVOTHROID) TABLET PO SCH (06:33)
[2017-02-25] MEDS: SUCRALFATE 1 GM (CARAFATE) TAB PO SCH ×2 (06:33→11:05)
--- NOTE | 2017-02-25 07:18 | Pulmonary Progress Note ---
Subjective Subjective/Events-last exam PT feels improved currently. Exam Exam Vital Signs Date Time Temp Pulse Resp B/P (MAP) Pulse Ox O2 Delivery O2 Flow Rate FiO2 02/25/17 06:39 91 4.00 02/25/17 04:00 98.7 62 19 118/72 92 Nasal Cannula 4.00 02/25/17 02:29 91 4.00 02/25/17 01:00 59 02/25/17 00:00 97.8 58 19 117/63 92 Nasal Cannula 4.00 02/24/17 21:00 Nasal Cannula 12.00 02/24/17 19:00 97.3 65 23 130/62 92 Nasal Cannula 4.00 02/24/17 19:00 65 02/24/17 18:38 90 4.00 02/24/17 16:27 91 02/24/17 16:00 97.3 67 19 138/72 92 Nasal Cannula 4.00 02/24/17 13:00 72 02/24/17 12:15 67 12 164/85 High Flow N/C 4.00 02/24/17 12:00 90 OxyMask 5.00 02/24/17 12:00 98.4 High Flow N/C 4.00 02/24/17 11:40 97.5 68 16 147/88 93 Nasal Cannula 4.00 02/24/17 11:00 68 14 156/82 OxyMask 10.00 02/24/17 10:00 69 22 168/89 OxyMask 10.00 02/24/17 09:00 66 12 165/85 92 OxyMask 10.00 02/24/17 08:47 94 10.00 02/24/17 08:00 90 OxyMask 10.00 02/24/17 08:00 63 12 158/88 92 OxyMask 10.00 02/24/17 08:00 97.9 OxyMask 10.00 I & O 02/25/17 07:00 Intake Total 1890 ml Output Total 1900 ml Balance -10 ml General Appearance: No Apparent Distress, WD/WN, Chronically ill, Obese HEENT: PERRL/EOMI, Normal ENT Inspection, Pharynx Normal Neck: Full Range of Motion, Normal Inspection, Non Tender, Supple, Carotid Bruit Respiratory: Chest Non Tender, Lungs Clear, Normal Breath Sounds, No Accessory Muscle Use, No Respiratory Distress Cardiovascular: Regular Rate, Rhythm, No Edema, No Gallop, No JVD, No Murmur, Normal Peripheral Pulses Extremity: Normal Capillary Refill, Normal Inspection, Normal Range of Motion, Non Tender, No Calf Tenderness, No Pedal Edema Neurologic/Psychiatric: Alert, Oriented x3, No Motor/Sensory Deficits, Normal Mood/Affect Skin: Normal Color, Warm/Dry Lymphatic: No Adenopathy Results Lab Laboratory Tests 02/24/17 02:14 02/25/17 04:50 Assessment/Plan Assessment/Plan Acute pericarditis -Cardilogy following Severe COPD with hypoxia -SVNS, oxygen Recent inferior wall STEMI Chf with EF of 50% -Continue lasix Atelectasis -IS, SVNs Acute on chronic renal insuff Clinical Quality Measures DVT/VTE Risk/Contraindication: Risk Factor Score Per Nursin RFS Level Per Nursing on Admit: 3=High ANNIE BECKHAM DO Feb 25, 2017 07:18
[2017-02-25 08:00] VITALS: BP 145/75
[2017-02-25] MEDS: inSUlin ASPART (NovoLOG) 1 UNIT/0.01 ML (CHARGE PER UNIT) SC SCH (08:39)
[2017-02-25] MEDS: GABAPENTIN 600 MG (NEURONTIN) TAB PO SCH (10:00)
[2017-02-25] MEDS: DULoxetine 30 MG (CYMBALTA) CAP PO SCH (10:00)
[2017-02-25] MEDS: doxAzosin 2 MG (CARDURA) TAB PO SCH (10:01)
[2017-02-25] MEDS: lisINopril 20 MG (ZESTRIL) TAB PO SCH (10:01)
[2017-02-25] MEDS: ASPIRIN 81 MG CHEW (CHILDREN'S ASA) PO SCH (10:01)
[2017-02-25] MEDS: ISOSORBIDE MONONITRATE 30 MG (IMDUR) TAB PO SCH (10:01)
[2017-02-25] MEDS: FUROSEMIDE 40 MG (LASIX) TAB PO SCH (10:01)
[2017-02-25] MEDS: amLODIPine 10 MG (NORVASC) TAB PO SCH (10:01)
[2017-02-25] MEDS: TICAGRELOR 90 MG TABLET (BRILINTA) PO SCH (10:01)
[2017-02-25] MEDS: sitaGLIPtin 50 MG (JANUVIA) TAB PO SCH (10:02)
--- NOTE | 2017-02-25 10:20 | Progress Note-Cardiology ---
Cardiology SOAP Progress Note Subjective: Chest pain is better, but not completely resolved Had a good night's rest without pain, but has had sharp pain in the L lateral area (2 finger breadth in size) that is somewhat worse with inspiration this morning Denies palp or syncope Has chronic exertional shortness of breath, unchanged Objective: I&O/Vital Signs Vital Sign - Last 12Hours 02/25/17 02/25/17 02/25/17 02/25/17 00:00 01:00 02:29 04:00 Temp 97.8 98.7 Pulse 58 59 62 Resp 19 19 B/P (MAP) 117/63 118/72 Pulse Ox 92 91 92 O2 Delivery Nasal Cannula Nasal Cannula O2 Flow Rate 4.00 4.00 4.00 02/25/17 02/25/17 02/25/17 06:39 07:00 07:56 Pulse 63 Pulse Ox 91 O2 Delivery Nasal Cannula O2 Flow Rate 4.00 12.00 Intake and Output 02/25/17 00:00 Intake Total 1290 ml Output Total 1000 ml Balance 290 ml Weight (Pounds): 276 Weight (Ounces): 1.0 Weight (Calculated Kilograms): [id number] Constitutional: AAO x 3, well-developed, well-nourished Respiratory: No accessory muscle use, other (good bilateral air entry; no wheezing or rales) Cardiovascular: regular rate-rhythm, other (S1 and S2 with faint MSM, no rub or yi[) Gastrointestional: No tender, soft, No guarding, No rebound, audible bowel sounds Extremities: No clubbing, No cyanosis, No significant edema Neurologic/Psychiatric: grossly intact, power is 5/5 both on sides Skin: No rash on exposed areas, No ulcerations on exposed areas Results/Procedures: Labs Laboratory Tests 02/24/17 13:50: Glucometer 222H 02/24/17 16:02: Glucometer 214H 02/24/17 19:30: Glucometer 51*L 02/24/17 20:01: Glucometer 70 02/24/17 20:32: Glucometer 98 02/25/17 04:50: White Blood Count 10.6, Red Blood Count 3.03L, Hemoglobin 8.7L, Hematocrit 28L, Mean Corpuscular Volume 93, Mean Corpuscular Hemoglobin 29, Mean Corpuscular Hemoglobin Concent 31L, Red Cell Distribution Width 13.7, Platelet Count 300, Mean Platelet Volume 10.6H, Neutrophils (%) (Auto) 65, Lymphocytes (%) (Auto) 20 , Monocytes (%) (Auto) 11, Eosinophils (%) (Auto) 3, Basophils (%) (Auto) 0, Neutrophils # (Auto) 6.9, Lymphocytes # (Auto) 2.1, Monocytes # (Auto) 1.2H, Eosinophils # (Auto) 0.3, Basophils # (Auto) 0.0, Sodium Level 143, Potassium Level 3.7, Chloride Level 101, Carbon Dioxide Level 31, Anion Gap 11, Blood Urea Nitrogen 27H, Creatinine 1.58H, Estimat Glomerular Filtration Rate 34, BUN/ Creatinine Ratio 17, Glucose Level 96, Calcium Level 8.8, Phosphorus Level 4.8H , Magnesium Level 1.5L, Triglycerides Level 54, Cholesterol Level 122, LDL Cholesterol Direct 57, VLDL Cholesterol 11, HDL Cholesterol 40 02/25/17 08:01: Glucometer 123H Microbiology 02/24/17 Urine Culture - Final, Complete Klebsiella Pneumoniae Laboratory Tests 02/24/17 02:14 02/25/17 04:50 A/P: Assessment: Anterior and L lateral chest wall pain, probably acute pericarditis, Vinay syndrome post myocardial infarction pericarditis, symptoms improved Chronic shortness of breath: advanced COPD and chronic systolic and diastolic CHF Anemia, probably multifactorial, managed by the Medical Service H/o noncompliance with medication CAD with h/o cor PCI. On 01/28/17, had stenting to the right coronary artery with Xience Alpine 3.5 to the proximal right coronary artery and 2.75 to the distal right coronary artery and right PDA. Ac Inf MN on 02/10/17 due to noncompliance with clopidogrel: repeat cath showed total occlusion of the right coronary artery, had thrombectomy and balloon angioplasty of the right coronary artery, troponin was up to 300 initially after the MN, still coming down slowly. Repeat cardiac catheterization was done on February 22, 2017 which showed mild disease nonobstructive disease. Echo of 02/21/17: LVEF 50%, hypokinesis of inf and inf-lat wall, mild MR & TR & AI Acute on chronic renal insufficiency during last hosp of 02/10/17, likely related to ac MN and LV dysfunction (transient cardiogenic shock due to MN): patient had acute renal failure reaching creatinine level up to 4.5, currently creatinine is approx 1.6 and stable Hyperlipidemia H/o elevated alkaline phosphatase Diabetes mellitus, followed and managed by primary care physician Obesity Plan: * Complex management due to multiple CV comorbidities * I spoke with her, examined her, and reviewed her hosp records of previous and this hosp * I discussed her case with Dr Fenton for whom I am covering today * I spoke in detail with Dr Amaya of the Medical Service * It may be reasonable to discharge, but would need close outpatient monitoring (Medical and Cardiology Services) * We have stressed the importance of med compliance and close clinical f/u to her. She understands and has stated compliance ADALBETRO LEAVITT MD FACP FAC CCDS Feb 25, 2017 10:20
--- NOTE | 2017-02-25 11:08 | Discharge Summary-Hospitalist ---
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 Maintain O2 sat of 89% Heart healthy diet Patient may leave AMA Await cardiology recommendations Reason Hospital Visit/Course CC: Chest Pain HPI: Pt was DC'd yesterday, but she presented to [facility] for chest pain. Had elevated Troponin and had a direct admit to [facility]. 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 Blood sugar at 200 Pt will be given something to eat. Patient Interview: Pt had the MA before, she had a stent placed. Dr. Fenton did her cath last time, but pt would like to leave without cath this admission. Pt will start seeing Dr. Fenton next Wednesday. Pt would like to leave AMA Pt uses 3L O2 at home and feels that current O2 is excessive. Pt does not use breathing treatments at home. Physical Exam was stable. Scribed by Manny Mcneil under the direct supervision of Dr. Aleman. Notes from 02/25/17 Chart Review: No fever, vitals stable WBC normal 10 .6, Hgb 8.7, Creat 1.5 which is her baseline, Alk Phos 982 previously 232 which is elevated since January. Ucx revealed gram negative growth. Dr. Gonzalez Review: Pt may benefit from additional day, but stable for DC. Pt is having stabbing pain. Dr. Gonzalez recommends adding Motrin 600 TID Pharmacy Review: Ibuprofen approved for current treatment. Extended release Morphine, BID for a few days if acute pain persists Celexa interacts w/bleeding, hold Celexa for a week Patient Interview: Pt was informed that the chest pain will persist. Pt will start to feel better in about a week. Pt admits that the morphine helps, but the pain always comes back. Pt asked about Ibuprofen, she does not want to take it due to her kidneys. PCP is Dr. Calderon. Pt is having irregular BMs. Physical exam stable. Pt is able to ambulate. Pt takes Tramadol and Morphine 15 at night at home. These were given to her after heart attack. Pt received 2 units of Morphine yesterday. Pts heart work up looks good. Pt [facility] in [facility]. Sleeping positions discussed w/pt. Pt will need to sleep in a recliner. No fever, vital signs stable, pleasant, improved Regular rate and rhythm, clear to all sedation bilaterally No edema Plan: Follow up with [facility] tomorrow Dr. Calderon Add Motrin [address] Carlos SHIN Spelter Home pain meds MI today with adjustment to home morphine Scribed by Manny Mcneil under the direct supervision of Dr. Aleman. Hospital course: Patient had an uneventful hospital course she was admitted for chest pain as a direct admission from [facility] after recent stent placed by Dr. Fenton. Due to these symptoms that she had in the lab results she was diagnosed with Vinay syndrome placed on low dose ibuprofen for short time to treat that condition and placed on morphine for further pain control. I did have an in-depth conversation with Dr. Gonzalez regarding her case and with close follow-up I did inform her that the chest pain with likely continue but resolve over the next several days and several weeks and she will have a close follow-up with Dr. Asencio and she is to avoid positions that cause the chest pain to get worse such as lying supine so she will accommodate those positions and will be monitored closely but overall the chest pain is going to be an issue that will only improve with time and conservative therapy. Discharge Summary Discharge Physical Examination Allergies: Coded Allergies: ondansetron (Verified Allergy, Severe, N/V, 02/10/17) Estrogens (Unverified Allergy, Unknown, BLISTERS ON BUTT, 12/17/14) metformin (Unverified Allergy, Unknown, BLISTERS ON BUTT, 12/17/14) Vitals & I&Os Vital Signs Date Time Temp Pulse Resp B/P (MAP) Pulse Ox O2 Delivery O2 Flow Rate FiO2 02/25/17 10:40 94 5.00 02/25/17 08:00 98.0 70 20 145/75 Nasal Cannula Hospital Course Labs (last 24 hrs) Laboratory Tests 02/24/17 13:50: Glucometer 222H 02/24/17 16:02: Glucometer 214H 02/24/17 19:30: Glucometer 51*L 02/24/17 20:01: Glucometer 70 02/24/17 20:32: Glucometer 98 02/25/17 04:50: White Blood Count 10.6, Red Blood Count 3.03L, Hemoglobin 8.7L, Hematocrit 28L, Mean Corpuscular Volume 93, Mean Corpuscular Hemoglobin 29, Mean Corpuscular Hemoglobin Concent 31L, Red Cell Distribution Width 13.7, Platelet Count 300, Mean Platelet Volume 10.6H, Neutrophils (%) (Auto) 65, Lymphocytes (%) (Auto) 20 , Monocytes (%) (Auto) 11, Eosinophils (%) (Auto) 3, Basophils (%) (Auto) 0, Neutrophils # (Auto) 6.9, Lymphocytes # (Auto) 2.1, Monocytes # (Auto) 1.2H, Eosinophils # (Auto) 0.3, Basophils # (Auto) 0.0, Sodium Level 143, Potassium Level 3.7, Chloride Level 101, Carbon Dioxide Level 31, Anion Gap 11, Blood Urea Nitrogen 27H, Creatinine 1.58H, Estimat Glomerular Filtration Rate 34, BUN/ Creatinine Ratio 17, Glucose Level 96, Calcium Level 8.8, Phosphorus Level 4.8H , Magnesium Level 1.5L, Triglycerides Level 54, Cholesterol Level 122, LDL Cholesterol Direct 57, VLDL Cholesterol 11, HDL Cholesterol 40 02/25/17 08:01: Glucometer 123H 02/25/17 11:08: Glucometer 148H Microbiology 02/24/17 Urine Culture - Final, Complete Klebsiella Pneumoniae Pending Labs Laboratory Tests 02/25/17 04:50: White Blood Count 10.6, Red Blood Count 3.03, Hemoglobin 8.7, Hematocrit 28, Mean Corpuscular Volume 93, Mean Corpuscular Hemoglobin 29, Mean Corpuscular Hemoglobin Concent 31, Red Cell Distribution Width 13.7, Platelet Count 300, Mean Platelet Volume 10.6, Neutrophils (%) (Auto) 65, Lymphocytes (%) (Auto) 20 , Monocytes (%) (Auto) 11, Eosinophils (%) (Auto) 3, Basophils (%) (Auto) 0, Neutrophils # (Auto) 6.9, Lymphocytes # (Auto) 2.1, Monocytes # (Auto) 1.2, Eosinophils # (Auto) 0.3, Basophils # (Auto) 0.0, Sodium Level 143, Potassium Level 3.7, Chloride Level 101, Carbon Dioxide Level 31, Anion Gap 11, Blood Urea Nitrogen 27, Creatinine 1.58, Estimat Glomerular Filtration Rate 34, BUN/ Creatinine Ratio 17, Glucose Level 96, Calcium Level 8.8, Phosphorus Level 4.8, Magnesium Level 1.5, Triglycerides Level 54, Cholesterol Level 122, LDL Cholesterol Direct 57, VLDL Cholesterol 11, HDL Cholesterol 40 02/25/17 08:01: Glucometer 123 02/25/17 11:08: Glucometer 148 Discharge Home Medications: Active Scripts Active Colace (Docusate Sodium) 100 Mg Capsule 100 Mg PO DAILY Lortab 5-325 mg Tablet (Hydrocodone/Acetaminophen) 1 Each Tablet 1 Each PO TID Morphine Sulfate ER (Morphine Sulfate) 15 Mg Tablet.er 15 Mg PO BID Ibuprofen 600 Mg Tablet 600 Mg PO Q6HR Lisinopril 40 Mg Tablet 40 Mg PO DAILY 30 Days RESTART TOMORROW 02/24/17 Levemir (Insulin Determir) 1,000 Units/10 Ml Soln 60 Unit SQ HS 1 Days Please decrease Your scheduled dosage from 80 units to 60 units Novolog (Insulin Aspart) 100 Unit/1 Ml Susp 20 Unit SC AC 1 Days Please Decrease Your Dosage from 40 units to 20 units before meals Brilinta (Ticagrelor) 90 Mg Tablet 90 Mg PO BID Reported Isosorbide Mononitrate ER (Isosorbide Mononitrate) 30 Mg Tab.er.24h 30 Mg PO DAILY Gabapentin 300 Mg Capsule 600 Mg PO DAILY TAKES 2 (300 MG) CAPSULES Protonix (Pantoprazole Sodium) 40 Mg Tablet.dr 40 Mg PO DAILY Metoprolol Succinate 25 Mg Tab.er.24h 25 Mg PO DAILY Duloxetine HCl 30 Mg Capsule.dr 30 Mg PO DAILY Morphine Sulfate ER (Morphine Sulfate) 15 Mg Tablet.er 15 Mg PO HS Doxazosin Mesylate 2 Mg Tablet 2 Mg PO DAILY Amlodipine Besylate 10 Mg Tablet 10 Mg PO DAILY Levothyroxine Sodium 75 Mcg Tablet 75 Mcg PO DAILY Lorazepam 0.5 Mg Tablet 0.5 Mg PO DAILY PRN Aspirin 81 Mg Tab.chew 162 Mg PO DAILY Onglyza (Saxagliptin HCl) 5 Mg Tablet 5 Mg PO DAILY Citalopram Hbr (Citalopram Hydrobromide) 20 Mg Tablet 20 Mg PO DAILY Furosemide 40 Mg Tablet 40 Mg PO DAILY Instructions to patient/family Please see electonic discharge instructions given to patient. Clinical Quality Measures DVT/VTE Risk/Contraindication: Risk Factor Score Per Nursin RFS Level Per Nursing on Admit: 3=High QUINN ALEMAN DO Feb 25, 2017 11:08
[2017-02-25] MEDS ORDERED: HYDR-3729 PO (11:34)
[2017-02-25] MEDS ORDERED: IBUP-1773 PO (11:34)
[2017-02-25] MEDS ORDERED: MORP-33 PO (11:34)
[2017-02-25] MEDS ORDERED: DOCU-143 PO (11:35)
[2017-02-25 12:45] VITALS: BP 145/75
[2017-02-26] MEDS ORDERED: ATOR80TA76 PO (21:25)
[2017-03-09] MEDS ORDERED: INSU100V16 SQ (09:22)
[2017-03-09] MEDS ORDERED: INSU100V5 SQ ×2 (09:22→09:46)
[2017-03-09] MEDS ORDERED: PANT40TA3 PO (09:22)
[2017-03-09] MEDS ORDERED: SUCR1TAB PO (09:22)
[2017-03-09] MEDS ORDERED: CEPH250C PO (09:22)
[2017-03-09] MEDS ORDERED: PANT40TA2 PO (09:53)
[2017-03-09] MEDS ORDERED: INSU100V16 SC (09:53)
== END 2017-02-25 12:45 | disposition home or self-care (01) | DRG 314 ==
LOC: OBSVTOIN 01:21 → ICU 01:21 → 4TH 15:23
PROVIDERS: ADMIT Internal Medicine; ATTEND Internal Medicine
DX: I24.1 Dressler's syndrome (principal); R57.0 Cardiogenic shock; J98.11 Atelectasis; D64.9 Anemia, unspecified; I25.119 Atherosclerotic heart disease of native coronary artery with unspecified angina pectoris; I25.2 Old myocardial infarction; E78.00 Pure hypercholesterolemia, unspecified; I12.9 Hypertensive chronic kidney disease with stage 1 through stage 4 chronic kidney disease, or unspecified chronic kidney disease; Z86.73 Personal history of transient ischemic attack (TIA), and cerebral infarction without residual deficits; K21.9 Gastro-esophageal reflux disease without esophagitis; E11.9 Type 2 diabetes mellitus without complications; E03.9 Hypothyroidism, unspecified; Z79.4 Long term (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; F41.9 Anxiety disorder, unspecified; F32.9 Major depressive disorder, single episode, unspecified; Z95.5 Presence of coronary angioplasty implant and graft; E66.9 Obesity, unspecified; J44.9 Chronic obstructive pulmonary disease, unspecified; Z99.81 Dependence on supplemental oxygen; R09.02 Hypoxemia; I50.9 Heart failure, unspecified; N18.9 Chronic kidney disease, unspecified; Z91.14 Patient's other noncompliance with medication regimen
CPT/HCPCS: 36415; 71010; 80048; 80053; 80061; 81000; 82962; 83735; 83880; 84100; 84484; 85025; 85610; 85652; 85730; 87077; 87088; 87186; 93005; 93970; 94640; 94760

== ENCOUNTER 2017-02-26 17:27 | Inpatient (IN) | payer MEDICAID ==
[2017-02-26] VITALS (7 sets, daily range): BP systolic 138–184; BP diastolic 84–97
[~2017-02-26] VITALS: Ht 162.6 cm; Wt 123.9 kg
[~2017-02-26 17:27] MED LIST changes: +DOCU-143 PO; +HYDR-3729 PO; +IBUP-1773 PO
--- NOTE | 2017-02-26 17:43 | ED Chest Pain ---
General Chief Complaint: Respiratory Problems Stated Complaint: DECREASED O2 Source: patient Exam Limitations: no limitations (DONNIE COTTON MD) History of Present Illness Time seen by provider: 17:28 Initial Comments Here from clinic with increasing shortness of breath over the last 24 hours. She was discharged after heart attack and stent placement and was doing better yesterday but was much worse today at her clinic appointment. Reports chills but no fever. Reports constipation but denies dysuria. Reports taking her meds as directed. Denies sweating. Chest pain is on the left side. Timing/Duration: 24 hours Severity/Quality: moderate, aching Location: other (left lateral chest wall) Radiation: no radiation Activities at Onset: none Prior CP/Workup: cardiac cath, echocardiography, heart attack Modifying Factors: worse with movement, improves with oxygen ASA po LEAD QA ANALYST: Yes NTG SL LEAD QA ANALYST: No Associated Symptoms: No abdominal pain, No back pain, fever/chills, nausea/ vomiting, shortness of breath (DONNIE COTTON MD) Allergies and Home Medications Allergies Coded Allergies: ondansetron (Verified Allergy, Severe, N/V, 02/26/17) Estrogens (Unverified Allergy, Unknown, BLISTERS ON BUTT, 02/26/17) metformin (Unverified Allergy, Unknown, BLISTERS ON BUTT, 02/26/17) Home Medications Amlodipine Besylate 10 Mg Tablet, 10 MG PO DAILY, (Reported) Aspirin 81 Mg Tab.chew, 162 MG PO DAILY, (Reported) Docusate Sodium 100 Mg Capsule, 100 MG PO DAILY, #30 Prescribed by: QUINN ALEMAN on 02/25/17 1135 Doxazosin Mesylate 2 Mg Tablet, 2 MG PO DAILY, (Reported) Duloxetine HCl 30 Mg Capsule.dr, 30 MG PO DAILY, (Reported) Furosemide 40 Mg Tablet, 40 MG PO DAILY, (Reported) Gabapentin 300 Mg Capsule, 600 MG PO DAILY, (Reported) TAKES 2 (300 MG) CAPSULES Hydrocodone/Acetaminophen 1 Each Tablet, 1 EACH PO TID, #30 Prescribed by: QUINN ALEMAN on 02/25/17 1134 Ibuprofen 600 Mg Tablet, 600 MG PO Q6HR, #12 Prescribed by: QUINN ALEMAN on 02/25/17 1134 Insulin Aspart 100 Unit/1 Ml Susp, 20 UNIT SC AC for 1 Days Please Decrease Your Dosage from 40 units to 20 units before meals Prescribed by: SUSAN CANTU on 02/23/17 0857 Insulin Determir 1,000 Units/10 Ml Soln, 60 UNIT SQ HS for 1 Days Please decrease Your scheduled dosage from 80 units to 60 units Prescribed by: SUSAN CANTU on 02/23/17 0857 Isosorbide Mononitrate 30 Mg Tab.er.24h, 30 MG PO DAILY, (Reported) Levothyroxine Sodium 75 Mcg Tablet, 75 MCG PO DAILY, (Reported) Lisinopril 40 Mg Tablet, 40 MG PO DAILY for 30 Days RESTART TOMORROW 02/24/17 Prescribed by: JACK PARISH on 02/23/17 0943 Lorazepam 0.5 Mg Tablet, 0.5 MG PO DAILY PRN for ANXIETY, (Reported) Metoprolol Succinate 25 Mg Tab.er.24h, 25 MG PO DAILY, (Reported) Morphine Sulfate 15 Mg Tablet.er, 15 MG PO BID, #14 Prescribed by: QUINN ALEMAN on 02/25/17 1134 Pantoprazole Sodium 40 Mg Tablet.dr, 40 MG PO DAILY, (Reported) Saxagliptin HCl 5 Mg Tablet, 5 MG PO DAILY, (Reported) Ticagrelor 90 Mg Tablet, 90 MG PO BID, #60 Ref 4 Prescribed by: JACK PARISH on 02/23/17 0812 Review of Systems Constitutional: see HPI, No chills, No fever EENTM: No Symptoms Reported Respiratory: Shortness of Air, SOA at Rest, Denies Wheezing Cardiovascular: Chest Pain, Edema Gastrointestinal: Denies Abdominal Pain, Constipated, Denies Nausea, Denies Vomiting Genitourinary: No Symptoms Reported Musculoskeletal: no symptoms reported Skin: no symptoms reported Psychiatric/Neurological: No Symptoms Reported Endocrine: No Symptoms Reported (DONNIE COTTON MD) All Other Systems Reviewed Negative Unless Noted: Yes (DONNIE COTTON MD) Past Kuebkjt-Yaabki-Xowgrv Hx Patient Social History Alcohol Use: Denies Use Recreational Drug Use: No Smoking Status: Never a Smoker 2nd Hand Smoke Exposure: Yes Recent Foreign Travel: No Contact w/Someone Who Travel: No Recent Hopitalizations: Yes (02/10/17-02/17/17, 02/23/17, dc 02/25/17) (DONNIE COTTON MD) Immunizations Up To Date Tetanus Booster (TDap): Unknown PED Vaccines UTD: Yes Date of Pneumonia Vaccine: Sep 18, 2014 Date of Influenza Vaccine: Sep 16, 2016 (DONNIE COTTON MD) Seasonal Allergies Seasonal Allergies: No (DONNIE COTTON MD) Surgeries HX Surgeries: Yes (right forearm repair with plates et screws) Surgeries: Cardiac, Coronary Stent, Gallbladder, Hysterectomy, Oophorectomy (DONNIE COTTON MD) Respiratory Hx Respiratory Disorders: Yes Respiratory Disorders: Emphysema (DONNIE COTTON MD) Cardiovascular Hx Cardiac Disorders: Yes (CAROTID DISEASE, stent 02/22) Cardiac Disorders: Coronary Artery Disease, Heart Attack, High Cholesterol, Hypertension (DONNIE COTTON MD) Neurological Hx Neurological Disorders: Yes Neurological Disorders: Neuropathy, TIA (DONNIE COTTON MD) Reproductive System Hx Reproductive Disorders: No Sexually Transmitted Disease: No HIV/AIDS: No Female Reproductive Disorders: 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 (DONNIE COTTON MD) Genitourinary Hx Genitourinary Disorders: Yes Genitourinary Disorders: Renal Failure (DONNIE COTTON MD) Gastrointestinal Hx Gastrointestinal Disorders: Yes Gastrointestinal Disorders: Gastroesophageal Reflux, Gall Bladder Disease (DONNIE COTTON MD) Musculoskeletal Hx Musculoskeletal Disorders: Yes (right arm fracture with screws and pin placements) Musculoskeletal Disorders: Arthritis, Fibromyalgia, Fractures (DONNIE COTTON MD) Endocrine Hx Endocrine Disorders: Yes Endocrine Disorders: Diabetes, Insulin dep, Hypothyroidsim (DONNIE COTTON MD) HEENT HX ENT Disorders: Yes (GLASSES) HEENT Disorders: Double Vision Hearing Impairment: Hard of Hearing (DONNIE COTTON MD) Cancer Hx Cancer: Yes Cancer: Ovarian, Uterine (DONNIE COTTON MD) Psychosocial Hx Psychiatric Problems: Yes Behavioral Health Disorders: Anxiety, Depression (DONNIE COTTON MD) Integumentary HX Skin/Integumentary Disorder: Yes (DIABETIC SORES) Skin/Integumentary Disorders: Recent Skin Changes (DONNIE COTTON MD) Blood Transfusions Hx Blood Disorders: No (ANEMIA) Adverse Reaction to a Blood Tr: No (DONNIE COTTON MD) Reviewed Nursing Assessment Reviewed/Agree w Nursing PMH: Yes (DONNIE COTTON MD) Family Medical History Significant Family History: No Pertinent Family Hx Family Medial History: Cardiovascular disease 19 FATHER G8 SISTER Diabetes mellitus 19 FATHER G8 BROTHER G8 SISTER FH: lung cancer 19 MOTHER FH: skin cancer 19 FATHER Parkinson's disease G8 SISTER Psychosocial problem G8 BROTHER (DONNIE COTTON MD) Family Medial History: Cardiovascular disease 19 FATHER G8 SISTER Diabetes mellitus 19 FATHER G8 BROTHER G8 SISTER FH: lung cancer 19 MOTHER FH: skin cancer 19 FATHER Parkinson's disease G8 SISTER Psychosocial problem G8 BROTHER (ELLEN MARTIN APRN) Physical Exam Vital Signs Vital Sign - Last 12Hours 02/26/17 17:31 Temp 98.2 Pulse 70 Resp 26 B/P (MAP) 165/104 Pulse Ox 95 O2 Delivery Nasal Cannula O2 Flow Rate 4.00 FiO2 100 (ELLEN MARTIN APRN) Vital Signs Capillary Refill : (DONNIE COTTON MD) General Appearance: No Apparent Distress, WD/WN HEENT: PERRL/EOMI, Pharynx Normal Neck: Non Tender, Supple Respiratory: Crackles (bilateral bases left greater than right), Decreased Breath Sounds Cardiovascular: Regular Rate, Rhythm, No Murmur Gastrointestinal: Non Tender, Soft Extremity: Normal Range of Motion, Pedal Edema (3+ to mid tibia bilaterally) Neurologic/Psychiatric: Alert, Oriented x3 Skin: Normal Color, Warm/Dry (DONNIE COTTON MD) Progress/Results/Core Measures Results/Orders Lab Results Laboratory Tests Test 02/26/17 17:46 02/26/17 17:58 Range/Units White Blood Count 14.3 H 4.3-11.0 10^3/uL Red Blood Count 3.48 L 4.35-5.85 10^6/uL Hemoglobin 10.1 L 11.5-16.0 G/DL Hematocrit 32 L 35-52 % Mean Corpuscular Volume 92 80-99 FL Mean Corpuscular Hemoglobin 29 25-34 PG Mean Corpuscular Hemoglobin Concent 32 32-36 G/DL Red Cell Distribution Width 13.7 10.0-14.5 % Platelet Count 326 130-400 10^3/uL Mean Platelet Volume 10.7 H 7.4-10.4 FL Neutrophils (%) (Auto) 79 H 42-75 % Lymphocytes (%) (Auto) 11 L 12-44 % Monocytes (%) (Auto) 6 0-12 % Eosinophils (%) (Auto) 4 0-10 % Basophils (%) (Auto) 0 0-10 % Neutrophils # (Auto) 11.2 H 1.8-7.8 X 10^3 Lymphocytes # (Auto) 1.6 1.0-4.0 X 10^3 Monocytes # (Auto) 0.9 0.0-1.0 X 10^3 Eosinophils # (Auto) 0.5 H 0.0-0.3 10^3/uL Basophils # (Auto) 0.1 0.0-0.1 10^3/uL Neutrophils % (Manual) 81 % Lymphocytes % (Manual) 11 % Monocytes % (Manual) 4 % Eosinophils % (Manual) 3 % Basophils % (Manual) 1 % Band Neutrophils 0 % Blood Morphology Comment NORMAL Prothrombin Time 13.3 12.2-14.7 SEC INR Comment 1.0 0.8-1.4 Activated Partial Thromboplast Time 39 H 24-35 SEC Sodium Level 142 135-145 MMOL/L Potassium Level 3.9 3.6-5.0 MMOL/L Chloride Level 99 98-107 MMOL/L Carbon Dioxide Level 31 21-32 MMOL/L Anion Gap 12 5-14 MMOL/L Blood Urea Nitrogen 26 H 7-18 MG/DL Creatinine 1.36 H 0.60-1.30 MG/DL Estimat Glomerular Filtration Rate 40 BUN/Creatinine Ratio 19 Glucose Level 219 H 70-105 MG/DL Calcium Level 9.2 8.5-10.1 MG/DL Magnesium Level 1.6 L 1.8-2.4 MG/DL Total Bilirubin 0.7 0.1-1.0 MG/DL Aspartate Amino Transf (AST/SGOT) 30 5-34 U/L Alanine Aminotransferase (ALT/SGPT) 28 0-55 U/L Alkaline Phosphatase 1085 H 40-136 U/L Troponin I 0.36 *H <0.30 NG/ML B-Type Natriuretic Peptide 1042.1 H <100.0 PG/ML Total Protein 7.2 6.4-8.2 G/DL Albumin 3.1 L 3.2-4.5 G/DL Blood Gas Puncture Site LEFT RADIAL Blood Gas Patient Temperature 98.3 Arterial Blood pH 7.41 7.37-7.43 Arterial Blood Partial Pressure CO2 56 H 35-45 MMHG Arterial Blood Partial Pressure O2 59 L 79-93 MMHG Arterial Blood HCO3 35 H 23-27 MMOL/L Arterial Blood Total CO2 36.6 H 21.0-31.0 MMOL/L Arterial Blood Oxygen Saturation 92 L 94-100 % Arterial Blood Base Excess 9.9 H -2.5-2.5 MMOL/L Charanjit Test POSITIVE Blood Gas Ventilator Setting NO Blood Gas Inspired Oxygen 10 (ELLEN MARTIN APRN) My Orders Orders - ELLEN MARTIN APRN Cbc With Automated Diff (02/26/17 17:29) Magnesium (02/26/17 17:29) Chest 1 View, Ap/Pa Only (02/26/17:29) Ekg Tracing (02/26/17:29) Cardiac Profile 1 (02/26/17:29) Comprehensive Metabolic Panel (02/26/17:29) Protime With Inr (02/26/17:29) Partial Thromboplastin Time (02/26/17:29) O2 (02/26/17:29) Monitor-Rhythm Ecg Trace Only (02/26/17 17:29) Saline Lock/Iv-Start (02/26/17 17:29) BNP (02/26/17 17:29) Manual Differential (02/26/17 17:46) Arterial Blood Gas (02/26/17 18:00) Furosemide Injection (Lasix Injection) (02/26/17 18:15) Furosemide Injection (Lasix Injection) (02/26/17 18:45) (ELLEN MARTIN APRN) Medications Given in ED Current Medications Medications Dose Ordered Sig/Irieno Route Start Time Stop Time Status Last Admin Dose Admin Furosemide 40 mg ONCE ONCE IVP 02/26/17 18:15 02/26/17 18:16 DC 02/26/17 18:25 40 MG (ELLEN MARTIN APRN) Vital Signs/I&O Vital Sign - Last 12Hours 02/26/17 02/26/17 02/26/17 17:31 17:31 17:48 Temp 98.2 Pulse 70 66 Resp 26 21 B/P (MAP) 165/104 171/95 Pulse Ox 95 94 O2 Delivery Nasal Cannula Non Rebreather OxyMask O2 Flow Rate 4.00 15.00 10.00 FiO2 100 (ELLEN MARTIN APRN) Progress Note : Progress Note Seen and evaluated. IV, labs, EKG and chest x-ray ordered. Monitor patient. Patient required oxygen mask to keep sats greater than 90 percent. (DONNIE COTTON MD) ECG Initial ECG Impression Date: Feb 26, 2017 Initial ECG Impression Time: 17:51 Initial ECG Rate: 67 Initial ECG Rhythm: Normal Sinus Comment Sinus rhythm with normal axis. No evidence of ST elevation CA. Overall similar to previous of 02/25/17. Interpreted by me. (DONNIE COTTON MD) Diagnostic Imaging Diagonstic Imaging: Xray Plain Films/CT/US/NM/MRI: chest Comments NAME: ANGIE JANE [facility] REC#: [id number] PT STATUS: REG ER : 1960 PHYSICIAN: ELLEN MARTIN APRN ADMIT DATE: 02/26/17/ER Draft Date of Exam:02/26/17 CHEST 1 VIEW, AP/PA ONLY INDICATION: Shortness of breath. Recent coronary artery stent placement. EXAMINATION: Single view of the chest was obtained. COMPARISON: 02/24/2017. FINDINGS: There is increasing cardiomegaly with increasing bilateral pleural effusions and increasing bilateral alveolar infiltrates. IMPRESSION: Findings are consistent with congestive failure with increasing pulmonary edema and pleural effusions since previous exam. Dictated on workstation # [id number] Dict: 02/26/17 1809 Trans: 02/26/17 1810 [facility] [id number] Interpreted by: SANG SCHUSTER MD Electronically signed by: (ELLEN MARTIN APRN) Departure Communication Time/Spoke to Admitting Phy: 18:42 Communication I discussed the case with Dr. Aleman. We will admit, consult cardiology Time/Spoke to Consulting Physi: 18:42 Communication/Consulting Discussed with Dr. Gonzalez. We will give an additional 80 mg of IV Lasix to total 80 mg IV then continue that twice a day in addition to potassium supplementation. Progress Notes 1821-patient is on an oxymask at 10 L. Oxygen saturation 97 percent. Respirations are much less labored and she states she feels better. I've turned this down to 8 L. (ELLEN MARTIN APRN) Impression Impression: Primary Impression: CHF exacerbation Disposition: ADMITTED INPATIENT Condition: Stable Departure-Patient Inst. Referrals: MITCH CARVALHO MD (PCP/Family) Primary Care Physician DONNIE COTTON MD Feb 26, 2017 17:43 ELLEN MARTIN APRN Feb 26, 2017 18:14
[2017-02-26 17:58] LABS: BASOPHILS # (AUTO) 0.1 10^3/uL (0.0-0.1); BASOPHILS % (AUTO) 0 % (0-10); EOSINOPHILS # (AUTO) 0.5 10^3/uL (0.0-0.3); EOSINOPHILS % (AUTO) 4 % (0-10); LYMPHOCYTES # (AUTO) 1.6 X 10^3 (1.0-4.0); LYMPHOCYTES % (AUTO) 11 % (12-44); MEAN CORPUSCULAR HEMOGLOBIN 29 PG (25-34); MEAN CORPUSCULAR HGB CONC 32 G/DL (32-36); MEAN CORPUSCULAR VOLUME 92 FL (80-99); MEAN PLATELET VOLUME 10.7 FL (7.4-10.4); MONOCYTES # (AUTO) 0.9 X 10^3 (0.0-1.0); MONOCYTES % (AUTO) 6 % (0-12); NEUTROPHILS # (AUTO) 11.2 X 10^3 (1.8-7.8); NEUTROPHILS % (AUTO) 79 % (42-75); PLATELET COUNT 326 10^3/uL (130-400); RED BLOOD COUNT 3.48 10^6/uL (4.35-5.85); RED CELL DISTRIBUTION WIDTH 13.7 % (10.0-14.5); WHITE BLOOD COUNT 14.3 10^3/uL (4.3-11.0)
[2017-02-26 18:04] LABS: ABG BASE EXCESS 9.9 MMOL/L (-2.5-2.5); ABG HCO3 35 MMOL/L (23-27); ABG OXYGEN SATURATION 92 % (94-100); ABG PCO2 56 MMHG (35-45); ABG PH 7.41 (7.37-7.43); ABG PO2 59 MMHG (79-93); ABG TCO2 36.6 MMOL/L (21.0-31.0); ALLENS TEST POSITIVE; PATIENT TEMP 98.3
[2017-02-26 18:07] LABS: PROTHROMBIN TIME PATIENT 13.3 SEC (12.2-14.7)
--- NOTE | 2017-02-26 18:11 | Diagnostic Imaging Report ---
INDICATION: Shortness of breath. Recent coronary artery stent placement. EXAMINATION: Single view of the chest was obtained. COMPARISON: 02/24/2017. FINDINGS: There is increasing cardiomegaly with increasing bilateral pleural effusions and increasing bilateral alveolar infiltrates. IMPRESSION: Findings are consistent with congestive failure with increasing pulmonary edema and pleural effusions since previous exam. Dictated by: Dictated on workstation # [id number]
[2017-02-26] MEDS ORDERED: FUROSEMIDE 40 MG/4 ML INJ (LASIX) IVP ONE ×3 (18:15→19:00)
[2017-02-26 18:17] LABS: ALBUMIN 3.1 G/DL (3.2-4.5); BAND NEUTROPHILS 0 %; BASOPHILS % (MANUAL) 1 %; BILIRUBIN,TOTAL 0.7 MG/DL (0.1-1.0); CALCIUM 9.2 MG/DL (8.5-10.1); CREATININE SERUM 1.36 MG/DL (0.60-1.30); EOSINOPHILS % (MANUAL) 3 %; LYMPHOCYTES % (MANUAL) 11 %; MAGNESIUM 1.6 MG/DL (1.8-2.4); NEUTROPHILS % (MANUAL) 81 %; POTASSIUM 3.9 MMOL/L (3.6-5.0); TOTAL PROTEIN 7.2 G/DL (6.4-8.2)
[2017-02-26] MEDS ORDERED: morphine INJ 10 MG/ML 1ML (SYR OR VIAL) ONE (19:22)
[2017-02-26] MEDS ORDERED: morphine INJ 10 MG/ML 1ML (SYR OR VIAL) IVP ONE ×2 (19:30)
[2017-02-26] MEDS ORDERED: CATHETER FLUSH 10 ML SYR IV PRN (20:15)
[2017-02-26] MEDS: TICAGRELOR 90 MG TABLET (BRILINTA) PO SCH (21:02)
[2017-02-26] MEDS ORDERED: ATOR80TA76 PO (21:25)
[2017-02-26] MEDS: RT-ALBUTEROL/IPRATROPIUM 3 ML (DUONEB) VIAL INH SCH (21:27)
[2017-02-26] MEDS: CATHETER FLUSH 10 ML SYR IV SCH (21:57)
[2017-02-27] VITALS (21 sets, daily range): BP systolic 125–188; BP diastolic 60–103
[2017-02-27] MEDS: RT-ALBUTEROL/IPRATROPIUM 3 ML (DUONEB) VIAL INH SCH ×6 (02:41→22:13)
[2017-02-27 04:11] LABS: BASOPHILS % (AUTO) 0 % (0-10); EOSINOPHILS # (AUTO) 0.4 10^3/uL (0.0-0.3); EOSINOPHILS % (AUTO) 4 % (0-10); LYMPHOCYTES # (AUTO) 2.3 X 10^3 (1.0-4.0); LYMPHOCYTES % (AUTO) 22 % (12-44); MEAN CORPUSCULAR HEMOGLOBIN 29 PG (25-34); MEAN CORPUSCULAR HGB CONC 31 G/DL (32-36); MEAN CORPUSCULAR VOLUME 93 FL (80-99); MEAN PLATELET VOLUME 10.8 FL (7.4-10.4); MONOCYTES % (AUTO) 9 % (0-12); NEUTROPHILS # (AUTO) 6.8 X 10^3 (1.8-7.8); NEUTROPHILS % (AUTO) 65 % (42-75); PLATELET COUNT 283 10^3/uL (130-400); RED BLOOD COUNT 3.09 10^6/uL (4.35-5.85); RED CELL DISTRIBUTION WIDTH 13.5 % (10.0-14.5); WHITE BLOOD COUNT 10.4 10^3/uL (4.3-11.0)
[2017-02-27 04:23] LABS: CALCIUM 9.2 MG/DL (8.5-10.1); CREATININE SERUM 1.26 MG/DL (0.60-1.30); MAGNESIUM 1.7 MG/DL (1.8-2.4); PHOSPHORUS 3.5 MG/DL (2.3-4.7); POTASSIUM 3.3 MMOL/L (3.6-5.0)
[2017-02-27] MEDS: RT-ALBUTEROL/IPRATROPIUM 3 ML (DUONEB) VIAL INH PRN (04:38)
[2017-02-27] MEDS: MAGNESIUM 1 GM/100 ML IVPB 100 ML IV SCH ×2 (05:17→06:15)
[2017-02-27] MEDS ORDERED: POTASSIUM CL 10MEQ/50ML IVPB 50 ML IV SCH (06:00)
[2017-02-27] MEDS ORDERED: MAGNESIUM 1 GM/100 ML IVPB 100 ML IV SCH (06:00)
[2017-02-27] MEDS ORDERED: KCL 20 MEQ TAB (K-DUR) PO SCH (06:00)
[2017-02-27] MEDS: inSUlin (REGULAR) HUMAN 1 UNIT/0.01 ML (CHARGE PER UNIT) SC SCH ×4 (06:23→22:04)
[2017-02-27] MEDS: CATHETER FLUSH 10 ML SYR IV SCH ×3 (06:24→22:04)
[2017-02-27] MEDS: KCL 20 MEQ TAB (K-DUR) PO SCH ×2 (06:24→08:59)
[2017-02-27] MEDS ORDERED: FUROSEMIDE 40 MG/4 ML INJ (LASIX) IV SCH (07:00)
[2017-02-27] MEDS: KCL 10 MEQ TAB (MICRO K) PO SCH ×2 (07:29→18:48)
--- NOTE | 2017-02-27 08:05 | Diagnostic Imaging Report ---
INDICATION: Shortness of breath EXAMINATION: Portable chest 4:44 AM There is cardiomegaly. Pulmonary vascularity is normal. There is some basilar atelectasis and questionable small effusions. IMPRESSION: No change in the chest compared to the previous day. There is some basilar atelectasis and questionable small pleural effusions. Dictated by: Dictated on workstation # [id number]
[2017-02-27] MEDS ORDERED: IBUPROFEN 600 MG (MOTRIN) TAB PO ONE (08:54)
[2017-02-27] MEDS ORDERED: PANTOPRAZOLE 40 MG (PROTONIX) TAB PO ONE ×2 (08:54→09:00)
[2017-02-27] MEDS: TICAGRELOR 90 MG TABLET (BRILINTA) PO SCH ×2 (08:59→21:57)
[2017-02-27] MEDS: IBUPROFEN 600 MG (MOTRIN) TAB PO SCH ×3 (08:59→21:58)
[2017-02-27] MEDS: ASPIRIN 81 MG CHEW (CHILDREN'S ASA) PO SCH (08:59)
[2017-02-27] MEDS ORDERED: LORazepam 0.5 MG (ATIVAN) TABLET PO PRN (10:00)
--- NOTE | 2017-02-27 10:00 | Consultation-Cardiology ---
HPI-Cardiology Cardiology Consultation: Date of Consultation 02/27/17 Date of Admission 02/26/17 Attending Physician Luli Aleman DO Admitting Physician Jose Calderon MD Consulting Physician ADALBERTO LEAVITT MD, FACP, FACC, [facility] [place], [facility] HPI: Chief Complaint: Shortness of breath 56 yo woman recently admitted with post-PR pericarditis and discharged only to be admitted a day later with new symptoms of shortness of breath (associated with hypoxia, as noted at her pcp office). Pleuritic L-sided cp has improved. Denies palp or syncope. Denies fever of chills. Notes ome leg swelling Review of Systems-Cardiology Review of Systems Constitutional: lightheadedness, malaise Eyes: No vision change Ears/Nose/Throat: No ear discharge, No nasal drainage, No recent hearing loss Respiratory: As described under HPI Cardiovascular: As described under HPI Gastrointestinal: No constipation, No diarrhea, No nausea, No vomiting Genitourinary: No dysuria, No hematuria, No urine frequency changes Musculoskeletal: back pain Skin: No lumps, No ulcerations Psychiatric/Neurological: No focal weakness, No seizure, No syncope Hematologic: No bleeding abnormalities All Other Systems Reviewed Negative Unless Noted: Yes [id number] Hx Patient Social History Alcohol Use: Denies Use Recreational Drug Use: No Smoking Status: Never a Smoker 2nd Hand Smoke Exposure: Yes Recent Foreign Travel: No Recent Infectious Disease Expo: No Physical Abuse Screen: No Sexual Abuse: No Immunizations Up To Date Tetanus Booster (TDap): Unknown Date of Pneumonia Vaccine: Sep 18, 2014 Date of Influenza Vaccine: Sep 16, 2016 Past Medical History PMH As described under Assessment. Family Medical History Family History: Cardiovascular disease 19 FATHER G8 SISTER Diabetes mellitus 19 FATHER G8 BROTHER G8 SISTER FH: lung cancer 19 MOTHER FH: skin cancer 19 FATHER Parkinson's disease G8 SISTER Psychosocial problem G8 BROTHER Allergies and Home Medications Allergies Coded Allergies: ondansetron (Verified Allergy, Severe, N/V, 02/26/17) Estrogens (Unverified Allergy, Unknown, BLISTERS ON BUTT, 02/26/17) metformin (Unverified Allergy, Unknown, BLISTERS ON BUTT, 02/26/17) Home Medications Amlodipine Besylate 10 Mg Tablet, 10 MG PO DAILY, (Reported) Aspirin 81 Mg Tab.chew, 162 MG PO DAILY, (Reported) Atorvastatin Calcium 80 Mg Tablet, 80 MG PO DAILY, (Reported) Doxazosin Mesylate 2 Mg Tablet, 2 MG PO DAILY, (Reported) Duloxetine HCl 30 Mg Capsule.dr, 30 MG PO DAILY, (Reported) Furosemide 40 Mg Tablet, 40 MG PO DAILY, (Reported) Gabapentin 300 Mg Capsule, 600 MG PO DAILY, (Reported) TAKES 2 (300 MG) CAPSULES Hydrocodone/Acetaminophen 1 Each Tablet, 1 EACH PO TID, #30 Prescribed by: LULI ALEMAN on 02/25/17 1134 Ibuprofen 600 Mg Tablet, 600 MG PO Q6HR, #12 Prescribed by: LULI ALEMAN on 02/25/17 1134 Insulin Aspart 100 Unit/1 Ml Susp, 20 UNIT SC AC for 1 Days Please Decrease Your Dosage from 40 units to 20 units before meals Prescribed by: SUSAN CANTU on 02/23/17 0857 Insulin Determir 1,000 Units/10 Ml Soln, 60 UNIT SQ HS for 1 Days Please decrease Your scheduled dosage from 80 units to 60 units Prescribed by: SUSAN CANTU on 02/23/17 0857 Isosorbide Mononitrate 30 Mg Tab.er.24h, 30 MG PO DAILY, (Reported) Levothyroxine Sodium 75 Mcg Tablet, 75 MCG PO DAILY, (Reported) Lisinopril 40 Mg Tablet, 40 MG PO DAILY for 30 Days RESTART TOMORROW 02/24/17 Prescribed by: JACK PARISH on 02/23/17 0943 Lorazepam 0.5 Mg Tablet, 0.5 MG PO DAILY PRN for ANXIETY, (Reported) Metoprolol Succinate 25 Mg Tab.er.24h, 25 MG PO DAILY, (Reported) Morphine Sulfate 15 Mg Tablet.er, 15 MG PO BID, #14 Prescribed by: LULI ALEMAN on 02/25/17 1134 Pantoprazole Sodium 40 Mg Tablet.dr, 40 MG PO DAILY, (Reported) Saxagliptin HCl 5 Mg Tablet, 5 MG PO DAILY, (Reported) Ticagrelor 90 Mg Tablet, 90 MG PO BID, #60 Ref 4 Prescribed by: JACK PARISH on 02/23/17 0812 Physical Exam-Cardiology Physical Exam Vital Signs/I&O Vital Sign - Last 12Hours 02/26/17 02/26/17 02/27/17 02/27/17 22:00 23:00 00:00 00:00 Temp 98.5 Pulse 67 66 71 Resp 11 12 18 B/P (MAP) 153/89 168/84 154/77 Pulse Ox 95 94 O2 Delivery OxyMask OxyMask OxyMask O2 Flow Rate 9.00 8.00 8.00 8.00 02/27/17 02/27/17 02/27/17 02/27/17 01:00 01:00 02:00 02:41 Pulse 68 66 66 Resp 10 10 B/P (MAP) 150/74 155/103 Pulse Ox 93 96 O2 Delivery OxyMask OxyMask O2 Flow Rate 8.00 8.00 8.00 02/27/17 02/27/17 02/27/17 02/27/17 03:00 03:50 04:00 04:00 Temp 99.4 Pulse 74 72 Resp 18 12 B/P (MAP) 142/65 164/86 Pulse Ox 91 87 90 O2 Delivery OxyMask OxyMask OxyMask O2 Flow Rate 5.00 7.00 7.00 7.00 02/27/17 02/27/17 02/27/17 02/27/17 04:25 04:38 05:45 06:25 Pulse Ox 86 88 98 89 O2 Delivery OxyMask OxyMask OxyMask O2 Flow Rate 9.00 10.00 8.00 10.00 02/27/17 02/27/17 02/27/17 02/27/17 06:41 07:00 07:42 07:43 Temp 96.9 Pulse 76 75 Resp 29 B/P (MAP) 148/68 Pulse Ox 93 92 O2 Delivery High Flow N/C O2 Flow Rate 8.00 10.00 10.00 Intake and Output 02/27/17 00:00 Intake Total 50 ml Output Total 1050 ml Balance -1000 ml Capillary Refill : Less Than 3 Seconds Constitutional: AAO x 3, well-developed, well-nourished HEENT: hearing is well preserved, No xanthelasmas are seen Neck: carotid pulses are 2 + bilaterally, with good upstrokes Respiratory: No accessory muscle use, other (a few bibasilar crackles and rales ) Cardiovascular: regular rate-rhythm, S1 and S2, systolic murmur (faint JANI at card base) Gastrointestinal: No tender, soft, No guarding, No rebound, audible bowel sounds Extremities: pedal edema (mild, bilat), No clubbing, No cyanosis Neurologic/Psychiatric: oriented x 3, grossly intact, power is 5/5 both on sides Skin: No rash on exposed areas, No ulcerations on exposed areas Data Review Labs Laboratory Tests 02/26/17 17:46: White Blood Count 14.3H, Red Blood Count 3.48L, Hemoglobin 10.1L, Hematocrit 32L , Mean Corpuscular Volume 92, Mean Corpuscular Hemoglobin 29, Mean Corpuscular Hemoglobin Concent 32, Red Cell Distribution Width 13.7, Platelet Count 326, Mean Platelet Volume 10.7H, Neutrophils (%) (Auto) 79H, Lymphocytes (%) (Auto) 11L, Monocytes (%) (Auto) 6, Eosinophils (%) (Auto) 4, Basophils (%) (Auto) 0, Neutrophils # (Auto) 11.2H, Lymphocytes # (Auto) 1.6, Monocytes # (Auto) 0.9, Eosinophils # (Auto) 0.5H, Basophils # (Auto) 0.1, Neutrophils % (Manual) 81, Lymphocytes % (Manual) 11, Monocytes % (Manual) 4, Eosinophils % (Manual) 3, Basophils % (Manual) 1, Band Neutrophils 0, Blood Morphology Comment NORMAL, Prothrombin Time 13.3, INR Comment 1.0, Activated Partial Thromboplast Time 39H , Sodium Level 142, Potassium Level 3.9, Chloride Level 99, Carbon Dioxide Level 31, Anion Gap 12, Blood Urea Nitrogen 26H, Creatinine 1.36H, Estimat Glomerular Filtration Rate 40, BUN/Creatinine Ratio 19, Glucose Level 219H, Calcium Level 9.2, Magnesium Level 1.6L, Total Bilirubin 0.7, Aspartate Amino Transf (AST/SGOT) 30, Alanine Aminotransferase (ALT/SGPT) 28, Alkaline Phosphatase 1085H, Troponin I 0.36*H, B-Type Natriuretic Peptide 1042.1H, Total Protein 7.2, Albumin 3.1L 02/26/17 17:58: Blood Gas Puncture Site LEFT RADIAL, Blood Gas Patient Temperature 98.3, Arterial Blood pH 7.41, Arterial Blood Partial Pressure CO2 56H, Arterial Blood Partial Pressure O2 59L, Arterial Blood HCO3 35H, Arterial Blood Total CO2 36.6H , Arterial Blood Oxygen Saturation 92L, Arterial Blood Base Excess 9.9H, Charanjit Test POSITIVE, Blood Gas Ventilator Setting NO, Blood Gas Inspired Oxygen 10 02/27/17 03:50: White Blood Count 10.4, Red Blood Count 3.09L, Hemoglobin 8.9L, Hematocrit 29L, Mean Corpuscular Volume 93, Mean Corpuscular Hemoglobin 29, Mean Corpuscular Hemoglobin Concent 31L, Red Cell Distribution Width 13.5, Platelet Count 283, Mean Platelet Volume 10.8H, Neutrophils (%) (Auto) 65, Lymphocytes (%) (Auto) 22 , Monocytes (%) (Auto) 9, Eosinophils (%) (Auto) 4, Basophils (%) (Auto) 0, Neutrophils # (Auto) 6.8, Lymphocytes # (Auto) 2.3, Monocytes # (Auto) 1.0, Eosinophils # (Auto) 0.4H, Basophils # (Auto) 0.0, Sodium Level 144, Potassium Level 3.3L, Chloride Level 99, Carbon Dioxide Level 33H, Anion Gap 12, Blood Urea Nitrogen 26H, Creatinine 1.26, Estimat Glomerular Filtration Rate 44, BUN/ Creatinine Ratio 21, Glucose Level 169H, Calcium Level 9.2, Magnesium Level 1.7L , B-Type Natriuretic Peptide 1119.7H, Glucometer 168H, Phosphorus Level 3.5 02/27/17 06:00: Glucometer 212H Laboratory Tests 02/26/17 17:46 02/27/17 03:50 A/P-Cardiology Assessment/Admission Diagnosis Ac systolic and diastolic CHF Anterior and L lateral chest wall pain, probably acute pericarditis, Vinay syndrome post myocardial infarction pericarditis, symptoms improved Chronic shortness of breath: advanced COPD and chronic systolic and diastolic CHF Anemia, probably multifactorial, managed by the Medical Service H/o noncompliance with medication CAD with h/o cor PCI. On 01/28/17, had stenting to the right coronary artery with Xience Alpine 3.5 to the proximal right coronary artery and 2.75 to the distal right coronary artery and right PDA. Ac Inf PR on 02/10/17 due to noncompliance with clopidogrel: repeat cath showed total occlusion of the right coronary artery, had thrombectomy and balloon angioplasty of the right coronary artery, troponin was up to 300 initially after the PR, still coming down slowly. Repeat cardiac catheterization was done on February 22, 2017 which showed mild disease nonobstructive disease. Echo of 02/21/17: LVEF 50%, hypokinesis of inf and inf-lat wall, mild MR & TR & AI Acute on chronic renal insufficiency during last hosp of 02/10/17, likely related to ac PR and LV dysfunction (transient cardiogenic shock due to PR): patient had acute renal failure reaching creatinine level up to 4.5, currently creatinine is approx 1.3 and stable Hyperlipidemia H/o elevated alkaline phosphatase Diabetes mellitus, followed and managed by primary care physician Obesity Discussion and Recomendations * Complex management due to multiple comorbidities * Treat with iv diuretics as needed and as tolerated * Replenish K * Monitor labs closely * I spoke with her and her fam in detail and answered questions Clinical Quality Measures AMI/AHF: ASA po Prior to arrival: Yes DVT/VTE Risk/Contraindication: Risk Factor Score Per Nursin RFS Level Per Nursing on Admit: 4+=Very High ADALBERTO LEAVITT MD FACP FAC CCDS Feb 27, 2017 10:00
--- NOTE | 2017-02-27 11:29 | History & Physical-Hospitalist ---
HPI History of Present Illness: HPI/Chief Complaint CC: Shortness of breath with hypoxia HPI: This is a 56-year-old white female clinic patient of Dr. Cisneros that is known to me from recent discharge from hospital 2 days ago after she was diagnosed with Vinay syndrome after an admission recently for acute myocardial infarction with stent placement the presented to Dr. Calderon's office as scheduled by this examiner on Wednesday at 415 and found to be in respiratory insufficiency with hypoxia of 80 percent in office and evidence of volume overload. She had a mild elevation in BNP last time she was admitted but is never been in a significant congestive heart failure scenario per past record review so she was sent to the ER because of her possible instability was found to have significant elevated BNP evidence of congestive heart failure acute so she was placed on IV diuresis and cardiology was consulted. Source: patient Exam Limitations: no limitations Date Seen 02/27/17 Attending Physician Luli Amaya DO PCP Jose Calderon MD Referring Physician Date of Admission Feb 26, 2017 at 18:49 Home Medications & Allergies Home Medications Reviewed patient Home Medication Reconciliation Form Allergies Allergies Coded Allergies ondansetron (Verified Allergy, Severe, N/V, 02/26/17) Estrogens (Unverified Allergy, Unknown, BLISTERS ON BUTT, 02/26/17) metformin (Unverified Allergy, Unknown, BLISTERS ON BUTT, 02/26/17) Past Mezsbul-Vjdtau-Ouecjh Hx Patient Social History Marrital Status: single Employed/Student: unemployed Alcohol Use: Denies Use Recreational Drug Use: No Smoking Status: Never a Smoker 2nd Hand Smoke Exposure: Yes Physical Abuse Screen: No Sexual Abuse: No Recent Foreign Travel: No Contact w/other who traveled: No Recent Hopitalizations: Yes (02/10/17-02/17/17, 02/23/17, dc 02/25/17) Recent Infectious Disease Expo: No Immunizations Up To Date Tetanus Booster (TDap): Unknown Date of Pneumonia Vaccine: Sep 18, 2014 Date of Influenza Vaccine: Sep 16, 2016 Seasonal Allergies Seasonal Allergies: No Surgeries HX Surgeries: Yes (right forearm repair with plates et screws) Surgeries: Cardiac, Coronary Stent, Gallbladder, Hysterectomy, Oophorectomy Respiratory Hx Respiratory Disorders: Yes Respiratory Disorders: Sleep Apnea Cardiovascular Hx Cardiovascular Disorders: Yes (CAROTID DISEASE, stent 02/22) Cardiac Disorders: Coronary Artery Disease, Heart Attack, High Cholesterol, Hypertension Neurological Hx Neurological Disorders: Yes Neurological Disorders: Neuropathy, TIA Reproductive System : No Hx Reproductive Disorders: No Sexually Transmitted Disease: No HIV/AIDS: No Female Reproductive Disorders: Denies Genitourinary Hx Genitourinary Disorders: Yes Genitourinary Disorders: Renal Failure Gastrointestinal Hx Gastrointestinal Disorders: Yes Gastrointestinal Disorders: Gastroesophageal Reflux, Gall Bladder Disease Musculoskeletal Hx Musculoskeletal Disorders: Yes (right arm fracture with screws and pin placements) Musculoskeletal Disorders: Arthritis, Fibromyalgia, Fractures Endocrine Hx Endocrine Disorders: Yes Endocrine Disorders: Diabetes, Insulin dep, Hypothyroidsim HEENT HX ENT Disorders: Yes (GLASSES) HEENT Disorders: Double Vision Hearing Impairment: Hard of Hearing Cancer Hx Cancer: Yes Cancer: Ovarian, Uterine Psychosocial Hx Psychiatric Problems: Yes Behavioral Health Disorders: Anxiety, Depression Integumentary HX Skin/Integumentary Disorder: Yes (DIABETIC SORES) Skin/Integumentary Disorders: Recent Skin Changes Blood Transfusions Hx Blood Disorders: No (ANEMIA) Adverse Reaction to a Blood Tr: No Reviewed Nursing Assessment Reviewed/Agree w Nursing PMH: Yes Family Medical History Significant Family History: No Pertinent Family Hx Family Hx: Cardiovascular disease 19 FATHER G8 SISTER Diabetes mellitus 19 FATHER G8 BROTHER G8 SISTER FH: lung cancer 19 MOTHER FH: skin cancer 19 FATHER Parkinson's disease G8 SISTER Psychosocial problem G8 BROTHER Review of Systems Constitutional: see HPI, weakness EENTM: no symptoms reported Respiratory: short of breath, wheezing Cardiovascular: chest pain Gastrointestinal: no symptoms reported Genitourinary: no symptoms reported Musculoskeletal: no symptoms reported Skin: no symptoms reported Psychiatric/Neurological: No Symptoms Reported All Other Systems Reviewed Negative Unless Noted: Yes Physical Exam Physical Exam Vital Signs Vital Sign - Last 12Hours 02/26/17 17:31 Temp 98.2 Pulse 70 Resp 26 B/P (MAP) 165/104 Pulse Ox 95 O2 Delivery Nasal Cannula O2 Flow Rate 4.00 FiO2 100 Capillary Refill : Less Than 3 Seconds General Appearance: No Apparent Distress, WD/WN, Chronically ill Eyes: Bilateral Eye Normal Inspection, Bilateral Eye PERRL HEENT: PERRL/EOMI, Normal ENT Inspection, Pharynx Normal Neck: Full Range of Motion, Normal Inspection, Non Tender, Supple, Carotid Bruit Respiratory: Chest Non Tender, No Accessory Muscle Use, No Respiratory Distress , Decreased Breath Sounds, Wheezing (subtle wheezing) Cardiovascular: Regular Rate, Rhythm, No Edema, No Gallop, No JVD, No Murmur, Normal Peripheral Pulses Gastrointestinal: Normal Bowel Sounds, No Organomegaly, No Pulsatile Mass, Non Tender, Soft Back: Normal Inspection, No CVA Tenderness, No Vertebral Tenderness Extremity: Normal Capillary Refill, Normal Inspection, Normal Range of Motion, Non Tender, No Calf Tenderness, No Pedal Edema Neurologic/Psychiatric: Alert, Oriented x3, No Motor/Sensory Deficits, Normal Mood/Affect Skin: Normal Color, Warm/Dry Lymphatic: No Adenopathy Results Results/Procedures Lab Laboratory Tests 02/26/17 17:46 02/27/17 03:50 Assessment/Plan Admission Diagnosis Assessment: Acute congestive heart failure with hypoxia and pleural effusions on chest x- ray with elevated BNP 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 just discharged 2 days ago Chronic hypoxia wears oxygen at night Diabetes mellitus out of control insulin-dependent Hypertension Hyperlipidemia Hypothyroidism Anemia of chronic disease Hypokalemia Assessment and Plan Plan: IV diuresis Potassium supplementation Monitor labs Restart insulin but lower dose and she is prone to hypoglycemia due to diet restrictions while hospitalized Will need home oxygen at discharge Prognosis guarded considering her young age and such severe comorbidities and now heart failure Clinical Quality Measures AMI/AHF: ASA po Prior to arrival: Yes DVT/VTE Risk/Contraindication: Risk Factor Score Per Nursin RFS Level Per Nursing on Admit: 4+=Very High LULI AMAYA DO Feb 27, 2017 11:29
[2017-02-27] MEDS: inSUlin ASPART (NovoLOG) 1 UNIT/0.01 ML (CHARGE PER UNIT) SC SCH ×2 (11:31→18:49)
[2017-02-27] MEDS: HYDROcodone/APAP 5 MG/325 MG (LORTAB) TAB PO PRN (15:07)
[2017-02-27] MEDS ORDERED: inSUlin DETERMIR 1 UNIT/0.01 ML (LEVEMIR) CHARGE PER UNIT SQ SCH (21:00)
[2017-02-27] MEDS: morphine ER 15 MG (MS CONTIN) TAB PO SCH (21:58)
[2017-02-28] VITALS: BP 181/79
[2017-02-28] MEDS: RT-ALBUTEROL/IPRATROPIUM 3 ML (DUONEB) VIAL INH SCH ×6 (01:16→21:30)
[2017-02-28 04:00] VITALS: BP 164/83
[2017-02-28] MEDS: inSUlin (REGULAR) HUMAN 1 UNIT/0.01 ML (CHARGE PER UNIT) SC SCH ×2 (06:17→11:12)
[2017-02-28] MEDS: CATHETER FLUSH 10 ML SYR IV SCH ×3 (06:18→20:51)
[2017-02-28] MEDS: KCL 10 MEQ TAB (MICRO K) PO SCH ×2 (06:18→17:54)
[2017-02-28] MEDS: PANTOPRAZOLE 40 MG (PROTONIX) TAB PO SCH (08:19)
[2017-02-28] MEDS: LEVOTHYROXINE 75 MCG (LEVOTHROID) TABLET PO SCH (08:20)
[2017-02-28] MEDS: IBUPROFEN 600 MG (MOTRIN) TAB PO SCH ×3 (08:20→20:49)
[2017-02-28] MEDS: TICAGRELOR 90 MG TABLET (BRILINTA) PO SCH ×2 (08:20→20:49)
[2017-02-28] MEDS: FUROSEMIDE 40 MG (LASIX) TAB PO SCH (08:21)
[2017-02-28] MEDS: amLODIPine 10 MG (NORVASC) TAB PO SCH (08:21)
[2017-02-28] MEDS: morphine ER 15 MG (MS CONTIN) TAB PO SCH ×2 (08:21→20:50)
[2017-02-28] MEDS: GABAPENTIN 300 MG (NEURONTIN) CAP PO SCH (08:21)
[2017-02-28] MEDS: DULoxetine 30 MG (CYMBALTA) CAP PO SCH (08:21)
[2017-02-28] MEDS: doxAzosin 2 MG (CARDURA) TAB PO SCH (08:21)
[2017-02-28] MEDS: lisINopril 20 MG (ZESTRIL) TAB PO SCH (08:21)
[2017-02-28] MEDS: ASPIRIN 81 MG CHEW (CHILDREN'S ASA) PO SCH (08:21)
[2017-02-28] MEDS: inSUlin ASPART (NovoLOG) 1 UNIT/0.01 ML (CHARGE PER UNIT) SC SCH ×3 (08:22→20:50)
[2017-02-28] MEDS: ISOSORBIDE MONONITRATE 30 MG (IMDUR) TAB PO SCH (08:22)
[2017-02-28 08:43] VITALS: BP 170/89
[2017-02-28 12:00] VITALS: BP 144/85
[2017-02-28] MEDS ORDERED: SALINE NASAL SPRAY (OCEAN) 45 ML BTL PRN (12:15)
[2017-02-28] MEDS: LACTULOSE SYRUP 10GM/15ML (ENULOSE) 30ML UDC PO SCH ×2 (12:35→20:49)
--- NOTE | 2017-02-28 13:07 | Progress Note-Hospitalist ---
Progress Note HPI/CC on Admission CC: Shortness of breath with hypoxia HPI: This is a 56-year-old white female clinic patient of Dr. 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 Calderon's office as scheduled by this examiner on Wednesday at 415 and found to be in respiratory insufficiency with hypoxia of 80 percent in office and evidence of volume overload. She had a mild elevation in BNP last time she was admitted but is never been in a significant congestive heart failure scenario per past record review so she was sent to the ER because of her possible instability was found to have significant elevated BNP evidence of congestive heart failure acute so she was placed on IV diuresis and cardiology was consulted. Progress Notes/Assess & Plan Date Seen 02/28/17 Admission Dx/Process Assessment: Acute congestive heart failure with hypoxia and pleural effusions on chest x- ray with elevated BNP 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 just discharged 2 days ago Chronic hypoxia wears oxygen at night Diabetes mellitus out of control insulin-dependent Hypertension Hyperlipidemia Hypothyroidism Anemia of chronic disease Hypokalemia Diagonsis/Assessment & Plan Patient doing well overall but blood sugars are very labile She is not getting out of bed at all and very poor motivation to do so so I encouraged her to do that we will discontinue the catheter and Hep-Lock the IV fluid to facilitate ambulation more freely but she is just very declined and deconditioned Checked meds and blood sugar checks No fever, vital signs stable, pleasant, flat affect, 6 family members in the room, patient is wearing O2 Regular rate and rhythm, diminished breath sounds at the bases but no rales rhonchi or wheezing No edema Assessment: Acute congestive heart failure with hypoxia and pleural effusions on chest x- ray with elevated BNP 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 just discharged 2 days ago Chronic hypoxia wears oxygen at night Diabetes mellitus out of control insulin-dependent Hypertension Hyperlipidemia Hypothyroidism Anemia of chronic disease Hypokalemia Very deconditioned and poor motivation Plan: IV diuresis Potassium supplementation Monitor labs Restart insulin but lower dose and she is prone to hypoglycemia due to diet restrictions while hospitalized Will need home oxygen at discharge Prognosis guarded considering her young age and such severe comorbidities and now heart failure Ambulate after discontinuing catheter and hep locking IV fluid Very declined and deconditioned may need skilled therapy QUINN ALEMAN DO Feb 28, 2017 13:07
--- NOTE | 2017-02-28 15:44 | Progress Note-Cardiology ---
Cardiology SOAP Progress Note Subjective: Shortness of breath much improved. Denies cp or palp or syncope Objective: I&O/Vital Signs Vital Sign - Last 12Hours 02/28/17 02/28/17 02/28/17 02/28/17 04:00 06:49 07:00 08:15 Temp 96.3 Pulse 72 73 Resp 20 B/P (MAP) 164/83 Pulse Ox 95 91 O2 Delivery High Flow N/C O2 Flow Rate 10.00 8.00 8.00 02/28/17 02/28/17 02/28/17 02/28/17 08:43 12:00 12:00 13:00 Temp 97.3 96.8 Pulse 83 69 66 Resp 22 18 B/P (MAP) 170/89 144/85 Pulse Ox 90 93 O2 Delivery High Flow N/C High Flow N/C O2 Flow Rate 10.00 8.00 10.00 02/28/17 14:50 Pulse Ox 94 O2 Flow Rate 9.00 Intake and Output 02/28/17 00:00 Intake Total 1450 ml Output Total 375 ml Balance 1075 ml Weight (Pounds): 266 Weight (Ounces): 9.0 Weight (Calculated Kilograms): 120.416890 Constitutional: AAO x 3, well-developed, well-nourished Respiratory: No accessory muscle use, other (a few bibasilar crackles and rales ) Cardiovascular: regular rate-rhythm, S1 and S2, systolic murmur (faint JANI at card base) Gastrointestional: No tender, soft, No guarding, No rebound, audible bowel sounds Extremities: pedal edema (mild, bilat), No clubbing, No cyanosis Neurologic/Psychiatric: oriented x 3, grossly intact, power is 5/5 both on sides Skin: No rash on exposed areas, No ulcerations on exposed areas Results/Procedures: Labs Laboratory Tests 02/27/17 17:45: Glucometer 129H 02/27/17 20:45: Glucometer 118H 02/27/17 22:01: Glucometer 89 02/27/17 23:39: Glucometer 129H 02/28/17 01:25: Glucometer 129H 02/28/17 05:14: Glucometer 118H 02/28/17 10:06: Glucometer 43*L 02/28/17 10:59: Glucometer 69L 02/28/17 11:59: Glucometer 78 A/P: Assessment: Ac systolic and diastolic CHF, improved Anterior and L lateral chest wall pain, probably acute pericarditis, Vinay syndrome post myocardial infarction pericarditis, symptoms improved Chronic shortness of breath: advanced COPD and chronic systolic and diastolic CHF Anemia, probably multifactorial, managed by the Medical Service H/o noncompliance with medication CAD with h/o cor PCI. On 01/28/17, had stenting to the right coronary artery with Xience Alpine 3.5 to the proximal right coronary artery and 2.75 to the distal right coronary artery and right PDA. Ac Inf IN on 02/10/17 due to noncompliance with clopidogrel: repeat cath showed total occlusion of the right coronary artery, had thrombectomy and balloon angioplasty of the right coronary artery, troponin was up to 300 initially after the IN, still coming down slowly. Repeat cardiac catheterization was done on February 22, 2017 which showed mild disease nonobstructive disease. Echo of 02/21/17: LVEF 50%, hypokinesis of inf and inf-lat wall, mild MR & TR & AI Acute on chronic renal insufficiency during last hosp of 02/10/17, likely related to ac IN and LV dysfunction (transient cardiogenic shock due to IN): patient had acute renal failure reaching creatinine level up to 4.5, currently creatinine is approx 1.3 and stable Hyperlipidemia H/o elevated alkaline phosphatase Diabetes mellitus, followed and managed by primary care physician Obesity Plan: * Furosemide now oral * Monitor labs closely * I spoke with her and her fam and answered questions Clinical Quality Measures AMI/AHF: ASA po Prior to arrival: Yes ADALBERTO LEAVITT MD FACP FAC CCDS Feb 28, 2017 15:44
[2017-02-28 15:45] VITALS: BP 135/78
[2017-02-28 19:55] VITALS: BP 130/79
[2017-02-28] MEDS: inSUlin DETERMIR 1 UNIT/0.01 ML (LEVEMIR) CHARGE PER UNIT SQ SCH (20:51)
[2017-03-01] VITALS: BP 149/76
[2017-03-01] MEDS: RT-ALBUTEROL/IPRATROPIUM 3 ML (DUONEB) VIAL INH SCH ×5 (02:46→21:26)
[2017-03-01 04:00] VITALS: BP 150/76
[2017-03-01] MEDS: HYDROcodone/APAP 5 MG/325 MG (LORTAB) TAB PO PRN (04:07)
[2017-03-01 05:34] LABS: BASOPHILS # (AUTO) 0.1 10^3/uL (0.0-0.1); BASOPHILS % (AUTO) 1 % (0-10); EOSINOPHILS # (AUTO) 0.5 10^3/uL (0.0-0.3); EOSINOPHILS % (AUTO) 7 % (0-10); LYMPHOCYTES # (AUTO) 1.7 X 10^3 (1.0-4.0); LYMPHOCYTES % (AUTO) 22 % (12-44); MEAN CORPUSCULAR HEMOGLOBIN 29 PG (25-34); MEAN CORPUSCULAR HGB CONC 31 G/DL (32-36); MEAN CORPUSCULAR VOLUME 94 FL (80-99); MEAN PLATELET VOLUME 10.6 FL (7.4-10.4); MONOCYTES # (AUTO) 0.8 X 10^3 (0.0-1.0); MONOCYTES % (AUTO) 10 % (0-12); NEUTROPHILS # (AUTO) 4.9 X 10^3 (1.8-7.8); NEUTROPHILS % (AUTO) 62 % (42-75); PLATELET COUNT 298 10^3/uL (130-400); RED BLOOD COUNT 3.03 10^6/uL (4.35-5.85); RED CELL DISTRIBUTION WIDTH 13.5 % (10.0-14.5)
[2017-03-01 05:54] LABS: ALBUMIN 2.7 G/DL (3.2-4.5); BILIRUBIN,TOTAL 0.5 MG/DL (0.1-1.0); CALCIUM 9.2 MG/DL (8.5-10.1); CREATININE SERUM 1.36 MG/DL (0.60-1.30); MAGNESIUM 1.9 MG/DL (1.8-2.4); POTASSIUM 4.2 MMOL/L (3.6-5.0); TOTAL PROTEIN 6.2 G/DL (6.4-8.2)
[2017-03-01] MEDS: inSUlin ASPART (NovoLOG) 1 UNIT/0.01 ML (CHARGE PER UNIT) SC SCH ×4 (06:28→20:44)
[2017-03-01] MEDS: CATHETER FLUSH 10 ML SYR IV SCH ×3 (06:39→21:12)
[2017-03-01] MEDS: KCL 10 MEQ TAB (MICRO K) PO SCH ×2 (06:39→16:27)
[2017-03-01 08:00] VITALS: BP 145/63
[2017-03-01] MEDS: LEVOTHYROXINE 75 MCG (LEVOTHROID) TABLET PO SCH (08:00)
[2017-03-01] MEDS: LACTULOSE SYRUP 10GM/15ML (ENULOSE) 30ML UDC PO SCH ×2 (08:00→20:30)
[2017-03-01] MEDS: FUROSEMIDE 40 MG (LASIX) TAB PO SCH (08:00)
[2017-03-01] MEDS: IBUPROFEN 600 MG (MOTRIN) TAB PO SCH (08:00)
[2017-03-01] MEDS: amLODIPine 10 MG (NORVASC) TAB PO SCH (08:00)
[2017-03-01] MEDS: ASPIRIN 81 MG CHEW (CHILDREN'S ASA) PO SCH (08:01)
[2017-03-01] MEDS: doxAzosin 2 MG (CARDURA) TAB PO SCH (08:01)
[2017-03-01] MEDS: GABAPENTIN 300 MG (NEURONTIN) CAP PO SCH (08:01)
[2017-03-01] MEDS: lisINopril 20 MG (ZESTRIL) TAB PO SCH (08:01)
[2017-03-01] MEDS: ISOSORBIDE MONONITRATE 30 MG (IMDUR) TAB PO SCH (08:01)
[2017-03-01] MEDS: DULoxetine 30 MG (CYMBALTA) CAP PO SCH (08:01)
[2017-03-01] MEDS: sitaGLIPtin 50 MG (JANUVIA) TAB PO SCH (08:01)
[2017-03-01] MEDS: PANTOPRAZOLE 40 MG (PROTONIX) TAB PO SCH ×3 (08:02→15:20)
[2017-03-01] MEDS: TICAGRELOR 90 MG TABLET (BRILINTA) PO SCH ×2 (08:02→20:30)
[2017-03-01] MEDS: morphine ER 15 MG (MS CONTIN) TAB PO SCH ×2 (08:03→20:30)
--- NOTE | 2017-03-01 08:54 | Cardiology Progress Note ---
Subjective Subjective/Events-last exam Patient sitting up in bed. Complaining of frequent nose bleeds and epigastric pain, mainly after taking evening medications. Denies any active CP at this time. Review of Systems General: No Night Sweats, No Fatigue, No Malaise HEENT: No Visual Changes, No Dysphasia, No Sore Throat Pulmonary: Dyspnea, No Cough, No Pleuritic Chest Pain Cardiovascular: Edema, No: Chest Pain, Palpitations, Paroxysmal Noc. Dyspnea Gastrointestinal: No: Abdominal Pain, Nausea, Vomiting Genitourinary: No Dysuria, No Frequency Musculoskeletal: No: back pain, neck pain Neurological: No: Change in speech, Confusion, Numbness, Weakness Objective-Cardiology Exam Last Set of Vital Signs Vital Signs 02/28/17 03/01/17 20:05 08:00 Temp 96.1 Pulse 66 Resp 12 B/P (MAP) 145/63 Pulse Ox 93 O2 Delivery High Flow N/C O2 Flow Rate 10.00 FiO2 100 Capillary Refill : Less Than 3 Seconds I&O Intake and Output 03/01/17 00:00 Intake Total 1230 ml Output Total 2150 ml Balance -920 ml Intake Oral 1230 ml Output Urine Total 2150 ml General: Alert, Oriented X3, Cooperative HEENT: Atraumatic, PERRLA Neck: Supple, No JVD, No Thyromegaly Lungs: Clear to Auscultation, Normal Air Movement Heart: Regular Rate, Rubs Abdomen: Normal Bowel Sounds, Soft, No Tenderness, No Hepatosplenomegaly Extremities: No Clubbing, Other (+1 edema BLE) Skin: No Rashes, No Significant Lesion Neuro: Normal Speech, Cranial Nerves 3-12 NL Psych/Mental Status: Mental Status NL, Mood NL Results Lab Laboratory Tests 03/01/17 04:55 A/P-Cardiology Admission Diagnosis CHF CAD Pericarditis COPD Assessment/Plan Acute on chronic systolic and diastolic CHF,clinically improved. Continue PO lasix and continue to monitor. Anterior and L lateral chest wall pain, probably acute pericarditis, Vinay syndrome post myocardial infarction pericarditis, currently on Ibuprofen TID Chronic shortness of breath: advanced COPD and chronic systolic and diastolic CHF. Continue to monitor. Anemia, probably multifactorial, continue to monitor H/H. Patient currntly on Brilinta, ASA, Ibuprofen. I will add Carafate to her Protonix for further protection. Nose bleeds. Bleeding is self limited. Continue using saline nasal spray PRN and continue to monitor. H/o noncompliance with medication CAD with h/o cor PCI. On 01/28/17, had stenting to the right coronary artery with Xience Alpine 3.5 to the proximal right coronary artery and 2.75 to the distal right coronary artery and right PDA. Ac Inf MA on 02/10/17 due to noncompliance with clopidogrel: repeat cath showed total occlusion of the right coronary artery, had thrombectomy and balloon angioplasty of the right coronary artery, troponin was up to 300 initially after the MA, still coming down slowly. Repeat cardiac catheterization was done on February 22, 2017 which showed mild disease nonobstructive disease. Echo of 02/21/17: LVEF 50%, hypokinesis of inf and inf-lat wall, mild MR & TR & AI Acute on chronic renal insufficiency during last hospitalization of 02/10/17, likely related to ac MA and LV dysfunction (transient cardiogenic shock due to MA): patient had acute renal failure reaching creatinine level up to 4.5, currently creatinine is approx 1.3 and stable Hyperlipidemia- continue to monitor as outpatient. H/o elevated alkaline phosphatase Diabetes mellitus, followed and managed by primary care physician Obesity Clinical Quality Measures AMI/AHF: ASA po Prior to arrival: Yes DVT/VTE Risk/Contraindication: Risk Factor Score Per Nursin RFS Level Per Nursing on Admit: 4+=Very High BRENDA BRAY Mar 01, 2017 08:54
--- NOTE | 2017-03-01 09:08 | Pulmonary Consultation ---
History of Present Illness History of Present Illness Date of Consultation 03/01/17 08:59 Date of Admission History of Present Illness 56yo with recent hospitalization and just discharged last week. 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 Pt was found to have pulmonary edema secondary to volume overload. Pt was hypoxic with Sp02 of 80% prior to admission. Pt was admitted on 02/27 for close observation. I am consulted for pulmonary management. Allergies and Home Medications Allergies Coded Allergies: ondansetron (Verified Allergy, Severe, N/V, 02/26/17) Estrogens (Unverified Allergy, Unknown, BLISTERS ON BUTT, 02/26/17) metformin (Unverified Allergy, Unknown, BLISTERS ON BUTT, 02/26/17) Home Medications Amlodipine Besylate 10 Mg Tablet, 10 MG PO DAILY, (Reported) Aspirin 81 Mg Tab.chew, 162 MG PO DAILY, (Reported) Atorvastatin Calcium 80 Mg Tablet, 80 MG PO DAILY, (Reported) Doxazosin Mesylate 2 Mg Tablet, 2 MG PO DAILY, (Reported) Duloxetine HCl 30 Mg Capsule.dr, 30 MG PO DAILY, (Reported) Furosemide 40 Mg Tablet, 40 MG PO DAILY, (Reported) Gabapentin 300 Mg Capsule, 600 MG PO DAILY, (Reported) TAKES 2 (300 MG) CAPSULES Hydrocodone/Acetaminophen 1 Each Tablet, 1 EACH PO TID, #30 Prescribed by: QUINN ALEMAN on 02/25/17 1134 Ibuprofen 600 Mg Tablet, 600 MG PO Q6HR, #12 Prescribed by: QUINN ALEMAN on 02/25/17 1134 Insulin Aspart 100 Unit/1 Ml Susp, 20 UNIT SC AC for 1 Days Please Decrease Your Dosage from 40 units to 20 units before meals Prescribed by: SUSAN CANTU on 02/23/17 0857 Insulin Determir 1,000 Units/10 Ml Soln, 60 UNIT SQ HS for 1 Days Please decrease Your scheduled dosage from 80 units to 60 units Prescribed by: SUSAN CANTU on 02/23/17 0857 Isosorbide Mononitrate 30 Mg Tab.er.24h, 30 MG PO DAILY, (Reported) Levothyroxine Sodium 75 Mcg Tablet, 75 MCG PO DAILY, (Reported) Lisinopril 40 Mg Tablet, 40 MG PO DAILY for 30 Days RESTART TOMORROW 02/24/17 Prescribed by: JACK PARISH on 02/23/17 0943 Lorazepam 0.5 Mg Tablet, 0.5 MG PO DAILY PRN for ANXIETY, (Reported) Metoprolol Succinate 25 Mg Tab.er.24h, 25 MG PO DAILY, (Reported) Morphine Sulfate 15 Mg Tablet.er, 15 MG PO BID, #14 Prescribed by: QUINN ALEMAN on 02/25/17 1134 Pantoprazole Sodium 40 Mg Tablet.dr, 40 MG PO DAILY, (Reported) Saxagliptin HCl 5 Mg Tablet, 5 MG PO DAILY, (Reported) Ticagrelor 90 Mg Tablet, 90 MG PO BID, #60 Ref 4 Prescribed by: JACK PARISH on 02/23/17 0812 Past Aijdjin-Qhxctk-Akehnb Hx Patient Social History Alcohol Use: Denies Use Recreational Drug Use: No Smoking Status: Never a Smoker 2nd Hand Smoke Exposure: Yes Recent Foreign Travel: No Contact w/Someone Who Travel: No Recent Infectious Disease Expo: No Recent Hopitalizations: Yes (02/10/17-02/17/17, 02/23/17, dc 02/25/17) Physical Abuse Screen: No Sexual Abuse: No Immunizations Up To Date Tetanus Booster (TDap): Unknown PED Vaccines UTD: Yes Date of Pneumonia Vaccine: Sep 18, 2014 Date of Influenza Vaccine: Sep 16, 2016 Seasonal Allergies Seasonal Allergies: No Surgeries HX Surgeries: Yes (right forearm repair with plates et screws) Surgeries: Cardiac, Coronary Stent, Gallbladder, Hysterectomy, Oophorectomy Respiratory Hx Respiratory Disorders: Yes Respiratory Disorders: Emphysema Cardiovascular Hx Cardiac Disorders: Yes (CAROTID DISEASE, stent 02/22) Cardiac Disorders: Coronary Artery Disease, Heart Attack, High Cholesterol, Hypertension Neurological Hx Neurological Disorders: Yes Neurological Disorders: Neuropathy, TIA Reproductive System : No Hx Reproductive Disorders: No Sexually Transmitted Disease: No HIV/AIDS: No Female Reproductive Disorders: Denies 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 Genitourinary Hx Genitourinary Disorders: Yes Genitourinary Disorders: Renal Failure Gastrointestinal Hx Gastrointestinal Disorders: Yes Gastrointestinal Disorders: Gastroesophageal Reflux, Gall Bladder Disease Musculoskeletal Hx Musculoskeletal Disorders: Yes (right arm fracture with screws and pin placements) Musculoskeletal Disorders: Arthritis, Fibromyalgia, Fractures Endocrine Hx Endocrine Disorders: Yes Endocrine Disorders: Diabetes, Insulin dep, Hypothyroidsim HEENT HX ENT Disorders: Yes (GLASSES) HEENT Disorders: Double Vision Hearing Impairment: Hard of Hearing Cancer Hx Cancer: Yes Cancer: Ovarian, Uterine Psychosocial Hx Psychiatric Problems: Yes Behavioral Health Disorders: Anxiety, Depression Integumentary HX Skin/Integumentary Disorder: Yes (DIABETIC SORES) Skin/Integumentary Disorders: Recent Skin Changes Blood Transfusions Hx Blood Disorders: No (ANEMIA) Adverse Reaction to a Blood Tr: No Reviewed Nursing Assessment Reviewed/Agree w Nursing PMH: Yes Family Medical History Significant Family History: No Pertinent Family Hx Family Medial History: Cardiovascular disease 19 FATHER G8 SISTER Diabetes mellitus 19 FATHER G8 BROTHER G8 SISTER FH: lung cancer 19 MOTHER FH: skin cancer 19 FATHER Parkinson's disease G8 SISTER Psychosocial problem G8 BROTHER Exam Exam Vital Signs Date Time Temp Pulse Resp B/P (MAP) Pulse Ox O2 Delivery O2 Flow Rate FiO2 03/01/17 08:00 96.1 66 12 145/63 93 High Flow N/C 10.00 03/01/17 07:00 61 03/01/17 04:00 96.8 66 20 150/76 94 High Flow N/C 10.00 03/01/17 02:46 94 10.00 03/01/17 01:00 60 03/01/17 00:00 97.4 64 20 149/76 95 High Flow N/C 10.00 02/28/17 22:03 90 02/28/17 21:30 90 10.00 02/28/17 20:05 92 10.00 100 02/28/17 19:55 97.4 72 16 130/79 92 High Flow N/C 9.50 02/28/17 19:33 72 02/28/17 19:03 92 10.00 02/28/17 16:00 8.00 02/28/17 15:45 97.4 63 16 135/78 93 High Flow N/C 8.00 02/28/17 14:50 94 9.00 02/28/17 13:00 66 02/28/17 12:00 96.8 69 18 144/85 93 High Flow N/C 10.00 02/28/17 12:00 8.00 I & O 03/01/17 07:00 Intake Total 1230 ml Output Total 1200 ml Balance 30 ml General Appearance: No Apparent Distress, WD/WN, Chronically ill HEENT: PERRL/EOMI, Normal ENT Inspection, Pharynx Normal Neck: Full Range of Motion, Normal Inspection, Non Tender, Supple, Carotid Bruit Respiratory: Chest Non Tender, No Accessory Muscle Use, No Respiratory Distress , Decreased Breath Sounds, Wheezing (subtle wheezing) Cardiovascular: Regular Rate, Rhythm, No Edema, No Gallop, No JVD, No Murmur, Normal Peripheral Pulses Capillary Refill: Less Than 3 Seconds Extremity: Normal Capillary Refill, Normal Inspection, Normal Range of Motion, Non Tender, No Calf Tenderness, No Pedal Edema Neurologic/Psychiatric: Alert, Oriented x3, No Motor/Sensory Deficits, Normal Mood/Affect Skin: Normal Color, Warm/Dry Lymphatic: No Adenopathy Results Lab Laboratory Tests 03/01/17 04:55 Assessment/Plan Assessment/Plan CHF -lasix Hypoxemia -repeat CXR Acute pericarditis - Vinay syndrome COPD -SVNs, oxygen Clinical Quality Measures AMI/AHF: ASA po Prior to arrival: Yes DVT/VTE Risk/Contraindication: Risk Factor Score Per Nursin RFS Level Per Nursing on Admit: 4+=Very High ANNIE BECKHAM DO Mar 01, 2017 09:08
[2017-03-01] MEDS: FUROSEMIDE 40 MG/4 ML INJ (LASIX) IVP SCH ×2 (09:35→16:27)
--- NOTE | 2017-03-01 10:26 | Cardiology Progress Note ---
Subjective Subjective/Events-last exam Patient was seen and evaluated, events since admission were reviewed. Having shortness of breath. Chest pain is better. Review of Systems General: No Chills, No Night Sweats, No Fatigue, No Malaise, No Appetite, No Other HEENT: No Head Aches, No Visual Changes, No Eye Pain, No Ear Pain, No Dysphasia , No Sinus Congestion, No Post Nasal Drip, No Sore Throat, No Other Pulmonary: Dyspnea, Cough, No Pleuritic Chest Pain, No Other Cardiovascular: Edema, No: Chest Pain, Lt Headedness, Orthopnea, Other, Palpitations, Paroxysmal Noc. Dyspnea Objective-Cardiology Exam Last Set of Vital Signs Vital Signs 03/01/17 03/01/17 03/01/17 08:00 09:00 09:29 Temp 96.1 Pulse 66 Resp 12 B/P (MAP) 145/63 Pulse Ox 97 O2 Delivery Nasal Cannula O2 Flow Rate 10.00 FiO2 100 Capillary Refill : Less Than 3 Seconds I&O Intake and Output 03/01/17 00:00 Intake Total 1230 ml Output Total 2150 ml Balance -920 ml Intake Oral 1230 ml Output Urine Total 2150 ml General: Alert, Oriented X3, Cooperative HEENT: Atraumatic, PERRLA Neck: Supple, No JVD, No Thyromegaly Lungs: Clear to Auscultation, Normal Air Movement Heart: Regular Rate, Rubs Abdomen: Normal Bowel Sounds, Soft, No Tenderness, No Hepatosplenomegaly Extremities: No Clubbing, Other (+1 edema BLE) Skin: No Rashes, No Significant Lesion Neuro: Normal Speech, Cranial Nerves 3-12 NL Psych/Mental Status: Mental Status NL, Mood NL Results Lab Laboratory Tests 03/01/17 04:55 A/P-Cardiology Admission Diagnosis CHF CAD Pericarditis COPD Assessment/Plan Acute on chronic systolic and diastolic CHF, ischemic cardiomyopathy, using 10 L oxygen, I will change her to Lasix IV and monitor intake and output. Anterior and L lateral chest wall pain, probably acute pericarditis, Vinay syndrome post myocardial infarction pericarditis, currently on Ibuprofen TID Chronic shortness of breath: advanced COPD and chronic systolic and diastolic CHF. Continue to monitor. Anemia, probably multifactorial, continue to monitor H/H. Patient currently on Brilinta, ASA, Ibuprofen. I will add Carafate and increase Protonix to twice daily and monitor her tolerance and response Nose bleeds. Bleeding is self limited. Continue using saline nasal spray PRN and continue to monitor. H/o noncompliance with medication CAD with h/o cor PCI. On 01/28/17, had stenting to the right coronary artery with Xience Alpine 3.5 to the proximal right coronary artery and 2.75 to the distal right coronary artery and right PDA. Ac Inf LA on 02/10/17 due to noncompliance with clopidogrel: repeat cath showed total occlusion of the right coronary artery, had thrombectomy and balloon angioplasty of the right coronary artery, troponin was up to 300 initially after the LA, still coming down slowly. Repeat cardiac catheterization was done on February 22, 2017 which showed mild disease nonobstructive disease. Echo of 02/21/17: LVEF 50%, hypokinesis of inf and inf-lat wall, mild MR & TR & AI Acute on chronic renal insufficiency during last hospitalization of 02/10/17, likely related to ac LA and LV dysfunction (transient cardiogenic shock due to LA): patient had acute renal failure reaching creatinine level up to 4.5, currently creatinine is approx 1.3 and stable Hyperlipidemia- continue to monitor as outpatient. H/o elevated alkaline phosphatase Diabetes mellitus, followed and managed by primary care physician Obesity Clinical Quality Measures AMI/AHF: ASA po Prior to arrival: Yes DVT/VTE Risk/Contraindication: Risk Factor Score Per Nursin RFS Level Per Nursing on Admit: 4+=Very High JACK PARISH MD Mar 01, 2017 10:26
[2017-03-01] MEDS: SUCRALFATE 1 GM (CARAFATE) TAB PO SCH ×3 (10:39→20:30)
--- NOTE | 2017-03-01 11:58 | Diagnostic Imaging Report ---
PA and lateral views of the chest. INDICATION: Shortness of breath. Heart failure. FINDINGS: The heart is moderately enlarged. There is pulmonary vascular congestion. There is bilateral small to moderate pleural effusion. Bibasilar infiltrates could be related to alveolar edema or pneumonia, more prominent than the left lung base. The mediastinum and natividad appear unremarkable. No pneumothorax. IMPRESSION: There is cardiomegaly and vascular congestion associated with bilateral effusion and bibasilar infiltrates likely related to heart failure with pulmonary edema. Superimposed pneumonia is not entirely excluded. Correlate clinically and with followup exams. Dictated by: Dictated on workstation # [id number]
[2017-03-01 12:00] VITALS: BP 160/75
--- NOTE | 2017-03-01 12:19 | Progress Note (SOAP) ---
Subjective Subjective/Events-last exam Patient states that she is feeling better this AM. Still having shortness of breath but chest pain is resolved. Patient was about to get in shower prior to my arrival. She wants to try and get up and walk in the [place] today. Tolerating PO diet. Pain controlled. Date seen by provider: Mar 01, 2017 Objective Exam Last Set of Vital Signs Vital Signs Date Time Temp Pulse Resp B/P (MAP) Pulse Ox O2 Delivery O2 Flow Rate FiO2 03/01/17 09:29 97 10.00 03/01/17 09:00 Nasal Cannula 100 03/01/17 08:00 96.1 66 12 145/63 Capillary Refill : Less Than 3 Seconds I&O Intake and Output 02/28/17 23:59 Intake Total 1230 ml Output Total 2150 ml Balance -920 ml Intake Oral 1230 ml Output Urine Total 2150 ml General: Alert, Oriented X3, Cooperative Lungs: Other (Decreased breath sounds at the bases bilaterally, no wheezing, mild increased work of breathing with minimal activity) Heart: Regular Rate Abdomen: Normal Bowel Sounds, Soft, No Tenderness Extremities: Other (1+ swelling, no calf tenderness) Neuro: Normal Speech, Sensation Intact, Cranial Nerves 3-12 NL Psych/Mental Status: Mental Status NL Results/Procedures Lab Laboratory Tests 02/28/17 15:55: Glucometer 113H 02/28/17 20:32: Glucometer 174H 03/01/17 04:55: White Blood Count 8.0, Red Blood Count 3.03L, Hemoglobin 8.8L, Hematocrit 29L, Mean Corpuscular Volume 94, Mean Corpuscular Hemoglobin 29, Mean Corpuscular Hemoglobin Concent 31L, Red Cell Distribution Width 13.5, Platelet Count 298, Mean Platelet Volume 10.6H, Neutrophils (%) (Auto) 62, Lymphocytes (%) (Auto) 22 , Monocytes (%) (Auto) 10, Eosinophils (%) (Auto) 7, Basophils (%) (Auto) 1, Neutrophils # (Auto) 4.9, Lymphocytes # (Auto) 1.7, Monocytes # (Auto) 0.8, Eosinophils # (Auto) 0.5H, Basophils # (Auto) 0.1, Sodium Level 143, Potassium Level 4.2, Chloride Level 99, Carbon Dioxide Level 34H, Anion Gap 10, Blood Urea Nitrogen 25H, Creatinine 1.36H, Estimat Glomerular Filtration Rate 40, BUN/ Creatinine Ratio 18, Glucose Level 133H, Calcium Level 9.2, Magnesium Level 1.9 , Total Bilirubin 0.5, Aspartate Amino Transf (AST/SGOT) 21, Alanine Aminotransferase (ALT/SGPT) 18, Alkaline Phosphatase 804H, Total Protein 6.2L, Albumin 2.7L 03/01/17 11:23: Glucometer 135H Assessment/Plan Assessment/Plan Plan 56 yo F that was admitted with respiratory failure with hypoxia from clinic Plan Acute Systolic and Diastolic CHF on Chronic - Continue gentle diuresis, Strict I/Os, daily weights - Cardiology consulted and managing 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 - Pain improved, continue to monitor Acute on Chronic Respiratory failure with hypoxia, baseline home oxygen 4L - Pulmonary consulted, appreciate recommendations - Continue scheduled and PRN breathing treatments Insulin Dependent DM: Uncontrolled - Continue to monitor blood sugars closely and adjust insulin Acute Kidney Insufficiency - Continue to monitor Cr thru gentle diuresis Hypertension - Blood pressures improved from admission, continue to monitor Hyperlipidemia Hypothyroidism Anemia of chronic disease - Stable no signs of bleeding, continue to monitor Hypokalemia - Daily BMP, replace if needed - Dispo: Continue to titrate oxygen as tolerated to get to patient's baseline - FEN: Heart healthy diet Diagnosis/Problems: Clinical Quality Measures AMI/AHF: ASA po Prior to arrival: Yes DVT/VTE Risk/Contraindication: Risk Factor Score Per Nursin RFS Level Per Nursing on Admit: 4+=Very High MADDY COTE MD Mar 01, 2017 12:19
--- NOTE | 2017-03-01 14:09 | Physical Therapy Progress Note ---
Therapy Progress Note PT has attempted evaluation x 2 this p.m. Spouse declined secondary to patient is asleep. PT will continue to attempt. 1 ref x 2 KRYSTYNA HAGEN PT Mar 01, 2017 14:09
--- NOTE | 2017-03-01 15:26 | Physical Therapy Evaluation ---
PT Evaluation-General Medical Diagnosis Admission Date Feb 26, 2017 at 18:49 Medical Diagnosis: CHF exacerbation Onset Date: Feb 26, 2017 Therapy Diagnosis Therapy Diagnosis: general debility Height/Weight Height (Feet): 5 Height (Inches): 4.00 Weight (Pounds): 265 Weight (Ounces): 7.0 Precautions Precautions/Isolations: Fall Prevention, Standard Precautions Referral Physician: Bao Reason for Referral: Evaluation/Treatment Medical History Pertinent Medical History: Arthritis, CAD, DM, Heart Failure, HTN, Hypothroidism, Renal Insufficiency Additional Medical History ED with SOA with hypoxia (80%); recent hospital stay with new diagnosis Vinay syndrome recent [place] Current History CHF exacerbation Reviewed History: Yes Social History Home: Apartment Current Living Status: Spouse Entry Into Home: Level Entry Prior/Core FIM Prior Level of Function Functional [place] Measure 0=Not Assessed/NA 4=Minimal Assistance 1=Total Assistance 5=Supervision or Setup 2=Maximal Assistance 6=Modified [place] 3=Moderate Assistance 7=Complete [place] Bed Mobility: 7 Transfers (B,C,W/C) (FIM): 7 Gait: 6 uses FWW PLOF per report PT Evaluation-Current Subjective Patient is very agreeable to participate with PT. Pain Numeric Pain Scale: 0-No Pain Location: No Pain Reported Objective Patient Orientation: Normal For Age Problem Solving: Good Attachments: Oxygen (10L HF) ROM/Strength ROM Lower Extremities bilateral LE WFL Strenght Lower Extremities bilateral LE 4/5 grossly Integumentary/Posture Integumentary 3+ edema bilateral LE Bowel Incontinence: No Bladder Incontinence: No Posture WNL Neuromuscular (Tone, Coordination, Reflexes) grossly intact Sensory Vision: Functional Hearing: Functional Sensation Right Lower Extremit: Impaired Sensation Left Lower Extremity: Impaired Transfers Functional [place] Measure 0=Not Assessed/NA 4=Minimal Assistance 1=Total Assistance 5=Supervision or Setup 2=Maximal Assistance 6=Modified [place] 3=Moderate Assistance 7=Complete [place] Transfers (B, C, W/C) (FIM): 6 Scootin Rollin Supine to/from Sit: 6 Sit to/from Stand: 6 Gait Mode of Locomotion: Walk Anticipated Mode of Locomotion: Walk Gait (FIM): 6 Distance (FIM): 3=150 ft Distance: 300' Gait Level of Assist: 6 Gait Assistive Device: FWW Comments/Gait Description safe and functional with FWW; PT instructed patient and family to ambulate PRN in hallway with O2 (tank in room) Balance Sitting Static: Normal Sitting Dynamic: Normal Standing Static: Normal Standing Dynamic: Normal Assessment/Needs 56 y.o. female, will benefit from short term skilled PT to address functional strength and mobility to improve cardiopulmonary function. Patient is currently on 10L O2 HF NC. Rehab Potential: Guarded Post Rehab Potential-Barriers: CHF PT Occupational Therapist Assistants Goals Occupational Therapist Assistants Goals PT Halfway Goals Time Frame: Mar 05, 2017 Transfers (B,C,W/C) (FIM): 7 Gait (FIM): 6 Gait distance (FIM): 3=150 ft Gait Level of Assist: 6 Gait Assistive Device: FWW PT Plan Problem List Problem List: Activity Tolerance Treatment/Plan Treatment Plan: Continue Plan of Care Treatment Plan: Education, Functional Activity [place], Functional Strength, Gait , Therapeutic Exercise, Transfers Treatment Duration: Mar 05, 2017 # of days/week 5 Visits Per Week: 5 Pt/Family Agrees w/Plan: Yes Safety Risks/Education Patient Education: Gait Training Teaching Recipient: Patient, Significant Other Teaching Methods: Discussion Response to Teaching: Verbalize Understanding Discharge Recommendations Therapy D/C Recommendations: Home w/ Family Support Time/GCodes Time In: 1500 Time Out: 1515 Total Billed Treatment Time: 15 Total Billed Treatment 1 visit EVModC 15 min KRYSTYNA HAGEN PT Mar 01, 2017 15:26
[2017-03-01 16:00] VITALS: BP 133/66
[2017-03-01 20:29] VITALS: BP 162/76
[2017-03-01] MEDS: inSUlin DETERMIR 1 UNIT/0.01 ML (LEVEMIR) CHARGE PER UNIT SQ SCH (21:12)
[2017-03-02 00:10] VITALS: BP 161/88
[2017-03-02] MEDS: RT-ALBUTEROL/IPRATROPIUM 3 ML (DUONEB) VIAL INH SCH ×6 (03:01→22:14)
[2017-03-02 04:00] VITALS: BP 147/68
[2017-03-02 05:48] LABS: MEAN PLATELET VOLUME 10.7 FL (7.4-10.4); RED BLOOD COUNT 3.14 10^6/uL (4.35-5.85); RED CELL DISTRIBUTION WIDTH 13.5 % (10.0-14.5); WHITE BLOOD COUNT 9.2 10^3/uL (4.3-11.0)
[2017-03-02 06:14] LABS: ALBUMIN 2.8 G/DL (3.2-4.5); BILIRUBIN,TOTAL 0.4 MG/DL (0.1-1.0); CALCIUM 9.3 MG/DL (8.5-10.1); CREATININE SERUM 1.39 MG/DL (0.60-1.30); POTASSIUM 4.1 MMOL/L (3.6-5.0); TOTAL PROTEIN 6.2 G/DL (6.4-8.2)
[2017-03-02] MEDS: inSUlin ASPART (NovoLOG) 1 UNIT/0.01 ML (CHARGE PER UNIT) SC SCH ×4 (06:28→21:01)
[2017-03-02] MEDS: FUROSEMIDE 40 MG/4 ML INJ (LASIX) IVP SCH ×2 (06:41→16:19)
[2017-03-02] MEDS: PANTOPRAZOLE 40 MG (PROTONIX) TAB PO SCH ×2 (06:41→15:17)
[2017-03-02] MEDS: CATHETER FLUSH 10 ML SYR IV SCH ×3 (06:41→21:01)
[2017-03-02] MEDS: SUCRALFATE 1 GM (CARAFATE) TAB PO SCH ×4 (06:41→21:00)
[2017-03-02] MEDS: KCL 10 MEQ TAB (MICRO K) PO SCH ×2 (06:41→16:19)
--- NOTE | 2017-03-02 07:42 | Pulmonary Progress Note ---
Subjective Subjective/Events-last exam no complications noted Exam Exam Vital Signs Date Time Temp Pulse Resp B/P (MAP) Pulse Ox O2 Delivery O2 Flow Rate FiO2 03/02/17 07:00 68 03/02/17 04:00 98.7 67 16 147/68 92 High Flow N/C 10.00 03/02/17 03:01 95 10.00 03/02/17 01:00 65 03/02/17 00:10 99.5 72 16 161/88 94 High Flow N/C 10.00 03/01/17 21:28 94 10.00 03/01/17 20:29 97.3 68 20 162/76 92 High Flow N/C 10.00 03/01/17 20:10 10.00 03/01/17 19:17 62 03/01/17 16:00 96.9 68 18 133/66 93 High Flow N/C 10.00 03/01/17 13:00 62 03/01/17 12:00 96.5 64 12 160/75 94 High Flow N/C 10.00 03/01/17 09:29 97 10.00 03/01/17 09:00 93 Nasal Cannula 10.00 100 03/01/17 08:00 96.1 66 12 145/63 93 High Flow N/C 10.00 I & O 03/02/17 07:00 Intake Total 1920 ml Output Total 2400 ml Balance -480 ml General Appearance: No Apparent Distress, WD/WN, Chronically ill HEENT: PERRL/EOMI, Normal ENT Inspection, Pharynx Normal Neck: Full Range of Motion, Normal Inspection, Non Tender, Supple, Carotid Bruit Respiratory: Chest Non Tender, No Accessory Muscle Use, No Respiratory Distress , Decreased Breath Sounds, Wheezing Cardiovascular: Regular Rate, Rhythm, No Edema, No Gallop, No JVD, No Murmur, Normal Peripheral Pulses Capillary Refill: Less Than 3 Seconds Extremity: Normal Capillary Refill, Normal Inspection, Normal Range of Motion, Non Tender, No Calf Tenderness, No Pedal Edema Neurologic/Psychiatric: Alert, Oriented x3, No Motor/Sensory Deficits, Normal Mood/Affect Skin: Normal Color, Warm/Dry Lymphatic: No Adenopathy Results Lab Laboratory Tests 03/01/17 04:55 03/02/17 05:17 Assessment/Plan Assessment/Plan CHF -Continue lasix acute on chronic Hypoxemia secondary to pulmonary edema from CHF home oxygen is 4l/min -CXR reviewed Acute pericarditis - Vinay syndrome COPD -SVNs, oxygen Clinical Quality Measures AMI/AHF: ASA po Prior to arrival: Yes DVT/VTE Risk/Contraindication: Risk Factor Score Per Nursin RFS Level Per Nursing on Admit: 4+=Very High ANNIE BECKHAM DO Mar 02, 2017 07:42
--- NOTE | 2017-03-02 07:48 | Cardiology Progress Note ---
Subjective Subjective/Events-last exam Patient with no new complaints. Denies any active CP. Continues to have dyspnea , but reports some improvement. Review of Systems General: No Chills, No Night Sweats, Fatigue, No Malaise HEENT: No Visual Changes, No Dysphasia Pulmonary: Dyspnea, No Cough, No Pleuritic Chest Pain Cardiovascular: Edema, Orthopnea, No: Chest Pain, Palpitations Gastrointestinal: No: Constipation, Diarrhea, Nausea, Vomiting Genitourinary: No Dysuria, No Frequency Musculoskeletal: No: back pain, neck pain Neurological: No: Change in speech, Confusion, Numbness, Weakness Objective-Cardiology Exam Last Set of Vital Signs Vital Signs 03/01/17 03/02/17 03/02/17 09:00 04:00 07:00 Temp 98.7 Pulse 68 Resp 16 B/P (MAP) 147/68 Pulse Ox 92 O2 Delivery High Flow N/C O2 Flow Rate 10.00 FiO2 100 Capillary Refill : Less Than 3 Seconds I&O Intake and Output 03/02/17 00:00 Intake Total 1820 ml Output Total 1600 ml Balance 220 ml Intake Oral 1820 ml Output Urine Total 1600 ml # Voids 3 General: Alert, Oriented X3, Cooperative HEENT: Atraumatic, PERRLA Neck: Supple, No JVD, No Thyromegaly Lungs: Other (Decreased breath sounds at the bases bilaterally, no wheezing, mild increased work of breathing with minimal activity) Heart: Regular Rate Abdomen: Normal Bowel Sounds, Soft, No Tenderness Extremities: Other (1+ swelling, no calf tenderness) Skin: No Rashes, No Significant Lesion Neuro: Normal Speech, Sensation Intact, Cranial Nerves 3-12 NL Psych/Mental Status: Mental Status NL Results Lab Laboratory Tests 03/02/17 05:17 A/P-Cardiology Admission Diagnosis CHF CAD Pericarditis COPD Assessment/Plan Acute on chronic systolic and diastolic CHF, ischemic cardiomyopathy, using 10 L oxygen,continue Lasix IV and monitor intake and output. Anterior and L lateral chest wall pain, probably acute pericarditis, Vinay syndrome post myocardial infarction pericarditis, currently on Ibuprofen TID Chronic shortness of breath: advanced COPD and chronic systolic and diastolic CHF. Continue to monitor. Anemia, probably multifactorial, continue to monitor H/H. Patient currently on Brilinta, ASA, Ibuprofen.Protonix increased to BID. Continue to monitor. Nose bleeds. Bleeding is self limited. Continue using saline nasal spray PRN and humidified oxygen and continue to monitor. H/o noncompliance with medication CAD with h/o cor PCI. On 01/28/17, had stenting to the right coronary artery with Xience Alpine 3.5 to the proximal right coronary artery and 2.75 to the distal right coronary artery and right PDA. Ac Inf [place] on 02/10/17 due to noncompliance with clopidogrel: repeat cath showed total occlusion of the right coronary artery, had thrombectomy and balloon angioplasty of the right coronary artery, troponin was up to 300 initially after the [place], still coming down slowly. Repeat cardiac catheterization was done on February 22, 2017 which showed mild disease nonobstructive disease. Echo of 02/21/17: LVEF 50%, hypokinesis of inf and inf-lat wall, mild MR & TR & AI Acute on chronic renal insufficiency during last hospitalization of 02/10/17, likely related to ac [place] and LV dysfunction (transient cardiogenic shock due to [place]): patient had acute renal failure reaching creatinine level up to 4.5, currently creatinine is 1.3, stable Hyperlipidemia- continue to monitor as outpatient. H/o elevated alkaline phosphatase Diabetes mellitus, followed and managed by primary care physician Obesity Clinical Quality Measures AMI/AHF: ASA po Prior to arrival: Yes DVT/VTE Risk/Contraindication: Risk Factor Score Per Nursin RFS Level Per Nursing on Admit: 4+=Very High BRENDA BRAY Mar 02, 2017 07:48
[2017-03-02 08:00] VITALS: BP_SYST 161; BP_SYST 170; BP_DIAS 71; BP_DIAS 80
[2017-03-02] MEDS: ISOSORBIDE MONONITRATE 30 MG (IMDUR) TAB PO SCH (08:28)
[2017-03-02] MEDS: TICAGRELOR 90 MG TABLET (BRILINTA) PO SCH ×2 (08:28→21:00)
[2017-03-02] MEDS: DULoxetine 30 MG (CYMBALTA) CAP PO SCH (08:28)
[2017-03-02] MEDS: doxAzosin 2 MG (CARDURA) TAB PO SCH (08:28)
[2017-03-02] MEDS: lisINopril 20 MG (ZESTRIL) TAB PO SCH (08:28)
[2017-03-02] MEDS: sitaGLIPtin 50 MG (JANUVIA) TAB PO SCH (08:28)
[2017-03-02] MEDS: GABAPENTIN 300 MG (NEURONTIN) CAP PO SCH (08:28)
[2017-03-02] MEDS: amLODIPine 10 MG (NORVASC) TAB PO SCH (08:29)
[2017-03-02] MEDS: morphine ER 15 MG (MS CONTIN) TAB PO SCH ×2 (08:29→21:00)
[2017-03-02] MEDS: ASPIRIN 81 MG CHEW (CHILDREN'S ASA) PO SCH (08:29)
[2017-03-02] MEDS: LEVOTHYROXINE 75 MCG (LEVOTHROID) TABLET PO SCH (08:29)
[2017-03-02] MEDS: LACTULOSE SYRUP 10GM/15ML (ENULOSE) 30ML UDC PO SCH ×2 (08:29→21:03)
--- NOTE | 2017-03-02 10:00 | Physical Therapy Daily Note ---
PT Daily Note-Current Subjective Patient is very agreeable to participate with PT. no c/o at this time. Pain Numeric Pain Scale: 0-No Pain Location: No Pain Reported Mental Status Patient Orientation: Normal For Age Attachments: Oxygen (4L HF) Transfers Functional [place] Measure 0=Not Assessed/NA 4=Minimal Assistance 1=Total Assistance 5=Supervision or Setup 2=Maximal Assistance 6=Modified [place] 3=Moderate Assistance 7=Complete IndependenceIRFPAI Quality Coding Scale 6 Independent with activity with or without an assistive device 5 Patient requires set up or clean up by helper. Patient completes activity by themselves 4 Supervision or touching assist (CGA). [place] provide cues , steadying assist 3 The helper provides less than half the effort to complete the activity 2 The helper provides more than half the effort to complete the activity 1 Dependent. The helper does all the effort to complete an activity 7 Patient refused to complete or attempt activity 9 The patient did not perform the activity before the current illness or injury 88 Not attempted due to Medical conditions or safety concerns Transfers (B, C, W/C) (FIM): 7 Scootin Rollin Supine to/from Sit: 7 Sit to/from Stand: 7 Gait Training Gait (FIM): 6 Distance (FIM): 3=150 ft Distance: 250' Gait Level of Assist: 6 Gait Assistive Device: FWW safe and functional with FWW and without. Patient is up independent without FWW in room without difficulty Assessment Patient is currently at OF with all gross motor skills and has educated patient and family on ambulating PRN in room and hallway to increase lung capacity and circulation. Both voice understanding. PT to dismiss patient from services at this time. PT Residential Goals Residential Goals PT Residential Goals Time Frame: Mar 05, 2017 Transfers (B,C,W/C) (FIM): 7 Gait (FIM): 6 Gait distance (FIM): 3=150 ft Gait Level of Assist: 6 Gait Assistive Device: FWW PT Plan Treatment/Plan Treatment Plan: Discontinue PT, goals met, Discontinue PT (PLOF) Treatment Plan: Education, Functional Activity [place], Functional Strength, Gait , Therapeutic Exercise, Transfers Treatment Duration: Mar 05, 2017 Visits Per Week: 5 Time/GCodes Time In: 910 Time Out: 925 Total Billed Treatment Time: 15 Total Billed Treatment 1 visit FA 15 min KRYSTYNA AHGEN PT Mar 02, 2017 10:00
--- NOTE | 2017-03-02 11:05 | Progress Note (SOAP) ---
Subjective Subjective/Events-last exam Patient just completed PT and was sitting on the bed stating that she was having some chest pain that is new. Still having shortness of breath. Denies radiation of pain. Ordered ECG that was unchanged. Patient just had her oxygen turned down prior to her walk. After ECG was completed patient stated that her pain was improving. She had already had ASA this AM. Nurse to notify Cardiology of episode. Date seen by provider: Mar 02, 2017 Objective Exam Last Set of Vital Signs Vital Signs Date Time Temp Pulse Resp B/P (MAP) Pulse Ox O2 Delivery O2 Flow Rate FiO2 03/02/17 08:00 96 6.00 03/02/17 07:00 68 03/02/17 04:00 98.7 16 147/68 High Flow N/C 03/01/17 09:00 100 Capillary Refill : Less Than 3 Seconds I&O Intake and Output 03/01/17 23:59 Intake Total 1820 ml Output Total 1600 ml Balance 220 ml Intake Oral 1820 ml Output Urine Total 1600 ml # Voids 3 General: Alert, Oriented X3, No Acute Distress Neck: Supple, No JVD, No Thyromegaly Lungs: Other (End exp wheezes and diminished breath sounds at the bases.) Heart: Regular Rate, Other (systolic murmur) Abdomen: Normal Bowel Sounds, Soft, No Tenderness, No Hepatosplenomegaly Extremities: Other (2+ pitting edema bilaterally R>L) Neuro: Normal Gait, Normal Speech, Sensation Intact, Cranial Nerves 3-12 NL Psych/Mental Status: Mental Status NL, Other (Anxiety) Results/Procedures Lab Laboratory Tests 03/01/17 11:23: Glucometer 135H 03/01/17 15:58: Glucometer 135H 03/01/17 20:37: Glucometer 165H 03/02/17 05:17: White Blood Count 9.2, Red Blood Count 3.14L, Hemoglobin 9.0L, Hematocrit 29L, Mean Corpuscular Volume 93, Mean Corpuscular Hemoglobin 29, Mean Corpuscular Hemoglobin Concent 31L, Red Cell Distribution Width 13.5, Platelet Count 317, Mean Platelet Volume 10.7H, Sodium Level 142, Potassium Level 4.1, Chloride Level 96L, Carbon Dioxide Level 35H, Anion Gap 11, Blood Urea Nitrogen 24H, Creatinine 1.39H, Estimat Glomerular Filtration Rate 39, BUN/Creatinine Ratio 17 , Glucose Level 173H, Calcium Level 9.3, Total Bilirubin 0.4, Aspartate Amino Transf (AST/SGOT) 20, Alanine Aminotransferase (ALT/SGPT) 18, Alkaline Phosphatase 694H, B-Type Natriuretic Peptide 520.2H, Total Protein 6.2L, Albumin 2.8L Assessment/Plan Assessment/Plan Plan 56 yo F that was admitted with respiratory failure with hypoxia from clinic Plan Acute Systolic and Diastolic CHF on Chronic: slowly improving - Continue gentle diuresis, Strict I/Os, daily weights - Cardiology consulted and managing 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 - Pain improved, continue to monitor - Decreased Ibuprofen because of patient's intolerance and nausea associated - Chest pain this AM with normal ECG, CE pending, Cardio notified, likely 2/2 hypoxia or anxiety Acute on Chronic Respiratory failure with hypoxia, baseline home oxygen 4L - Pulmonary consulted, appreciate recommendations - Continue scheduled and PRN breathing treatments - Encourage out of bed and ambulation Insulin Dependent DM: Uncontrolled - Continue to monitor blood sugars closely and adjust insulin Acute Kidney Insufficiency: Stable - Continue to monitor Cr thru gentle diuresis Hypertension - Blood pressures improved from admission, continue to monitor Hyperlipidemia: Statin Therapy Hypothyroidism Anemia of chronic disease - Stable no signs of bleeding, continue to monitor Hypokalemia: Resolved - Daily BMP, replace if needed Dispo: Continue to titrate oxygen as tolerated to get to patient's baseline, PT recommend SNF placement, patient is not interested and wants to go home, Will consult SW for HH FEN: Heart healthy diet Diagnosis/Problems: Clinical Quality Measures AMI/AHF: ASA po Prior to arrival: Yes DVT/VTE Risk/Contraindication: Risk Factor Score Per Nursin RFS Level Per Nursing on Admit: 4+=Very High MADDY COTE MD Mar 02, 2017 11:05
[2017-03-02 12:00] VITALS: BP 170/80
[2017-03-02 12:39] LABS: TROPONIN I < 0.30 NG/ML (<0.30)
--- NOTE | 2017-03-02 14:07 | Cardiology Progress Note ---
Subjective Subjective/Events-last exam Patient had an episode of chest pain this morning with exertion, improved after resting, still using 6 L of oxygen, good diuresis. Review of Systems General: No Chills, No Night Sweats, No Fatigue, No Malaise, No Appetite, No Other HEENT: No Head Aches, No Visual Changes, No Eye Pain, No Ear Pain, No Dysphasia , No Sinus Congestion, No Post Nasal Drip, No Sore Throat, No Other Pulmonary: Dyspnea, No Cough, No Pleuritic Chest Pain, No Other Cardiovascular: Chest Pain, Edema, No: Lt Headedness, Orthopnea, Other, Palpitations, Paroxysmal Noc. Dyspnea Objective-Cardiology Exam Last Set of Vital Signs Vital Signs 03/01/17 03/02/17 09:00 12:00 Temp 98.9 Pulse 77 Resp 20 B/P (MAP) 170/80 Pulse Ox 95 O2 Delivery High Flow N/C O2 Flow Rate 6.00 FiO2 100 Capillary Refill : Less Than 3 Seconds I&O Intake and Output 03/02/17 00:00 Intake Total 1820 ml Output Total 1600 ml Balance 220 ml Intake Oral 1820 ml Output Urine Total 1600 ml # Voids 3 General: Alert, Oriented X3, No Acute Distress HEENT: Atraumatic, PERRLA Neck: Supple, No JVD, No Thyromegaly Lungs: Other (End exp wheezes and diminished breath sounds at the bases.) Heart: Regular Rate, Normal S1, Normal S2, Other (systolic murmur) Abdomen: Normal Bowel Sounds, Soft, No Tenderness, No Hepatosplenomegaly Extremities: Other (2+ pitting edema bilaterally R>L) Skin: No Rashes, No Significant Lesion Neuro: Normal Gait, Normal Speech, Sensation Intact, Cranial Nerves 3-12 NL Psych/Mental Status: Mental Status NL, Other (Anxiety) Results Lab Laboratory Tests 03/02/17 05:17 A/P-Cardiology Admission Diagnosis CHF CAD Pericarditis COPD Assessment/Plan Chest pain resembling angina, severe hypoxemia using 6 L of oxygen at this time , continue with diuretics, consider acute rehabilitation or swelling bed with physical therapy due to the multiple admissions and general deconditioning Acute on chronic systolic and diastolic CHF, ischemic cardiomyopathy, continue on diuretics and monitor electrolytes Anterior and L lateral chest wall pain, pericarditis is improving, continue to monitor, continue on Motrin, I will evaluate sedimentation rate Chronic shortness of breath: advanced COPD and chronic systolic and diastolic CHF. Continue to monitor. Anemia, probably multifactorial, continue to monitor H/H. Patient currently on Brilinta, ASA, Ibuprofen. Protonix increased to BID. Continue to monitor. Nose bleeds. Bleeding is self limited. Continue using saline nasal spray PRN and humidified oxygen and continue to monitor. H/o noncompliance with medication CAD with h/o cor PCI. On 01/28/17, had stenting to the right coronary artery with Xience Alpine 3.5 to the proximal right coronary artery and 2.75 to the distal right coronary artery and right PDA. Ac Inf [place] on 02/10/17 due to noncompliance with clopidogrel: repeat cath showed total occlusion of the right coronary artery, had thrombectomy and balloon angioplasty of the right coronary artery, troponin was up to 300 initially after the [place], still coming down slowly. Repeat cardiac catheterization was done on February 22, 2017 which showed mild disease nonobstructive disease. Echo of 02/21/17: LVEF 50%, hypokinesis of inf and inf-lat wall, mild MR & TR & AI Acute on chronic renal insufficiency during last hospitalization of 02/10/17, likely related to ac [place] and LV dysfunction (transient cardiogenic shock due to [place]): patient had acute renal failure reaching creatinine level up to 4.5, currently creatinine is 1.3, stable Hyperlipidemia- continue to monitor as outpatient. H/o elevated alkaline phosphatase Diabetes mellitus, followed and managed by primary care physician Obesity Clinical Quality Measures AMI/AHF: ASA po Prior to arrival: Yes DVT/VTE Risk/Contraindication: Risk Factor Score Per Nursin RFS Level Per Nursing on Admit: 4+=Very High JACK PARISH MD Mar 02, 2017 14:07
[2017-03-02] MEDS: RT-ALBUTEROL/IPRATROPIUM 3 ML (DUONEB) VIAL INH PRN (15:12)
[2017-03-02 16:37] VITALS: BP 137/79
[2017-03-02 17:02] LABS: TROPONIN I < 0.30 NG/ML (<0.30)
[2017-03-02 19:30] VITALS: BP 127/60
[2017-03-02] MEDS: inSUlin DETERMIR 1 UNIT/0.01 ML (LEVEMIR) CHARGE PER UNIT SQ SCH (21:01)
[2017-03-03 00:47] VITALS: BP 137/77
[2017-03-03] MEDS: RT-ALBUTEROL/IPRATROPIUM 3 ML (DUONEB) VIAL INH SCH ×6 (02:25→21:08)
[2017-03-03 04:59] VITALS: BP 118/73
[2017-03-03] MEDS: PANTOPRAZOLE 40 MG (PROTONIX) TAB PO SCH ×2 (06:08→16:46)
[2017-03-03] MEDS: FUROSEMIDE 40 MG/4 ML INJ (LASIX) IVP SCH ×2 (06:08→16:46)
[2017-03-03] MEDS: inSUlin ASPART (NovoLOG) 1 UNIT/0.01 ML (CHARGE PER UNIT) SC SCH ×4 (06:08→20:43)
[2017-03-03] MEDS: KCL 10 MEQ TAB (MICRO K) PO SCH ×2 (06:08→16:46)
[2017-03-03] MEDS: SUCRALFATE 1 GM (CARAFATE) TAB PO SCH ×4 (06:09→20:43)
[2017-03-03] MEDS: CATHETER FLUSH 10 ML SYR IV SCH ×3 (06:10→22:00)
[2017-03-03 06:11] LABS: BASOPHILS # (AUTO) 0.1 10^3/uL (0.0-0.1); BASOPHILS % (AUTO) 1 % (0-10); EOSINOPHILS # (AUTO) 0.5 10^3/uL (0.0-0.3); EOSINOPHILS % (AUTO) 5 % (0-10); LYMPHOCYTES # (AUTO) 2.2 X 10^3 (1.0-4.0); LYMPHOCYTES % (AUTO) 22 % (12-44); MEAN CORPUSCULAR HEMOGLOBIN 29 PG (25-34); MEAN CORPUSCULAR HGB CONC 31 G/DL (32-36); MEAN CORPUSCULAR VOLUME 93 FL (80-99); MEAN PLATELET VOLUME 10.8 FL (7.4-10.4); MONOCYTES # (AUTO) 0.9 X 10^3 (0.0-1.0); MONOCYTES % (AUTO) 9 % (0-12); NEUTROPHILS # (AUTO) 6.4 X 10^3 (1.8-7.8); NEUTROPHILS % (AUTO) 64 % (42-75); PLATELET COUNT 309 10^3/uL (130-400); RED BLOOD COUNT 3.15 10^6/uL (4.35-5.85); RED CELL DISTRIBUTION WIDTH 13.3 % (10.0-14.5)
[2017-03-03 06:29] LABS: ALBUMIN 2.8 G/DL (3.2-4.5); BILIRUBIN,TOTAL 0.5 MG/DL (0.1-1.0); CALCIUM 9.2 MG/DL (8.5-10.1); POTASSIUM 4.1 MMOL/L (3.6-5.0); TOTAL PROTEIN 6.5 G/DL (6.4-8.2)
[2017-03-03 06:34] LABS: ERYTHROCYTE SEDIMENTATION RATE > 140 MM/HR (0-30)
[2017-03-03 06:44] LABS: CREATININE SERUM 1.6 MG/DL (0.60-1.30)
--- NOTE | 2017-03-03 07:32 | Pulmonary Progress Note ---
Subjective Subjective/Events-last exam pt feels improved. NO complications noted. Exam Exam Vital Signs Date Time Temp Pulse Resp B/P (MAP) Pulse Ox O2 Delivery O2 Flow Rate FiO2 03/03/17 06:35 90 5.00 03/03/17 04:59 97.8 69 18 118/73 91 High Flow N/C 6.00 03/03/17 02:25 91 5.00 03/03/17 01:07 60 03/03/17 00:47 97.8 70 18 137/77 94 High Flow N/C 6.00 03/02/17 22:14 93 5.00 03/02/17 20:00 6.00 03/02/17 19:30 98.2 69 16 127/60 95 High Flow N/C 6.00 03/02/17 19:00 66 03/02/17 18:51 88 5.00 03/02/17 16:37 98.4 74 20 137/79 92 High Flow N/C 6.00 03/02/17 15:12 97 6.00 03/02/17 13:00 72 03/02/17 12:00 98.9 77 20 170/80 95 High Flow N/C 6.00 03/02/17 10:52 94 6.00 03/02/17 08:00 99.2 82 18 161/71 92 High Flow N/C 4.00 03/02/17 08:00 96 6.00 03/02/17 07:48 96 10.00 I & O 03/03/17 07:00 Intake Total 1140 ml Output Total 2950 ml Balance -1810 ml General Appearance: No Apparent Distress, WD/WN, Chronically ill HEENT: PERRL/EOMI, Normal ENT Inspection, Pharynx Normal Neck: Full Range of Motion, Normal Inspection, Non Tender, Supple, Carotid Bruit Respiratory: Chest Non Tender, No Accessory Muscle Use, No Respiratory Distress , Decreased Breath Sounds, Wheezing Cardiovascular: Regular Rate, Rhythm, No Edema, No Gallop, No JVD, No Murmur, Normal Peripheral Pulses Capillary Refill: Less Than 3 Seconds Extremity: Normal Capillary Refill, Normal Inspection, Normal Range of Motion, Non Tender, No Calf Tenderness, No Pedal Edema Neurologic/Psychiatric: Alert, Oriented x3, No Motor/Sensory Deficits, Normal Mood/Affect Skin: Normal Color, Warm/Dry Lymphatic: No Adenopathy Results Lab Laboratory Tests 03/02/17 05:17 03/03/17 05:44 Assessment/Plan Assessment/Plan CHF -Continue lasix acute on chronic Hypoxemia secondary to pulmonary edema from CHF home oxygen is 4l/min -CXR reviewed Acute pericarditis - Vinay syndrome COPD -SVNs, oxygen Clinical Quality Measures AMI/AHF: ASA po Prior to arrival: Yes DVT/VTE Risk/Contraindication: Risk Factor Score Per Nursin RFS Level Per Nursing on Admit: 4+=Very High ANNIE BECKHAM DO Mar 03, 2017 07:32
[2017-03-03 08:00] VITALS: BP 132/81
[2017-03-03] MEDS: TICAGRELOR 90 MG TABLET (BRILINTA) PO SCH ×2 (08:28→20:43)
[2017-03-03] MEDS: ISOSORBIDE MONONITRATE 30 MG (IMDUR) TAB PO SCH (08:29)
[2017-03-03] MEDS: lisINopril 20 MG (ZESTRIL) TAB PO SCH (08:29)
[2017-03-03] MEDS: ASPIRIN 81 MG CHEW (CHILDREN'S ASA) PO SCH (08:29)
[2017-03-03] MEDS: DULoxetine 30 MG (CYMBALTA) CAP PO SCH (08:29)
[2017-03-03] MEDS: sitaGLIPtin 50 MG (JANUVIA) TAB PO SCH (08:29)
[2017-03-03] MEDS: GABAPENTIN 300 MG (NEURONTIN) CAP PO SCH (08:29)
[2017-03-03] MEDS: amLODIPine 10 MG (NORVASC) TAB PO SCH (08:29)
[2017-03-03] MEDS: doxAzosin 2 MG (CARDURA) TAB PO SCH (08:29)
[2017-03-03] MEDS: LEVOTHYROXINE 75 MCG (LEVOTHROID) TABLET PO SCH (08:29)
[2017-03-03] MEDS: morphine ER 15 MG (MS CONTIN) TAB PO SCH ×2 (08:30→20:43)
[2017-03-03] MEDS: LACTULOSE SYRUP 10GM/15ML (ENULOSE) 30ML UDC PO SCH ×2 (08:30→20:43)
--- NOTE | 2017-03-03 08:58 | Cardiology Progress Note ---
Subjective Subjective/Events-last exam Patient is in bed, feeling better, still using 6L oxygen, mild chest discomfort , no palpitation Review of Systems General: No Chills, No Night Sweats, No Fatigue, No Malaise, No Appetite, No Other HEENT: No Head Aches, No Visual Changes, No Eye Pain, No Ear Pain, No Dysphasia , No Sinus Congestion, No Post Nasal Drip, No Sore Throat, No Other Pulmonary: Dyspnea, No Cough, No Pleuritic Chest Pain, No Other Cardiovascular: Edema, No: Chest Pain, Lt Headedness, Orthopnea, Other, Palpitations, Paroxysmal Noc. Dyspnea Objective-Cardiology Exam Last Set of Vital Signs Vital Signs 03/01/17 03/03/17 09:00 08:00 Temp 97.0 Pulse 69 Resp 18 B/P (MAP) 132/81 Pulse Ox 91 O2 Delivery High Flow N/C O2 Flow Rate 6.00 FiO2 100 Capillary Refill : Less Than 3 Seconds I&O Intake and Output 03/03/17 00:00 Intake Total 1320 ml Output Total 3100 ml Balance -1780 ml Intake Oral 1320 ml Output Urine Total 3100 ml # Bowel Movements 1 General: Alert, Oriented X3, No Acute Distress HEENT: Atraumatic, PERRLA Neck: Supple, No JVD, No Thyromegaly Lungs: Clear to Auscultation, Normal Air Movement, Other Heart: Regular Rate, Normal S1, Normal S2, Other (systolic murmur) Abdomen: Normal Bowel Sounds, Soft, No Tenderness, No Hepatosplenomegaly Extremities: No Clubbing, No Cyanosis, Other (mild pedal edema) Skin: No Rashes, No Significant Lesion Neuro: Normal Gait, Normal Speech, Sensation Intact, Cranial Nerves 3-12 NL Psych/Mental Status: Mental Status NL, Other (Anxiety) Results Lab Laboratory Tests 03/03/17 05:44 A/P-Cardiology Admission Diagnosis CHF CAD Pericarditis COPD Assessment/Plan Chest pain resembling angina, severe hypoxemia using 6 L of oxygen at this time , continue with diuretics, consider acute rehabilitation or swing bed with physical therapy due to the multiple admissions and general deconditioning Acute on chronic systolic and diastolic CHF, ischemic cardiomyopathy, continue on diuretics and monitor electrolytes Anterior and Lateral chest wall pain, pericarditis is improving, ESR >140, she will need NSAID for the next 2-4 weeks, continue to monitor sed rate Chronic shortness of breath: advanced COPD and chronic systolic and diastolic CHF. Continue to monitor. Pleural effusion, will repeat cxr. Anemia, probably multifactorial, continue to monitor H/H. Patient currently on Brilinta, ASA, Ibuprofen. Protonix increased to BID. Continue to monitor. Nose bleeds. Bleeding is self limited. Continue using saline nasal spray PRN and humidified oxygen and continue to monitor. H/o noncompliance with medication CAD with h/o cor PCI. On 01/28/17, had stenting to the right coronary artery with Xience Alpine 3.5 to the proximal right coronary artery and 2.75 to the distal right coronary artery and right PDA. Ac Inf CT on 02/10/17 due to noncompliance with clopidogrel: repeat cath showed total occlusion of the right coronary artery, had thrombectomy and balloon angioplasty of the right coronary artery, troponin was up to [address], still coming down slowly. Repeat cardiac catheterization was done on February 22, 2017 which showed mild disease nonobstructive disease. Echo of 02/21/17: LVEF 50%, hypokinesis of inf and inf-lat wall, mild MR & TR & AI Acute on chronic renal insufficiency during last hospitalization of 02/10/17, likely related to ac CT and LV dysfunction (transient cardiogenic shock due to [place]): patient had acute renal failure reaching creatinine level up to 4.5, currently creatinine is 1.3, stable Hyperlipidemia- continue to monitor as outpatient. H/o elevated alkaline phosphatase Diabetes mellitus, followed and managed by primary care physician Obesity Clinical Quality Measures AMI/AHF: ASA po Prior to arrival: Yes DVT/VTE Risk/Contraindication: Risk Factor Score Per Nursin RFS Level Per Nursing on Admit: 4+=Very High JACK PARISH MD Mar 03, 2017 08:58
--- NOTE | 2017-03-03 10:15 | Diagnostic Imaging Report ---
EXAMINATION: PA and lateral views of the chest. INDICATION: Shortness of breath. FINDINGS: The heart is mildly enlarged. There is pulmonary vascular congestion and bibasilar infiltrates. There are bilateral effusions, moderate on the left and small on the right side. The overall appearance has not significantly changed from 03/01/2017. IMPRESSION: Stable cardiomegaly with vascular congestion and bilateral effusions, suggestive of heart failure. The basilar infiltrates could relate to an alveolar component of edema or superimposed pneumonia. Correlate clinically. Dictated by: Dictated on workstation # [id number]
--- NOTE | 2017-03-03 11:21 | Progress Note (SOAP) ---
Subjective Subjective/Events-last exam Patient denies any pain in chest this AM. States that her shortness of breath is improving. Tolerating PO diet but is still having some nausea. She has been up ambulating in the halls. Good UOP. Stool last night Date seen by provider: Mar 03, 2017 Objective Exam Last Set of Vital Signs Vital Signs Date Time Temp Pulse Resp B/P (MAP) Pulse Ox O2 Delivery O2 Flow Rate FiO2 03/03/17 08:00 97.0 69 18 132/81 91 High Flow N/C 6.00 03/01/17 09:00 100 Capillary Refill : Less Than 3 Seconds I&O Intake and Output 03/03/17 00:00 Intake Total 1320 ml Output Total 3100 ml Balance -1780 ml Intake Oral 1320 ml Output Urine Total 3100 ml # Bowel Movements 1 General: Alert, Oriented X3, Cooperative, No Acute Distress HEENT: Mucous Memb Moist/[place] Lungs: Clear to Auscultation Heart: Regular Rate, Other (systolic murmur) Abdomen: Normal Bowel Sounds, Soft, No Hepatosplenomegaly, No Masses Extremities: Other (2+ pitting edema bilaterally R>L) Skin: No Rashes Neuro: Normal Gait, Sensation Intact, Cranial Nerves 3-12 NL Results/Procedures Lab Laboratory Tests 03/02/17 12:10: Creatine Kinase MB 1.8, Troponin I < 0.30 03/02/17 16:03: Glucometer 154H 03/02/17 16:11: Creatine Kinase MB 1.8, Troponin I < 0.30 03/02/17 20:10: Glucometer 171H 03/03/17 01:47: Glucometer 159H 03/03/17 05:42: Glucometer 159H 03/03/17 05:44: White Blood Count 10.0, Red Blood Count 3.15L, Hemoglobin 9.1L, Hematocrit 29L, Mean Corpuscular Volume 93, Mean Corpuscular Hemoglobin 29, Mean Corpuscular Hemoglobin Concent 31L, Red Cell Distribution Width 13.3, Platelet Count 309, Mean Platelet Volume 10.8H, Neutrophils (%) (Auto) 64, Lymphocytes (%) (Auto) 22 , Monocytes (%) (Auto) 9, Eosinophils (%) (Auto) 5, Basophils (%) (Auto) 1, Neutrophils # (Auto) 6.4, Lymphocytes # (Auto) 2.2, Monocytes # (Auto) 0.9, Eosinophils # (Auto) 0.5H, Basophils # (Auto) 0.1, Erythrocyte Sedimentation Rate > 140H, Sodium Level 141, Potassium Level 4.1, Chloride Level 94L, Carbon Dioxide Level 35H, Anion Gap 12, Blood Urea Nitrogen 25H, Creatinine 1.60H, Estimat Glomerular Filtration Rate 33, BUN/Creatinine Ratio 16, Glucose Level 162H, Calcium Level 9.2, Total Bilirubin 0.5, Aspartate Amino Transf (AST/SGOT) 21, Alanine Aminotransferase (ALT/SGPT) 17, Alkaline Phosphatase 603H, B-Type Natriuretic Peptide 400.1H, Total Protein 6.5, Albumin 2.8L Assessment/Plan Assessment/Plan Plan 56 yo F that was admitted with respiratory failure with hypoxia from clinic Plan Acute Systolic and Diastolic CHF on Chronic: slowly improving - Continue gentle diuresis, Strict I/Os, daily weights (-1.7 L last 24 hrs) - Cardiology consulted and managing 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 - Pain improved, continue to monitor - Discussed Ibuprofen with cardiology this AM, restarted 600 QID Acute on Chronic Respiratory failure with hypoxia, baseline home oxygen 4L - Pulmonary consulted, appreciate recommendations - Continue scheduled and PRN breathing treatments - Encourage out of bed and ambulation Insulin Dependent DM: Uncontrolled - Continue to monitor blood sugars closely and adjust insulin Acute Kidney Insufficiency - Cr trending up today 1.6 (baseline 1.1) Hypertension - Blood pressures improved from admission, continue to monitor Hyperlipidemia: Statin Therapy Hypothyroidism Anemia of chronic disease - Stable no signs of bleeding, continue to monitor Hypokalemia: Resolved - Daily BMP, replace if needed Dispo: Patient has been denied by IRF and swing bed. She is not interested in SNF because she is concerned about her check and how she is going to then pay for her bills. She states that she is not going if they take her check. She is ok with care. Plan to discharge home once patient is stable on home oxygen level 4L/min FEN: Heart healthy diet Diagnosis/Problems: Clinical Quality Measures AMI/AHF: ASA po Prior to arrival: Yes DVT/VTE Risk/Contraindication: Risk Factor Score Per Nursin RFS Level Per Nursing on Admit: 4+=Very High MADDY COTE MD Mar 03, 2017 11:21
[2017-03-03 12:00] VITALS: BP 141/83
[2017-03-03] MEDS: IBUPROFEN 600 MG (MOTRIN) TAB PO SCH ×3 (12:24→23:26)
[2017-03-03 16:47] VITALS: BP 116/72
[2017-03-03 20:24] VITALS: BP 111/70
[2017-03-03] MEDS: inSUlin DETERMIR 1 UNIT/0.01 ML (LEVEMIR) CHARGE PER UNIT SQ SCH (20:43)
[2017-03-04] VITALS: BP 114/74
[2017-03-04] MEDS: RT-ALBUTEROL/IPRATROPIUM 3 ML (DUONEB) VIAL INH SCH ×6 (02:42→21:03)
[2017-03-04 04:28] VITALS: BP 126/75
[2017-03-04] MEDS: IBUPROFEN 600 MG (MOTRIN) TAB PO SCH ×4 (06:03→23:54)
[2017-03-04] MEDS: SUCRALFATE 1 GM (CARAFATE) TAB PO SCH ×4 (06:03→21:19)
[2017-03-04] MEDS: FUROSEMIDE 40 MG/4 ML INJ (LASIX) IVP SCH (06:03)
[2017-03-04] MEDS: PANTOPRAZOLE 40 MG (PROTONIX) TAB PO SCH ×2 (06:03→16:23)
[2017-03-04] MEDS: KCL 10 MEQ TAB (MICRO K) PO SCH ×2 (06:03→16:24)
[2017-03-04] MEDS: CATHETER FLUSH 10 ML SYR IV SCH ×3 (06:03→21:20)
[2017-03-04] MEDS: inSUlin ASPART (NovoLOG) 1 UNIT/0.01 ML (CHARGE PER UNIT) SC SCH ×4 (06:04→21:19)
[2017-03-04 06:22] LABS: BASOPHILS % (AUTO) 1 % (0-10); EOSINOPHILS # (AUTO) 0.4 10^3/uL (0.0-0.3); EOSINOPHILS % (AUTO) 5 % (0-10); LYMPHOCYTES # (AUTO) 2.2 X 10^3 (1.0-4.0); LYMPHOCYTES % (AUTO) 26 % (12-44); MEAN CORPUSCULAR HEMOGLOBIN 29 PG (25-34); MEAN CORPUSCULAR HGB CONC 30 G/DL (32-36); MEAN CORPUSCULAR VOLUME 94 FL (80-99); MEAN PLATELET VOLUME 10.8 FL (7.4-10.4); MONOCYTES # (AUTO) 0.8 X 10^3 (0.0-1.0); MONOCYTES % (AUTO) 10 % (0-12); NEUTROPHILS # (AUTO) 5.1 X 10^3 (1.8-7.8); NEUTROPHILS % (AUTO) 59 % (42-75); PLATELET COUNT 282 10^3/uL (130-400); RED BLOOD COUNT 2.91 10^6/uL (4.35-5.85); RED CELL DISTRIBUTION WIDTH 13.4 % (10.0-14.5); WHITE BLOOD COUNT 8.6 10^3/uL (4.3-11.0)
[2017-03-04 06:37] LABS: CALCIUM 9.2 MG/DL (8.5-10.1); CREATININE SERUM 1.88 MG/DL (0.60-1.30); POTASSIUM 4.1 MMOL/L (3.6-5.0)
--- NOTE | 2017-03-04 07:18 | Cardiology Progress Note ---
Subjective Subjective/Events-last exam patient is laying down in bed, feeling better, exercised yesterday and felt better, she has been noncompliant with diet even while she is in the hospital, getting food by her family from outside. Review of Systems General: No Chills, No Night Sweats, No Fatigue, No Malaise, No Appetite, No Other HEENT: No Head Aches, No Visual Changes, No Eye Pain, No Ear Pain, No Dysphasia , No Sinus Congestion, No Post Nasal Drip, No Sore Throat, No Other Pulmonary: Dyspnea, No Cough, No Pleuritic Chest Pain, No Other Cardiovascular: No: Chest Pain, Edema, Lt Headedness, Orthopnea, Other, Palpitations, Paroxysmal Noc. Dyspnea Objective-Cardiology Exam Last Set of Vital Signs Vital Signs 03/01/17 03/04/17 03/04/17 09:00 04:28 06:20 Temp 98.5 Pulse 61 Resp 16 B/P (MAP) 126/75 Pulse Ox 92 O2 Delivery High Flow N/C O2 Flow Rate 5.00 FiO2 100 Capillary Refill : Less Than 3 SecondsLess Than 3 Seconds I&O Intake and Output 03/04/17 00:00 Intake Total 1540 ml Output Total 2250 ml Balance -710 ml Intake Oral 1540 ml Output Urine Total 2250 ml General: Alert, Oriented X3, Cooperative, No Acute Distress HEENT: Atraumatic, Mucous Memb Moist/[place] Neck: Supple, No JVD, No Thyromegaly Lungs: Clear to Auscultation Heart: Regular Rate, Normal S1, Normal S2, Other (systolic murmur) Abdomen: Normal Bowel Sounds, Soft, No Hepatosplenomegaly, No Masses Extremities: No Clubbing, No Cyanosis, Other (2+ pitting edema bilaterally R>L) Skin: No Rashes Neuro: Normal Gait, Normal Speech, Sensation Intact, Cranial Nerves 3-12 NL Psych/Mental Status: Mental Status NL, Other (Anxiety) Results Lab Laboratory Tests 03/04/17 05:50 A/P-Cardiology Admission Diagnosis CHF CAD Pericarditis COPD Assessment/Plan Chest pain resembling angina, severe hypoxemia using 6 L of oxygen at this time , noncompliant with medication, I decrease the oxygen to 3 L today, encourage exercise and continue with aggressive physical therapy in preparation for discharge. Acute on chronic systolic and diastolic CHF, ischemic cardiomyopathy, continue on diuretics and monitor electrolytes Anterior and Lateral chest wall pain, pericarditis is improving, ESR >140, she will need NSAID for the next 2-4 weeks, continue to monitor sed rate Acute on chronic renal insufficiency, status post nonoliguric renal failure occurred early in February 2017. Currently creatinine is higher with aggressive diuresis, I will hold Lasix IV and start oral. Educated about compliance. Chronic shortness of breath: advanced COPD and chronic systolic and diastolic CHF. Continue to monitor. Pleural effusion, persistent, participating in her shortness of breath, I will evaluate CT of the chest without contrast Anemia, probably multifactorial, continue to monitor H/H. Patient currently on Brilinta, ASA, Ibuprofen. Protonix increased to BID. Continue to monitor. Nose bleeds. Bleeding is self limited. Continue using saline nasal spray PRN and humidified oxygen and continue to monitor. H/o noncompliance with medication CAD with h/o cor PCI. On 01/28/17, had stenting to the right coronary artery with Xience Alpine 3.5 to the proximal right coronary artery and 2.75 to the distal right coronary artery and right PDA. Ac Inf [place] on 02/10/17 due to noncompliance with clopidogrel: repeat cath showed total occlusion of the right coronary artery, had thrombectomy and balloon angioplasty of the right coronary artery, troponin was up to 300 initially after the [place], still coming down slowly. Repeat cardiac catheterization was done on February 22, 2017 which showed mild disease nonobstructive disease. Echo of 02/21/17: LVEF 50%, hypokinesis of inf and inf-lat wall, mild MR & TR & AI Hyperlipidemia- continue to monitor as outpatient. H/o elevated alkaline phosphatase Diabetes mellitus, followed and managed by primary care physician Obesity Noncompliance with medication, patient was educated about compliance with medicine and diet Clinical Quality Measures AMI/AHF: ASA po Prior to arrival: Yes DVT/VTE Risk/Contraindication: Risk Factor Score Per Nursin RFS Level Per Nursing on Admit: 4+=Very High JACK PARISH MD Mar 04, 2017 07:18
[2017-03-04 08:00] VITALS: BP 124/60
--- NOTE | 2017-03-04 08:40 | Diagnostic Imaging Report ---
PROCEDURE: CT chest without contrast. TECHNIQUE: Multiple contiguous axial images were obtained through the chest without the use of intravenous contrast. INDICATION: Shortness of breath. CHF exacerbation. FINDINGS: There is a left lower lobe consolidation with air bronchograms could be related to pneumonia or atelectasis. Patchy mild atelectasis in addition is seen in both lung bases. There are small bilateral pleural effusions. There is mild septal thickening more in the left lung. This could be from mild element of vascular congestion. There is a small pericardial effusion. The heart size is mildly enlarged. The thoracic aorta is normal in caliber. There is no mediastinal mass. No axillary lymphadenopathy. The hilar vessels are not opacified with no obvious hilar mass. The osseous structures appear grossly unremarkable. Sections of the upper abdomen demonstrates cholecystectomy clips. IMPRESSION: 1. Left lower lobe prominent consolidation with air bronchograms concerning for pneumonia versus atelectasis. Correlate clinically. 2. Suggestion of a resolving pulmonary vascular congestion. 3. Small pleural and pericardial effusions. Cardiomegaly. Dictated by: Dictated on workstation # [id number]
[2017-03-04] MEDS: morphine ER 15 MG (MS CONTIN) TAB PO SCH ×2 (09:14→21:19)
[2017-03-04] MEDS: amLODIPine 10 MG (NORVASC) TAB PO SCH (09:15)
[2017-03-04] MEDS: ASPIRIN 81 MG CHEW (CHILDREN'S ASA) PO SCH (09:15)
[2017-03-04] MEDS: ISOSORBIDE MONONITRATE 30 MG (IMDUR) TAB PO SCH (09:15)
[2017-03-04] MEDS: DULoxetine 30 MG (CYMBALTA) CAP PO SCH (09:15)
[2017-03-04] MEDS: lisINopril 20 MG (ZESTRIL) TAB PO SCH (09:15)
[2017-03-04] MEDS: GABAPENTIN 300 MG (NEURONTIN) CAP PO SCH (09:15)
[2017-03-04] MEDS: LEVOTHYROXINE 75 MCG (LEVOTHROID) TABLET PO SCH (09:15)
[2017-03-04] MEDS: sitaGLIPtin 50 MG (JANUVIA) TAB PO SCH (09:15)
[2017-03-04] MEDS: TICAGRELOR 90 MG TABLET (BRILINTA) PO SCH ×2 (09:15→21:19)
[2017-03-04] MEDS: doxAzosin 2 MG (CARDURA) TAB PO SCH (09:15)
[2017-03-04] MEDS: LACTULOSE SYRUP 10GM/15ML (ENULOSE) 30ML UDC PO SCH ×2 (09:15→21:19)
[2017-03-04 12:00] VITALS: BP 114/71
[2017-03-04 15:55] VITALS: BP 124/68
[2017-03-04] MEDS: FUROSEMIDE 40 MG (LASIX) TAB PO SCH (16:23)
--- NOTE | 2017-03-04 16:37 | Progress Note (SOAP) ---
Subjective Subjective/Events-last exam Patient states that she is feeling much better this AM. She has been motivated to get out of bed and has walked in the halls with many times and done well per nurse. Patient states that she is still having some dizzy spells when she gets up to walk that go away when she sits down. Tolerating PO diet. Denies any return of chest pain. Patient states that she is ready to get home. Date seen by provider: Mar 04, 2017 Objective Exam Last Set of Vital Signs Vital Signs Date Time Temp Pulse Resp B/P (MAP) Pulse Ox O2 Delivery O2 Flow Rate FiO2 03/04/17 15:16 97 03/04/17 14:40 3.00 03/04/17 13:48 60 03/04/17 12:00 97.4 18 114/71 High Flow N/C 03/01/17 09:00 100 Capillary Refill : Less Than 3 SecondsLess Than 3 Seconds I&O Intake and Output 03/04/17 00:00 Intake Total 1540 ml Output Total 2250 ml Balance -710 ml Intake Oral 1540 ml Output Urine Total 2250 ml General: Alert, Oriented X3, No Acute Distress Neck: Supple, No JVD Lungs: Clear to Auscultation Heart: Regular Rate, Other (systolic murmur) Abdomen: Normal Bowel Sounds, Soft Extremities: Other (1+ pitting edema: improving) Skin: No Rashes, No Breakdown Psych/Mental Status: Mental Status NL, Mood NL Results/Procedures Lab Laboratory Tests 03/03/17 20:17: Glucometer 217H 03/04/17 05:22: Glucometer 142H 03/04/17 05:50: White Blood Count 8.6, Red Blood Count 2.91L, Hemoglobin 8.3L, Hematocrit 27L, Mean Corpuscular Volume 94, Mean Corpuscular Hemoglobin 29, Mean Corpuscular Hemoglobin Concent 30L, Red Cell Distribution Width 13.4, Platelet Count 282, Mean Platelet Volume 10.8H, Neutrophils (%) (Auto) 59, Lymphocytes (%) (Auto) 26 , Monocytes (%) (Auto) 10, Eosinophils (%) (Auto) 5, Basophils (%) (Auto) 1, Neutrophils # (Auto) 5.1, Lymphocytes # (Auto) 2.2, Monocytes # (Auto) 0.8, Eosinophils # (Auto) 0.4H, Basophils # (Auto) 0.0, Sodium Level 142, Potassium Level 4.1, Chloride Level 94L, Carbon Dioxide Level 38H, Anion Gap 10, Blood Urea Nitrogen 31H, Creatinine 1.88H, Estimat Glomerular Filtration Rate 28, BUN/ Creatinine Ratio 16, Glucose Level 134H, Calcium Level 9.2 03/04/17 10:38: Glucometer 143H 03/04/17 16:01: Glucometer 209H Assessment/Plan Assessment/Plan Plan 56 yo F that was admitted with respiratory failure with hypoxia from clinic Plan Acute Systolic and Diastolic CHF on Chronic: slowly improving - Continue gentle diuresis, Strict I/Os, daily weights (-1.7 L last 24 hrs) - Cardiology consulted and managing 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 - Pain improved, continue to monitor - Continue NSAID treatment Acute on Chronic Respiratory failure with hypoxia, baseline home oxygen 4L - Pulmonary consulted, appreciate recommendations - Continue scheduled and PRN breathing treatments - Encourage out of bed and ambulation Insulin Dependent DM: Uncontrolled - Continue to monitor blood sugars closely and adjust insulin Acute Kidney Insufficiency - Cr trending up today 1.8(baseline 1.1) - IV lasix d/lola today, continue PO Hypertension - Blood pressures improved from admission, continue to monitor Hyperlipidemia: Statin Therapy Hypothyroidism Anemia of chronic disease - Stable no signs of bleeding, continue to monitor - Iron studies pending Hypokalemia: Resolved - Daily BMP, replace if needed Dispo: d/c when ok'ed by Dr Fenton, possible d/c tomorrow with close followup FEN: Heart healthy diet Diagnosis/Problems: Clinical Quality Measures AMI/AHF: ASA po Prior to arrival: Yes DVT/VTE Risk/Contraindication: Risk Factor Score Per Nursin RFS Level Per Nursing on Admit: 4+=Very High MADDY COTE MD Mar 04, 2017 16:37
[2017-03-04 20:45] VITALS: BP 99/64
[2017-03-04] MEDS: inSUlin DETERMIR 1 UNIT/0.01 ML (LEVEMIR) CHARGE PER UNIT SQ SCH (21:19)
[2017-03-05 00:33] VITALS: BP 118/73
[2017-03-05] MEDS: RT-ALBUTEROL/IPRATROPIUM 3 ML (DUONEB) VIAL INH SCH ×6 (01:43→22:03)
[2017-03-05 04:36] VITALS: BP 109/71
[2017-03-05] MEDS: SUCRALFATE 1 GM (CARAFATE) TAB PO SCH ×4 (06:20→20:17)
[2017-03-05] MEDS: PANTOPRAZOLE 40 MG (PROTONIX) TAB PO SCH ×2 (06:20→16:21)
[2017-03-05] MEDS: CATHETER FLUSH 10 ML SYR IV SCH ×3 (06:21→21:07)
[2017-03-05] MEDS: IBUPROFEN 600 MG (MOTRIN) TAB PO SCH ×4 (06:21→23:37)
[2017-03-05] MEDS: FUROSEMIDE 40 MG (LASIX) TAB PO SCH ×2 (06:21→16:26)
[2017-03-05] MEDS: inSUlin ASPART (NovoLOG) 1 UNIT/0.01 ML (CHARGE PER UNIT) SC SCH ×4 (06:21→20:52)
[2017-03-05] MEDS: KCL 10 MEQ TAB (MICRO K) PO SCH ×2 (06:21→16:26)
--- NOTE | 2017-03-05 06:33 | Cardiology Progress Note ---
Subjective Subjective/Events-last exam patient is feeling better, reporting improvement in her symptoms, able to ambulate better, back on 3 L oxygen, encouraged to continue exercising. Review of Systems General: No Chills, No Night Sweats, No Fatigue, No Malaise, No Appetite, No Other HEENT: No Head Aches, No Visual Changes, No Eye Pain, No Ear Pain, No Dysphasia , No Sinus Congestion, No Post Nasal Drip, No Sore Throat, No Other Pulmonary: Dyspnea, No Cough, No Pleuritic Chest Pain, No Other Cardiovascular: No: Chest Pain, Edema, Lt Headedness, Orthopnea, Other, Palpitations, Paroxysmal Noc. Dyspnea Objective-Cardiology Exam Last Set of Vital Signs Vital Signs 03/01/17 03/05/17 09:00 04:36 Temp 99.3 Pulse 64 Resp 12 B/P (MAP) 109/71 Pulse Ox 96 O2 Delivery High Flow N/C O2 Flow Rate 3.00 FiO2 100 Capillary Refill : Less Than 3 SecondsLess Than 3 Seconds I&O Intake and Output 03/05/17 00:00 Intake Total 1400 ml Output Total 1700 ml Balance -300 ml Intake Oral 1400 ml Output Urine Total 1700 ml General: Alert, Oriented X3, No Acute Distress HEENT: Atraumatic, Mucous Memb Moist/[place] Neck: Supple, No JVD Lungs: Clear to Auscultation Heart: Regular Rate, Other (systolic murmur) Abdomen: Normal Bowel Sounds, Soft Extremities: Other (1+ pitting edema: improving) Skin: No Rashes, No Breakdown Neuro: Normal Gait, Normal Speech, Sensation Intact, Cranial Nerves 3-12 NL Psych/Mental Status: Mental Status NL, Mood NL Results Lab Laboratory Tests Test 03/04/17 10:38 03/04/17 16:01 03/04/17 20:45 03/05/17 05:41 Range/Units Glucometer 143 H 209 H 136 H 182 H 70-110 MG/DL A/P-Cardiology Admission Diagnosis CHF CAD Pericarditis COPD Assessment/Plan Chest pain resembling angina, reporting improvement today, encouraged to continue exercising and monitoring her symptoms. Pleural effusion, questionable pulmonary infiltrate on CT scan, does not have leukocytosis, no signs of pneumonia. Not receiving antibiotics, managed by primary care physician Acute on chronic systolic and diastolic CHF, ischemic cardiomyopathy, continue on diuretics and monitor electrolytes Anterior and Lateral chest wall pain, pericarditis is improving, ESR >140, she will need NSAID for the next 2-4 weeks, I will evaluate sedimentation rate in the morning Acute on chronic renal insufficiency, status post nonoliguric renal failure occurred early in February 2017. reevaluate metabolic profile in the morning Chronic shortness of breath: advanced COPD and chronic systolic and diastolic CHF. Continue to monitor. Anemia, probably multifactorial, continue to monitor H/H. Patient currently on Brilinta, ASA, Ibuprofen. Protonix increased to BID, evaluate CBC in a.m. Nose bleeds. Bleeding is self limited, reporting improvement at this time. Continue to monitor H/o noncompliance with medication CAD with h/o cor PCI. On 01/28/17, had stenting to the right coronary artery with Xience Alpine 3.5 to the proximal right coronary artery and 2.75 to the distal right coronary artery and right PDA. Ac Inf [place] on 02/10/17 due to noncompliance with clopidogrel: repeat cath showed total occlusion of the right coronary artery, had thrombectomy and balloon angioplasty of the right coronary artery, troponin was up to 300 initially after the [place], still coming down slowly. Repeat cardiac catheterization was done on February 22, 2017 which showed mild disease nonobstructive disease. Echo of 02/21/17: LVEF 50%, hypokinesis of inf and inf-lat wall, mild MR & TR & AI Hyperlipidemia- continue to monitor as outpatient. H/o elevated alkaline phosphatase Diabetes mellitus, followed and managed by primary care physician Obesity Noncompliance with medication, patient was educated about compliance with medicine and diet Clinical Quality Measures AMI/AHF: ASA po Prior to arrival: Yes DVT/VTE Risk/Contraindication: Risk Factor Score Per Nursin RFS Level Per Nursing on Admit: 4+=Very High JACK PARISH MD Mar 05, 2017 06:33
[2017-03-05 06:45] LABS: BASOPHILS # (AUTO) 0.1 10^3/uL (0.0-0.1); BASOPHILS % (AUTO) 1 % (0-10); EOSINOPHILS # (AUTO) 0.5 10^3/uL (0.0-0.3); EOSINOPHILS % (AUTO) 5 % (0-10); LYMPHOCYTES % (AUTO) 23 % (12-44); MEAN CORPUSCULAR HEMOGLOBIN 28 PG (25-34); MEAN CORPUSCULAR HGB CONC 31 G/DL (32-36); MEAN CORPUSCULAR VOLUME 93 FL (80-99); MEAN PLATELET VOLUME 11.1 FL (7.4-10.4); MONOCYTES # (AUTO) 0.9 X 10^3 (0.0-1.0); MONOCYTES % (AUTO) 10 % (0-12); NEUTROPHILS # (AUTO) 5.5 X 10^3 (1.8-7.8); NEUTROPHILS % (AUTO) 62 % (42-75); PLATELET COUNT 300 10^3/uL (130-400); RED BLOOD COUNT 2.85 10^6/uL (4.35-5.85); RED CELL DISTRIBUTION WIDTH 13.3 % (10.0-14.5); WHITE BLOOD COUNT 8.9 10^3/uL (4.3-11.0)
[2017-03-05 07:09] LABS: ALBUMIN 2.8 G/DL (3.2-4.5); BILIRUBIN,TOTAL 0.4 MG/DL (0.1-1.0); CALCIUM 9.1 MG/DL (8.5-10.1); CREATININE SERUM 1.96 MG/DL (0.60-1.30)
[2017-03-05 07:20] LABS: ERYTHROCYTE SEDIMENTATION RATE > 140 MM/HR (0-30)
[2017-03-05 07:35] VITALS: BP 142/79
[2017-03-05] MEDS: morphine ER 15 MG (MS CONTIN) TAB PO SCH ×2 (08:29→20:18)
[2017-03-05] MEDS: LEVOTHYROXINE 75 MCG (LEVOTHROID) TABLET PO SCH (08:29)
[2017-03-05] MEDS: lisINopril 20 MG (ZESTRIL) TAB PO SCH (08:29)
[2017-03-05] MEDS: sitaGLIPtin 50 MG (JANUVIA) TAB PO SCH (08:29)
[2017-03-05] MEDS: DULoxetine 30 MG (CYMBALTA) CAP PO SCH (08:29)
[2017-03-05] MEDS: doxAzosin 2 MG (CARDURA) TAB PO SCH (08:29)
[2017-03-05] MEDS: ISOSORBIDE MONONITRATE 30 MG (IMDUR) TAB PO SCH (08:29)
[2017-03-05] MEDS: LACTULOSE SYRUP 10GM/15ML (ENULOSE) 30ML UDC PO SCH ×2 (08:29→20:18)
[2017-03-05] MEDS: ASPIRIN 81 MG CHEW (CHILDREN'S ASA) PO SCH (08:30)
[2017-03-05] MEDS: amLODIPine 10 MG (NORVASC) TAB PO SCH (08:30)
[2017-03-05] MEDS: GABAPENTIN 300 MG (NEURONTIN) CAP PO SCH (08:30)
[2017-03-05] MEDS: TICAGRELOR 90 MG TABLET (BRILINTA) PO SCH ×2 (08:30→20:18)
[2017-03-05 11:30] VITALS: BP 125/76
[2017-03-05] MEDS: POLYETHYLENE GLYCOL 17 GM (MIRALAX) PACK PO SCH ×3 (11:52→21:07)
[2017-03-05 16:15] VITALS: BP 121/77
--- NOTE | 2017-03-05 16:41 | Progress Note (SOAP) ---
Subjective Subjective/Events-last exam Patient states that she is having some throat burning. Denies coughing up any blood and feeling like she is going to vomit. She has not had a BM for the last 4 days. Tolerating ambulation and PO diet. States that her breathing is feeling much better. Holding her O2 sats on 3L oxygen at this time. Date seen by provider: Mar 05, 2017 Objective Exam Last Set of Vital Signs Vital Signs Date Time Temp Pulse Resp B/P (MAP) Pulse Ox O2 Delivery O2 Flow Rate FiO2 03/05/17 15:20 90 3.00 03/05/17 12:58 77 03/05/17 11:30 98.2 14 125/76 High Flow N/C 03/05/17 08:00 100 Capillary Refill : Less Than 3 SecondsLess Than 3 Seconds I&O Intake and Output 03/05/17 00:00 Intake Total 1400 ml Output Total 1700 ml Balance -300 ml Intake Oral 1400 ml Output Urine Total 1700 ml General: Alert, Oriented X3, Cooperative, No Acute Distress Neck: Supple, No JVD, No Thyromegaly Lungs: Clear to Auscultation, Normal Air Movement Heart: Regular Rate Abdomen: Normal Bowel Sounds, Soft, No Tenderness, No Hepatosplenomegaly, No Masses Extremities: Other Skin: No Rashes, No Breakdown Neuro: Normal Gait, Normal Speech, Strength at 5/5 X4 Ext, Cranial Nerves 3-12 NL Psych/Mental Status: Mental Status NL, Mood NL Results/Procedures Lab Laboratory Tests 03/04/17 20:45: Glucometer 136H 03/05/17 05:18: White Blood Count 8.9, Red Blood Count 2.85L, Hemoglobin 8.1L, Hematocrit 27L, Mean Corpuscular Volume 93, Mean Corpuscular Hemoglobin 28, Mean Corpuscular Hemoglobin Concent 31L, Red Cell Distribution Width 13.3, Platelet Count 300, Mean Platelet Volume 11.1H, Neutrophils (%) (Auto) 62, Lymphocytes (%) (Auto) 23 , Monocytes (%) (Auto) 10, Eosinophils (%) (Auto) 5, Basophils (%) (Auto) 1, Neutrophils # (Auto) 5.5, Lymphocytes # (Auto) 2.0, Monocytes # (Auto) 0.9, Eosinophils # (Auto) 0.5H, Basophils # (Auto) 0.1, Erythrocyte Sedimentation Rate > 140H, Sodium Level 141, Potassium Level 4.0, Chloride Level 93L, Carbon Dioxide Level 36H, Anion Gap 12, Blood Urea Nitrogen 40H, Creatinine 1.96H, Estimat Glomerular Filtration Rate 26, BUN/Creatinine Ratio 20, Glucose Level 162H, Calcium Level 9.1, Iron Level 51, Total Iron Binding Capacity 241L, Unsaturated Iron Binding Capacity 190, Transferrin % Saturation 21, Total Bilirubin 0.4, Aspartate Amino Transf (AST/SGOT) 21, Alanine Aminotransferase ( ALT/SGPT) 17, Alkaline Phosphatase 421H, B-Type Natriuretic Peptide 279.7H, Total Protein 6.0L, Albumin 2.8L 03/05/17 05:41: Glucometer 182H 03/05/17 08:33: Glucometer 179H 03/05/17 11:31: Glucometer 182H 03/05/17 16:14: Glucometer 155H Assessment/Plan Assessment/Plan Plan 56 yo F that was admitted with respiratory failure with hypoxia from clinic Plan Acute Systolic and Diastolic CHF on Chronic: slowly improving - Continue gentle diuresis, Strict I/Os, daily weights (-1.7 L last 24 hrs) - Cardiology consulted and managing 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 - Pain improved, continue to monitor - Continue NSAID treatment Acute on Chronic Respiratory failure with hypoxia, baseline home oxygen 4L, currently on 3L - Pulmonary consulted, appreciate recommendations - Continue scheduled and PRN breathing treatments - Encourage out of bed and ambulation Insulin Dependent DM: Uncontrolled - Continue to monitor blood sugars closely and adjust insulin Acute Kidney Insufficiency - Cr trending up today 1.9 (baseline 1.1) - Continue to monitor Hypertension - Blood pressures improved from admission, continue to monitor Hyperlipidemia: Statin Therapy Hypothyroidism Anemia of chronic disease - Stable no signs of bleeding, continue to monitor - Iron studies normal FEN: Heart healthy diet DVT PPX: Lovenox Dispo: continue admission given elevated Cr, would like to see it trending down prior to d/c Diagnosis/Problems: Clinical Quality Measures AMI/AHF: ASA po Prior to arrival: Yes DVT/VTE Risk/Contraindication: Risk Factor Score Per Nursin RFS Level Per Nursing on Admit: 4+=Very High MADDY COTE MD Mar 05, 2017 16:41
[2017-03-05 20:45] VITALS: BP 115/76
[2017-03-05] MEDS: inSUlin DETERMIR 1 UNIT/0.01 ML (LEVEMIR) CHARGE PER UNIT SQ SCH (21:11)
[2017-03-06] VITALS (10 sets, daily range): BP systolic 110–137; BP diastolic 59–82
[2017-03-06] MEDS: RT-ALBUTEROL/IPRATROPIUM 3 ML (DUONEB) VIAL INH SCH ×6 (02:23→22:25)
[2017-03-06] MEDS: FUROSEMIDE 40 MG (LASIX) TAB PO SCH (06:14)
[2017-03-06] MEDS: KCL 10 MEQ TAB (MICRO K) PO SCH ×2 (06:14→17:38)
[2017-03-06] MEDS: PANTOPRAZOLE 40 MG (PROTONIX) TAB PO SCH ×2 (06:14→15:57)
[2017-03-06] MEDS: inSUlin ASPART (NovoLOG) 1 UNIT/0.01 ML (CHARGE PER UNIT) SC SCH ×4 (06:14→21:36)
[2017-03-06] MEDS: SUCRALFATE 1 GM (CARAFATE) TAB PO SCH ×4 (06:14→20:24)
[2017-03-06] MEDS: IBUPROFEN 600 MG (MOTRIN) TAB PO SCH ×4 (06:14→23:52)
[2017-03-06] MEDS: CATHETER FLUSH 10 ML SYR IV SCH ×3 (06:15→20:27)
[2017-03-06 06:33] LABS: MEAN CORPUSCULAR HEMOGLOBIN 29 PG (25-34); MEAN CORPUSCULAR HGB CONC 31 G/DL (32-36); MEAN CORPUSCULAR VOLUME 92 FL (80-99); MEAN PLATELET VOLUME 10.9 FL (7.4-10.4); PLATELET COUNT 305 10^3/uL (130-400); RED BLOOD COUNT 2.69 10^6/uL (4.35-5.85); RED CELL DISTRIBUTION WIDTH 13.1 % (10.0-14.5); WHITE BLOOD COUNT 10.2 10^3/uL (4.3-11.0)
[2017-03-06 06:47] LABS: ERYTHROCYTE SEDIMENTATION RATE > 140 MM/HR (0-30)
[2017-03-06 07:07] LABS: ALBUMIN 2.9 G/DL (3.2-4.5); BILIRUBIN,TOTAL 0.5 MG/DL (0.1-1.0); CALCIUM 9.3 MG/DL (8.5-10.1); CREATININE SERUM 1.94 MG/DL (0.60-1.30); POTASSIUM 4.4 MMOL/L (3.6-5.0); TOTAL PROTEIN 6.4 G/DL (6.4-8.2)
[2017-03-06] MEDS: lisINopril 20 MG (ZESTRIL) TAB PO SCH (10:05)
[2017-03-06] MEDS: ASPIRIN 81 MG CHEW (CHILDREN'S ASA) PO SCH (10:05)
[2017-03-06] MEDS: GABAPENTIN 300 MG (NEURONTIN) CAP PO SCH (10:05)
[2017-03-06] MEDS: morphine ER 15 MG (MS CONTIN) TAB PO SCH ×2 (10:06→20:24)
[2017-03-06] MEDS: DULoxetine 30 MG (CYMBALTA) CAP PO SCH (10:06)
[2017-03-06] MEDS: ISOSORBIDE MONONITRATE 30 MG (IMDUR) TAB PO SCH (10:06)
[2017-03-06] MEDS: LEVOTHYROXINE 75 MCG (LEVOTHROID) TABLET PO SCH (10:06)
[2017-03-06] MEDS: amLODIPine 10 MG (NORVASC) TAB PO SCH (10:06)
[2017-03-06] MEDS: sitaGLIPtin 50 MG (JANUVIA) TAB PO SCH (10:06)
[2017-03-06] MEDS: TICAGRELOR 90 MG TABLET (BRILINTA) PO SCH ×2 (10:06→20:24)
[2017-03-06] MEDS: doxAzosin 2 MG (CARDURA) TAB PO SCH (10:06)
[2017-03-06] MEDS: LACTULOSE SYRUP 10GM/15ML (ENULOSE) 30ML UDC PO SCH ×2 (10:07→20:24)
--- NOTE | 2017-03-06 10:47 | Cardiology Progress Note ---
Subjective Subjective/Events-last exam patient is sitting in bed, eating breakfast, feeling better, reporting mild dizziness and lightheadedness while up and walking. Her breathing is overall better. Review of Systems General: No Chills, No Night Sweats, No Fatigue, Malaise, No Appetite, No Other HEENT: No Head Aches, No Visual Changes, No Eye Pain, No Ear Pain, No Dysphasia , No Sinus Congestion, No Post Nasal Drip, No Sore Throat, No Other Pulmonary: Dyspnea, No Cough, No Pleuritic Chest Pain, No Other Cardiovascular: No: Chest Pain, Edema, Lt Headedness, Orthopnea, Other, Palpitations, Paroxysmal Noc. Dyspnea Objective-Cardiology Exam Last Set of Vital Signs Vital Signs 03/05/17 03/06/17 03/06/17 08:00 08:51 10:08 Temp 97.1 Pulse 70 Resp 16 B/P (MAP) 133/66 Pulse Ox 96 O2 Delivery High Flow N/C O2 Flow Rate 3.00 FiO2 100 Capillary Refill : Less Than 3 SecondsLess Than 3 Seconds I&O Intake and Output 03/06/17 00:00 Intake Total 1980 ml Output Total 1250 ml Balance 730 ml Intake Oral 1980 ml Output Urine Total 1250 ml # Voids 2 General: Alert, Oriented X3, Cooperative, No Acute Distress HEENT: Atraumatic, Mucous Memb Moist/[place] Neck: Supple, No JVD, No Thyromegaly Lungs: Clear to Auscultation, Normal Air Movement Heart: Regular Rate, Normal S1, Normal S2 Abdomen: Normal Bowel Sounds, Soft, No Tenderness, No Hepatosplenomegaly, No Masses Extremities: No Clubbing, No Cyanosis, Other Skin: No Rashes, No Breakdown Neuro: Normal Gait, Normal Speech, Strength at 5/5 X4 Ext, Cranial Nerves 3-12 NL Psych/Mental Status: Mental Status NL, Mood NL Results Lab Laboratory Tests 03/06/17 06:00 A/P-Cardiology Admission Diagnosis CHF CAD Pericarditis COPD Assessment/Plan Chest pain, reporting improvement. Continue with exercise and monitor Anemia, worse, patient is on multiple medication that it will increase the chances of bleeding, I will evaluate stool for occult blood and transfuse 1 unit of packed RBCs and monitor H&H Pleural effusion, questionable pulmonary infiltrate on CT scan, does not have leukocytosis, no signs of pneumonia. Not receiving antibiotics, managed by primary care physician Acute on chronic systolic and diastolic CHF, ischemic cardiomyopathy, clinically significantly better. Continue to monitor Anterior and Lateral chest wall pain, pericarditis is improving, ESR is still > 140, she will need NSAID for the next 2-4 weeks, I will evaluate sedimentation rate in the morning Acute on chronic renal insufficiency, status post nonoliguric renal failure occurred early in February 2017. monitor renal function closely. Chronic shortness of breath: advanced COPD and chronic systolic and diastolic CHF. Continue to monitor. Nose bleeds. Bleeding is self limited, reporting improvement at this time. Continue to monitor H/o noncompliance with medication CAD with h/o cor PCI. On 01/28/17, had stenting to the right coronary artery with Xience Alpine 3.5 to the proximal right coronary artery and 2.75 to the distal right coronary artery and right PDA. Ac Inf [place] on 02/10/17 due to noncompliance with clopidogrel: repeat cath showed total occlusion of the right coronary artery, had thrombectomy and balloon angioplasty of the right coronary artery, troponin was up to 300 initially after the [place], still coming down slowly. Repeat cardiac catheterization was done on February 22, 2017 which showed mild disease nonobstructive disease. Echo of 02/21/17: LVEF 50%, hypokinesis of inf and inf-lat wall, mild MR & TR & AI Hyperlipidemia- continue to monitor as outpatient. H/o elevated alkaline phosphatase Diabetes mellitus, followed and managed by primary care physician Obesity Noncompliance with medication, patient was educated about compliance with medicine and diet Clinical Quality Measures AMI/AHF: ASA po Prior to arrival: Yes DVT/VTE Risk/Contraindication: Risk Factor Score Per Nursin RFS Level Per Nursing on Admit: 4+=Very High JACK PARISH MD Mar 06, 2017 10:47
[2017-03-06] MEDS ORDERED: NS IV 500 ML 500 ML ONE (12:42)
--- NOTE | 2017-03-06 14:56 | Progress Note (SOAP) ---
Subjective Subjective/Events-last exam Patient states that breathing is improved. Denies any chest pain. States that she had a small hard bowel movement x1. Tolerating ambulation and PO diet. Date seen by provider: Mar 06, 2017 Objective Exam Last Set of Vital Signs Vital Signs Date Time Temp Pulse Resp B/P (MAP) Pulse Ox O2 Delivery O2 Flow Rate FiO2 03/06/17 13:31 97.1 70 18 122/69 95 03/06/17 11:48 High Flow N/C 3.00 03/05/17 08:00 100 Capillary Refill : Less Than 3 SecondsLess Than 3 Seconds I&O Intake and Output 03/06/17 00:00 Intake Total 1980 ml Output Total 1250 ml Balance 730 ml Intake Oral 1980 ml Output Urine Total 1250 ml # Voids 2 General: Alert, Oriented X3, Cooperative, No Acute Distress HEENT: Atraumatic, PERRLA, Mucous Memb Moist/[place] Neck: Supple, No JVD Lungs: Clear to Auscultation, Normal Air Movement Heart: Regular Rate (systolic murmur) Abdomen: Normal Bowel Sounds, Soft, No Tenderness, No Hepatosplenomegaly, No Masses Extremities: No Tenderness/Swelling, Other Skin: No Rashes, No Breakdown Neuro: Normal Gait, Normal Speech, Strength at 5/5 X4 Ext, Sensation Intact, Cranial Nerves 3-12 NL Psych/Mental Status: Mental Status NL, Mood NL Results/Procedures Lab Laboratory Tests 03/05/17 16:14: Glucometer 155H 03/05/17 20:47: Glucometer 179H 03/06/17 06:00: White Blood Count 10.2, Red Blood Count 2.69L, Hemoglobin 7.7L, Hematocrit 25L, Mean Corpuscular Volume 92, Mean Corpuscular Hemoglobin 29, Mean Corpuscular Hemoglobin Concent 31L, Red Cell Distribution Width 13.1, Platelet Count 305, Mean Platelet Volume 10.9H, Erythrocyte Sedimentation Rate > 140H, Sodium Level 140, Potassium Level 4.4, Chloride Level 95L, Carbon Dioxide Level 35H, Anion Gap 10, Blood Urea Nitrogen 41H, Creatinine 1.94H, Estimat Glomerular Filtration Rate 27, BUN/Creatinine Ratio 21, Glucose Level 191H, Calcium Level 9.3, Total Bilirubin 0.5, Aspartate Amino Transf (AST/SGOT) 20, Alanine Aminotransferase (ALT/SGPT) 18, Alkaline Phosphatase 428H, Total Protein 6.4, Albumin 2.9L 03/06/17 06:04: Glucometer 207H 03/06/17 11:36: Glucometer 187H Assessment/Plan Assessment/Plan Plan 56 yo F that was admitted with respiratory failure with hypoxia from clinic Plan Acute Systolic and Diastolic CHF on Chronic: improving - Continue gentle diuresis, Strict I/Os, daily weights (-1.7 L last 24 hrs) - Cardiology consulted and managing - Decrease lasix to daily 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 - Pain improved, continue to monitor - Continue NSAID treatment, Sed rate >150 Acute on Chronic Respiratory failure with hypoxia, baseline home oxygen 4L, currently on 3L - Pulmonary consulted, appreciate recommendations - Continue scheduled and PRN breathing treatments - Encourage out of bed and ambulation Insulin Dependent DM: Uncontrolled - Continue to monitor blood sugars closely and adjust insulin Acute Kidney Insufficiency - Cr today 1.9 (baseline 1.1) - Continue to monitor - Decreased lasix to daily Hypertension - Blood pressures improved from admission, continue to monitor Hyperlipidemia: Statin Therapy Hypothyroidism Anemia of chronic disease s/p transfusion today - Hemaoccult pending - Iron studies normal Constipation - Miralax TID, encouraged continued ambulation FEN: Heart healthy diet DVT PPX: Lovenox Dispo: continue admission given elevated Cr, would like to see it trending down prior to d/c Diagnosis/Problems: Clinical Quality Measures AMI/AHF: ASA po Prior to arrival: Yes DVT/VTE Risk/Contraindication: Risk Factor Score Per Nursin RFS Level Per Nursing on Admit: 4+=Very High MADDY COTE MD Mar 06, 2017 14:56
[2017-03-06] MEDS: POLYETHYLENE GLYCOL 17 GM (MIRALAX) PACK PO SCH ×2 (15:57→20:24)
[2017-03-06] MEDS: inSUlin DETERMIR 1 UNIT/0.01 ML (LEVEMIR) CHARGE PER UNIT SQ SCH (21:38)
[2017-03-07] VITALS (8 sets, daily range): BP systolic 110–148; BP diastolic 71–85
[2017-03-07] MEDS: RT-ALBUTEROL/IPRATROPIUM 3 ML (DUONEB) VIAL INH SCH ×6 (02:21→22:10)
[2017-03-07 05:05] LABS: MEAN PLATELET VOLUME 10.8 FL (7.4-10.4); RED BLOOD COUNT 3.17 10^6/uL (4.35-5.85); RED CELL DISTRIBUTION WIDTH 13.7 % (10.0-14.5); WHITE BLOOD COUNT 7.9 10^3/uL (4.3-11.0)
[2017-03-07] MEDS: inSUlin ASPART (NovoLOG) 1 UNIT/0.01 ML (CHARGE PER UNIT) SC SCH ×4 (05:43→21:33)
[2017-03-07 06:16] LABS: CALCIUM 9.2 MG/DL (8.5-10.1); CREATININE SERUM 1.94 MG/DL (0.60-1.30); POTASSIUM 4.4 MMOL/L (3.6-5.0)
[2017-03-07] MEDS: FUROSEMIDE 40 MG (LASIX) TAB PO SCH (06:24)
[2017-03-07] MEDS: KCL 10 MEQ TAB (MICRO K) PO SCH ×2 (06:24→17:10)
[2017-03-07] MEDS: IBUPROFEN 600 MG (MOTRIN) TAB PO SCH ×3 (06:24→17:10)
[2017-03-07] MEDS: SUCRALFATE 1 GM (CARAFATE) TAB PO SCH ×4 (06:24→20:33)
[2017-03-07] MEDS: PANTOPRAZOLE 40 MG (PROTONIX) TAB PO SCH ×2 (06:24→16:17)
[2017-03-07] MEDS: CATHETER FLUSH 10 ML SYR IV SCH ×3 (06:26→19:50)
[2017-03-07] MEDS: POLYETHYLENE GLYCOL 17 GM (MIRALAX) PACK PO SCH ×3 (09:03→20:33)
[2017-03-07] MEDS: LACTULOSE SYRUP 10GM/15ML (ENULOSE) 30ML UDC PO SCH ×2 (09:03→20:35)
[2017-03-07] MEDS: lisINopril 20 MG (ZESTRIL) TAB PO SCH (09:05)
[2017-03-07] MEDS: LEVOTHYROXINE 75 MCG (LEVOTHROID) TABLET PO SCH (09:05)
[2017-03-07] MEDS: doxAzosin 2 MG (CARDURA) TAB PO SCH (09:05)
[2017-03-07] MEDS: DULoxetine 30 MG (CYMBALTA) CAP PO SCH (09:05)
[2017-03-07] MEDS: morphine ER 15 MG (MS CONTIN) TAB PO SCH ×2 (09:06→20:36)
[2017-03-07] MEDS: sitaGLIPtin 50 MG (JANUVIA) TAB PO SCH (09:06)
[2017-03-07] MEDS: GABAPENTIN 300 MG (NEURONTIN) CAP PO SCH (09:06)
[2017-03-07] MEDS: amLODIPine 10 MG (NORVASC) TAB PO SCH (09:06)
[2017-03-07] MEDS: ISOSORBIDE MONONITRATE 30 MG (IMDUR) TAB PO SCH (09:06)
[2017-03-07] MEDS: TICAGRELOR 90 MG TABLET (BRILINTA) PO SCH ×2 (09:06→20:33)
[2017-03-07] MEDS: ASPIRIN 81 MG CHEW (CHILDREN'S ASA) PO SCH (09:06)
[2017-03-07] MEDS ORDERED: FERROUS SULF 325 MG (IRON) TAB PO SCH (09:11)
--- NOTE | 2017-03-07 09:13 | Cardiology Progress Note ---
Subjective Subjective/Events-last exam patient is laying down in bed, feeling better, breathing better, reporting some left-sided chest pain whenever she lays down on her right side, the chest pain is better if she is laying down on her left side. No palpitation, no syncope, exercise abilities slightly better. Review of Systems General: No Chills, No Night Sweats, No Fatigue, No Malaise, No Appetite, No Other HEENT: No Head Aches, No Visual Changes, No Eye Pain, No Ear Pain, No Dysphasia , No Sinus Congestion, No Post Nasal Drip, No Sore Throat, No Other Pulmonary: Dyspnea, No Cough, No Pleuritic Chest Pain, No Other Cardiovascular: Chest Pain, No: Edema, Lt Headedness, Orthopnea, Other, Palpitations, Paroxysmal Noc. Dyspnea Objective-Cardiology Exam Last Set of Vital Signs Vital Signs 03/05/17 03/07/17 08:00 08:00 Temp 97.4 Pulse 69 Resp 18 B/P (MAP) 148/85 Pulse Ox 95 O2 Delivery High Flow N/C O2 Flow Rate 3.00 FiO2 100 Capillary Refill : Less Than 3 SecondsLess Than 3 Seconds I&O Intake and Output 03/07/17 00:00 Intake Total 1550 ml Output Total 1000 ml Balance 550 ml Intake Oral 1450 ml IV Total 100 ml Output Urine Total 1000 ml # Voids 6 # Bowel Movements 2 General: Alert, Oriented X3, Cooperative, No Acute Distress HEENT: Atraumatic, PERRLA, Mucous Memb Moist/[place] Neck: Supple, No JVD Lungs: Clear to Auscultation, Normal Air Movement Heart: Normal S1, Normal S2, No Murmurs Abdomen: Normal Bowel Sounds, Soft, No Tenderness, No Hepatosplenomegaly, No Masses Extremities: No Clubbing, No Cyanosis, No Tenderness/Swelling, Other Skin: No Rashes, No Breakdown Neuro: Normal Gait, Normal Speech, Strength at 5/5 X4 Ext, Sensation Intact, Cranial Nerves 3-12 NL Psych/Mental Status: Mental Status NL, Mood NL Results Lab Laboratory Tests 03/06/17 18:26 03/07/17 04:43 A/P-Cardiology Admission Diagnosis CHF CAD Pericarditis COPD Assessment/Plan Chest pain, reporting improvement, evaluate sedimentation rate in a.m. Anemia, GI bleed secondary to aggressive medication, stool for occult blood is positive, received one unit of packed RBCs yesterday, I will start on iron supplement, patient is maintained on PPI and Carafate. She cannot discontinue aspirin or Brilinta, she is still needing ibuprofen due to pericarditis Pleural effusion, questionable pulmonary infiltrate on CT scan, does not have leukocytosis, no signs of pneumonia. Not receiving antibiotics, managed by primary care physician, I will evaluate chest x-ray PA and lateral Acute on chronic systolic and diastolic CHF, ischemic cardiomyopathy, clinically significantly better. Continue to monitor Anterior and Lateral chest wall pain, pericarditis is improving, ESR is still > 140, she will need NSAID for the next 2-4 weeks, I will evaluate sedimentation rate in the morning Acute on chronic renal insufficiency, status post nonoliguric renal failure occurred early in February 2017, renal function are stabilizing. Continue to monitor Chronic shortness of breath: advanced COPD and chronic systolic and diastolic CHF, patient has been on 3 L oxygen nasal cannula at home prior to the admission. Continue to monitor. Nose bleeds. Bleeding is self limited, reporting improvement at this time. Continue to monitor H/o noncompliance with medication CAD with h/o cor PCI. On 01/28/17, had stenting to the right coronary artery with Xience Alpine 3.5 to the proximal right coronary artery and 2.75 to the distal right coronary artery and right PDA. Ac Inf [place] on 02/10/17 due to noncompliance with clopidogrel: repeat cath showed total occlusion of the right coronary artery, had thrombectomy and balloon angioplasty of the right coronary artery, troponin was up to 300 initially after the [place], still coming down slowly. Repeat cardiac catheterization was done on February 22, 2017 which showed mild disease nonobstructive disease. Echo of 02/21/17: LVEF 50%, hypokinesis of inf and inf-lat wall, mild MR & TR & AI Hyperlipidemia- continue to monitor as outpatient. H/o elevated alkaline phosphatase Diabetes mellitus, followed and managed by primary care physician Obesity Noncompliance with medication, patient was educated about compliance with medicine and diet Clinical Quality Measures AMI/AHF: ASA po Prior to arrival: Yes DVT/VTE Risk/Contraindication: Risk Factor Score Per Nursin RFS Level Per Nursing on Admit: 4+=Very High JACK PARISH MD Mar 07, 2017 09:13
[2017-03-07] MEDS: DOCUSATE SODIUM 100 MG (COLACE) CAP PO SCH ×2 (09:15→20:33)
[2017-03-07] MEDS ORDERED: FLEET ENEMA ADULT 1 EA BTL PR ONE (16:45)
--- NOTE | 2017-03-07 16:56 | Progress Note (SOAP) ---
Subjective Subjective/Events-last exam Patient states that this is the best she has felt since being admitted. Has had small BM but feels like she needs to go. Tolerating PO diet and ambulation Date seen by provider: Mar 07, 2017 Objective Exam Last Set of Vital Signs Vital Signs Date Time Temp Pulse Resp B/P (MAP) Pulse Ox O2 Delivery O2 Flow Rate FiO2 03/07/17 16:00 96.3 69 20 130/72 93 High Flow N/C 3.00 03/05/17 08:00 100 Capillary Refill : Less Than 3 SecondsLess Than 3 Seconds I&O Intake and Output 03/07/17 00:00 Intake Total 1550 ml Output Total 1000 ml Balance 550 ml Intake Oral 1450 ml IV Total 100 ml Output Urine Total 1000 ml # Voids 6 # Bowel Movements 2 General: Alert, Oriented X3, Cooperative, No Acute Distress HEENT: Mucous Memb Moist/[place] Lungs: Clear to Auscultation, Normal Air Movement Heart: Regular Rate (systolic murmur) Abdomen: Normal Bowel Sounds, Soft, No Tenderness, No Masses Extremities: No Tenderness/Swelling, Other (1+ pitting edema bilaterally) Skin: No Rashes, No Breakdown Neuro: Normal Gait, Normal Speech, Sensation Intact, Cranial Nerves 3-12 NL Psych/Mental Status: Mental Status NL, Mood NL Results/Procedures Lab Laboratory Tests 03/06/17 18:26: Hemoglobin 10.1#L, Hematocrit 32L 03/06/17 21:14: Glucometer 193H 03/06/17 21:15: Stool Occult Blood Immunoassay POSITIVEH 03/07/17 04:43: Hemoglobin 9.1L, Hematocrit 29L, White Blood Count 7.9, Red Blood Count 3.17L, Mean Corpuscular Volume 91, Mean Corpuscular Hemoglobin 29, Mean Corpuscular Hemoglobin Concent 32, Red Cell Distribution Width 13.7, Platelet Count 295, Mean Platelet Volume 10.8H, Sodium Level 141, Potassium Level 4.4, Chloride Level 95L, Carbon Dioxide Level 34H, Anion Gap 12, Blood Urea Nitrogen 40H, Creatinine 1.94H, Estimat Glomerular Filtration Rate 27, BUN/Creatinine Ratio 21 , Glucose Level 158H, Calcium Level 9.2 03/07/17 05:42: Glucometer 159H 03/07/17 11:18: Glucometer 146H 03/07/17 15:45: Glucometer 185H Assessment/Plan Assessment/Plan Plan 56 yo F that was admitted with respiratory failure with hypoxia from clinic Plan Acute Systolic and Diastolic CHF on Chronic: improving - Continue gentle diuresis, Strict I/Os, daily weights (-1.7 L last 24 hrs) - Cardiology consulted and managing - Continue daily Lasix 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 - Pain improved, continue to monitor - Continue NSAID treatment, Sed rate >150 Acute on Chronic Respiratory failure with hypoxia, baseline home oxygen 4L, currently on 3L - Pulmonary consulted, appreciate recommendations - Continue scheduled and PRN breathing treatments - Encourage out of bed and ambulation Insulin Dependent DM: Uncontrolled - Continue to monitor blood sugars closely and adjust insulin Acute Kidney Insufficiency - Cr today 1.9 (baseline 1.1) - Continue to monitor - Decreased lasix to daily, patient is on ibuprofen for pericarditis Hypertension - Blood pressures improved from admission, continue to monitor Hyperlipidemia: Statin Therapy Hypothyroidism Anemia of chronic disease s/p transfusion today - Hemaoccult +, however she has had multiple nose bleeds since admission, denies any dark red blood - Iron studies normal Constipation - Miralax TID, encouraged continued ambulation - Enema today Elevated Sed Rate - Given no decrease from high dose ibuprofen therapy for pericarditis, discussed with Dr Fenton to look for secondary source of elevation - CXR, UA, and blood cultures ordered and pending FEN: Heart healthy diet DVT PPX: Lovenox Dispo: continue admission given elevated Cr, would like to see it trending down prior to d/c Diagnosis/Problems: Clinical Quality Measures AMI/AHF: ASA po Prior to arrival: Yes DVT/VTE Risk/Contraindication: Risk Factor Score Per Nursin RFS Level Per Nursing on Admit: 4+=Very High MADDY COTE MD Mar 07, 2017 16:56
[2017-03-07] MEDS ORDERED: IRON SUCROSE INJECTION 300 MG in NS (IVPB) 250 ML IV SCH ×4 (17:00)
[2017-03-07] MEDS ORDERED: PROMETHAZINE INJ 25 MG/ML (PHENERGAN) AMP IVP ONE (19:45)
[2017-03-07] MEDS: inSUlin DETERMIR 1 UNIT/0.01 ML (LEVEMIR) CHARGE PER UNIT SQ SCH (21:33)
[2017-03-08] MEDS: IBUPROFEN 600 MG (MOTRIN) TAB PO SCH ×5 (00:08→23:48)
[2017-03-08] MEDS: RT-ALBUTEROL/IPRATROPIUM 3 ML (DUONEB) VIAL INH SCH ×6 (02:07→22:15)
[2017-03-08 03:07] VITALS: BP 110/74
[2017-03-08 05:14] LABS: MEAN CORPUSCULAR HEMOGLOBIN 29 PG (25-34); MEAN CORPUSCULAR HGB CONC 31 G/DL (32-36); MEAN CORPUSCULAR VOLUME 92 FL (80-99); MEAN PLATELET VOLUME 10.9 FL (7.4-10.4); PLATELET COUNT 308 10^3/uL (130-400); RED BLOOD COUNT 3.26 10^6/uL (4.35-5.85); RED CELL DISTRIBUTION WIDTH 13.7 % (10.0-14.5); WHITE BLOOD COUNT 7.5 10^3/uL (4.3-11.0)
[2017-03-08 05:32] LABS: CALCIUM 9.2 MG/DL (8.5-10.1); CREATININE SERUM 1.99 MG/DL (0.60-1.30); POTASSIUM 4.3 MMOL/L (3.6-5.0)
[2017-03-08] MEDS: inSUlin ASPART (NovoLOG) 1 UNIT/0.01 ML (CHARGE PER UNIT) SC SCH ×4 (05:34→21:12)
[2017-03-08 05:35] LABS: ERYTHROCYTE SEDIMENTATION RATE > 140 MM/HR (0-30)
[2017-03-08] MEDS: FUROSEMIDE 40 MG (LASIX) TAB PO SCH (06:11)
[2017-03-08] MEDS: KCL 10 MEQ TAB (MICRO K) PO SCH ×2 (06:11→16:36)
[2017-03-08] MEDS: SUCRALFATE 1 GM (CARAFATE) TAB PO SCH ×4 (06:11→20:24)
[2017-03-08] MEDS: CATHETER FLUSH 10 ML SYR IV SCH ×3 (06:11→20:26)
[2017-03-08] MEDS: PANTOPRAZOLE 40 MG (PROTONIX) TAB PO SCH ×2 (06:11→16:36)
[2017-03-08] MEDS: DULoxetine 30 MG (CYMBALTA) CAP PO SCH (07:57)
[2017-03-08] MEDS: LACTULOSE SYRUP 10GM/15ML (ENULOSE) 30ML UDC PO SCH ×2 (07:57→19:40)
[2017-03-08] MEDS: POLYETHYLENE GLYCOL 17 GM (MIRALAX) PACK PO SCH ×3 (07:57→19:41)
[2017-03-08] MEDS: GABAPENTIN 300 MG (NEURONTIN) CAP PO SCH (07:58)
[2017-03-08] MEDS: doxAzosin 2 MG (CARDURA) TAB PO SCH (07:58)
[2017-03-08] MEDS: morphine ER 15 MG (MS CONTIN) TAB PO SCH ×2 (07:58→20:25)
[2017-03-08] MEDS: sitaGLIPtin 50 MG (JANUVIA) TAB PO SCH (07:58)
[2017-03-08] MEDS: DOCUSATE SODIUM 100 MG (COLACE) CAP PO SCH ×2 (07:58→19:40)
[2017-03-08] MEDS: LEVOTHYROXINE 75 MCG (LEVOTHROID) TABLET PO SCH (07:58)
[2017-03-08] MEDS: amLODIPine 10 MG (NORVASC) TAB PO SCH (07:58)
[2017-03-08] MEDS: ISOSORBIDE MONONITRATE 30 MG (IMDUR) TAB PO SCH (07:58)
[2017-03-08] MEDS: TICAGRELOR 90 MG TABLET (BRILINTA) PO SCH ×2 (07:58→21:18)
[2017-03-08] MEDS: ASPIRIN 81 MG CHEW (CHILDREN'S ASA) PO SCH (07:59)
[2017-03-08] MEDS: lisINopril 20 MG (ZESTRIL) TAB PO SCH (07:59)
[2017-03-08 08:11] VITALS: BP 106/67
--- NOTE | 2017-03-08 08:24 | Pulmonary Progress Note ---
Exam Exam Vital Signs Date Time Temp Pulse Resp B/P (MAP) Pulse Ox O2 Delivery O2 Flow Rate FiO2 03/08/17 08:11 97.9 64 16 106/67 97 High Flow N/C 3.00 03/08/17 07:00 65 03/08/17 06:31 94 3.00 03/08/17 03:07 98.0 60 16 110/74 95 High Flow N/C 3.00 03/08/17 02:08 93 3.00 03/08/17 01:00 58 03/07/17 23:47 97.0 60 16 113/73 95 High Flow N/C 3.00 03/07/17 22:10 93 3.00 03/07/17 19:50 3.00 03/07/17 19:32 98.3 69 20 140/80 95 High Flow N/C 3.00 03/07/17 19:00 68 03/07/17 18:16 92 3.00 03/07/17 16:00 96.3 69 20 130/72 93 High Flow N/C 3.00 03/07/17 15:03 93 3.00 03/07/17 13:00 65 03/07/17 12:35 97.9 66 16 128/83 03/07/17 12:00 97.9 66 16 128/83 95 High Flow N/C 3.00 03/07/17 08:30 94 2.50 I & O 03/08/17 07:00 Intake Total 1340 ml Output Total 1900 ml Balance -560 ml General Appearance: No Apparent Distress, WD/WN, Chronically ill HEENT: PERRL/EOMI, Normal ENT Inspection, Pharynx Normal Neck: Full Range of Motion, Normal Inspection, Non Tender, Supple, Carotid Bruit Respiratory: Chest Non Tender, No Accessory Muscle Use, No Respiratory Distress , Decreased Breath Sounds, Wheezing Cardiovascular: Regular Rate, Rhythm, No Edema, No Gallop, No JVD, No Murmur, Normal Peripheral Pulses Capillary Refill: Less Than 3 Seconds Extremity: Normal Capillary Refill, Normal Inspection, Normal Range of Motion, Non Tender, No Calf Tenderness, No Pedal Edema Neurologic/Psychiatric: Alert, Oriented x3, No Motor/Sensory Deficits, Normal Mood/Affect Skin: Normal Color, Warm/Dry Lymphatic: No Adenopathy Results Lab Laboratory Tests 03/06/17 18:26 4/30/17 04:43 03/08/17 05:00 Assessment/Plan Assessment/Plan CHF -Continue lasix acute on chronic Hypoxemia secondary to pulmonary edema from CHF home oxygen is 4l/min -CT scan reviewed -- shows atelectasis with some air bronchograms-- NO leukocytosis no fever -- doubt pneumonia Acute pericarditis - Vinay syndrome COPD -SVNs, oxygen Clinical Quality Measures AMI/AHF: ASA po Prior to arrival: Yes DVT/VTE Risk/Contraindication: Risk Factor Score Per Nursin RFS Level Per Nursing on Admit: 4+=Very High ANNIE BECKHAM DO March 08, 2017 08:24
[2017-03-08] MEDS ORDERED: IRON SUCROSE INJECTION 300 MG in NS (IVPB) 250 ML IV SCH (09:00)
--- NOTE | 2017-03-08 09:06 | Cardiology Progress Note ---
Subjective Subjective/Events-last exam patient is feeling better, breathing better, denied any chest pain. Review of Systems General: No Chills, No Night Sweats, No Fatigue, No Malaise, No Appetite, No Other HEENT: No Head Aches, No Visual Changes, No Eye Pain, No Ear Pain, No Dysphasia , No Sinus Congestion, No Post Nasal Drip, No Sore Throat, No Other Pulmonary: No Dyspnea, No Cough, No Pleuritic Chest Pain, No Other Cardiovascular: No: Chest Pain, Edema, Lt Headedness, Orthopnea, Other, Palpitations, Paroxysmal Noc. Dyspnea Gastrointestinal: No: Abdominal Pain, Constipation, Diarrhea, Hematochezia, Melena, Nausea, Other, Vomiting Objective-Cardiology Exam Last Set of Vital Signs Vital Signs 03/05/17 03/08/17 08:00 08:11 Temp 97.9 Pulse 64 Resp 16 B/P (MAP) 106/67 Pulse Ox 97 O2 Delivery High Flow N/C O2 Flow Rate 3.00 FiO2 100 Capillary Refill : Less Than 3 SecondsLess Than 3 Seconds I&O Intake and Output 03/08/17 00:00 Intake Total 1540 ml Output Total 1400 ml Balance 140 ml Intake Oral 1540 ml Output Urine Total 1400 ml # Voids 5 # Bowel Movements 1 General: Alert, Oriented X3, Cooperative, No Acute Distress HEENT: Atraumatic, PERRLA, Mucous Memb Moist/[place] Neck: Supple, No JVD Lungs: Clear to Auscultation, Normal Air Movement Heart: Regular Rate, Normal S1, Normal S2 Abdomen: Normal Bowel Sounds, Soft, No Tenderness, No Masses Extremities: No Clubbing, No Cyanosis, No Tenderness/Swelling, Other (1+ pitting edema bilaterally) Skin: No Rashes, No Breakdown Neuro: Normal Gait, Normal Speech, Sensation Intact, Cranial Nerves 3-12 NL Psych/Mental Status: Mental Status NL, Mood NL Results Lab Laboratory Tests 03/08/17 05:00 A/P-Cardiology Admission Diagnosis CHF CAD Pericarditis COPD Assessment/Plan Chest pain, reporting improvement, sedimentation rate is still more than 140, continue on Motrin and monitor. Anemia, GI bleed secondary to aggressive medication, stool for occult blood is positive, received one unit of packed RBCs yesterday, H&H are stable. Continue to monitor Urinary tract infection, Klebsiella pneumoniae in the urine, could be the reason for her elevated sedimentation rate. No signs of pericarditis, treatment is deferred to the primary care physician Pleural effusion, questionable pulmonary infiltrate on CT scan, does not have leukocytosis, no signs of pneumonia. Not receiving antibiotics, managed by primary care physician, chest x-ray was done earlier today. Acute on chronic systolic and diastolic CHF, ischemic cardiomyopathy, clinically significantly better. Continue to monitor Anterior and Lateral chest wall pain, pericarditis is improving, ESR is still > 140, she will need NSAID for the next 2-4 weeks, continue to monitor Acute on chronic renal insufficiency, status post nonoliguric renal failure occurred early in February 2017, renal function are stabilizing. Continue to monitor Chronic shortness of breath: advanced COPD and chronic systolic and diastolic CHF, patient has been on 3 L oxygen nasal cannula at home prior to the admission. Continue to monitor. Nose bleeds. Bleeding is self limited, reporting improvement at this time. Continue to monitor H/o noncompliance with medication CAD with h/o cor PCI. On 01/28/17, had stenting to the right coronary artery with Xience Alpine 3.5 to the proximal right coronary artery and 2.75 to the distal right coronary artery and right PDA. Ac Inf [place] on 02/10/17 due to noncompliance with clopidogrel: repeat cath showed total occlusion of the right coronary artery, had thrombectomy and balloon angioplasty of the right coronary artery, troponin was up to 300 initially after the [place], still coming down slowly. Repeat cardiac catheterization was done on February 22, 2017 which showed mild disease nonobstructive disease. Echo of 02/21/17: LVEF 50%, hypokinesis of inf and inf-lat wall, mild MR & TR & AI Hyperlipidemia- continue to monitor as outpatient. H/o elevated alkaline phosphatase Diabetes mellitus, followed and managed by primary care physician Obesity Noncompliance with medication, patient was educated about compliance with medicine and diet Clinical Quality Measures AMI/AHF: ASA po Prior to arrival: Yes DVT/VTE Risk/Contraindication: Risk Factor Score Per Nursin RFS Level Per Nursing on Admit: 4+=Very High JACK PARISH MD March 08, 2017 09:06
--- NOTE | 2017-03-08 09:30 | Diagnostic Imaging Report ---
EXAM: CHEST PA/LAT (2 VIEW). INDICATION: Dyspnea. COMPARISON: CT chest without contrast on 03/04/2017. FINDINGS: Normal heart size and pulmonary vascularity. There is persistent atelectasis and/or infiltrate in the left lung base. Small left pleural effusion. No right pleural effusion. No pneumothorax. Coronary stent. Degenerative changes in the shoulders. Cholecystectomy clips. IMPRESSION: Persistent atelectasis and/or infiltrate in the left lung base with a small left pleural effusion. Dictated by: Dictated on workstation # [id number]
--- NOTE | 2017-03-08 10:09 | Progress Note-Hospitalist ---
Progress Note HPI/CC on Admission CC: Shortness of breath with hypoxia HPI: This is a 56-year-old white female clinic patient of Dr. 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 Calderon's office as scheduled by this examiner on Wednesday at 415 and found to be in respiratory insufficiency with hypoxia of 80 percent in office and evidence of volume overload. She had a mild elevation in BNP last time she was admitted but is never been in a significant congestive heart failure scenario per past record review so she was sent to the ER because of her possible instability was found to have significant elevated BNP evidence of congestive heart failure acute so she was placed on IV diuresis and cardiology was consulted. 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 just discharged 2 days ago Chronic hypoxia wears oxygen at night Diabetes mellitus out of control insulin-dependent Hypertension Hyperlipidemia Hypothyroidism Anemia of chronic disease Hypokalemia Diagonsis/Assessment & Plan Patient doing much better and ambulating in the halls many times a day and overall feeling much better No fever Will start on antibiotic for UTI No chest pain or shortness of breath No fever, vital signs stable, pleasant, improved flat affect, 6 family members in the room, patient is wearing O2 Regular rate and rhythm, diminished breath sounds at the bases but no rales rhonchi or wheezing No edema Assessment: s/p acute congestive heart failure with hypoxia and pleural effusions on chest x -ray with elevated BNP 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
[2017-03-08] MEDS: CEPHALEXIN 250 MG (KEFLEX) CAP PO SCH ×4 (10:25→20:24)
[2017-03-08 11:57] VITALS: BP 109/75
[2017-03-08] MEDS: HYDROcodone/APAP 5 MG/325 MG (LORTAB) TAB PO PRN (12:56)
[2017-03-08 16:00] VITALS: BP 100/66
[2017-03-08 19:45] VITALS: BP 110/66
[2017-03-08] MEDS: inSUlin DETERMIR 1 UNIT/0.01 ML (LEVEMIR) CHARGE PER UNIT SQ SCH (21:18)
[2017-03-09] VITALS: BP_SYST 101; BP_SYST 121; BP_DIAS 64; BP_DIAS 75
[2017-03-09] MEDS: RT-ALBUTEROL/IPRATROPIUM 3 ML (DUONEB) VIAL INH SCH ×3 (03:14→11:07)
[2017-03-09 04:00] VITALS: BP 97/66
[2017-03-09] MEDS: inSUlin ASPART (NovoLOG) 1 UNIT/0.01 ML (CHARGE PER UNIT) SC SCH ×2 (05:42→11:32)
[2017-03-09] MEDS: KCL 10 MEQ TAB (MICRO K) PO SCH (05:56)
[2017-03-09] MEDS: SUCRALFATE 1 GM (CARAFATE) TAB PO SCH (05:56)
[2017-03-09] MEDS: IBUPROFEN 600 MG (MOTRIN) TAB PO SCH (05:56)
[2017-03-09] MEDS: PANTOPRAZOLE 40 MG (PROTONIX) TAB PO SCH (05:56)
[2017-03-09] MEDS: FUROSEMIDE 40 MG (LASIX) TAB PO SCH (05:56)
[2017-03-09] MEDS: CATHETER FLUSH 10 ML SYR IV SCH (05:58)
[2017-03-09] MEDS: HYDROcodone/APAP 5 MG/325 MG (LORTAB) TAB PO PRN (06:01)
[2017-03-09 06:03] LABS: MEAN CORPUSCULAR HEMOGLOBIN 29 PG (25-34); MEAN CORPUSCULAR HGB CONC 31 G/DL (32-36); MEAN CORPUSCULAR VOLUME 92 FL (80-99); MEAN PLATELET VOLUME 10.8 FL (7.4-10.4); PLATELET COUNT 315 10^3/uL (130-400); RED BLOOD COUNT 3.42 10^6/uL (4.35-5.85); RED CELL DISTRIBUTION WIDTH 13.7 % (10.0-14.5); WHITE BLOOD COUNT 8.1 10^3/uL (4.3-11.0)
[2017-03-09 06:21] LABS: ERYTHROCYTE SEDIMENTATION RATE > 140 MM/HR (0-30)
[2017-03-09 06:22] LABS: CALCIUM 9.3 MG/DL (8.5-10.1); CREATININE SERUM 2.46 MG/DL (0.60-1.30); POTASSIUM 4.5 MMOL/L (3.6-5.0)
--- NOTE | 2017-03-09 07:52 | Cardiology Progress Note ---
Subjective Subjective/Events-last exam patient is laying down in bed, still having shortness of breath, oxygen dependent, denied any chest pain or palpitation. Denied any syncope. Review of Systems General: No Chills, No Night Sweats, No Fatigue, No Malaise, No Appetite, No Other HEENT: No Head Aches, No Visual Changes, No Eye Pain, No Ear Pain, No Dysphasia , No Sinus Congestion, No Post Nasal Drip, No Sore Throat, No Other Pulmonary: Dyspnea, No Cough, No Pleuritic Chest Pain, No Other Cardiovascular: No: Chest Pain, Edema, Lt Headedness, Orthopnea, Other, Palpitations, Paroxysmal Noc. Dyspnea Objective-Cardiology Exam Last Set of Vital Signs Vital Signs 03/08/17 03/09/17 03/09/17 08:00 04:00 07:00 Temp 97.9 Pulse 62 Resp 16 B/P (MAP) 97/66 Pulse Ox 91 O2 Delivery High Flow N/C O2 Flow Rate 4.50 FiO2 100 Capillary Refill : Less Than 3 SecondsLess Than 3 Seconds I&O Intake and Output 03/09/17 00:00 Intake Total 1380 ml Output Total 1500 ml Balance -120 ml Intake Oral 1380 ml Output Urine Total 1500 ml # Voids 3 # Bowel Movements 6 General: Alert, Oriented X3, Cooperative, No Acute Distress HEENT: Atraumatic, PERRLA, Mucous Memb Moist/[place] Neck: Supple, No JVD Lungs: Clear to Auscultation, Normal Air Movement Heart: Regular Rate, Normal S1, Normal S2 Abdomen: Normal Bowel Sounds, Soft, No Tenderness, No Masses Extremities: No Clubbing, No Cyanosis, No Tenderness/Swelling, Other (1+ pitting edema bilaterally) Skin: No Rashes, No Breakdown Neuro: Normal Gait, Normal Speech, Sensation Intact, Cranial Nerves 3-12 NL Psych/Mental Status: Mental Status NL, Mood NL Results Lab Laboratory Tests 03/09/17 05:52 A/P-Cardiology Admission Diagnosis CHF CAD Pericarditis COPD Assessment/Plan Chest pain, reporting improvement, sedimentation rate is still more than 140, received ibuprofen for 12 days, no change in sedimentation rate, unlikely that the elevated number is due to pericarditis at this point, patient has no chest pain, I will evaluate EKG, I will evaluate blood culture, urinalysis and culture. Her chest x-ray showed persistent infiltrate which could be the cause of her elevated sedimentation rate. Acute on chronic renal failure, I will discontinue ibuprofen and lisinopril at this point, continue with gentle diuresis and monitor renal function. Anemia, GI bleed secondary to aggressive medication, stool for occult blood is positive, received one unit of packed RBCs, continue to monitor H&H Urinary tract infection, Klebsiella pneumoniae in the urine, could be the reason for her elevated sedimentation rate. No signs of pericarditis, did not receive antibiotics,I will repeat urine analysis today Pleural effusion, questionable pulmonary infiltrate on CT scan, does not have leukocytosis, no signs of pneumonia. Not receiving antibiotics, repeat chest x- ray showed persistent infiltrate and pleural effusion. Acute on chronic systolic and diastolic CHF, ischemic cardiomyopathy, clinically significantly better, BNP is better, continue to monitor Chronic shortness of breath: advanced COPD and chronic systolic and diastolic CHF, patient has been on 3 L oxygen nasal cannula at home prior to the admission. Continue to monitor. Nose bleeds. Bleeding is self limited, reporting improvement at this time. Continue to monitor CAD with h/o cor PCI. On 01/28/17, had stenting to the right coronary artery with Xience Alpine 3.5 to the proximal right coronary artery and 2.75 to the distal right coronary artery and right PDA. Ac Inf SD on 02/10/17 due to noncompliance with clopidogrel: repeat cath showed total occlusion of the right coronary artery, had thrombectomy and balloon angioplasty of the right coronary artery, troponin was up to 300 initially after the SD, still coming down slowly. Repeat cardiac catheterization was done on February 22, 2017 which showed mild disease nonobstructive disease. Echo of 02/21/17: LVEF 50%, hypokinesis of inf and inf-lat wall, mild MR & TR & AI Hyperlipidemia- continue to monitor as outpatient. H/o elevated alkaline phosphatase Diabetes mellitus, followed and managed by primary care physician Obesity Noncompliance with medication Clinical Quality Measures AMI/AHF: ASA po Prior to arrival: Yes DVT/VTE Risk/Contraindication: Risk Factor Score Per Nursin RFS Level Per Nursing on Admit: 4+=Very High JACK PARISH MD March 09, 2017 07:51
--- NOTE | 2017-03-09 08:26 | Pulmonary Progress Note ---
Subjective Subjective/Events-last exam Pt is doing better no complications noted. Exam Exam Vital Signs Date Time Temp Pulse Resp B/P (MAP) Pulse Ox O2 Delivery O2 Flow Rate FiO2 03/09/17 07:00 62 03/09/17 04:00 97.9 65 16 97/66 91 High Flow N/C 4.50 03/09/17 03:15 90 3.00 03/09/17 01:00 67 03/09/17 00:00 98.4 68 20 101/64 93 High Flow N/C 4.50 03/08/17 22:16 98 3.00 03/08/17 20:20 2.00 03/08/17 19:45 96.5 58 18 110/66 97 High Flow N/C 3.00 03/08/17 19:00 60 03/08/17 16:00 96.8 60 20 100/66 98 High Flow N/C 3.00 03/08/17 11:57 97.4 69 20 109/75 96 High Flow N/C 3.00 03/08/17 11:19 98 3.00 I & O 03/09/17 07:00 Intake Total 1480 ml Output Total 600 ml Balance 880 ml General Appearance: No Apparent Distress, WD/WN, Chronically ill HEENT: PERRL/EOMI, Normal ENT Inspection, Pharynx Normal Neck: Full Range of Motion, Normal Inspection, Non Tender, Supple, Carotid Bruit Respiratory: Chest Non Tender, No Accessory Muscle Use, No Respiratory Distress , Decreased Breath Sounds, Wheezing Cardiovascular: Regular Rate, Rhythm, No Edema, No Gallop, No JVD, No Murmur, Normal Peripheral Pulses Capillary Refill: Less Than 3 Seconds Extremity: Normal Capillary Refill, Normal Inspection, Normal Range of Motion, Non Tender, No Calf Tenderness, No Pedal Edema Neurologic/Psychiatric: Alert, Oriented x3, No Motor/Sensory Deficits, Normal Mood/Affect Skin: Normal Color, Warm/Dry Lymphatic: No Adenopathy Results Lab Laboratory Tests 03/08/17 05:00 03/09/17 05:52 Assessment/Plan Assessment/Plan CHF -Continue lasix acute on chronic Hypoxemia secondary to pulmonary edema from CHF home oxygen is 4l/min -CT scan reviewed -- shows atelectasis with some air bronchograms-- NO leukocytosis no fever -- doubt pneumonia Acute pericarditis - Vinay syndrome COPD -SVNs, oxygen Pt is ok from pulmonary standpoint for discharge. I will have her f/u with me in 3-4wks. Clinical Quality Measures AMI/AHF: ASA po Prior to arrival: Yes DVT/VTE Risk/Contraindication: Risk Factor Score Per Nursin RFS Level Per Nursing on Admit: 4+=Very High ANNIE BECKHAM DO March 09, 2017 08:26
[2017-03-09] MEDS: CEPHALEXIN 250 MG (KEFLEX) CAP PO SCH (08:33)
[2017-03-09] MEDS: TICAGRELOR 90 MG TABLET (BRILINTA) PO SCH (08:34)
[2017-03-09] MEDS: amLODIPine 10 MG (NORVASC) TAB PO SCH (08:34)
[2017-03-09] MEDS: morphine ER 15 MG (MS CONTIN) TAB PO SCH (08:34)
[2017-03-09] MEDS: ASPIRIN 81 MG CHEW (CHILDREN'S ASA) PO SCH (08:34)
[2017-03-09] MEDS: sitaGLIPtin 50 MG (JANUVIA) TAB PO SCH (08:34)
[2017-03-09] MEDS: LEVOTHYROXINE 75 MCG (LEVOTHROID) TABLET PO SCH (08:34)
[2017-03-09] MEDS: ISOSORBIDE MONONITRATE 30 MG (IMDUR) TAB PO SCH (08:35)
[2017-03-09] MEDS: DULoxetine 30 MG (CYMBALTA) CAP PO SCH (08:40)
[2017-03-09] MEDS: GABAPENTIN 300 MG (NEURONTIN) CAP PO SCH (08:40)
[2017-03-09] MEDS: doxAzosin 2 MG (CARDURA) TAB PO SCH (08:40)
[2017-03-09 08:45] VITALS: BP 102/69
[2017-03-09] MEDS: POLYETHYLENE GLYCOL 17 GM (MIRALAX) PACK PO SCH (08:45)
[2017-03-09] MEDS: LACTULOSE SYRUP 10GM/15ML (ENULOSE) 30ML UDC PO SCH (08:45)
[2017-03-09] MEDS: DOCUSATE SODIUM 100 MG (COLACE) CAP PO SCH (08:45)
[2017-03-09] MEDS ORDERED: INSU100V16 SQ (09:22)
[2017-03-09] MEDS ORDERED: CEPH250C PO (09:22)
[2017-03-09] MEDS ORDERED: SUCR1TAB PO (09:22)
[2017-03-09] MEDS ORDERED: INSU100V5 SQ ×2 (09:22→09:46)
[2017-03-09] MEDS ORDERED: PANT40TA3 PO (09:22)
--- NOTE | 2017-03-09 09:27 | Discharge Inst-Home Health ---
Discharge [facility]-Home Health Patient Instructions Patient Instructions/FU Appt: [facility] Dr Calderon 03/11/17 1020am to follow up on final cultures and check creatinine VIA [place], [place] DISCHARGE ORDERS Allergies: Coded Allergies: ondansetron (Verified Allergy, Severe, N/V, 02/26/17) Estrogens (Unverified Allergy, Unknown, BLISTERS ON BUTT, 02/26/17) metformin (Unverified Allergy, Unknown, BLISTERS ON BUTT, 02/26/17) Height (Feet): 5 Height (Inches): 4.00 Weight (Pounds): 273 Weight (Ounces): 3.0 Weight (Calculated Kilograms): 123.978789 Home Health Need/Face to Face Need for Home Health weakness and hypoxia I Have Seen Pt [id number]: Yes Date of Face to Face: March 09, 2017 Discharged To: Home Diagnosis/Conditions HH Order: Medication administration Monitor renal function Monitor blood pressure monitor what sugar Consult/Follow Up/New Order *I certify that based on my findings, the following services are medically necessary Home Health Services: Services: Nursing Services, [employer] Supervisor-Evaluate & Treat, Physical Therapy-Evaluate & Treat My clinical findings support the need for the above services; see Diagnosis. Discharge Diet: Low Sodium Diet, ADA Diet, Cardiac Diet Daily Activity as Tolerated: Yes Discharge Medications New, Converted or Re-Newed RX: Transmitted to Pharmacy I certify that this patient is under my care and that I, a nurse practitioner or a physician; a assistant service manager working with me, had a face to face encounter that - meets the physician face to face encounter requirements with this patient as dated. QUINN ALEMAN DO March 09, 2017 09:27
--- NOTE | 2017-03-09 09:28 | Discharge Summary-Hospitalist ---
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 just discharged 2 days ago Chronic hypoxia wears oxygen at night Diabetes mellitus out of control insulin-dependent Hypertension Hyperlipidemia Hypothyroidism Anemia of chronic disease Hypokalemia Discharge Diagnosis Assessment: s/p acute congestive heart failure with hypoxia and pleural effusions on chest x -ray with elevated BNP 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 just discharged 9 days ago before admit currently Chronic hypoxia wears oxygen at night Diabetes mellitus out of control insulin-dependent Hypertension Hyperlipidemia Hypothyroidism Anemia of chronic disease Hypokalemia Very deconditioned and poor motivation CRI Patient doing much better and ambulating in the halls many times a day and overall feeling much better No fever Will start on antibiotic for UTI No chest pain or shortness of breath No fever, vital signs stable, pleasant, improved flat affect, 6 family members in the room, patient is wearing O2 Regular rate and rhythm, diminished breath sounds at the bases but no rales rhonchi or wheezing No edema Assessment: s/p acute congestive heart failure with hypoxia and pleural effusions on chest x -ray with elevated BNP 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 just discharged 9 days ago Chronic hypoxia wears oxygen at night Diabetes mellitus out of control insulin-dependent Hypertension Hyperlipidemia Hypothyroidism Anemia of chronic disease Hypokalemia Very deconditioned and poor motivation CRI Plan: Check labs in am Keflex empirically for UTI Doing well and plan for DC Wednesday Reason Hospital Visit/Course CC: Shortness of breath with hypoxia HPI: This is a 56-year-old white female clinic patient of Dr. Cisneros that is known to me from recent discharge from hospital 2 days ago after she was diagnosed with Vinay syndrome after an admission recently for acute myocardial infarction with stent placement the presented to Dr. Calderon's office as scheduled by this examiner on Wednesday at 415 and found to be in respiratory insufficiency with hypoxia of 80 percent in office and evidence of volume overload. She had a mild elevation in BNP last time she was admitted but is never been in a significant congestive heart failure scenario per past record review so she was sent to the ER because of her possible instability was found to have significant elevated BNP evidence of congestive heart failure acute so she was placed on IV diuresis and cardiology was consulted. Hospital course: Patient a very lengthy hospital course due to her very complicated medical problems that have occurred on an ongoing basis resulting from diabetes mellitus but had a myocardial infarction had stents placed and then began having evidence of Vinay syndrome was placed on low dose anti- inflammatory and within one day after very close follow-up at the clinic she was hypoxic short of breath even though she was using her home oxygen so she was admitted for new onset congestive heart failure with elevated BNP and vascular congestion on chest x-ray and worsening renal failure. Cardiology was consulted diuretics were initiated and patient was monitored very closely. Multiple days passed and she was having very difficult problem motivating and getting out of bed due to weakness and shortness of breath and chest x-ray revealed continued infiltrate so she was monitor closely medications changed and physical therapy was consulted. Renal insufficiency did improve and worsened but on day of discharge she was not running a fever lab work revealed creatinine to 2.3 but she will have a very close follow-up and she was eating and drinking bowels are moving ambulating without difficulty and she wanted to go home and she was pancultured prior to discharge home placed on Keflex to finish treatment for UTI and will be monitored closely at the [facility] in follow-up. Poor prognosis remains regardless of how much aggressive treatment she receives due to the significant multisystem dysfunction she has from all of her other medical problems including end-stage diabetes mellitus. Discharge Summary Discharge Physical Examination Allergies: Coded Allergies: ondansetron (Verified Allergy, Severe, N/V, 02/26/17) Estrogens (Unverified Allergy, Unknown, BLISTERS ON BUTT, 02/26/17) metformin (Unverified Allergy, Unknown, BLISTERS ON BUTT, 02/26/17) Vitals & I&Os Vital Signs Date Time Temp Pulse Resp B/P (MAP) Pulse Ox O2 Delivery O2 Flow Rate FiO2 03/09/17 11:48 03/09/17 11:07 97 2.50 03/09/17 08:45 100 03/09/17 08:45 97.7 67 16 Nasal Cannula Hospital Course Labs (last 24 hrs) Microbiology 03/07/17 Blood Culture - Preliminary, Resulted No growth 03/09/17 Urine Culture - Preliminary, Resulted Probable Klebsiella/Enterobact Pending Labs Discharge Home Medications: Active Scripts Active Novolog (Insulin Aspart) 100 Unit/1 Ml Susp 5 Unit SC AC 1 Days Please Decrease Your Dosage from 20 units to 5 units before meals Protonix (Pantoprazole Sodium) 40 Mg Tablet.dr 40 Mg PO BIDAC Levemir (Insulin Determir) 1,000 Units/10 Ml Soln 15 Unit SQ HS 1 Days Please decrease Your scheduled dosage from 60 units to 15 units Sucralfate 1 Gm Tablet 1 Gm PO ACHS Cephalexin 250 Mg Capsule 500 Mg PO QID Lortab 5-325 mg Tablet (Hydrocodone/Acetaminophen) 1 Each Tablet 1 Each PO TID Morphine Sulfate ER (Morphine Sulfate) 15 Mg Tablet.er 15 Mg PO BID Brilinta (Ticagrelor) 90 Mg Tablet 90 Mg PO BID Reported Atorvastatin Calcium 80 Mg Tablet 80 Mg PO DAILY Isosorbide Mononitrate ER (Isosorbide Mononitrate) 30 Mg Tab.er.24h 30 Mg PO DAILY Gabapentin 300 Mg Capsule 600 Mg PO DAILY TAKES 2 (300 MG) CAPSULES Metoprolol Succinate 25 Mg Tab.er.24h 25 Mg PO DAILY Duloxetine HCl 30 Mg Capsule.dr 30 Mg PO DAILY Doxazosin Mesylate 2 Mg Tablet 2 Mg PO DAILY Amlodipine Besylate 10 Mg Tablet 10 Mg PO DAILY Levothyroxine Sodium 75 Mcg Tablet 75 Mcg PO DAILY Lorazepam 0.5 Mg Tablet 0.5 Mg PO DAILY PRN Aspirin 81 Mg Tab.chew 162 Mg PO DAILY Onglyza (Saxagliptin HCl) 5 Mg Tablet 5 Mg PO DAILY Furosemide 40 Mg Tablet 40 Mg PO DAILY Instructions to patient/family Please see electonic discharge instructions given to patient. Clinical Quality Measures AMI/AHF: ASA po Prior to arrival: Yes DVT/VTE Risk/Contraindication: Risk Factor Score Per Nursin RFS Level Per Nursing on Admit: 4+=Very High QUINN ALEMAN DO March 09, 2017 09:28
[2017-03-09] MEDS ORDERED: INSU100V16 SC (09:53)
[2017-03-09] MEDS ORDERED: PANT40TA2 PO (09:53)
[2017-03-09 10:06] LABS: BILIRUBIN,URINE NEGATIVE (NEGATIVE); KETONES,URINE NEGATIVE (NEGATIVE); LEUKOCYTE ESTERASE ,URINE 3+ (NEGATIVE); NITRITE,URINE NEGATIVE (NEGATIVE); PH,URINE 6 (5-9); PROTEIN,URINE 3+ (NEGATIVE); UROBILINOGEN,URINE NORMAL (NORMAL)
[2017-03-09 10:25] LABS: WBC,URINE >100 /HPF
[2017-03-09 10:26] LABS: YEAST,URINE FEW /HPF
== END 2017-03-09 11:48 | disposition home health service (06) | DRG 291 ==
LOC: EDUNIT# 17:27 → ER 17:28 → ICU 18:49 → 4TH 02-27 23:00
PROVIDERS: ADMIT Internal Medicine; ATTEND Internal Medicine
DX: I50.43 Acute on chronic combined systolic (congestive) and diastolic (congestive) heart failure (principal); J96.21 Acute and chronic respiratory failure with hypoxia; I24.1 Dressler's syndrome; I13.0 Hypertensive heart and chronic kidney disease with heart failure and stage 1 through stage 4 chronic kidney disease, or unspecified chronic kidney disease; N39.0 Urinary tract infection, site not specified; J90 Pleural effusion, not elsewhere classified; Z68.42 Body mass index [BMI] 45.0-49.9, adult; N17.9 Acute kidney failure, unspecified; B96.1 Klebsiella pneumoniae [K. pneumoniae] as the cause of diseases classified elsewhere; I25.2 Old myocardial infarction; E11.65 Type 2 diabetes mellitus with hyperglycemia; Z79.4 Long term (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; I25.5 Ischemic cardiomyopathy; E78.5 Hyperlipidemia, unspecified; E03.9 Hypothyroidism, unspecified; E87.6 Hypokalemia; D63.8 Anemia in other chronic diseases classified elsewhere; J44.9 Chronic obstructive pulmonary disease, unspecified; Z91.14 Patient's other noncompliance with medication regimen; I25.10 Atherosclerotic heart disease of native coronary artery without angina pectoris; Z95.5 Presence of coronary angioplasty implant and graft; N18.9 Chronic kidney disease, unspecified; I08.3 Combined rheumatic disorders of mitral, aortic and tricuspid valves; E66.9 Obesity, unspecified; R04.0 Epistaxis; H91.90 Unspecified hearing loss, unspecified ear; K59.00 Constipation, unspecified; R70.0 Elevated erythrocyte sedimentation rate
CPT/HCPCS: 36415; 51702; 71010; 71020; 71250; 80048; 80053; 81000; 82274; 82553; 82728; 82805; 82962; 83540; 83605; 83735; 83880; 84100; 84484; 85007; 85014; 85018; 85025; 85027; 85610; 85652; 85730; 86850; 86900; 86901; 86920; 87040; 87077; 87088; 87186; 93005; 93041; 94640; 94664; 94760; 96374; 96375

== ENCOUNTER 2017-03-12 12:24 | Emergency (ER) | payer MEDICAID ==
[~2017-03-12] VITALS: Ht 165.1 cm; Wt 115.2 kg
[~2017-03-12 12:24] MED LIST changes: +CEPH250C PO; +INSU100V16 SQ; +SUCR1TAB PO
--- NOTE | 2017-03-12 12:44 | ED General ---
General Chief Complaint: General Problems/Pain Stated Complaint: DIARRHEA WEAKNESS Source of Information: Patient Exam Limitations: No Limitations History of Present Illness Time Seen by Provider: 12:43 Initial Comments To ER come in by family with diarrhea for 4 days. This is been watery up until today at which point it turned very dark in color. She is on Brilinta following a recent STEMI. She is also got nausea and vomiting and she's had central chest pain that has been constant since 5 a.m. this morning. She also reports worsening swelling in her legs and feet. Timing/Duration: 1-2 Days Severity: Moderate Associated Systoms: Chest Pain, Nausea/Vomiting Allergies and Home Medications Allergies Coded Allergies: ondansetron (Verified Allergy, Severe, N/V, 02/26/17) Estrogens (Unverified Allergy, Unknown, BLISTERS ON BUTT, 02/26/17) metformin (Unverified Allergy, Unknown, BLISTERS ON BUTT, 02/26/17) Home Medications Amlodipine Besylate 10 Mg Tablet, 10 MG PO DAILY, (Reported) Aspirin 81 Mg Tab.chew, 162 MG PO DAILY, (Reported) Atorvastatin Calcium 80 Mg Tablet, 80 MG PO DAILY, (Reported) Cephalexin 250 Mg Capsule, 500 MG PO QID, #16 Prescribed by: QUINN ALEMAN on 03/09/17 0922 Doxazosin Mesylate 2 Mg Tablet, 2 MG PO DAILY, (Reported) Duloxetine HCl 30 Mg Capsule.dr, 30 MG PO DAILY, (Reported) Furosemide 40 Mg Tablet, 40 MG PO DAILY, (Reported) Gabapentin 300 Mg Capsule, 600 MG PO DAILY, (Reported) TAKES 2 (300 MG) CAPSULES Hydrocodone/Acetaminophen 1 Each Tablet, 1 EACH PO TID, #30 Prescribed by: QUINN ALEMAN on 02/25/17 1134 Insulin Aspart 100 Unit/1 Ml Susp, 5 UNIT SC AC for 1 Days Please Decrease Your Dosage from 20 units to 5 units before meals Prescribed by: QUINN ALEMAN on 03/09/17 0953 Insulin Determir 1,000 Units/10 Ml Soln, 15 UNIT SQ HS for 1 Days Please decrease Your scheduled dosage from 60 units to 15 units Prescribed by: QUINN ALEMAN on 03/09/17 0946 Isosorbide Mononitrate 30 Mg Tab.er.24h, 30 MG PO DAILY, (Reported) Levothyroxine Sodium 75 Mcg Tablet, 75 MCG PO DAILY, (Reported) Lorazepam 0.5 Mg Tablet, 0.5 MG PO DAILY PRN for ANXIETY, (Reported) Metoprolol Succinate 25 Mg Tab.er.24h, 25 MG PO DAILY, (Reported) Morphine Sulfate 15 Mg Tablet.er, 15 MG PO BID, #14 Prescribed by: QUINN ALEMAN on 02/25/17 1134 Pantoprazole Sodium 40 Mg Tablet.dr, 40 MG PO BIDAC, #60 Prescribed by: QUINN ALEMAN on 03/09/17 0953 Prochlorperazine Maleate 5 Mg Tablet, 5 MG PO BID PRN for NAUSEA/VOMITING-1ST LINE, #10 Prescribed by: ELLEN MARTIN on 03/12/17 1415 Saxagliptin HCl 5 Mg Tablet, 5 MG PO DAILY, (Reported) Sucralfate 1 Gm Tablet, 1 GM PO ACHS, #120 Prescribed by: QUINN ALEMAN on 03/09/17 0922 Ticagrelor 90 Mg Tablet, 90 MG PO BID, #60 Ref 4 Prescribed by: JACK FENTON on 02/23/17 0812 Constitutional: see HPI EENTM: see HPI Respiratory: no symptoms reported Cardiovascular: see HPI, chest pain, edema Genitourinary: no symptoms reported Musculoskeletal: no symptoms reported Skin: no symptoms reported Psychiatric/Neurological: No Symptoms Reported Hematologic/Lymphatic: No Symptoms Reported Past Ffchrnt-Gbubbd-Ppnjhh Hx Patient Social History 2nd Hand Smoke Exposure: Yes Recent Foreign Travel: No Contact w/Someone Who Travel: No Recent Hopitalizations: Yes (02/10/17-02/17/17, 02/23/17, dc 02/25/17) Immunizations Up To Date Tetanus Booster (TDap): Unknown PED Vaccines UTD: Yes Date of Pneumonia Vaccine: Sep 18, 2014 Date of Influenza Vaccine: Sep 16, 2016 Seasonal Allergies Seasonal Allergies: No Surgeries HX Surgeries: Yes (right forearm repair with plates et screws) Surgeries: Cardiac, Coronary Stent, Gallbladder, Hysterectomy, Oophorectomy Respiratory Hx Respiratory Disorders: Yes Respiratory Disorders: Emphysema Cardiovascular Hx Cardiac Disorders: Yes (CAROTID DISEASE, stent 02/22) Cardiac Disorders: Coronary Artery Disease, Heart Attack, High Cholesterol, Hypertension Neurological Hx Neurological Disorders: Yes Neurological Disorders: Neuropathy, TIA Reproductive System Hx Reproductive Disorders: No Sexually Transmitted Disease: No HIV/AIDS: No Female Reproductive Disorders: 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 Genitourinary Hx Genitourinary Disorders: Yes Genitourinary Disorders: Renal Failure Gastrointestinal Hx Gastrointestinal Disorders: Yes Gastrointestinal Disorders: Gastroesophageal Reflux, Gall Bladder Disease Musculoskeletal Hx Musculoskeletal Disorders: Yes (right arm fracture with screws and pin placements) Musculoskeletal Disorders: Arthritis, Fibromyalgia, Fractures Endocrine Hx Endocrine Disorders: Yes Endocrine Disorders: Diabetes, Insulin dep, Hypothyroidsim HEENT HX ENT Disorders: Yes (GLASSES) HEENT Disorders: Double Vision Hearing Impairment: Hard of Hearing Cancer Hx Cancer: Yes Cancer: Ovarian, Uterine Psychosocial Hx Psychiatric Problems: Yes Behavioral Health Disorders: Anxiety, Depression Integumentary HX Skin/Integumentary Disorder: Yes (DIABETIC SORES) Skin/Integumentary Disorders: Recent Skin Changes Blood Transfusions Hx Blood Disorders: No (ANEMIA) Adverse Reaction to a Blood Tr: No Family Medical History Significant Family History: No Pertinent Family Hx Family Medial History: Cardiovascular disease 19 FATHER G8 SISTER Diabetes mellitus 19 FATHER G8 BROTHER G8 SISTER FH: lung cancer 19 MOTHER FH: skin cancer 19 FATHER Parkinson's disease G8 SISTER Psychosocial problem G8 BROTHER Physical Exam Vital Signs Vital Sign - Last 12Hours 03/12/17 12:42 Temp 98.0 Pulse 77 Resp 16 B/P (MAP) 144/64 Pulse Ox 97 O2 Delivery Room Air Capillary Refill : General Appearance: No Apparent Distress, WD/WN, Chronically ill, Obese Eyes: Bilateral Eye Normal Inspection, Bilateral Eye PERRL HEENT: PERRL/EOMI, TMs Normal Neck: Full Range of Motion, Normal Inspection Respiratory: Normal Breath Sounds, No Accessory Muscle Use, No Respiratory Distress Cardiovascular: Regular Rate, Rhythm, Normal Peripheral Pulses Gastrointestinal: Normal Bowel Sounds, Non Tender, Soft Rectal: Heme Positive Stool (Faint positive) Extremity: Normal Capillary Refill, Normal Inspection, Normal Range of Motion Neurologic/Psychiatric: Alert, Oriented x3, No Motor/Sensory Deficits Skin: Normal Color, Warm/Dry Progress/Results/Core Measures Results/Orders Lab Results Laboratory Tests Test 03/12/17 13:15 Range/Units White Blood Count 8.5 4.3-11.0 10^3/uL Red Blood Count 3.39 L 4.35-5.85 10^6/uL Hemoglobin 9.8 L 11.5-16.0 G/DL Hematocrit 31 L 35-52 % Mean Corpuscular Volume 90 80-99 FL Mean Corpuscular Hemoglobin 29 25-34 PG Mean Corpuscular Hemoglobin Concent 32 32-36 G/DL Red Cell Distribution Width 13.5 10.0-14.5 % Platelet Count 346 130-400 10^3/uL Mean Platelet Volume 10.5 H 7.4-10.4 FL Neutrophils (%) (Auto) 62 42-75 % Lymphocytes (%) (Auto) 25 12-44 % Monocytes (%) (Auto) 9 0-12 % Eosinophils (%) (Auto) 4 0-10 % Basophils (%) (Auto) 1 0-10 % Neutrophils # (Auto) 5.2 1.8-7.8 X 10^3 Lymphocytes # (Auto) 2.1 1.0-4.0 X 10^3 Monocytes # (Auto) 0.7 0.0-1.0 X 10^3 Eosinophils # (Auto) 0.4 H 0.0-0.3 10^3/uL Basophils # (Auto) 0.1 0.0-0.1 10^3/uL Sodium Level 141 135-145 MMOL/L Potassium Level 4.2 3.6-5.0 MMOL/L Chloride Level 102 98-107 MMOL/L Carbon Dioxide Level 29 21-32 MMOL/L Anion Gap 10 5-14 MMOL/L Blood Urea Nitrogen 43 H 7-18 MG/DL Creatinine 1.70 H 0.60-1.30 MG/DL Estimat Glomerular Filtration Rate 31 BUN/Creatinine Ratio 25 Glucose Level 235 H 70-105 MG/DL Calcium Level 9.5 8.5-10.1 MG/DL Total Bilirubin 0.6 0.1-1.0 MG/DL Aspartate Amino Transf (AST/SGOT) 30 5-34 U/L Alanine Aminotransferase (ALT/SGPT) 29 0-55 U/L Alkaline Phosphatase 349 H 40-136 U/L Troponin I < 0.30 <0.30 NG/ML B-Type Natriuretic Peptide 660.5 H <100.0 PG/ML Total Protein 7.2 6.4-8.2 G/DL Albumin 3.3 3.2-4.5 G/DL My Orders Orders - ELLEN MARTIN 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 Cbc With Automated Diff (03/12/17 12:41) Comprehensive Metabolic Panel (03/12/17 12:41) Ua Culture If Indicated (03/12/17 12:41) Ekg Tracing (03/12/17 12:41) Troponin I (03/12/17 12:41) Chest 1 View, Ap/Pa Only (03/12/17 12:41) BNP (03/12/17 12:41) Saline Lock/Iv-Start (03/12/17 12:41) Ns Iv 1000 Ml (Sodium Chloride 0.9%) (03/12/17 12:45) Prochlorperazine Injection (Compazine In (03/12/17 12:45) Furosemide Injection (Lasix Injection) (03/12/17 13:30) Diphenhydramine Injection (Benadryl Inje (03/12/17 13:45) Medications Given in ED Current Medications Medications Dose Ordered Sig/Irineo Route Start Time Stop Time Status Last Admin Dose Admin Diphenhydramine HCl 12.5 mg ONCE ONCE IVP 03/12/17 13:45 03/12/17 13:46 DC 03/12/17 13:52 12.5 MG Furosemide 40 mg ONCE ONCE IVP 03/12/17 13:30 03/12/17 13:31 DC 03/12/17 13:33 40 MG Prochlorperazine Edisylate 5 mg ONCE ONCE IV 03/12/17 12:45 03/12/17 12:46 DC 03/12/17 13:34 5 MG Vital Signs/I&O Vital Sign - Last 12Hours 03/12/17 12:42 Temp 98.0 Pulse 77 Resp 16 B/P (MAP) 144/64 Pulse Ox 97 O2 Delivery Room Air Diagnostic Imaging Diagonstic Imaging: Xray Comments NAME: ANGIE JANE [facility] REC#: [id number] PT STATUS: REG ER : 1960 PHYSICIAN: ELLEN MARTIN APRN ADMIT DATE: 03/12/17/ER Draft Date of Exam:03/12/17 CHEST 1 VIEW, AP/PA ONLY INDICATION: Chest pain and diarrhea. Comparison with 03/08/2017. FINDINGS: Persistent atelectasis and/or infiltrate in the left lung base is unchanged. Left upper lung is clear. Right lung is well aerated and clear. Right costophrenic angle is sharp. Heart remains mildly enlarged. No pneumothorax. IMPRESSION: No significant overall change noted with increased density and volume loss again noted in the left lung base consistent with consolidated infiltrate with associated atelectasis. Dictated on workstation # [id number] Dict: 03/12/17 1316 Trans: 03/12/17 1321 LENCHO [id number] Interpreted by: SANG SCHUSTER MD Electronically signed by: Departure Communication Progress Notes 1413- I discussed the case with Dr. Aleman. Patient's hemoglobin is stable. The fecal occult blood is faintly positive. I discussed with Dr. Fenton whether or not the patient could stop the Brilinta and the answer is no, she should continue the Brilinta and aspirin and transfuse packed red cells on a when necessary basis. Patient should have a repeat CBC next week to monitor her hemoglobin levels. Impression Impression: Primary Impression: CAD S/P percutaneous coronary angioplasty Additional Impression: Nausea vomiting and diarrhea Disposition: HOME, SELF-CARE Condition: Stable Departure-Patient Inst. Decision time for Depature: 14:14 Referrals: MITCH CARVALHO MD (PCP/Family) Primary Care Physician Patient Instructions: NO INSTRUCTIONS GIVEN Add. Discharge Instructions: 1. Small frequent sips of Gatorade to stay hydrated 2. Follow-up with [facility] on Wednesday to repeat a CBC 3. Return to ER for any worsening symptoms or other concerns All discharge instructions reviewed with patient and/or family. Voiced understanding. Scripts Prochlorperazine Maleate (Compazine) 5 Mg Tablet 5 MG PO BID Y for NAUSEA/VOMITING-1ST LINE, #10 TAB Prov: ELLEN MARTIN APRN 03/12/17 Copy Copies To 1: MITCH CARVALHO MD, PETER J APRN March 12, 2017 12:44
[2017-03-12] MEDS ORDERED: NS IV 1000 ML 1,000 ML IV SCH (12:45)
[2017-03-12] MEDS ORDERED: PROCHLORPERAZINE 10 MG/2ML INJ (COMPAZINE) IV ONE (12:45)
--- NOTE | 2017-03-12 13:21 | Diagnostic Imaging Report ---
INDICATION: Chest pain and diarrhea. Comparison with 03/08/2017. FINDINGS: Persistent atelectasis and/or infiltrate in the left lung base is unchanged. Left upper lung is clear. Right lung is well aerated and clear. Right costophrenic angle is sharp. Heart remains mildly enlarged. No pneumothorax. IMPRESSION: No significant overall change noted with increased density and volume loss again noted in the left lung base consistent with consolidated infiltrate with associated atelectasis. Dictated by: Dictated on workstation # [id number]
[2017-03-12] MEDS ORDERED: FUROSEMIDE 40 MG/4 ML INJ (LASIX) IVP ONE (13:30)
[2017-03-12 13:31] LABS: BASOPHILS # (AUTO) 0.1 10^3/uL (0.0-0.1); BASOPHILS % (AUTO) 1 % (0-10); EOSINOPHILS # (AUTO) 0.4 10^3/uL (0.0-0.3); EOSINOPHILS % (AUTO) 4 % (0-10); LYMPHOCYTES # (AUTO) 2.1 X 10^3 (1.0-4.0); LYMPHOCYTES % (AUTO) 25 % (12-44); MEAN CORPUSCULAR HEMOGLOBIN 29 PG (25-34); MEAN CORPUSCULAR HGB CONC 32 G/DL (32-36); MEAN CORPUSCULAR VOLUME 90 FL (80-99); MEAN PLATELET VOLUME 10.5 FL (7.4-10.4); MONOCYTES # (AUTO) 0.7 X 10^3 (0.0-1.0); MONOCYTES % (AUTO) 9 % (0-12); NEUTROPHILS # (AUTO) 5.2 X 10^3 (1.8-7.8); NEUTROPHILS % (AUTO) 62 % (42-75); PLATELET COUNT 346 10^3/uL (130-400); RED BLOOD COUNT 3.39 10^6/uL (4.35-5.85); RED CELL DISTRIBUTION WIDTH 13.5 % (10.0-14.5); WHITE BLOOD COUNT 8.5 10^3/uL (4.3-11.0)
[2017-03-12] MEDS ORDERED: diphenhydrAMINE 50 MG/ML INJ (BENADRYL) IVP ONE (13:45)
[2017-03-12 13:56] LABS: ALANINE AMINOTRANSFERASE 29 U/L (0-55); ALBUMIN 3.3 G/DL (3.2-4.5); ANION GAP 10 MMOL/L (5-14); ASPARTATE AMINO TRANSFERASE 30 U/L (5-34); BILIRUBIN,TOTAL 0.6 MG/DL (0.1-1.0); BLOOD UREA NITROGEN 43 MG/DL (7-18); BUN/CREATININE RATIO 25; CALCIUM 9.5 MG/DL (8.5-10.1); CARBON DIOXIDE 29 MMOL/L (21-32); CHLORIDE 102 MMOL/L (98-107); GFR ESTIMATED 31; GLUCOSE 235 MG/DL (70-105); POTASSIUM 4.2 MMOL/L (3.6-5.0); SODIUM 141 MMOL/L (135-145); TOTAL PROTEIN 7.2 G/DL (6.4-8.2)
[2017-03-12 14:02] LABS: TROPONIN I < 0.30 NG/ML (<0.30)
[2017-03-12] MEDS ORDERED: PROC5TAB52 PO (14:15)
[2017-03-12 15:00] VITALS: BP 118/70
== END 2017-03-12 15:00 | disposition home or self-care (01) ==
LOC: EDUNIT# 12:24 → ER 12:27
DX: R11.2 Nausea with vomiting, unspecified (principal); R19.7 Diarrhea, unspecified; E11.9 Type 2 diabetes mellitus without complications; I10 Essential (primary) hypertension; J43.9 Emphysema, unspecified; I25.10 Atherosclerotic heart disease of native coronary artery without angina pectoris; I25.2 Old myocardial infarction; Z79.82 Long term (current) use of aspirin; Z79.4 Long term (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; Z79.01 Long term (current) use of anticoagulants; Z79.899 Other long term (current) drug therapy; Z95.5 Presence of coronary angioplasty implant and graft
CPT/HCPCS: 36415; 71010; 80053; 83880; 84484; 85025; 93005; 96374; 96375

== ENCOUNTER 2017-03-23 10:50 | Emergency (ER) | payer MEDICAID ==
[~2017-03-23] VITALS: Ht 167.6 cm; Wt 113.4 kg
[~2017-03-23 10:50] MED LIST changes: +PROC5TAB52 PO
[2017-03-23] MEDS ORDERED: ASPIRIN 81 MG CHEW (CHILDREN'S ASA) PO ONE (11:15)
[2017-03-23] MEDS ORDERED: RX-NITROGLYCERIN 0.4 MG TAB BTL 25'S SL PRN (11:15)
[2017-03-23 11:25] LABS: BASOPHILS # (AUTO) 0.1 10^3/uL (0.0-0.1); BASOPHILS % (AUTO) 1 % (0-10); EOSINOPHILS # (AUTO) 0.3 10^3/uL (0.0-0.3); EOSINOPHILS % (AUTO) 3 % (0-10); LYMPHOCYTES # (AUTO) 2.2 X 10^3 (1.0-4.0); LYMPHOCYTES % (AUTO) 22 % (12-44); MEAN CORPUSCULAR HEMOGLOBIN 29 PG (25-34); MEAN CORPUSCULAR HGB CONC 34 G/DL (32-36); MEAN CORPUSCULAR VOLUME 86 FL (80-99); MEAN PLATELET VOLUME 10.6 FL (7.4-10.4); MONOCYTES # (AUTO) 0.7 X 10^3 (0.0-1.0); MONOCYTES % (AUTO) 7 % (0-12); NEUTROPHILS # (AUTO) 6.9 X 10^3 (1.8-7.8); NEUTROPHILS % (AUTO) 68 % (42-75); PLATELET COUNT 261 10^3/uL (130-400); RED BLOOD COUNT 3.54 10^6/uL (4.35-5.85); RED CELL DISTRIBUTION WIDTH 13.4 % (10.0-14.5); WHITE BLOOD COUNT 10.1 10^3/uL (4.3-11.0)
--- NOTE | 2017-03-23 11:29 | ED General ---
General Chief Complaint: Respiratory Problems Stated Complaint: SOB, LEFT SIDE PAIN Source of Information: Patient, Old Records History of Present Illness Time Seen by Provider: 11:00 Initial Comments PT ARRIVES VIA POV FROM HOME C/O "HURTING REALLY BAD ON MY WHOLE LEFT SIDE" --STATES SHE "HURTS FROM MY HEAD TO MY TOES ON MY LEFT SIDE" --BEGAN AROUND 2300 LAST PM WOKE UP AT 0500 THIS AM AND WAS CLAMMY AND PAIN WAS SEVERE TOOK 600 MG IBUPROFEN AT 0900 THIS AM WITHOUT IMPROVEMENT IN PAIN STATES IT HURTS TO TAKE A DEEP BREATH OR MOVE--STATES WHEN SHE TAKES A DEEP BREATH "IT SHOOTS NEEDLES IN ME" STATES THIS FEELS THE SAME WHEN SHE HAD A HEART ATTACK--PT HAS HAD 4 STENTS IN HEART HAS HAD SLIGHT NON-PRODUCTIVE COUGH NO FEVER + SHORTNESS OF BREATH HAS HAD IMPROVEMENT IN CHRONIC LEG SWELLING, AND HAS LOST 4 LBS SINCE YESTERDAY MORNING--WEIGHED 254 YESTERDAY, AND WEIGHED 250 TODAY PT IS DIABETIC BUT DID NOT CHECK BLOOD SUGAR THIS AM ATE 2 FRIED EGGS AND BREAD THIS AM WITH SIPS OF WATER TO TAKE HER MEDICATIONS THIS AM THIS IS PT'S 6TH VISIT IN THE LAST 1 1/2 MONTHS--FOR SAME/RELATED SYMPTOEMS-- HAD STEMI 02/10/17 PT HAD OUTPATIENT CARDIAC CATH AND 2 STENTS 01/28/17, THEN HAD MO 02/10/17 AND 2 MORE STENTS PLACED PCP: DR. CARVALHO AT [facility] CHEMICAL WEIGHER: DR. PARISH Allergies and Home Medications Allergies Coded Allergies: ondansetron (Verified Allergy, Severe, N/V, 02/26/17) Estrogens (Unverified Allergy, Unknown, BLISTERS ON BUTT, 02/26/17) metformin (Unverified Allergy, Unknown, BLISTERS ON BUTT, 02/26/17) Home Medications Amlodipine Besylate 10 Mg Tablet, 10 MG PO DAILY, (Reported) Aspirin 81 Mg Tab.chew, 162 MG PO DAILY, (Reported) Atorvastatin Calcium 80 Mg Tablet, 80 MG PO DAILY, (Reported) Cephalexin 250 Mg Capsule, 500 MG PO QID, #16 Prescribed by: QUINN ALEMAN on 03/09/17 09 Doxazosin Mesylate 2 Mg Tablet, 2 MG PO DAILY, (Reported) Duloxetine HCl 30 Mg Capsule.dr, 30 MG PO DAILY, (Reported) Furosemide 40 Mg Tablet, 40 MG PO DAILY, (Reported) Gabapentin 300 Mg Capsule, 600 MG PO DAILY, (Reported) TAKES 2 (300 MG) CAPSULES Hydrocodone/Acetaminophen 1 Each Tablet, 1 EACH PO TID, #30 Prescribed by: QUINN ALEMAN on 02/25/17 1134 Insulin Aspart 100 Unit/1 Ml Susp, 5 UNIT SC AC for 1 Days Please Decrease Your Dosage from 20 units to 5 units before meals Prescribed by: QUINN ALEMAN on 03/09/17 0953 Insulin Determir 1,000 Units/10 Ml Soln, 15 UNIT SQ HS for 1 Days Please decrease Your scheduled dosage from 60 units to 15 units Prescribed by: QUINN ALEMAN on 03/09/17 0946 Isosorbide Mononitrate 30 Mg Tab.er.24h, 30 MG PO DAILY, (Reported) Levothyroxine Sodium 75 Mcg Tablet, 75 MCG PO DAILY, (Reported) Lorazepam 0.5 Mg Tablet, 0.5 MG PO DAILY PRN for ANXIETY, (Reported) Metoprolol Succinate 25 Mg Tab.er.24h, 25 MG PO DAILY, (Reported) Morphine Sulfate 15 Mg Tablet.er, 15 MG PO BID, #14 Prescribed by: QUINN ALEMAN on 02/25/17 1134 Pantoprazole Sodium 40 Mg Tablet.dr, 40 MG PO BIDAC, #60 Prescribed by: QUINN ALEMAN on 03/09/17 0953 Prochlorperazine Maleate 5 Mg Tablet, 5 MG PO BID PRN for NAUSEA/VOMITING-1ST LINE, #10 Prescribed by: ELLEN MARTIN on 03/12/17 1415 Saxagliptin HCl 5 Mg Tablet, 5 MG PO DAILY, (Reported) Sucralfate 1 Gm Tablet, 1 GM PO ACHS, #120 Prescribed by: QUINN ALEMAN on 03/09/17 0922 Ticagrelor 90 Mg Tablet, 90 MG PO BID, #60 Ref 4 Prescribed by: JACK PARISH on 02/23/17 0812 Constitutional: no symptoms reported EENTM: no symptoms reported Respiratory: see HPI, short of breath Cardiovascular: see HPI, chest pain, edema, Hx of Intervention, No palpitations , No syncope, vascular heart diseas Gastrointestinal: see HPI, abdominal pain ("WHOLE LEFT SIDE), No nausea, No vomiting Genitourinary: no symptoms reported Musculoskeletal: see HPI ("WHOLE LEFT SIDE" ) Skin: no symptoms reported Psychiatric/Neurological: See HPI, Anxiety, Headache (LEFT SIDE OF HEAD) Hematologic/Lymphatic: No Symptoms Reported Immunological/Allergic: no symptoms reported Past Ybvafya-Eocxut-Fqksik Hx Patient Social History Smoking Status: Former Smoker 2nd Hand Smoke Exposure: Yes Recent Foreign Travel: No Contact w/Someone Who Travel: No Recent Hopitalizations: Yes (02/10/17-02/17/17, 02/23/17, dc 02/25/17) Immunizations Up To Date Tetanus Booster (TDap): Unknown PED Vaccines UTD: Yes Date of Pneumonia Vaccine: Sep 18, 2014 Date of Influenza Vaccine: Sep 16, 2016 Seasonal Allergies Seasonal Allergies: No Surgeries HX Surgeries: Yes (RIGHT FOREARM FX/ORIF; CARDIAC CATH--STENTS X 4; HYST/BSO) Surgeries: Cardiac, Coronary Stent, Gallbladder, Hysterectomy, Oophorectomy Respiratory Hx Respiratory Disorders: Yes Respiratory Disorders: Emphysema Cardiovascular Hx Cardiac Disorders: Yes (CAROTID DISEASE, STENTS X 4) Cardiac Disorders: Chronic Edema/Swelling, Coronary Artery Disease, Heart Attack, High Cholesterol, Hypertension, Peripheral Vascular Neurological Hx Neurological Disorders: Yes Neurological Disorders: Neuropathy, TIA Reproductive System Hx Reproductive Disorders: No Sexually Transmitted Disease: No HIV/AIDS: No Female 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 Genitourinary Hx Genitourinary Disorders: Yes Genitourinary Disorders: Renal Failure Gastrointestinal Hx Gastrointestinal Disorders: Yes (S/P LIDYA) Gastrointestinal Disorders: Gastroesophageal Reflux, Gall Bladder Disease Musculoskeletal Hx Musculoskeletal Disorders: Yes (right arm fracture with screws and pin placements) Musculoskeletal Disorders: Arthritis, Fibromyalgia, Fractures Endocrine Hx Endocrine Disorders: Yes Endocrine Disorders: Diabetes, Insulin dep, Hypothyroidsim HEENT HX ENT Disorders: Yes (GLASSES) HEENT Disorders: Double Vision Hearing Impairment: Hard of Hearing Cancer Hx Cancer: Yes Cancer: Ovarian, Uterine Psychosocial Hx Psychiatric Problems: Yes Behavioral Health Disorders: Anxiety, Depression Integumentary HX Skin/Integumentary Disorder: Yes (DIABETIC SORES) Skin/Integumentary Disorders: Recent Skin Changes Blood Transfusions Hx Blood Disorders: Yes (ANEMIA) Adverse Reaction to a Blood Tr: No Family Medical History Significant Family History: No Pertinent Family Hx Family Medial History: Cardiovascular disease 19 FATHER G8 SISTER Diabetes mellitus 19 FATHER G8 BROTHER G8 SISTER FH: lung cancer 19 MOTHER FH: skin cancer 19 FATHER Parkinson's disease G8 SISTER Psychosocial problem G8 BROTHER Physical Exam Vital Signs Vital Sign - Last 12Hours 03/23/17 11:22 Temp 97.9 Pulse 67 B/P (MAP) 187/82 Pulse Ox 98 O2 Delivery Nasal Cannula Capillary Refill : General Appearance: No Apparent Distress, Anxious (SOMEWHAT DRAMATIC AND ANXIOUS, CRYTING AT TIMES, ROCKING BACK AND FORTH AT TIMES), Obese, Other ( TENDER EVERYWHERE SHE IS TOUCHED ON HER LEFT SIDE) HEENT: PERRL/EOMI, Other (EDENTULOUS) Neck: Full Range of Motion, Normal Inspection, Non Tender, Supple, No Carotid Bruit, No JVD Respiratory: Normal Breath Sounds, No Accessory Muscle Use, No Respiratory Distress, Other (DIFFUSE LEFT CHEST TENDERNESS) Cardiovascular: Regular Rate, Rhythm, No JVD, No Murmur Gastrointestinal: Normal Bowel Sounds, No Organomegaly, No Pulsatile Mass, Soft , Tenderness (DIFFUSE LEFT ABDOMINAL TENDERNESS) Back: Other (DIFFUSE LEFT BACK TENDERNESS) Extremity: Normal Capillary Refill, Pedal Edema (TRACE BILATERALLY), Other ( DIFFUSE LEFT ARM AND LEG TENDERNESS) Neurologic/Psychiatric: Alert, Oriented x3, No Motor/Sensory Deficits, 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 Norm as Tested Skin: Normal Color, Warm/Dry Progress/Results/Core Measures Results/Orders Lab Results Laboratory Tests Test 03/23/17 11:14 Range/Units White Blood Count 10.1 4.3-11.0 10^3/uL Red Blood Count 3.54 L 4.35-5.85 10^6/uL Hemoglobin 10.3 L 11.5-16.0 G/DL Hematocrit 31 L 35-52 % Mean Corpuscular Volume 86 80-99 FL Mean Corpuscular Hemoglobin 29 25-34 PG Mean Corpuscular Hemoglobin Concent 34 32-36 G/DL Red Cell Distribution Width 13.4 10.0-14.5 % Platelet Count 261 130-400 10^3/uL Mean Platelet Volume 10.6 H 7.4-10.4 FL Neutrophils (%) (Auto) 68 42-75 % Lymphocytes (%) (Auto) 22 12-44 % Monocytes (%) (Auto) 7 0-12 % Eosinophils (%) (Auto) 3 0-10 % Basophils (%) (Auto) 1 0-10 % Neutrophils # (Auto) 6.9 1.8-7.8 X 10^3 Lymphocytes # (Auto) 2.2 1.0-4.0 X 10^3 Monocytes # (Auto) 0.7 0.0-1.0 X 10^3 Eosinophils # (Auto) 0.3 0.0-0.3 10^3/uL Basophils # (Auto) 0.1 0.0-0.1 10^3/uL Prothrombin Time 12.1 L 12.2-14.7 SEC INR Comment 0.9 0.8-1.4 Activated Partial Thromboplast Time 29 24-35 SEC Sodium Level 139 135-145 MMOL/L Potassium Level 3.6 3.6-5.0 MMOL/L Chloride Level 99 98-107 MMOL/L Carbon Dioxide Level 33 H 21-32 MMOL/L Anion Gap 7 5-14 MMOL/L Blood Urea Nitrogen 35 H 7-18 MG/DL Creatinine 1.42 H 0.60-1.30 MG/DL Estimat Glomerular Filtration Rate 38 BUN/Creatinine Ratio 25 Glucose Level 323 H 70-105 MG/DL Calcium Level 9.6 8.5-10.1 MG/DL Magnesium Level 1.7 L 1.8-2.4 MG/DL Total Bilirubin 0.7 0.1-1.0 MG/DL Aspartate Amino Transf (AST/SGOT) 18 5-34 U/L Alanine Aminotransferase (ALT/SGPT) 23 0-55 U/L Alkaline Phosphatase 257 H 40-136 U/L Total Creatine Kinase 59 29-168 U/L Creatine Kinase MB 1.6 <6.6 NG/ML Troponin I < 0.30 <0.30 NG/ML B-Type Natriuretic Peptide 655.7 H <100.0 PG/ML Total Protein 6.8 6.4-8.2 G/DL Albumin 3.3 3.2-4.5 G/DL Amylase Level 32 25-125 U/L Lipase 35 8-78 U/L My Orders Orders - RUBIA ANDERSON DO Amylase (03/23/17 11:03) Cbc With Automated Diff (03/23/17 11:03) Comprehensive Metabolic Panel (03/23/17 11:03) Creatine Kinase (03/23/17 11:03) Creatine Kinase Mb (03/23/17 11:03) Lipase (03/23/17 11:03) Partial Thromboplastin Time (03/23/17 11:03) Protime With Inr (03/23/17 11:03) Troponin I (03/23/17 11:03) Chest 1 View, Ap/Pa Only (03/23/17 11:03) O2 (03/23/17 11:03) Ekg Tracing (03/23/17 11:03) Aspirin Chewable Tablet (Baby Aspirin Ch (03/23/17 11:15) Rx-Nitroglycerin Sl Tabs (Rx-Nitrostat S (03/23/17 11:15) BNP (03/23/17 11:03) Monitor-Rhythm Ecg Trace Only (03/23/17 11:03) Magnesium (03/23/17 11:03) Nitroglycerin Ointment (Nitrobid Ointme (03/23/17 11:45) Nitroglycerin Ointment (Nitrobid Ointme (03/23/17 12:15) Ketorolac Injection (Toradol Injection) (03/23/17 12:15) Alprazolam Tablet (Xanax Tablet) (03/23/17 12:15) Medications Given in ED Current Medications Medications Dose Ordered Sig/Irineo Route Start Time Stop Time Status Last Admin Dose Admin Alprazolam 0.25 mg ONCE ONCE PO 03/23/17 12:15 03/23/17 12:17 DC 03/23/17 12:21 0.25 MG Aspirin 324 mg ONCE ONCE PO 03/23/17 11:15 03/23/17 11:16 DC 03/23/17 11:30 324 MG Ketorolac Tromethamine 30 mg ONCE ONCE IVP 03/23/17 12:15 03/23/17 12:16 DC 03/23/17 12:21 30 MG Nitroglycerin 0.4 mg UD PRN SL 03/23/17 11:15 03/23/17 11:30 0.4 MG Nitroglycerin 0.5 inch ONCE ONCE TOP 03/23/17 11:45 03/23/17 11:46 DC 03/23/17 11:50 0.5 INCH Nitroglycerin 1 inch ONCE ONCE TOP 03/23/17 12:15 03/23/17 12:16 DC 03/23/17 12:21 1 INCH Vital Signs/I&O Vital Sign - Last 12Hours 03/23/17 03/23/1703/23/17 11:22 11:30 12:21 Temp 97.9 97.9 97.9 Pulse 67 B/P (MAP) 187/82 Pulse Ox 98 O2 Delivery Nasal Cannula Progress Note : Progress Note PT FEELS MUCH BETTER AT TIME OF DISMISSAL AND BP DOWN, PT NO LONGER CRYING AND IS LESS ANXIOUS ECG Initial ECG Impression Time: 11:14 Initial ECG Rate: 69 Initial ECG Rhythm: Normal Sinus Initial ECG Comparisson: Unchanged Diagnostic Imaging Comments CXR--NO ACUTE PROCESS, PER RADIOLOGIST REPORT @ 1155 Reviewed: Reviewed by Me Departure Communication Progress Notes 1208--SPOKE WITH DR. PARISH, HE DOES NOT FEEL THAT PT NEEDS TO BE ADMITTED, AND ADVISES TO GIVE XANAX. HE WILL SEE HER IN OFFICE THIS AFTERNOON AFTER SHE IS DISMISSED FROM ER. Impression Impression: Primary Impression: CAD S/P percutaneous coronary angioplasty Additional Impressions: Musculoskeletal pain Anxiety H/O heart artery stent HTN (hypertension) Disposition: 01 HOME, SELF-CARE Condition: Stable Departure-Patient Inst. Referrals: MITCH CARVALHO MD (PCP/Family) Primary Care Physician JACK PARISH MD Patient Instructions: Chest Pain (DC), Chest Pain That Is Not Caused by the Heart (DC), Muscle and Bone Pain (DC) Add. Discharge Instructions: TAKE YOUR MEDICATIONS PRESCRIBED FOLLOW UP WITH DR. PARISH, GO TO HIS OFFICE AFTER YOU LEAVE THE ER All discharge instructions reviewed with patient and/or family. Voiced understanding. RUBIA ANDERSON DO March 23, 2017 11:28
[2017-03-23 11:39] LABS: INR 0.9 (0.8-1.4); PROTHROMBIN TIME PATIENT 12.1 SEC (12.2-14.7)
[2017-03-23] MEDS ORDERED: NITROGLYCERIN 2% OINT 1 GM UNIT DOSE PACKET TOP ONE ×2 (11:45→12:15)
[2017-03-23 11:48] LABS: ALANINE AMINOTRANSFERASE 23 U/L (0-55); ALBUMIN 3.3 G/DL (3.2-4.5); AMYLASE 32 U/L (25-125); ANION GAP 7 MMOL/L (5-14); ASPARTATE AMINO TRANSFERASE 18 U/L (5-34); BILIRUBIN,TOTAL 0.7 MG/DL (0.1-1.0); BLOOD UREA NITROGEN 35 MG/DL (7-18); BUN/CREATININE RATIO 25; CALCIUM 9.6 MG/DL (8.5-10.1); CARBON DIOXIDE 33 MMOL/L (21-32); CHLORIDE 99 MMOL/L (98-107); CREATINE KINASE 59 U/L (29-168); CREATININE SERUM 1.42 MG/DL (0.60-1.30); GFR ESTIMATED 38; GLUCOSE 323 MG/DL (70-105); LIPASE 35 U/L (8-78); MAGNESIUM 1.7 MG/DL (1.8-2.4); POTASSIUM 3.6 MMOL/L (3.6-5.0); SODIUM 139 MMOL/L (135-145); TOTAL PROTEIN 6.8 G/DL (6.4-8.2)
--- NOTE | 2017-03-23 11:51 | Diagnostic Imaging Report ---
INDICATION: Difficulty breathing EXAMINATION: Portable chest 11:46 AM Heart size and pulmonary vascularity are normal. Lungs are clear. There are no effusions or pneumothoraces. IMPRESSION: Negative chest. Dictated by: Dictated on workstation # [id number]
[2017-03-23 11:54] LABS: TROPONIN I < 0.30 NG/ML (<0.30)
[2017-03-23] MEDS ORDERED: KETOROLAC 30 MG/ML VIAL IVP ONE (12:15)
[2017-03-23] MEDS ORDERED: ALPRAZolam 0.25 MG (XANAX) TAB PO ONE (12:15)
[2017-03-23 13:01] VITALS: BP 155/82
== END 2017-03-23 13:01 | disposition home or self-care (01) ==
LOC: EDUNIT# 10:50 → ER 10:54
DX: M79.1 Myalgia (principal); F41.9 Anxiety disorder, unspecified; I25.10 Atherosclerotic heart disease of native coronary artery without angina pectoris; I10 Essential (primary) hypertension; E11.9 Type 2 diabetes mellitus without complications; I25.2 Old myocardial infarction; E66.9 Obesity, unspecified; Z79.82 Long term (current) use of aspirin; Z79.4 Long term (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; Z79.899 Other long term (current) drug therapy; Z95.5 Presence of coronary angioplasty implant and graft; Z87.891 Personal history of nicotine dependence
CPT/HCPCS: 36415; 71010; 80053; 82150; 82550; 82553; 83690; 83735; 83880; 84484; 85025; 85610; 85730; 93005; 93041; 96374

== ENCOUNTER 2017-04-01 11:16 | Inpatient (IN) | payer MEDICAID ==
[~2017-04-01] VITALS: Ht 165.1 cm; Wt 112.3 kg
[2017-04-01 12:13] LABS: BASOPHILS # (AUTO) 0.1 10^3/uL (0.0-0.1); BASOPHILS % (AUTO) 1 % (0-10); EOSINOPHILS # (AUTO) 0.3 10^3/uL (0.0-0.3); EOSINOPHILS % (AUTO) 3 % (0-10); LYMPHOCYTES # (AUTO) 2.4 X 10^3 (1.0-4.0); LYMPHOCYTES % (AUTO) 24 % (12-44); MEAN CORPUSCULAR HEMOGLOBIN 29 PG (25-34); MEAN CORPUSCULAR HGB CONC 34 G/DL (32-36); MEAN CORPUSCULAR VOLUME 85 FL (80-99); MEAN PLATELET VOLUME 10.9 FL (7.4-10.4); MONOCYTES # (AUTO) 0.7 X 10^3 (0.0-1.0); MONOCYTES % (AUTO) 7 % (0-12); NEUTROPHILS # (AUTO) 6.5 X 10^3 (1.8-7.8); NEUTROPHILS % (AUTO) 66 % (42-75); PLATELET COUNT 272 10^3/uL (130-400); RED BLOOD COUNT 3.97 10^6/uL (4.35-5.85); RED CELL DISTRIBUTION WIDTH 13.4 % (10.0-14.5); WHITE BLOOD COUNT 9.9 10^3/uL (4.3-11.0)
[2017-04-01] MEDS ORDERED: fentaNYL INJECTION 100 MCG/2 ML AMP IVP STA ×2 (12:27→14:39)
[2017-04-01] MEDS ORDERED: FAMOTIDINE 20MG/2ML IV (PEPCID) IV STA (12:27)
--- NOTE | 2017-04-01 12:30 | ED Abdominal Pain ---
General Chief Complaint: Abdominal/GI Problems Stated Complaint: CONSTIPATION/ABD PAIN/VOMITING Nursing Triage Note: AMB TO ROOM FROM [facility] WITH L SIDE ABD PAIN FOR 1 WEEK. WAS ABLE TO EAT SOME FRUIT COCKTAIL,AND SOME SPAGHETTI Sepsis Screen: No Definite Risk Source of Information: Patient Exam Limitations: No Limitations History of Present Illness Time Seen By Provider: 12:20 Initial Comments Here with report of abdominal pain for the last week which is actually more accurately over the last 3 weeks. Patient states that she has not had a bowel movement for 10 days. She states that she has not been unable to eat at all during that time frame. She does report taking her medication (aspirin and brillenta). Reports that she has had rectal bleeding but states that hasn't happened in a week and a half. She was seen at the clinic today where she was found to have high blood pressure and they were concerned because of her report of rectal bleeding. Timing/Duration: Getting Worse, Other Severity/Quality: Moderate (we will lack) Location: LUQ, LLQ Radiation: RUQ, RLQ Activities at Onset: None Modifying Factors: Worsens With Eating, Improves With Movement Associated Symptoms: No Back Pain, No Chest Pain, No Fever/Chills, Nausea/ Vomiting, No Shortness of Air, No Weakness Allergies and Home Medications Allergies Coded Allergies: ondansetron (Verified Allergy, Severe, N/V, 02/26/17) Estrogens (Unverified Allergy, Unknown, BLISTERS ON BUTT, 02/26/17) metformin (Unverified Allergy, Unknown, BLISTERS ON BUTT, 02/26/17) Home Medications Amlodipine Besylate 10 Mg Tablet, 10 MG PO DAILY, (Reported) Aspirin 81 Mg Tab.chew, 162 MG PO DAILY, (Reported) Atorvastatin Calcium 80 Mg Tablet, 80 MG PO DAILY, (Reported) Cephalexin 250 Mg Capsule, 500 MG PO QID, #16 Prescribed by: QUINN ALEMAN on 03/09/17 0922 Doxazosin Mesylate 2 Mg Tablet, 2 MG PO DAILY, (Reported) Duloxetine HCl 30 Mg Capsule.dr, 30 MG PO DAILY, (Reported) Furosemide 40 Mg Tablet, 40 MG PO DAILY, (Reported) Gabapentin 300 Mg Capsule, 600 MG PO DAILY, (Reported) TAKES 2 (300 MG) CAPSULES Hydrocodone/Acetaminophen 1 Each Tablet, 1 EACH PO TID, #30 Prescribed by: QUINN ALEMAN on 02/25/17 1134 Insulin Aspart 100 Unit/1 Ml Susp, 5 UNIT SC AC for 1 Days Please Decrease Your Dosage from 20 units to 5 units before meals Prescribed by: QUINN ALEMAN on 03/09/17 0953 Insulin Determir 1,000 Units/10 Ml Soln, 15 UNIT SQ HS for 1 Days Please decrease Your scheduled dosage from 60 units to 15 units Prescribed by: QUINN ALEMAN on 03/09/17 0946 Isosorbide Mononitrate 30 Mg Tab.er.24h, 30 MG PO DAILY, (Reported) Levothyroxine Sodium 75 Mcg Tablet, 75 MCG PO DAILY, (Reported) Lorazepam 0.5 Mg Tablet, 0.5 MG PO DAILY PRN for ANXIETY, (Reported) Metoprolol Succinate 25 Mg Tab.er.24h, 25 MG PO DAILY, (Reported) Morphine Sulfate 15 Mg Tablet.er, 15 MG PO BID, #14 Prescribed by: QUINN ALEMAN on 02/25/17 1134 Pantoprazole Sodium 40 Mg Tablet.dr, 40 MG PO BIDAC, #60 Prescribed by: QUINN ALEMAN on 03/09/17 0953 Prochlorperazine Maleate 5 Mg Tablet, 5 MG PO BID PRN for NAUSEA/VOMITING-1ST LINE, #10 Prescribed by: ELLEN MARTIN on 03/12/17 1415 Saxagliptin HCl 5 Mg Tablet, 5 MG PO DAILY, (Reported) Sucralfate 1 Gm Tablet, 1 GM PO ACHS, #120 Prescribed by: QUINN ALEMAN on 03/09/17 0922 Ticagrelor 90 Mg Tablet, 90 MG PO BID, #60 Ref 4 Prescribed by: JACK PARISH on 02/23/17 0812 Review of Systems Constitutional: see HPI, No chills, No fever EENTM: No Symptoms Reported Respiratory: No Symptoms Reported Cardiovascular: No Symptoms Reported Gastrointestinal: See HPI, Abdominal Pain, Nausea, Rectal Bleeding, Vomiting Genitourinary: No Symptoms Reported Musculoskeletal: no symptoms reported Skin: no symptoms reported All Other Systems Reviewed Negative Unless Noted: Yes Past Ndvctgd-Fomyld-Smaxut Hx Patient Social History Alcohol Use: Denies Use Recreational Drug Use: No Smoking Status: Never a Smoker 2nd Hand Smoke Exposure: Yes Recent Foreign Travel: No Contact w/Someone Who Travel: No Recent Infectious Disease Expo: No Recent Hopitalizations: Yes (02/10/17-02/17/17, 02/23/17, dc 02/25/17) Immunizations Up To Date Tetanus Booster (TDap): Unknown PED Vaccines UTD: Yes Date of Pneumonia Vaccine: Sep 18, 2014 Date of Influenza Vaccine: Sep 16, 2016 Seasonal Allergies Seasonal Allergies: No Surgeries HX Surgeries: Yes (RIGHT FOREARM FX/ORIF; CARDIAC CATH--STENTS X 4; HYST/BSO) Surgeries: Cardiac, Coronary Stent, Gallbladder, Hysterectomy, Oophorectomy Respiratory Hx Respiratory Disorders: Yes Respiratory Disorders: Emphysema Cardiovascular Hx Cardiac Disorders: Yes (CAROTID DISEASE, STENTS X 4) Cardiac Disorders: Chronic Edema/Swelling, Coronary Artery Disease, Heart Attack, High Cholesterol, Hypertension, Peripheral Vascular Neurological Hx Neurological Disorders: Yes Neurological Disorders: Neuropathy, TIA Reproductive System Hx Reproductive Disorders: No Sexually Transmitted Disease: No HIV/AIDS: No Female Reproductive Disorders: Denies 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 Genitourinary Hx Genitourinary Disorders: Yes Genitourinary Disorders: Renal Failure Gastrointestinal Hx Gastrointestinal Disorders: Yes (S/P LIDYA) Gastrointestinal Disorders: Gastroesophageal Reflux, Gall Bladder Disease Musculoskeletal Hx Musculoskeletal Disorders: Yes (right arm fracture with screws and pin placements) Musculoskeletal Disorders: Arthritis, Fibromyalgia, Fractures Endocrine Hx Endocrine Disorders: Yes Endocrine Disorders: Diabetes, Insulin dep, Hypothyroidsim HEENT HX ENT Disorders: Yes (GLASSES) HEENT Disorders: Double Vision Hearing Impairment: Hard of Hearing Cancer Hx Cancer: Yes Cancer: Ovarian, Uterine Psychosocial Hx Psychiatric Problems: Yes Behavioral Health Disorders: Anxiety, Depression Integumentary HX Skin/Integumentary Disorder: Yes (DIABETIC SORES) Skin/Integumentary Disorders: Recent Skin Changes Blood Transfusions Hx Blood Disorders: Yes (ANEMIA) Adverse Reaction to a Blood Tr: No Reviewed Nursing Assessment Reviewed/Agree w Nursing PMH: Yes Family Medical History Family Medial History: Cardiovascular disease 19 FATHER G8 SISTER Diabetes mellitus 19 FATHER G8 BROTHER G8 SISTER FH: lung cancer 19 MOTHER FH: skin cancer 19 FATHER Parkinson's disease G8 SISTER Psychosocial problem G8 BROTHER Physical Exam Vital Signs VS - Last 72 Hours, by Label 04/01/17 11:47 Temp 97.7 Pulse 72 Resp 18 B/P (MAP) 188/61 Pulse Ox 98 O2 Delivery Nasal Cannula Capillary Refill : Less Than 3 Seconds General Appearance: WD/WN, no apparent distress HEENT: PERRL/EOMI, pharynx normal Neck: full range of motion, supple Respiratory: lungs clear, normal breath sounds Cardiovascular: regular rate, rhythm, no murmur Gastrointestinal: soft, tenderness (mild diffuse) Rectal: normal exam, normal rectal tone, heme negative stool Extremities: non-tender, normal inspection Back: normal inspection, no CVA tenderness, no vertebral tenderness Neurologic/Psychiatric: alert, oriented x 3 Skin: normal color, warm/dry Focused Exam Lactic Acid Level Laboratory Tests Test 04/01/17 14:46 Progress/Results/Core Measures Results/Orders Lab Results Laboratory Tests Test 04/01/17 11:57 04/01/17 14:12 04/01/17 14:46 Range/Units White Blood Count 9.9 4.3-11.0 10^3/uL Red Blood Count 3.97 L 4.35-5.85 10^6/uL Hemoglobin 11.6 11.5-16.0 G/DL Hematocrit 34 L 35-52 % Mean Corpuscular Volume 85 80-99 FL Mean Corpuscular Hemoglobin 29 25-34 PG Mean Corpuscular Hemoglobin Concent 34 32-36 G/DL Red Cell Distribution Width 13.4 10.0-14.5 % Platelet Count 272 130-400 10^3/uL Mean Platelet Volume 10.9 H 7.4-10.4 FL Neutrophils (%) (Auto) 66 42-75 % Lymphocytes (%) (Auto) 24 12-44 % Monocytes (%) (Auto) 7 0-12 % Eosinophils (%) (Auto) 3 0-10 % Basophils (%) (Auto) 1 0-10 % Neutrophils # (Auto) 6.5 1.8-7.8 X 10^3 Lymphocytes # (Auto) 2.4 1.0-4.0 X 10^3 Monocytes # (Auto) 0.7 0.0-1.0 X 10^3 Eosinophils # (Auto) 0.3 0.0-0.3 10^3/uL Basophils # (Auto) 0.1 0.0-0.1 10^3/uL Sodium Level 139 135-145 MMOL/L Potassium Level 3.0 L 3.6-5.0 MMOL/L Chloride Level 95 L 98-107 MMOL/L Carbon Dioxide Level 35 H 21-32 MMOL/L Anion Gap 9 5-14 MMOL/L Blood Urea Nitrogen 23 H 7-18 MG/DL Creatinine 1.59 H 0.60-1.30 MG/DL Estimat Glomerular Filtration Rate 33 BUN/Creatinine Ratio 14 Glucose Level 363 H 70-105 MG/DL Calcium Level 9.6 8.5-10.1 MG/DL Phosphorus Level 2.5 2.3-4.7 MG/DL Magnesium Level 1.7 L 1.8-2.4 MG/DL Total Bilirubin 0.8 0.1-1.0 MG/DL Aspartate Amino Transf (AST/SGOT) 22 5-34 U/L Alanine Aminotransferase (ALT/SGPT) 43 0-55 U/L Alkaline Phosphatase 646 H 40-136 U/L B-Type Natriuretic Peptide 703.5 H <100.0 PG/ML Total Protein 7.2 6.4-8.2 G/DL Albumin 3.3 3.2-4.5 G/DL Urine Color YELLOW Urine Clarity CLEAR Urine pH 7 5-9 Urine Specific [place] 1.010 L 1.016-1.022 Urine Protein 4+ NEGATIVE Urine Glucose (UA) 4+ H NEGATIVE Urine Ketones NEGATIVE NEGATIVE Urine Nitrite NEGATIVE NEGATIVE Urine Bilirubin NEGATIVE NEGATIVE Urine Urobilinogen NORMAL NORMAL MG/DL Urine Leukocyte Esterase 2+ H NEGATIVE Urine RBC (Auto) 3+ H NEGATIVE Urine RBC 10-25 H /HPF Urine WBC TNTC H /HPF Urine Squamous Epithelial Cells 5-10 /HPF Urine Crystals NONE /LPF Urine Bacteria FEW H /HPF Urine Casts NONE /LPF Urine Mucus NEGATIVE /LPF Urine Culture Indicated YES My Orders Orders - DONNIE COTTON MD BNP (04/01/17 12:06) Cbc With Automated Diff (04/01/17 12:06) Comprehensive Metabolic Panel (04/01/17 12:06) Magnesium (04/01/17 12:06) Ua Culture If Indicated (04/01/17 12:06) Phosphorus (04/01/17 12:06) Chest Pa/Lat (2 View) (04/01/17 12:06) Saline Lock/Iv-Start (04/01/17 12:06) Fentanyl Injection (Sublimaze Injection (04/01/17 12:27) Famotidine Injection (Pepcid Injection) (04/01/17 12:27) Fecal Occult Bedside (04/01/17 12:27) Ct Abdomen/Pelvis Wo (04/01/17 12:46) Promethazine Injection (Phenergan Injec (04/01/17 12:58) Ns Iv 500 Ml (Sodium Chloride 0.9%) (04/01/17 12:58) Lorazepam Injection (Ativan Injection) (04/01/17 14:45) Fentanyl Injection (Sublimaze Injection (04/01/17 14:39) Lactic Acid Analyzer (04/01/17 14:40) Blood Culture (04/01/17 14:40) Urine Culture (04/01/17 14:12) Prochlorperazine Injection (Compazine In (04/01/17 15:00) Ceftriaxone Injection (Rocephin Injectio (04/01/17 15:15) Medications Given in ED Current Medications Medications Dose Ordered Sig/Irineo Route Start Time Stop Time Status Last Admin Dose Admin Lorazepam 1 mg ONCE ONCE IVP 04/01/17 14:45 04/01/17 14:46 DC 04/01/17 14:56 1 MG Sodium Chloride 500 ml @ 0 mls/hr Q0M ONCE IV 04/01/17 12:58 04/01/17 12:59 DC 04/01/17 13:05 500 MLS/HR Vital Signs/I&O Vital Sign - Last 12Hours 04/01/17 11:47 Temp 97.7 Pulse 72 Resp 18 B/P (MAP) 188/61 Pulse Ox 98 O2 Delivery Nasal Cannula Blood Pressure Mean: 103 Progress Note : Progress Note Seen and evaluated. IV, labs, UA, chest x-ray, Hemoccult stool done. This was negative. CT abdomen pelvis ordered without contrast due to creatinine level. Other than slightly increased creatinine, she has improved blood counts overall and no findings of blood in her stool currently. Monitor patient. Normal saline 500 mL bolus with fentanyl 50 g IV and Pepcid 20 mg IV ordered. This did not completely resolve her nausea. Phenergan 12.5 mg IV ordered. Monitor patient. 1440: Patient having significant pain again and nausea. Ativan 1 mg IV and fentanyl 50 g IV ordered. Kidney findings on CT scan are suspicious for pyelonephritis. Urine is pending. Blood cultures and lactic acid ordered. 1455: UTI noted. All findings lead to concerns for pyelonephritis. Also possible ileus related to pyelonephritis. I did discuss the case with Dr. Colindres. She accepts patient for admission, inpatient status. Rocephin 1 g IV initiated. Compazine 10 mg IV for persistent nausea. all findings and concerns discussed with patient and family who agree with plan. Diagnostic Imaging Diagonstic Imaging: Xray Plain Films/CT/US/NM/MRI: chest Comments VIA [facility]. [place], [place] NAME: ANGIE JANE [facility] REC#: [id number] PT STATUS: REG ER : 1960 PHYSICIAN: DONNIE COTTON MD ADMIT DATE: 04/01/17/ER Draft Date of Exam:04/01/17 CHEST PA/LAT (2 VIEW) INDICATION: Left-sided abdominal pain. PA and lateral chest obtained at 2:20 p.m. and compared to 03/23/17. FINDINGS: The heart is mildly enlarged. A coronary stent is visualized. There is some atelectatic change in both bases. There is elevation of the left hemidiaphragm. IMPRESSION: Mild cardiomegaly. Mild bibasilar atelectasis with no overt consolidation or pleural fluid. A coronary stent is visualized. Dictated on workstation # [id number] Dict: 04/01/17 1413 Trans: 04/01/17 1417 [facility] [id number] Interpreted by: GAYLE WELLER MD Electronically signed by: Diagonstic Imaging: CT Plain Films/CT/US/NM/MRI: abdomen, pelvis Comments NAME: ANGIE JANE [facility] REC#: [id number] PT STATUS: REG ER : 1960 PHYSICIAN: DONNIE COTTON MD ADMIT DATE: 04/01/17/ER Draft Date of Exam:04/01/17 CT ABDOMEN/PELVIS WO PROCEDURE: CT abdomen and pelvis without contrast. TECHNIQUE: Multiple contiguous axial images were obtained through the abdomen and pelvis without the use of intravenous contrast. INDICATION: Constipation and abdominal pain x1 week. CORRELATION STUDY: None. FINDINGS: Heart size is enlarged with presence of small pericardial effusion. Maximum thickness up to approximately 1 cm. There are areas of atelectasis or perhaps infiltrate at the left lower lobe. Smaller nodularity of the pleural surface of the right lower lobe. Unenhanced liver demonstrates some slight prominence of the caudate lobe. No definitive focal lesion. Spleen unremarkable. Gallbladder absent with clips in the fossa. The pancreas and adrenal glands are unremarkable. Abdominal aorta with mild wall calcification, nonaneurysmal. There is rather prominent bilateral perinephric stranding. Question of very slight engorgement of the right kidney. No definitive calcification within the kidneys or along the course of either ureter. Mild perinephric stranding not excluded. Urinary bladder does contain some gas nondependently. No definitive bladder calcification. There are colonic diverticuli present. No acute diverticulitis. Normal appendix in right lower quadrant. Small bowel with very mildly prominent fluid-filled loops of bowel nonspecific but without evidence for obstruction. Uterus appearing absent. Osseous structures: Mild degenerative-type changes are present. IMPRESSION: 1. Moderate bilateral perinephric stranding with very slight engorgement appearance about the right kidney in particular. No definitive evidence for obstructive uropathy. Perhaps recent passage of stone could give this appearance. There is, however, some gas nondependently in the urinary bladder. This could be owing to recent catheterization but can also be seen with underlying urinary tract infection. Correlation with urinalysis and history recommended. 2.: Colonic diverticuli without evidence for acute diverticulitis. Normal appendix. May be very mild ileus bowel gas pattern without obstruction. Dictated on workstation # [id number] Dict: 04/01/17 1417 Trans: 04/01/17 1432 KB [id number] Interpreted by: FLAVIA SANTOS DO Electronically signed by: Departure Communication Time/Spoke to Admitting Phy: 14:55 Impression Impression: Primary Impression: Urinary tract infection Qualified Codes: N30.00 - Acute cystitis without hematuria Additional Impressions: Nausea and vomiting Qualified Codes: R11.2 - Nausea with vomiting, unspecified Intractable generalized abdominal pain Disposition: ADMITTED INPATIENT Condition: Stable Decision to Admit Reason: Admit from ER (General) Decision to Admit/Date: April 01, 2017 Time/Decision to Admit Time: 14:55 Departure-Patient Inst. Referrals: MADDY COTE MD (PCP/Family) Primary Care Physician DONNIE COTTON MD April 01, 2017 12:30
[2017-04-01 12:33] LABS: ALBUMIN 3.3 G/DL (3.2-4.5); BILIRUBIN,TOTAL 0.8 MG/DL (0.1-1.0); CALCIUM 9.6 MG/DL (8.5-10.1); CREATININE SERUM 1.59 MG/DL (0.60-1.30); MAGNESIUM 1.7 MG/DL (1.8-2.4); PHOSPHORUS 2.5 MG/DL (2.3-4.7); TOTAL PROTEIN 7.2 G/DL (6.4-8.2)
[2017-04-01] MEDS ORDERED: NS IV 500 ML 500 ML IV ONE (12:58)
[2017-04-01] MEDS ORDERED: PROMETHAZINE INJ 25 MG/ML (PHENERGAN) AMP IVP STA (12:58)
--- NOTE | 2017-04-01 14:18 | Diagnostic Imaging Report ---
INDICATION: Left-sided abdominal pain. PA and lateral chest obtained at 2:20 p.m. and compared to 03/23/17. FINDINGS: The heart is mildly enlarged. A coronary stent is visualized. There is some atelectatic change in both bases. There is elevation of the left hemidiaphragm. IMPRESSION: Mild cardiomegaly. Mild bibasilar atelectasis with no overt consolidation or pleural fluid. A coronary stent is visualized. Dictated by: Dictated on workstation # [id number]
[2017-04-01 14:25] LABS: BILIRUBIN,URINE NEGATIVE (NEGATIVE); KETONES,URINE NEGATIVE (NEGATIVE); LEUKOCYTE ESTERASE ,URINE 2+ (NEGATIVE); NITRITE,URINE NEGATIVE (NEGATIVE); PH,URINE 7 (5-9); PROTEIN,URINE 4+ (NEGATIVE); UROBILINOGEN,URINE NORMAL (NORMAL)
--- NOTE | 2017-04-01 14:33 | Diagnostic Imaging Report ---
PROCEDURE: CT abdomen and pelvis without contrast. TECHNIQUE: Multiple contiguous axial images were obtained through the abdomen and pelvis without the use of intravenous contrast. INDICATION: Constipation and abdominal pain x1 week. CORRELATION STUDY: None. FINDINGS: Heart size is enlarged with presence of small pericardial effusion. Maximum thickness up to approximately 1 cm. There are areas of atelectasis or perhaps infiltrate at the left lower lobe. Smaller nodularity of the pleural surface of the right lower lobe. Unenhanced liver demonstrates some slight prominence of the caudate lobe. No definitive focal lesion. Spleen unremarkable. Gallbladder absent with clips in the fossa. The pancreas and adrenal glands are unremarkable. Abdominal aorta with mild wall calcification, nonaneurysmal. There is rather prominent bilateral perinephric stranding. Question of very slight engorgement of the right kidney. No definitive calcification within the kidneys or along the course of either ureter. Mild perinephric stranding not excluded. Urinary bladder does contain some gas nondependently. No definitive bladder calcification. There are colonic diverticuli present. No acute diverticulitis. Normal appendix in right lower quadrant. Small bowel with very mildly prominent fluid-filled loops of bowel nonspecific but without evidence for obstruction. Uterus appearing absent. Osseous structures: Mild degenerative-type changes are present. IMPRESSION: 1. Moderate bilateral perinephric stranding with very slight engorgement appearance about the right kidney in particular. No definitive evidence for obstructive uropathy. Perhaps recent passage of stone could give this appearance. There is, however, some gas nondependently in the urinary bladder. This could be owing to recent catheterization but can also be seen with underlying urinary tract infection. Correlation with urinalysis and history recommended. 2.: Colonic diverticuli without evidence for acute diverticulitis. Normal appendix. May be very mild ileus bowel gas pattern without obstruction. Dictated by: Dictated on workstation # [id number]
[2017-04-01] MEDS ORDERED: LORazepam INJ 2 MG/ML (ATIVAN) VIAL IVP ONE (14:45)
[2017-04-01 14:46] LABS: WBC,URINE TNTC /HPF
[2017-04-01] MEDS ORDERED: PROCHLORPERAZINE 10 MG/2ML INJ (COMPAZINE) IV ONE (15:00)
[2017-04-01] MEDS ORDERED: cefTRIAXone INJECTION 1,000 MG in NS (IVPB) 50 ML IV ONE (15:15)
[2017-04-01 15:50] VITALS: BP 188/78
[2017-04-01] MEDS ORDERED: LORazepam INJ 2 MG/ML (ATIVAN) VIAL IV PRN (16:15)
[2017-04-01] MEDS ORDERED: CATHETER FLUSH 10 ML SYR IV PRN (16:15)
[2017-04-01] MEDS ORDERED: ATOR80TA76 PO (16:52)
[2017-04-01] MEDS ORDERED: SUCR1TAB PO (16:52)
[2017-04-01] MEDS ORDERED: HYDR-757 PO (16:52)
[2017-04-01] MEDS ORDERED: METO-333 PO (16:52)
[2017-04-01] MEDS ORDERED: TICA90TA PO (16:52)
[2017-04-01] MEDS ORDERED: IBUP-1773 PO (16:52)
[2017-04-01] MEDS ORDERED: PROC5TAB PO (16:52)
[2017-04-01] MEDS ORDERED: LOPE2TAB34 PO (16:52)
[2017-04-01] MEDS ORDERED: PANT40TA3 PO (16:52)
[2017-04-01] MEDS ORDERED: MORP-33 PO (16:52)
[2017-04-01] MEDS: PROCHLORPERAZINE 10 MG/2ML INJ (COMPAZINE) IV PRN (17:29)
[2017-04-01] MEDS: NS IV 1000 ML 1,000 ML IV SCH (17:57)
[2017-04-01 19:15] VITALS: BP 200/110
[2017-04-01] MEDS: inSUlin (REGULAR) HUMAN 1 UNIT/0.01 ML (CHARGE PER UNIT) SC SCH (20:11)
[2017-04-01] MEDS: TICAGRELOR 90 MG TABLET (BRILINTA) PO SCH (20:11)
[2017-04-01] MEDS: meTOprolol TARTRATE 25 MG (LOPRESSOR) TABLET PO SCH (20:11)
[2017-04-01] MEDS: fentaNYL INJECTION 100 MCG/2 ML AMP IV PRN ×2 (20:42→22:57)
[2017-04-01 21:22] VITALS: BP 200/110
[2017-04-01 23:10] VITALS: BP 175/82
[2017-04-02] VITALS: BP 187/90
[2017-04-02] MEDS: PROCHLORPERAZINE 10 MG/2ML INJ (COMPAZINE) IV PRN ×2 (01:05→08:42)
[2017-04-02] MEDS: fentaNYL INJECTION 100 MCG/2 ML AMP IV PRN ×2 (02:44→12:22)
[2017-04-02 03:45] VITALS: BP 169/70
[2017-04-02 05:01] LABS: BASOPHILS # (AUTO) 0.1 10^3/uL (0.0-0.1); BASOPHILS % (AUTO) 1 % (0-10); EOSINOPHILS # (AUTO) 0.2 10^3/uL (0.0-0.3); EOSINOPHILS % (AUTO) 2 % (0-10); LYMPHOCYTES # (AUTO) 2.3 X 10^3 (1.0-4.0); LYMPHOCYTES % (AUTO) 23 % (12-44); MEAN CORPUSCULAR HEMOGLOBIN 29 PG (25-34); MEAN CORPUSCULAR HGB CONC 34 G/DL (32-36); MEAN CORPUSCULAR VOLUME 87 FL (80-99); MEAN PLATELET VOLUME 11.1 FL (7.4-10.4); MONOCYTES # (AUTO) 0.8 X 10^3 (0.0-1.0); MONOCYTES % (AUTO) 8 % (0-12); NEUTROPHILS # (AUTO) 6.6 X 10^3 (1.8-7.8); NEUTROPHILS % (AUTO) 66 % (42-75); PLATELET COUNT 251 10^3/uL (130-400); RED CELL DISTRIBUTION WIDTH 13.4 % (10.0-14.5)
[2017-04-02 05:16] LABS: ALBUMIN 2.6 G/DL (3.2-4.5); BILIRUBIN,TOTAL 0.5 MG/DL (0.1-1.0); CALCIUM 8.6 MG/DL (8.5-10.1); CREATININE SERUM 1.52 MG/DL (0.60-1.30); POTASSIUM 2.8 MMOL/L (3.6-5.0); TOTAL PROTEIN 5.9 G/DL (6.4-8.2)
[2017-04-02] MEDS: NS IV 1000 ML 1,000 ML IV SCH ×3 (06:45→22:44)
[2017-04-02] MEDS: inSUlin (REGULAR) HUMAN 1 UNIT/0.01 ML (CHARGE PER UNIT) SC SCH ×4 (06:46→20:40)
[2017-04-02] MEDS: POTASSIUM CL 10MEQ/50ML IVPB 50 ML IV SCH ×9 (08:38→18:27)
[2017-04-02] MEDS: meTOprolol TARTRATE 25 MG (LOPRESSOR) TABLET PO SCH ×2 (08:41→20:41)
[2017-04-02] MEDS: TICAGRELOR 90 MG TABLET (BRILINTA) PO SCH ×2 (08:41→20:40)
[2017-04-02] MEDS: ASPIRIN 81 MG CHEW (CHILDREN'S ASA) PO SCH (08:41)
[2017-04-02 08:44] VITALS: BP 188/86
[2017-04-02] MEDS ORDERED: SCOPOLAMINE 1.5 MG (TRANSDERM-SCOP) PATCH TOP SCH (11:00)
--- NOTE | 2017-04-02 11:47 | Diagnostic Imaging Report ---
INDICATION: Knee pain. AP and lateral views of both knees were obtained. In the right knee there are small osteophytes forming in the medial aspect of the knee with slight joint space narrowing in the medial tibiofemoral joint space. In the left knee there are osteophytes forming in the lateral compartment of the knee at the lateral margin of the articular surface, and there is slight lateral joint space narrowing. IMPRESSION: Degenerative changes in the knees. This is most pronounced in the lateral compartment of the left knee and medial compartment of the right knee. Dictated by: Dictated on workstation # [id number]
[2017-04-02 12:00] VITALS: BP 175/95
--- NOTE | 2017-04-02 12:55 | History & Physicial (CHS) ---
HPI History of Present Illness: 56 yo female presented to ER after being sent from clinic due to severe abdominal pain with no bowel movement in a week, prior to that with foul smelling, mucousy stool and with nausea. She also has diffuse pain from head to toe- headache, pain in left shoulder/neck, pain in both knees down to feet. Had a fall at home earlier this week and fell directly onto both knees and has large bruise on right, but left hurts more. She has a history of CHF and does use oxygen as needed at home, but has been needing it more than normal recently. Admits nasal congestion and cough. Attending Physician Brigitte Colindres MD PCP Montse Gore MD Consult Date of Admission April 01, 2017 at 3:02 pm Home Medications Home Medications Reviewed patient Home Medication Reconciliation Form Allergies Coded Allergies: ondansetron (Verified Allergy, Severe, N/V, 02/26/17) Estrogens (Unverified Allergy, Unknown, BLISTERS ON BUTT, 02/26/17) metformin (Unverified Allergy, Unknown, BLISTERS ON BUTT, 02/26/17) [id number] Hx Patient Social History Alcohol Use: Denies Use Recreational Drug Use: No Smoking Status: Never a Smoker 2nd Hand Smoke Exposure: Yes Recent Foreign Travel: No Contact w/other who traveled: No Recent Hopitalizations: Yes (02/10/17-02/17/17, 02/23/17, dc 02/25/17, 03/2017) Recent Infectious Disease Expo: No Physical Abuse Screen: No Sexual Abuse: No Immunizations Up To Date Tetanus Booster (TDap): Unknown Date of Pneumonia Vaccine: Sep 18, 2014 Date of Influenza Vaccine: Sep 16, 2016 Past Medical History Past medical history 1. Diabetes mellitus2 2. Hypothyroidism 3. Peripheral neuropathy 4. Coronary artery disease with history of stent 5. Hypertension 6. Morbid obesity 7. Depression 8. Achilles tendon rupture Past surgical history 1. Cardiac catheterization 3 2. Cholecystectomy 3. Hysterectomy 4. Surgical repair of right arm fracture Family Medical History Significant Family History: Cancer, CAD Under 55 Years Old Review of Systems (CHC) Constitutional: No fever EENTM: see HPI Respiratory: see HPI Cardiovascular: No chest pain Gastrointestinal: see HPI Genitourinary: no symptoms reported Musculoskeletal: joint pain, muscle pain Skin: No rash Psychiatric/Neurological: No Symptoms Reported Reviewed Test Results Reviewed Test Results Lab Laboratory Tests Test 04/01/17 11:57 04/01/17 14:12 04/01/17 14:46 04/01/17 20:00 Range/Units White Blood Count 9.9 4.3-11.0 10^3/uL Red Blood Count 3.97 L 4.35-5.85 10^6/uL Hemoglobin 11.6 11.5-16.0 G/DL Hematocrit 34 L 35-52 % Mean Corpuscular Volume 85 80-99 FL Mean Corpuscular Hemoglobin 29 25-34 PG Mean Corpuscular Hemoglobin Concent 34 32-36 G/DL Red Cell Distribution Width 13.4 10.0-14.5 % Platelet Count 272 130-400 10^3/uL Mean Platelet Volume 10.9 H 7.4-10.4 FL Neutrophils (%) (Auto) 66 42-75 % Lymphocytes (%) (Auto) 24 12-44 % Monocytes (%) (Auto) 7 0-12 % Eosinophils (%) (Auto) 3 0-10 % Basophils (%) (Auto) 1 0-10 % Neutrophils # (Auto) 6.5 1.8-7.8 X 10^3 Lymphocytes # (Auto) 2.4 1.0-4.0 X 10^3 Monocytes # (Auto) 0.7 0.0-1.0 X 10^3 Eosinophils # (Auto) 0.3 0.0-0.3 10^3/uL Basophils # (Auto) 0.1 0.0-0.1 10^3/uL Sodium Level 139 135-145 MMOL/L Potassium Level 3.0 L 3.6-5.0 MMOL/L Chloride Level 95 L 98-107 MMOL/L Carbon Dioxide Level 35 H 21-32 MMOL/L Anion Gap 9 5-14 MMOL/L Blood Urea Nitrogen 23 H 7-18 MG/DL Creatinine 1.59 H 0.60-1.30 MG/DL Estimat Glomerular Filtration Rate 33 BUN/Creatinine Ratio 14 Glucose Level 363 H 70-105 MG/DL Calcium Level 9.6 8.5-10.1 MG/DL Phosphorus Level 2.5 2.3-4.7 MG/DL Magnesium Level 1.7 L 1.8-2.4 MG/DL Total Bilirubin 0.8 0.1-1.0 MG/DL Aspartate Amino Transf (AST/SGOT) 22 5-34 U/L Alanine Aminotransferase (ALT/SGPT) 43 0-55 U/L Alkaline Phosphatase 646 H 40-136 U/L B-Type Natriuretic Peptide 703.5 H <100.0 PG/ML Total Protein 7.2 6.4-8.2 G/DL Albumin 3.3 3.2-4.5 G/DL Urine Color YELLOW Urine Clarity CLEAR Urine pH 7 5-9 Urine Specific [place] 1.010 L 1.016-1.022 Urine Protein 4+ NEGATIVE Urine Glucose (UA) 4+ H NEGATIVE Urine Ketones NEGATIVE NEGATIVE Urine Nitrite NEGATIVE NEGATIVE Urine Bilirubin NEGATIVE NEGATIVE Urine Urobilinogen NORMAL NORMAL MG/DL Urine Leukocyte Esterase 2+ H NEGATIVE Urine RBC (Auto) 3+ H NEGATIVE Urine RBC 10-25 H /HPF Urine WBC TNTC H /HPF Urine Squamous Epithelial Cells 5-10 /HPF Urine Crystals NONE /LPF Urine Bacteria FEW H /HPF Urine Casts NONE /LPF Urine Mucus NEGATIVE /LPF Urine Culture Indicated YES Lactic Acid Level 1.07 0.50-2.00 MMOL/L Glucometer 226 H 70-110 MG/DL Test 04/02/17 04:16 04/02/17 05:23 04/02/17 10:00 Range/Units White Blood Count 10.0 4.3-11.0 10^3/uL Red Blood Count 3.40 L 4.35-5.85 10^6/uL Hemoglobin 9.9 L 11.5-16.0 G/DL Hematocrit 29 L 35-52 % Mean Corpuscular Volume 87 80-99 FL Mean Corpuscular Hemoglobin 29 25-34 PG Mean Corpuscular Hemoglobin Concent 34 32-36 G/DL Red Cell Distribution Width 13.4 10.0-14.5 % Platelet Count 251 130-400 10^3/uL Mean Platelet Volume 11.1 H 7.4-10.4 FL Neutrophils (%) (Auto) 66 42-75 % Lymphocytes (%) (Auto) 23 12-44 % Monocytes (%) (Auto) 8 0-12 % Eosinophils (%) (Auto) 2 0-10 % Basophils (%) (Auto) 1 0-10 % Neutrophils # (Auto) 6.6 1.8-7.8 X 10^3 Lymphocytes # (Auto) 2.3 1.0-4.0 X 10^3 Monocytes # (Auto) 0.8 0.0-1.0 X 10^3 Eosinophils # (Auto) 0.2 0.0-0.3 10^3/uL Basophils # (Auto) 0.1 0.0-0.1 10^3/uL Sodium Level 141 135-145 MMOL/L Potassium Level 2.8 L 3.6-5.0 MMOL/L Chloride Level 103 98-107 MMOL/L Carbon Dioxide Level 27 21-32 MMOL/L Anion Gap 11 5-14 MMOL/L Blood Urea Nitrogen 22 H 7-18 MG/DL Creatinine 1.52 H 0.60-1.30 MG/DL Estimat Glomerular Filtration Rate 35 BUN/Creatinine Ratio 14 Glucose Level 290 H 70-105 MG/DL Calcium Level 8.6 8.5-10.1 MG/DL Total Bilirubin 0.5 0.1-1.0 MG/DL Aspartate Amino Transf (AST/SGOT) 20 5-34 U/L Alanine Aminotransferase (ALT/SGPT) 30 0-55 U/L Alkaline Phosphatase 422 H 40-136 U/L Total Protein 5.9 L 6.4-8.2 G/DL Albumin 2.6 L 3.2-4.5 G/DL Glucometer 288 H 244 H 70-110 MG/DL Radiology CT abdomen 04/01: IMPRESSION: 1. Moderate bilateral perinephric stranding with very slight engorgement appearance about the right kidney in particular. No definitive evidence for obstructive uropathy. Perhaps recent passage of stone could give this appearance. There is, however, some gas nondependently in the urinary bladder. This could be owing to recent catheterization but can also be seen with underlying urinary tract infection. Correlation with urinalysis and history recommended. 2.: Colonic diverticuli without evidence for acute diverticulitis. Normal appendix. May be very mild ileus bowel gas pattern without obstruction." Bilaterla knee x-rays 04/02: IMPRESSION: Degenerative changes in the knees. This is most pronounced in the lateral compartment of the left knee and medial compartment of the right knee. Physical Exam-([facility]C) Physical Exam Vital Signs VS - Last 72 Hours, by Label 04/01/17 04/01/17 04/01/17 04/01/17 11:47 15:38 15:50 15:50 Temp 97.7 98.0 Pulse 72 66 83 Resp 18 18 16 B/P (MAP) 188/61 188/78 Pulse Ox 98 98 98 98 O2 Delivery Nasal Cannula O2 Flow Rate 3.00 3.00 04/01/17 04/01/17 04/01/17 04/01/17 19:15 19:54 21:00 23:10 Temp 99.0 Pulse 82 Resp 16 B/P (MAP) 200/110 175/82 Pulse Ox 100 97 O2 Flow Rate 3.00 3.00 3.00 04/02/17 04/02/17 04/02/17 00:00 03:45 08:44 Temp 99.6 98.1 98.6 Pulse 61 70 79 Resp 20 22 17 B/P (MAP) 187/90 169/70 188/86 Pulse Ox 97 96 99 O2 Flow Rate 3.00 3.00 3.00 Capillary Refill : Less Than 3 Seconds General Appearance: mild distress Respiratory: lungs clear, normal breath sounds Cardiovascular: regular rate, rhythm, no murmur Gastrointestinal: normal bowel sounds, soft, other (diffuse ttp) Extremities: no pedal edema, other (Both knees non-tender to palpation at joint lines, large ecchymosis on left knee and posterior right knee) Neurologic/Psychiatric: alert Skin: ecchymosis Assessment/Plan Assessment/Plan Admission Dx 1. Pyelonephritis 2. Abdominal pain 3. HTN 4. Chronic systolic and diastolic CHF with ischemic cardiomyopathy and CAD 5. Possible CKD 6. DMII 7. Chronic pain Plan 1. Pyelonephritis- with recent UTI, rocephin per previous culture should be effective, does not meet sepsis criteria -IVF at 75 mls/hr, monitor closely with h/o CHF 2. Abdominal pain- with possible ileus and now loose, foul stools per nursing, checking c diff 3. HTN- resume home medications 4. Chronic systolic and diastolic CHF with ischemic cardiomyopathy and CAD- appears stable, resume home medications 5. Possible CKD- creatinine elevated since 02/2017, stable 6. DMII- reportedly on insulin, but has not been filled since September for 25 day supply per pharmacy review -SSI, diabetic diet 7. Chronic pain- resume home morphine and hydrocodone as well as cymbalta and gabapentin -Hold home ibuprofen given CKD and CHF DVT ppx- SCDs, enoxaparin Diagnosis/Problems: Clinical Quality Measures DVT/VTE Risk/Contraindication: Risk Factor Score Per Nursin RFS Level Per Nursing on Admit: 4+=Very High Copy Copies To 1: MITCH CARVALHO MD, BETHANY N MD April 02, 2017 12:55 pm
[2017-04-02] MEDS ORDERED: LORazepam 0.5 MG (ATIVAN) TABLET PO PRN (13:00)
[2017-04-02] MEDS ORDERED: RX-HYDROCODONE/APAP 5/325 MG #4 TAB PK PO PRN (13:00)
[2017-04-02] MEDS ORDERED: morphine ER 15 MG (MS CONTIN) TAB PO PRN (13:00)
[2017-04-02] MEDS: ENOXAPARIN 40 MG/0.4 ML (LOVENOX) SYR SC SCH (13:59)
[2017-04-02] MEDS: HYDROcodone/APAP 5 MG/325 MG (LORTAB) TAB PO PRN ×2 (14:00→21:35)
[2017-04-02] MEDS: GABAPENTIN 300 MG (NEURONTIN) CAP PO SCH ×2 (14:00→20:40)
[2017-04-02 15:36] LABS: CALCIUM 9.2 MG/DL (8.5-10.1); CREATININE SERUM 1.45 MG/DL (0.60-1.30); POTASSIUM 3.4 MMOL/L (3.6-5.0)
[2017-04-02 16:35] VITALS: BP 183/84
[2017-04-02] MEDS: SUCRALFATE 1 GM (CARAFATE) TAB PO SCH ×2 (17:07→20:40)
[2017-04-02 20:00] VITALS: BP 185/95
[2017-04-02] MEDS ORDERED: ATORVASTATIN 80 MG (LIPITOR) TABLET PO SCH (21:00)
[2017-04-03 00:18] VITALS: BP 124/59
[2017-04-03 04:13] VITALS: BP 132/60
[2017-04-03 05:59] LABS: MEAN PLATELET VOLUME 11.2 FL (7.4-10.4); RED BLOOD COUNT 3.07 10^6/uL (4.35-5.85); RED CELL DISTRIBUTION WIDTH 13.6 % (10.0-14.5); WHITE BLOOD COUNT 7.8 10^3/uL (4.3-11.0)
[2017-04-03] MEDS ORDERED: LEVOTHYROXINE 75 MCG (LEVOTHROID) TABLET PO SCH (06:30)
[2017-04-03 06:47] LABS: ALBUMIN 2.7 G/DL (3.2-4.5); BILIRUBIN,TOTAL 0.4 MG/DL (0.1-1.0); CALCIUM 8.5 MG/DL (8.5-10.1); CREATININE SERUM 1.49 MG/DL (0.60-1.30); MAGNESIUM 1.6 MG/DL (1.8-2.4); POTASSIUM 3.3 MMOL/L (3.6-5.0); TOTAL PROTEIN 5.7 G/DL (6.4-8.2)
[2017-04-03] MEDS: inSUlin (REGULAR) HUMAN 1 UNIT/0.01 ML (CHARGE PER UNIT) SC SCH ×2 (06:56→09:59)
[2017-04-03] MEDS ORDERED: PANTOPRAZOLE 40 MG (PROTONIX) TAB PO SCH (07:00)
[2017-04-03] MEDS: SUCRALFATE 1 GM (CARAFATE) TAB PO SCH ×2 (07:02→10:35)
[2017-04-03] MEDS: PROCHLORPERAZINE 10 MG/2ML INJ (COMPAZINE) IV PRN (07:47)
[2017-04-03 08:00] VITALS: BP 176/78
[2017-04-03] MEDS: ASPIRIN 81 MG CHEW (CHILDREN'S ASA) PO SCH (08:17)
[2017-04-03] MEDS: TICAGRELOR 90 MG TABLET (BRILINTA) PO SCH (08:17)
[2017-04-03] MEDS: meTOprolol TARTRATE 25 MG (LOPRESSOR) TABLET PO SCH (08:17)
[2017-04-03] MEDS: GABAPENTIN 300 MG (NEURONTIN) CAP PO SCH ×2 (08:18→13:35)
[2017-04-03] MEDS ORDERED: ANTACID SUSP 30 ML UDC (MYLANTA) PO NR (08:30)
[2017-04-03] MEDS ORDERED: FUROSEMIDE 40 MG (LASIX) TAB PO SCH (09:00)
[2017-04-03] MEDS ORDERED: DULoxetine 30 MG (CYMBALTA) CAP PO SCH (09:00)
[2017-04-03] MEDS ORDERED: ISOSORBIDE MONONITRATE 30 MG (IMDUR) TAB PO SCH (09:00)
[2017-04-03] MEDS: fentaNYL INJECTION 100 MCG/2 ML AMP IV PRN (10:35)
[2017-04-03] MEDS: NS IV 1000 ML 1,000 ML IV SCH (10:37)
[2017-04-03 10:43] VITALS: BP 139/65
[2017-04-03 12:00] VITALS: BP 189/81
[2017-04-03] MEDS: ENOXAPARIN 40 MG/0.4 ML (LOVENOX) SYR SC SCH (13:35)
[2017-04-03] MEDS ORDERED: CEPH-507 PO (13:46)
--- NOTE | 2017-04-03 13:57 | Discharge Instructions ---
Discharge [facility] Discharge Medications New, Converted or Re-Newed RX: Transmitted to Pharmacy New Medications: Cephalexin (Keflex) 500 Mg Capsule 500 MG PO TID for 7 Days, #21 CAP 0 Refills Continued Medications: Aspirin (Aspirin) 81 Mg Tab.chew 81 MG PO DAILY, TAB Atorvastatin Calcium (Atorvastatin Calcium) 80 Mg Tablet 80 MG PO HS, TAB LAST FILLED 01/29/17 #30 Duloxetine HCl (Duloxetine HCl) 30 Mg Capsule.dr 30 MG PO DAILY, CAP Furosemide (Furosemide) 40 Mg Tablet 40 MG PO DAILY Gabapentin (Gabapentin) 300 Mg Capsule 900 MG PO TID, CAP TAKES 3 (300 MG) CAPSULES Hydrocodone/Acetaminophen ([place] 5-325 Tablet) 1 Each Tablet 1 TAB PO TID PRN for PAIN-MODERATE, TAB Ibuprofen (Ibuprofen) 600 Mg Tablet 600 MG PO Q6H PRN for PAIN-MILD, TAB Isosorbide Mononitrate (Isosorbide Mononitrate ER) 30 Mg Tab.er.24h 30 MG PO DAILY, TAB LAST FILLED 02/17/17 #30 Levothyroxine Sodium (Levothyroxine Sodium) 75 Mcg Tablet 75 MCG PO DAILY, TAB Lorazepam (Lorazepam) 0.5 Mg Tablet 0.5 MG PO DAILY PRN for ANXIETY, TAB Metoprolol Tartrate (Metoprolol Tartrate) 25 Mg Tablet 25 MG PO BID, TAB Morphine Sulfate (Morphine Sulfate ER) 15 Mg Tablet.er 15 MG PO BID PRN for PAIN-SEVERE, TAB Pantoprazole Sodium (Pantoprazole Sodium) 40 Mg Tablet.dr 40 MG PO DAILY, #60 Prochlorperazine Maleate (Prochlorperazine Maleate) 5 Mg Tablet 5 MG PO BID PRN for NAUSEA/VOMITING-1ST LINE, TAB Sucralfate (Sucralfate) 1 Gm Tablet 1 GM PO QIDACHS, TAB Ticagrelor (Brilinta) 90 Mg Tablet 90 MG PO BID, TAB LAST FILLED 02/23/17 #60 Discontinued Medications: Loperamide HCl (Loperamide) 2 Mg Tablet 2 MG PO DAILY PRN PRN for LOOSE STOOLS, TAB Patient Instructions Goal/Follow Up Appt: The [facility] transition nurse will call you with an appointment on Wednesday. Patient Instructions: Please take the antibiotics as prescribed. ALso, please stop the loperamide. Even small doses may cause significant constipation. Return to The Hospital For: chest pain, shortness of breath, difficulty urinating, fever Activity & Diet Discharge Diet: Cardiac Diet Activity as Tolerated: Yes Copy Copies To 1: FAYE/CLAUDIA TIDWELL MD April 03, 2017 13:51
--- NOTE | 2017-04-06 13:10 | Discharge Summary ---
Diagnosis/Chief Complaint Date of Admission April 01, 2017 at 15:02 Date of Discharge April 03, 2017 at 14:22 Admission Diagnosis Admission Diagnosis 1. Pyelonephritis 2. Abdominal pain 3. HTN 4. Chronic systolic and diastolic CHF with ischemic cardiomyopathy and CAD 5. Possible CKD 6. DMII 7. Chronic pain Discharge Diagnosis 1. Pyelonephritis- with recent UTI, rocephin per previous culture should be effective, does not meet sepsis criteria -IVF at 75 mls/hr, monitor closely with h/o CHF DSC: patient requesting discharge on day of discharge. Have written for Keflex since sarita Klebsiella that grew out is sensitive to cefazolin. 2. Abdominal pain- with possible ileus and now loose, foul stools per nursing, checking c diff DSC: improved, C diff negative 3. HTN- resume home medications DSC: patient's BP have been high in hospital, may need adjustment in outpatient regimen at follow up 4. Chronic systolic and diastolic CHF with ischemic cardiomyopathy and CAD- appears stable, resume home medications 5. Possible CKD- creatinine elevated since 02/2017, stable 6. DMII- reportedly on insulin, but has not been filled since September for 25 day supply per pharmacy review -SSI, diabetic diet 7. Chronic pain- resume home morphine and hydrocodone as well as cymbalta and gabapentin -Hold home ibuprofen given CKD and CHF Chief Complaint/HPI Chief Complaint/HPI 56 yo female presented to ER after being sent from clinic due to severe abdominal pain with no bowel movement in a week, prior to that with foul smelling, mucousy stool and with nausea. She also has diffuse pain from head to toe- headache, pain in left shoulder/neck, pain in both knees down to feet. Had a fall at home earlier this week and fell directly onto both knees and has large bruise on right, but left hurts more. She has a history of CHF and does use oxygen as needed at home, but has been needing it more than normal recently. Admits nasal congestion and cough. Discharge Summary-Simple/Stand Consultations Discharge Physical Examination Allergies: Coded Allergies: ondansetron (Verified Allergy, Severe, N/V, 02/26/17) Estrogens (Unverified Allergy, Unknown, BLISTERS ON BUTT, 02/26/17) metformin (Unverified Allergy, Unknown, BLISTERS ON BUTT, 02/26/17) Vitals & I&Os Vital Sign - Last 12Hours Date Time Temp Pulse Resp B/P (MAP) Pulse Ox O2 Delivery O2 Flow Rate FiO2 04/03/17 14:22 04/03/17 12:00 98.1 56 20 99 3.00 04/01/17 11:47 Nasal Cannula General Appearance: Alert, Oriented X3, Cooperative Respiratory: Clear to Auscultation, Normal Air Movement Cardiovascular: Regular Rate, Normal S1, Normal S2, No Murmurs, Gallops, Rubs Abdominal: Normal Bowel Sounds, Soft, No Tenderness, No Hepatosplenomegaly, No Masses Extremities: No Clubbing, No Cyanosis, No Edema Neuro: Normal Speech, Strength at 03/12 X4 Ext Hospital Course See final discharge diagnosis. Radiology Reviewed CT abdomen 04/01: IMPRESSION: 1. Moderate bilateral perinephric stranding with very slight engorgement appearance about the right kidney in particular. No definitive evidence for obstructive uropathy. Perhaps recent passage of stone could give this appearance. There is, however, some gas nondependently in the urinary bladder. This could be owing to recent catheterization but can also be seen with underlying urinary tract infection. Correlation with urinalysis and history recommended. 2.: Colonic diverticuli without evidence for acute diverticulitis. Normal appendix. May be very mild ileus bowel gas pattern without obstruction." Bilaterla knee x-rays 04/02: IMPRESSION: Degenerative changes in the knees. This is most pronounced in the lateral compartment of the left knee and medial compartment of the right knee. Discharge Instructions to patient/family Please see electonic discharge instructions given to patient. Discharge Medications Reviewed and agree with Discharge Medication list on patient's Discharge Instruction sheet Clinical Quality Measures DVT/VTE Risk/Contraindication: Risk Factor Score Per Nursin RFS Level Per Nursing on Admit: 4+=Very High Copy Copies To 1: MITCH CARVALHO MD, JULIE A MD April 06, 2017 13:10
== END 2017-04-03 14:22 | disposition home or self-care (01) | DRG 690 ==
LOC: EDUNIT# 11:16 → ER 11:18 → 4TH 15:02
PROVIDERS: ADMIT Family Medicine; ATTEND Family Medicine
DX: N12 Tubulo-interstitial nephritis, not specified as acute or chronic (principal); I25.10 Atherosclerotic heart disease of native coronary artery without angina pectoris; I11.0 Hypertensive heart disease with heart failure; I50.42 Chronic combined systolic (congestive) and diastolic (congestive) heart failure; E66.01 Morbid (severe) obesity due to excess calories; Z68.41 Body mass index [BMI] 40.0-44.9, adult; I25.5 Ischemic cardiomyopathy; E78.00 Pure hypercholesterolemia, unspecified; E11.51 Type 2 diabetes mellitus with diabetic peripheral angiopathy without gangrene; E87.6 Hypokalemia; K21.9 Gastro-esophageal reflux disease without esophagitis; E03.9 Hypothyroidism, unspecified; F41.9 Anxiety disorder, unspecified; F32.9 Major depressive disorder, single episode, unspecified; D64.9 Anemia, unspecified; R74.8 Abnormal levels of other serum enzymes; Z79.4 Long term (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; Z95.5 Presence of coronary angioplasty implant and graft
CPT/HCPCS: 36415; 71020; 74176; 80048; 80053; 81000; 82962; 83605; 83735; 83880; 84100; 84484; 85025; 85027; 87040; 87077; 87088; 87186; 87324; 87449; 96365; 96375; 96376

== ENCOUNTER → 2017-04-30 | Outpatient (CLI) | payer MEDICAID ==
[~2017-04-30] MED LIST changes: +CATHETER FLUSH 10 ML SYR IV PRN; +CEPH-507 PO; +HEParin (CENTRAL IV FLUSH) 500 UNIT/5 ML SYR ONE; +HYDR-757 PO; +LOPE2TAB34 PO; +PROC5TAB PO
--- NOTE | 2017-05-03 15:43 | Diagnostic Imaging Report ---
DATE OF SERVICE: 04/30/2017 PROCEDURE: MUGA Scan. REFERRING PHYSICIAN: Dr. Montse Hoyt, [facility] TEST DATE: 04/30/2017. SUMMARY: The patient was injected with 33.0 mCi of [id number] tagged RBCs and images were acquired in 4 projections reviewed. Review of the images showed normal left ventricular size with normal contractility, calculated ejection fraction 55%. CONCLUSION: Normal left ventricular size with normal contractility, calculated ejection fraction 55%. Job ID: [id number] DocumentID: [id number] Dictated Date: 05/03/2017 12:01:38 [employer] Order Clerk Date: 05/03/2017 13:57:27 Dictated By: JACK PARISH MD
== END ==
LOC: CARD 13:39
PROVIDERS: ATTEND Internal Medicine Cardiovascular Disease
DX: N17.9 Acute kidney failure, unspecified (principal); R00.1 Bradycardia, unspecified; I25.10 Atherosclerotic heart disease of native coronary artery without angina pectoris; E78.2 Mixed hyperlipidemia; R06.02 Shortness of breath
CPT/HCPCS: 78472

== ENCOUNTER 2017-05-18 12:39 | Inpatient (IN) | payer MEDICAID ==
[~2017-05-18] VITALS: Ht 165.1 cm; Wt 108.6 kg
[~2017-05-18 12:39] MED LIST changes: -CATHETER FLUSH 10 ML SYR IV PRN; -HEParin (CENTRAL IV FLUSH) 500 UNIT/5 ML SYR ONE; +PROMETHAZINE INJ 25 MG/ML (PHENERGAN) AMP ONE
[2017-05-18] MEDS ORDERED: NS IV 1000 ML 1,000 ML IV ONE (12:43)
[2017-05-18] MEDS ORDERED: PROMETHAZINE INJ 25 MG/ML (PHENERGAN) AMP IVP STA (12:43)
[2017-05-18] MEDS ORDERED: NS IV 500 ML 500 ML IV ONE (12:51)
--- NOTE | 2017-05-18 12:54 | ED General ---
General Chief Complaint: Abdominal/GI Problems Stated Complaint: VOMITING BLOOD Source of Information: Patient Exam Limitations: No Limitations History of Present Illness Time Seen by Provider: 12:45 Initial Comments Here with report of nausea and vomiting of vomiting blood over the last 2 days. Apparently had blood clots and blood in her vomit today. Complains of persistent nausea and not feeling well. She is feeling so badly she is not able to hardly talk currently. She is able to follow commands. She called her pet adoption counselor who instructed her to come to the ER. Timing/Duration: 2-3 Days Severity: Moderate Associated Systoms: No Cough, No Fever/Chills, Nausea/Vomiting, No Shortness of Air, Weakness Allergies and Home Medications Allergies Coded Allergies: ondansetron (Verified Allergy, Severe, N/V, 02/26/17) Estrogens (Unverified Allergy, Unknown, BLISTERS ON BUTT, 02/26/17) metformin (Unverified Allergy, Unknown, BLISTERS ON BUTT, 02/26/17) Home Medications Aspirin 81 Mg Tab.chew, 81 MG PO DAILY, (Reported) Atorvastatin Calcium 80 Mg Tablet, 80 MG PO HS, (Reported) LAST FILLED 01/29/17 #30 Cephalexin 500 Mg Capsule, 500 MG PO TID for 7 Days, #21 Ref 0 Prescribed by: CLAUDIA FIGUEROA on 04/03/17 1346 Duloxetine HCl 30 Mg Capsule.dr, 30 MG PO DAILY, (Reported) Furosemide 40 Mg Tablet, 40 MG PO DAILY, (Reported) Gabapentin 300 Mg Capsule, 900 MG PO TID, (Reported) TAKES 3 (300 MG) CAPSULES Hydrocodone/Acetaminophen 1 Each Tablet, 1 TAB PO TID PRN for PAIN-MODERATE, ( Reported) Ibuprofen 600 Mg Tablet, 600 MG PO Q6H PRN for PAIN-MILD, (Reported) Isosorbide Mononitrate 30 Mg Tab.er.24h, 30 MG PO DAILY, (Reported) LAST FILLED 02/17/17 #30 Levothyroxine Sodium 75 Mcg Tablet, 75 MCG PO DAILY, (Reported) Lorazepam 0.5 Mg Tablet, 0.5 MG PO DAILY PRN for ANXIETY, (Reported) Metoprolol Tartrate 25 Mg Tablet, 25 MG PO BID, (Reported) Morphine Sulfate 15 Mg Tablet.er, 15 MG PO BID PRN for PAIN-SEVERE, (Reported) Pantoprazole Sodium 40 Mg Tablet.dr, 40 MG PO DAILY, #60 (Reported) Prochlorperazine Maleate 5 Mg Tablet, 5 MG PO BID PRN for NAUSEA/VOMITING-1ST LINE, (Reported) Sucralfate 1 Gm Tablet, 1 GM PO QIDACHS, (Reported) Ticagrelor 90 Mg Tablet, 90 MG PO BID, (Reported) LAST FILLED 02/23/17 #60 Constitutional: see HPI, No chills, No fever, weakness EENTM: no symptoms reported Respiratory: no symptoms reported Cardiovascular: no symptoms reported Gastrointestinal: see HPI, nausea, vomiting Genitourinary: decreased output, No pain : No Musculoskeletal: joint pain (legs), muscle pain Psychiatric/Neurological: See HPI All Other Systems Reviewed Negative Unless Noted: Yes Past Bikvvwj-Hvvnfr-Otbgzx Hx Patient Social History Alcohol Use: Denies Use Recreational Drug Use: No Smoking Status: Never a Smoker 2nd Hand Smoke Exposure: Yes Recent Foreign Travel: No Contact w/Someone Who Travel: No Recent Hopitalizations: Yes (02/10/17-02/17/17, 02/23/17, dc 02/25/17, 03/2017) Immunizations Up To Date Tetanus Booster (TDap): Unknown PED Vaccines UTD: Yes Date of Pneumonia Vaccine: Sep 18, 2014 Date of Influenza Vaccine: Sep 16, 2016 Seasonal Allergies Seasonal Allergies: No Surgeries HX Surgeries: Yes (RIGHT FOREARM FX/ORIF; CARDIAC CATH--STENTS X 4; HYST/BSO) Surgeries: Cardiac, Coronary Stent, Gallbladder, Hysterectomy, Oophorectomy Respiratory Hx Respiratory Disorders: Yes Respiratory Disorders: Emphysema Cardiovascular Hx Cardiac Disorders: Yes (CAROTID DISEASE, STENTS X 4) Cardiac Disorders: Chronic Edema/Swelling, Coronary Artery Disease, Heart Attack, High Cholesterol, Hypertension, Peripheral Vascular Neurological Hx Neurological Disorders: Yes Neurological Disorders: Neuropathy, TIA Reproductive System Hx Reproductive Disorders: No Sexually Transmitted Disease: No HIV/AIDS: No Female Reproductive Disorders: Denies 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 Genitourinary Hx Genitourinary Disorders: Yes Genitourinary Disorders: Renal Failure Gastrointestinal Hx Gastrointestinal Disorders: Yes (S/P LIDYA) Gastrointestinal Disorders: Gastroesophageal Reflux, Gall Bladder Disease Musculoskeletal Hx Musculoskeletal Disorders: Yes (right arm fracture with screws and pin placements) Musculoskeletal Disorders: Arthritis, Fibromyalgia, Fractures Endocrine Hx Endocrine Disorders: Yes Endocrine Disorders: Diabetes, Insulin dep, Hypothyroidsim HEENT HX ENT Disorders: Yes (GLASSES) HEENT Disorders: Double Vision Hearing Impairment: Hard of Hearing Cancer Hx Cancer: Yes Cancer: Ovarian, Uterine Psychosocial Hx Psychiatric Problems: Yes Behavioral Health Disorders: Anxiety, Depression Integumentary HX Skin/Integumentary Disorder: Yes (DIABETIC SORES) Skin/Integumentary Disorders: Recent Skin Changes Blood Transfusions Hx Blood Disorders: Yes (ANEMIA) Adverse Reaction to a Blood Tr: No Reviewed Nursing Assessment Reviewed/Agree w Nursing PMH: Yes Family Medical History Significant Family History: Cancer, CAD Under 55 Years Old Family Medial History: Cardiovascular disease 19 FATHER G8 SISTER Diabetes mellitus 19 FATHER G8 BROTHER G8 SISTER FH: lung cancer 19 MOTHER FH: skin cancer 19 FATHER Parkinson's disease G8 SISTER Psychosocial problem G8 BROTHER Physical Exam-Suspected Sepsis Physical Exam Vital Signs Vital Sign - Last 12Hours 05/18/17 12:40 Temp 98.5 Pulse 78 Resp 15 B/P (MAP) 128/100 Pulse Ox 97 O2 Delivery Nasal Cannula O2 Flow Rate 2.00 Capillary Refill : General Appearance: WD/WN, Moderate Distress (weakness) HEENT: PERRL/EOMI, Pharynx Normal Neck: Non Tender, Supple Respiratory: Lungs Clear, Normal Breath Sounds Cardiovascular: Regular Rate, Rhythm, No Murmur Gastrointestinal: Non Tender, Soft Back: Normal Inspection, No CVA Tenderness, No Vertebral Tenderness Extremity: Normal Range of Motion, Non Tender Neurologic/Psychiatric: Alert, Oriented x3 Skin: normal color, warm/dry Focused Exam Lactic Acid Level Laboratory Tests Test 05/18/17 12:45 Lactic Acid Level 1.75 MMOL/L (0.50-2.00) Progress/Results/Core Measures Suspected Sepsis SIRS Temperature: Pulse: Respiratory Rate: Laboratory Tests 05/18/17 12:45: White Blood Count 13.2H Blood Pressure / Mean: Laboratory Tests 05/18/17 12:45: Creatinine 2.39H, INR Comment 1.0, Platelet Count 344, Total Bilirubin 0.9 Results/Orders Lab Results Laboratory Tests Test 05/18/17 12:45 05/18/17 12:47 05/18/17 12:55 Range/Units White Blood Count 13.2 H 4.3-11.0 10^3/uL Red Blood Count 3.93 L 4.35-5.85 10^6/uL Hemoglobin 11.6 11.5-16.0 G/DL Hematocrit 34 L 35-52 % Mean Corpuscular Volume 86 80-99 FL Mean Corpuscular Hemoglobin 30 25-34 PG Mean Corpuscular Hemoglobin Concent 34 32-36 G/DL Red Cell Distribution Width 12.9 10.0-14.5 % Platelet Count 344 130-400 10^3/uL Mean Platelet Volume 11.6 H 7.4-10.4 FL Neutrophils (%) (Auto) 70 42-75 % Lymphocytes (%) (Auto) 19 12-44 % Monocytes (%) (Auto) 9 0-12 % Eosinophils (%) (Auto) 2 0-10 % Basophils (%) (Auto) 1 0-10 % Neutrophils # (Auto) 9.3 H 1.8-7.8 X 10^3 Lymphocytes # (Auto) 2.6 1.0-4.0 X 10^3 Monocytes # (Auto) 1.1 H 0.0-1.0 X 10^3 Eosinophils # (Auto) 0.2 0.0-0.3 10^3/uL Basophils # (Auto) 0.1 0.0-0.1 10^3/uL Prothrombin Time 12.6 12.2-14.7 SEC INR Comment 1.0 0.8-1.4 Activated Partial Thromboplast Time 28 24-35 SEC Sodium Level 133 L 135-145 MMOL/L Potassium Level 3.0 L 3.6-5.0 MMOL/L Chloride Level 79 L 98-107 MMOL/L Carbon Dioxide Level 39 H 21-32 MMOL/L Anion Gap 15 H 5-14 MMOL/L Blood Urea Nitrogen 65 H 7-18 MG/DL Creatinine 2.39 H 0.60-1.30 MG/DL Estimat Glomerular Filtration Rate 21 BUN/Creatinine Ratio 27 Glucose Level 550 *H 70-105 MG/DL Lactic Acid Level 1.75 0.50-2.00 MMOL/L Calcium Level 9.7 8.5-10.1 MG/DL Total Bilirubin 0.9 0.1-1.0 MG/DL Aspartate Amino Transf (AST/SGOT) 35 H 5-34 U/L Alanine Aminotransferase (ALT/SGPT) 40 0-55 U/L Alkaline Phosphatase 531 H 40-136 U/L Total Protein 7.5 6.4-8.2 GM/DL Albumin 3.3 3.2-4.5 GM/DL Glucometer 487 *H 70-110 MG/DL Urine Color YELLOW Urine Clarity SLIGHTLY CLOUDY Urine pH 7 5-9 Urine Specific [place] 1.010 L 1.016-1.022 Urine Protein 4+ NEGATIVE Urine Glucose (UA) 4+ H NEGATIVE Urine Ketones NEGATIVE NEGATIVE Urine Nitrite NEGATIVE NEGATIVE Urine Bilirubin NEGATIVE NEGATIVE Urine Urobilinogen NORMAL NORMAL MG/DL Urine Leukocyte Esterase 2+ H NEGATIVE Urine RBC (Auto) 2+ H NEGATIVE Urine RBC 0-2 /HPF Urine WBC 5-10 H /HPF Urine Squamous Epithelial Cells 0-2 /HPF Urine Crystals NONE /LPF Urine Bacteria NEGATIVE /HPF Urine Casts NONE /LPF Urine Mucus NEGATIVE /LPF Urine Yeast FEW H /HPF Urine Culture Indicated YES My Orders Orders - DONNIE COTTON MD Lactic Acid Analyzer (05/18/17 12:51) Blood Culture (05/18/17 12:51) Sputum Culture (05/18/17 12:51) Ua Culture If Indicated (05/18/17 12:51) Chest 1 View, Ap/Pa Only (05/18/17 12:51) O2 (05/18/17 12:51) Vital Signs Adult Sepsis Patie Q1HR (05/18/17 12:51) Remove Rings In Anticipation O (05/18/17 12:51) Ns Iv 500 Ml (Sodium Chloride 0.9%) (05/18/17 12:51) Urine Culture (05/18/17 12:55) Insulin (Regular) Human (Humulin R (Per (05/18/17 13:30) Fentanyl Injection (Sublimaze Injection (05/18/17 13:30) Medications Given in ED Current Medications Medications Dose Ordered Sig/Irineo Route Start Time Stop Time Status Last Admin Dose Admin Promethazine HCl 25 mg STK-MED ONCE .ROUTE 05/18/17 12:39 05/18/17 12:45 DC 05/18/17 12:45 12.5 MG Sodium Chloride 500 ml @ 0 mls/hr Q0M ONCE IV 05/18/17 12:51 05/18/17 12:53 DC 05/18/17 13:12 500 MLS/HR Vital Signs/I&O Vital Sign - Last 12Hours 05/18/17 12:40 Temp 98.5 Pulse 78 Resp 15 B/P (MAP) 128/100 Pulse Ox 97 O2 Delivery Nasal Cannula O2 Flow Rate 2.00 Capillary Refill : Progress Note : Progress Note Seen and evaluated. IV, labs, EKG and chest x-ray ordered. Type and screen ordered. Normal saline 500 mg bolus. Phenergan 12.5 mg IV due to persistent nausea and vomiting. 1350: I reviewed the labs and data to this point. Patient is in acute renal failure with uncontrolled hyperglycemia. Insulin 10 units IV ordered. Fentanyl 50 g IV ordered for pain. I did discuss the case with the patient and her family. She will need admission. 1410: I have discussed the case with Dr. Claudia Figueroa and she agrees to accept patient for admission, inpatient status. Patient and family agree with plan. ECG Initial ECG Impression Date: May 18, 2017 Initial ECG Impression Time: 13:01 Comment Sinus rhythm with nonspecific intraventricular conduction delay. Left ventricular hypertrophy. Left axis deviation. No evidence of ST elevation SD. Similar to previous of 03/23/17. Interpreted by me. 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 Decision time for Depature: 13:50 Referrals: MITCH CARVALHO MD (PCP/Family) Primary Care Physician DONNIE COTTON MD May 18, 2017 12:54
[2017-05-18 13:06] LABS: BILIRUBIN,URINE NEGATIVE (NEGATIVE); KETONES,URINE NEGATIVE (NEGATIVE); LEUKOCYTE ESTERASE ,URINE 2+ (NEGATIVE); NITRITE,URINE NEGATIVE (NEGATIVE); PH,URINE 7 (5-9); PROTEIN,URINE 4+ (NEGATIVE); UROBILINOGEN,URINE NORMAL (NORMAL)
[2017-05-18 13:07] LABS: BASOPHILS # (AUTO) 0.1 10^3/uL (0.0-0.1); BASOPHILS % (AUTO) 1 % (0-10); EOSINOPHILS # (AUTO) 0.2 10^3/uL (0.0-0.3); EOSINOPHILS % (AUTO) 2 % (0-10); LYMPHOCYTES # (AUTO) 2.6 X 10^3 (1.0-4.0); LYMPHOCYTES % (AUTO) 19 % (12-44); MEAN CORPUSCULAR HEMOGLOBIN 30 PG (25-34); MEAN CORPUSCULAR HGB CONC 34 G/DL (32-36); MEAN CORPUSCULAR VOLUME 86 FL (80-99); MEAN PLATELET VOLUME 11.6 FL (7.4-10.4); MONOCYTES # (AUTO) 1.1 X 10^3 (0.0-1.0); MONOCYTES % (AUTO) 9 % (0-12); NEUTROPHILS # (AUTO) 9.3 X 10^3 (1.8-7.8); NEUTROPHILS % (AUTO) 70 % (42-75); PLATELET COUNT 344 10^3/uL (130-400); RED BLOOD COUNT 3.93 10^6/uL (4.35-5.85); RED CELL DISTRIBUTION WIDTH 12.9 % (10.0-14.5); WHITE BLOOD COUNT 13.2 10^3/uL (4.3-11.0)
[2017-05-18 13:16] LABS: PROTHROMBIN TIME PATIENT 12.6 SEC (12.2-14.7)
[2017-05-18 13:20] LABS: SQUAMOUS EPITHELIAL CELL,UR 0-2 /HPF; YEAST,URINE FEW /HPF
[2017-05-18 13:26] LABS: ALBUMIN 3.3 GM/DL (3.2-4.5); BILIRUBIN,TOTAL 0.9 MG/DL (0.1-1.0); CALCIUM 9.7 MG/DL (8.5-10.1); CREATININE SERUM 2.39 MG/DL (0.60-1.30); TOTAL PROTEIN 7.5 GM/DL (6.4-8.2)
[2017-05-18] MEDS ORDERED: inSUlin (REGULAR) HUMAN 1 UNIT/0.01 ML (CHARGE PER UNIT) IV STA (13:30)
[2017-05-18] MEDS ORDERED: fentaNYL INJECTION 100 MCG/2 ML AMP IVP STA ×2 (13:30→14:19)
--- NOTE | 2017-05-18 13:36 | Diagnostic Imaging Report ---
Portable upright radiograph of the chest. INDICATION: Hemoptysis. COMPARISON: 04/01/2017. FINDINGS: The lungs are hyperinflated. There is a small left pleural effusion. Left basilar infiltrate or atelectasis is seen. Prominent density in the medial right lung base is probably related to pericardial fat-pad. The heart is moderately enlarged. No pneumothorax. IMPRESSION: 1. There is a small left effusion and left basilar infiltrate or atelectasis. 2. Moderate cardiomegaly. Dictated by: Dictated on workstation # [id number]
[2017-05-18 15:55] VITALS: BP 166/78
[2017-05-18] MEDS: PROMETHAZINE INJ 25 MG/ML (PHENERGAN) AMP IVP PRN ×2 (16:28→23:09)
[2017-05-18] MEDS ORDERED: FURO80TA3 PO (16:43)
[2017-05-18] MEDS ORDERED: ASPI-983 PO (16:43)
[2017-05-18] MEDS ORDERED: AMLO10TA2 PO (16:43)
[2017-05-18] MEDS ORDERED: KETO5DRO14 OU (16:43)
[2017-05-18] MEDS ORDERED: DIPH1TAB PO (16:43)
[2017-05-18] MEDS ORDERED: TRAM50TA2 PO (16:43)
[2017-05-18] MEDS ORDERED: SCOP1PAT TD (16:43)
[2017-05-18] MEDS ORDERED: INSU100V16 SQ (16:43)
[2017-05-18] MEDS ORDERED: OXYC10TA7 PO (16:43)
[2017-05-18] MEDS ORDERED: INSU100V6 SQ (16:43)
[2017-05-18] MEDS ORDERED: METO2.5T PO (16:43)
[2017-05-18] MEDS ORDERED: PANT40TA3 PO (16:43)
[2017-05-18] MEDS: NS IV 1000 ML 1,000 ML IV SCH (16:51)
[2017-05-18] MEDS: fentaNYL INJECTION 100 MCG/2 ML AMP IVP PRN ×2 (17:17→20:02)
[2017-05-18 19:25] VITALS: BP 135/63
[2017-05-18] MEDS: inSUlin (REGULAR) HUMAN 1 UNIT/0.01 ML (CHARGE PER UNIT) SC SCH (20:03)
--- OUTSIDE RECORDS SUMMARY | 2017-05-18 20:30 | XMS REPORT | Continuity of Care Document ---
Author Author [employer] Organization [facility] Address Unknown Phone Unavailable Care Team Providers Care Liquid Center Assembler Name Role Phone [employer] Unavailable Unavailable Problems Problem Status Onset Date Classification Date Reported Comments Source Fever, unspecified 2014 Diagnosis 06/02/2015 [facility] [place] Cough 05/29/2015 Diagnosis 06/02/2015 [facility] [place] Dysuria 05/29/2015 Diagnosis 06/02/2015 [facility] [place] Coronary atherosclerosis of unspecified type of vessel, [place] or graft 05/08/2015 Diagnosis 05/12/2015 [facility] [place] Benign essential hypertension 05/08/2015 Diagnosis 2014 [facility] [place] Mononeuritis of unspecified site 05/08/2015 Diagnosis 03/2015 [facility] [place] Myalgia and myositis, unspecified 05/08/2015 Diagnosis [facility] [place] Ingrowing nail 05/08/2015 Diagnosis 05/12/2015 [facility] [place] No data available for this section Problem 06/02/2015 [facility] [place] Medications Medication Details Route Status Patient Instructions Ordering Provider Order Date Source No Known Medications No known medications Active [facility] [place] Allergies, Adverse Reactions, Alerts Immunizations Immunization Date Given Site Status Last Updated Comments Source No data available for this section No data available for this section [facility] [place] Results Vital Signs Encounters Location Location Details Encounter Type Encounter Number Reason For Visit Attending Provider ADM Date DC Date Status Source [facility] [place] Cancel/No Show [id number] Ev Knott 05/07/2015 05/07/2015 [facility] [place] [facility] [place] [facility] [id number] Ev Knott 05/08/20152014 [facility] [place] [facility] [place] Cancel/No Show [id number] Ev Knott 05/21/2015 05/21/2015 [facility] [place] [facility] [id number] Clinic ( Outpatient) [id number] Ev Knott 05/29/2015 Active [facility] [place] [facility] [place] [facility] [id number] Ev Knott 05/29/20152014 [facility] [place] Procedures Procedure Code Date Perfomer Comments Source No data available for this section [facility] [place] Plan of Care Social History Assessment and Plan Family History Value Date Source Advance Directives Order Name Results Value Date Source
--- OUTSIDE RECORDS SUMMARY | 2017-05-18 20:56 | XMS REPORT | Continuity of Care Document ---
Author Author [employer] Organization [facility] Address Unknown Phone Unavailable Care Team Providers Care Betting Agency Manager Name Role Phone [employer] Unavailable Unavailable Problems Problem Status Onset Date Classification Date Reported Comments Source Fever, unspecified 2014 Diagnosis 06/02/2015 [facility] [place] Cough 05/29/2015 Diagnosis 06/02/2015 [facility] [place] Dysuria 05/29/2015 Diagnosis 06/02/2015 [facility] [place] Coronary atherosclerosis of unspecified type of vessel, [place] or graft 05/08/2015 Diagnosis 05/12/2015 [facility] [place] Benign essential hypertension 05/08/2015 Diagnosis 2014 [facility] [place] Mononeuritis of unspecified site 05/08/2015 Diagnosis 03/2015 [facility] [place] Myalgia and myositis, unspecified 05/08/2015 Diagnosis [facility] [place] Ingrowing nail 05/08/2015 Diagnosis 05/12/2015 [facility] [place] No data available for this section Problem 06/02/2015 [facility] [place] Medications Medication Details Route Status Patient Instructions Ordering Provider Order Date Source No Known Medications No known medications Active [facility] [place] Allergies, Adverse Reactions, Alerts Immunizations Immunization Date Given Site Status Last Updated Comments Source No data available for this section No data available for this section [facility] [place] Results Vital Signs Encounters Location Location Details Encounter Type Encounter Number Reason For Visit Attending Provider ADM Date DC Date Status Source [facility] [place] Cancel/No Show [id number] Ev Knott 05/07/2015 05/07/2015 [facility] [place] [facility] [place] [facility] [id number] Ev Knott 05/08/20152014 [facility] [place] [facility] [place] Cancel/No Show [id number] Ev Knott 05/21/2015 05/21/2015 [facility] [place] [facility]FC[facility] [id number] Clinic ( Outpatient) [id number] Ev Knott 05/29/2015 Active [facility] [place] [facility] [place] [facility] [id number] Ev Knott 05/29/20152014 [facility] [place] Procedures Procedure Code Date Perfomer Comments Source No data available for this section [facility] [place] Plan of Care Social History Assessment and Plan Family History Value Date Source Advance Directives Order Name Results Value Date Source
[2017-05-18] MEDS ORDERED: TICAGRELOR 90 MG TABLET (BRILINTA) PO SCH (21:00)
[2017-05-18] MEDS ORDERED: NON-FORMULARY MEDICATION 1 EA EA (Oxycodone HCl 10 MG) PO PRN (22:00)
[2017-05-19] VITALS (7 sets, daily range): BP systolic 93–159; BP diastolic 53–87
[2017-05-19] MEDS: fentaNYL INJECTION 100 MCG/2 ML AMP IVP PRN ×4 (00:18→12:03)
[2017-05-19] MEDS: NS IV 1000 ML 1,000 ML IV SCH ×2 (00:45→11:02)
[2017-05-19] MEDS: PROMETHAZINE INJ 25 MG/ML (PHENERGAN) AMP IVP PRN ×3 (03:05→12:02)
[2017-05-19] MEDS ORDERED: inSUlin ASPART (NovoLOG) 1 UNIT/0.01 ML (CHARGE PER UNIT) SQ SCH (06:00)
[2017-05-19] MEDS: inSUlin (REGULAR) HUMAN 1 UNIT/0.01 ML (CHARGE PER UNIT) SC SCH ×4 (06:06→21:18)
[2017-05-19 06:22] LABS: BASOPHILS # (AUTO) 0.1 10^3/uL (0.0-0.1); BASOPHILS % (AUTO) 1 % (0-10); EOSINOPHILS # (AUTO) 0.3 10^3/uL (0.0-0.3); EOSINOPHILS % (AUTO) 3 % (0-10); LYMPHOCYTES # (AUTO) 3.1 X 10^3 (1.0-4.0); LYMPHOCYTES % (AUTO) 24 % (12-44); MEAN CORPUSCULAR HEMOGLOBIN 30 PG (25-34); MEAN CORPUSCULAR HGB CONC 34 G/DL (32-36); MEAN CORPUSCULAR VOLUME 88 FL (80-99); MEAN PLATELET VOLUME 11.4 FL (7.4-10.4); MONOCYTES # (AUTO) 0.9 X 10^3 (0.0-1.0); MONOCYTES % (AUTO) 7 % (0-12); NEUTROPHILS # (AUTO) 8.3 X 10^3 (1.8-7.8); NEUTROPHILS % (AUTO) 66 % (42-75); PLATELET COUNT 318 10^3/uL (130-400); RED BLOOD COUNT 3.46 10^6/uL (4.35-5.85); RED CELL DISTRIBUTION WIDTH 13.2 % (10.0-14.5); WHITE BLOOD COUNT 12.6 10^3/uL (4.3-11.0)
[2017-05-19 06:48] LABS: BILIRUBIN,TOTAL 0.9 MG/DL (0.1-1.0); CALCIUM 9.2 MG/DL (8.5-10.1); CREATININE SERUM 1.64 MG/DL (0.60-1.30); POTASSIUM 2.8 MMOL/L (3.6-5.0); TOTAL PROTEIN 6.7 GM/DL (6.4-8.2)
[2017-05-19] MEDS ORDERED: INSULIN GLARGINE HUM REC ANLOG 65 UNIT SQ SCH (09:00)
[2017-05-19] MEDS: TICAGRELOR 90 MG TABLET (BRILINTA) PO SCH ×2 (09:21→21:19)
[2017-05-19] MEDS: LEVOTHYROXINE 75 MCG (LEVOTHROID) TABLET PO SCH (09:21)
[2017-05-19] MEDS: amLODIPine 10 MG (NORVASC) TAB PO SCH (09:21)
[2017-05-19] MEDS: PANTOPRAZOLE 40 MG (PROTONIX) TAB PO SCH (09:21)
[2017-05-19] MEDS: meTOprolol TARTRATE 25 MG (LOPRESSOR) TABLET PO SCH ×2 (09:21→21:19)
[2017-05-19] MEDS: ISOSORBIDE MONONITRATE 30 MG (IMDUR) TAB PO SCH (09:21)
[2017-05-19] MEDS: DULoxetine 30 MG (CYMBALTA) CAP PO SCH (09:21)
[2017-05-19] MEDS: ASPIRIN E.C. 81 MG (ECOTRIN) TAB PO SCH ×2 (09:21→21:19)
--- NOTE | 2017-05-19 11:46 | History & Physicial (CHS) ---
HPI History of Present Illness: 56yo woman well known to medicine service admitted for complaints of nausea and vomiting. Patient states she has been vomiting for the past week and has seen some blood in her vomitus. This prompted her janitorial assistant to send her to ER. She has also had trouble keeping things down. In ER, she was foudn to have acute on chronic renal failure. In addition, her blood pressure was low but responded to fluids. She denies any diarrhea and has seen no blood in her stool. She reports no fever stating they do not own a thermometer. Diffuse abdominal pain, nonspecific, not localized. Source: patient, family Exam Limitations: no limitations Date seen by provider: May 19, 2017 Time Seen by Provider: 10:20 Attending Physician Valerie Johnson MD PCP Jose Carvalho MD Consult Date of Admission May 18, 2017 at 2:10 pm Home Medications Home Medications Reviewed patient Home Medication Reconciliation Form Allergies Coded Allergies: ondansetron (Verified Allergy, Severe, N/V, 02/26/17) Estrogens (Unverified Allergy, Unknown, BLISTERS ON BUTT, 02/26/17) metformin (Unverified Allergy, Unknown, BLISTERS ON BUTT, 02/26/17) AUA-Fuyizf-Huvxhq Hx Patient Social History Alcohol Use: Denies Use Recreational Drug Use: No Smoking Status: Never a Smoker 2nd Hand Smoke Exposure: No Recent Foreign Travel: No Contact w/other who traveled: No Recent Hopitalizations: Yes (02/10/17-02/17/17, 02/23/17, dc 02/25/17, 03/2017) Recent Infectious Disease Expo: No Physical Abuse Screen: No Sexual Abuse: No Immunizations Up To Date Tetanus Booster (TDap): Unknown Date of Pneumonia Vaccine: Sep 18, 2014 Date of Influenza Vaccine: Sep 16, 2016 Past Medical History Past medical history 1. Diabetes mellitus2 2. Hypothyroidism 3. Peripheral neuropathy 4. Coronary artery disease with history of stent 5. Hypertension 6. Morbid obesity 7. Depression 8. Achilles tendon rupture Past surgical history 1. Cardiac catheterization 3 2. Cholecystectomy 3. Hysterectomy 4. Surgical repair of right arm fracture Family Medical History Significant Family History: Cancer, CAD Under 55 Years Old Family History: Cardiovascular disease 19 FATHER G8 SISTER Diabetes mellitus 19 FATHER G8 BROTHER G8 SISTER FH: lung cancer 19 MOTHER FH: skin cancer 19 FATHER Parkinson's disease G8 SISTER Psychosocial problem G8 BROTHER Review of Systems (CHC) Constitutional: no symptoms reported All Other Systems Reviewed Negative Unless Noted: Yes (Negative excepted noted.) Reviewed Test Results Reviewed Test Results Lab Laboratory Tests Test 05/18/17 12:45 05/18/17 12:47 05/18/17 12:55 05/18/17 19:32 Range/Units White Blood Count 13.2 H 4.3-11.0 10^3/uL Red Blood Count 3.93 L 4.35-5.85 10^6/uL Hemoglobin 11.6 11.5-16.0 G/DL Hematocrit 34 L 35-52 % Mean Corpuscular Volume 86 80-99 FL Mean Corpuscular Hemoglobin 30 25-34 PG Mean Corpuscular Hemoglobin Concent 34 32-36 G/DL Red Cell Distribution Width 12.9 10.0-14.5 % Platelet Count 344 130-400 10^3/uL Mean Platelet Volume 11.6 H 7.4-10.4 FL Neutrophils (%) (Auto) 70 42-75 % Lymphocytes (%) (Auto) 19 12-44 % Monocytes (%) (Auto) 9 0-12 % Eosinophils (%) (Auto) 2 0-10 % Basophils (%) (Auto) 1 0-10 % Neutrophils # (Auto) 9.3 H 1.8-7.8 X 10^3 Lymphocytes # (Auto) 2.6 1.0-4.0 X 10^3 Monocytes # (Auto) 1.1 H 0.0-1.0 X 10^3 Eosinophils # (Auto) 0.2 0.0-0.3 10^3/uL Basophils # (Auto) 0.1 0.0-0.1 10^3/uL Prothrombin Time 12.6 12.2-14.7 SEC INR Comment 1.0 0.8-1.4 Activated Partial Thromboplast Time 28 24-35 SEC Sodium Level 133 L 135-145 MMOL/L Potassium Level 3.0 L 3.6-5.0 MMOL/L Chloride Level 79 L 98-107 MMOL/L Carbon Dioxide Level 39 H 21-32 MMOL/L Anion Gap 15 H 5-14 MMOL/L Blood Urea Nitrogen 65 H 7-18 MG/DL Creatinine 2.39 H 0.60-1.30 MG/DL Estimat Glomerular Filtration Rate 21 BUN/Creatinine Ratio 27 Glucose Level 550 *H 70-105 MG/DL Lactic Acid Level 1.75 0.50-2.00 MMOL/L Calcium Level 9.7 8.5-10.1 MG/DL Total Bilirubin 0.9 0.1-1.0 MG/DL Aspartate Amino Transf (AST/SGOT) 35 H 5-34 U/L Alanine Aminotransferase (ALT/SGPT) 40 0-55 U/L Alkaline Phosphatase 531 H 40-136 U/L Total Protein 7.5 6.4-8.2 GM/DL Albumin 3.3 3.2-4.5 GM/DL Glucometer 487 *H 241 H 70-110 MG/DL Urine Color YELLOW Urine Clarity SLIGHTLY CLOUDY Urine pH 7 5-9 Urine Specific [place] 1.010 L 1.016-1.022 Urine Protein 4+ NEGATIVE Urine Glucose (UA) 4+ H NEGATIVE Urine Ketones NEGATIVE NEGATIVE Urine Nitrite NEGATIVE NEGATIVE Urine Bilirubin NEGATIVE NEGATIVE Urine Urobilinogen NORMAL NORMAL MG/DL Urine Leukocyte Esterase 2+ H NEGATIVE Urine RBC (Auto) 2+ H NEGATIVE Urine RBC 0-2 /HPF Urine WBC 5-10 H /HPF Urine Squamous Epithelial Cells 0-2 /HPF Urine Crystals NONE /LPF Urine Bacteria NEGATIVE /HPF Urine Casts NONE /LPF Urine Mucus NEGATIVE /LPF Urine Yeast FEW H /HPF Urine Culture Indicated YES Test 05/19/17 05:19 05/19/17 05:20 05/19/17 12:02 05/19/17 12:10 Range/Units Glucometer 177 H 201 H 70-110 MG/DL White Blood Count 12.6 H 4.3-11.0 10^3/uL Red Blood Count 3.46 L 4.35-5.85 10^6/uL Hemoglobin 10.3 L 11.5-16.0 G/DL Hematocrit 31 L 35-52 % Mean Corpuscular Volume 88 80-99 FL Mean Corpuscular Hemoglobin 30 25-34 PG Mean Corpuscular Hemoglobin Concent 34 32-36 G/DL Red Cell Distribution Width 13.2 10.0-14.5 % Platelet Count 318 130-400 10^3/uL Mean Platelet Volume 11.4 H 7.4-10.4 FL Neutrophils (%) (Auto) 66 42-75 % Lymphocytes (%) (Auto) 24 12-44 % Monocytes (%) (Auto) 7 0-12 % Eosinophils (%) (Auto) 3 0-10 % Basophils (%) (Auto) 1 0-10 % Neutrophils # (Auto) 8.3 H 1.8-7.8 X 10^3 Lymphocytes # (Auto) 3.1 1.0-4.0 X 10^3 Monocytes # (Auto) 0.9 0.0-1.0 X 10^3 Eosinophils # (Auto) 0.3 0.0-0.3 10^3/uL Basophils # (Auto) 0.1 0.0-0.1 10^3/uL Sodium Level 142 135-145 MMOL/L Potassium Level 2.8 L 3.6-5.0 MMOL/L Chloride Level 92 L 98-107 MMOL/L Carbon Dioxide Level 36 H 21-32 MMOL/L Anion Gap 14 5-14 MMOL/L Blood Urea Nitrogen 49 H 7-18 MG/DL Creatinine 1.64 H 0.60-1.30 MG/DL Estimat Glomerular Filtration Rate 32 BUN/Creatinine Ratio 30 Glucose Level 183 H 70-105 MG/DL Calcium Level 9.2 8.5-10.1 MG/DL Total Bilirubin 0.9 0.1-1.0 MG/DL Aspartate Amino Transf (AST/SGOT) 39 H 5-34 U/L Alanine Aminotransferase (ALT/SGPT) 35 0-55 U/L Alkaline Phosphatase 437 H 40-136 U/L Total Protein 6.7 6.4-8.2 GM/DL Albumin 3.0 L 3.2-4.5 GM/DL Stool Occult Blood Immunoassay NEGATIVE NEGATIVE Physical Exam-([facility]) Physical Exam Vital Signs VS - Last 72 Hours, by Label 05/18/17 05/18/17 05/18/17 05/18/17 12:40 15:45 15:55 16:30 Temp 98.5 98.5 97.5 Pulse 78 78 65 Resp 15 15 18 B/P (MAP) 128/100 166/78 Pulse Ox 97 97 99 O2 Delivery Nasal Cannula Nasal Cannula Nasal Cannula Room Air O2 Flow Rate 2.00 2.00 2.00 05/18/17 05/18/17 05/19/17 05/19/17 19:25 21:00 00:17 03:50 Temp 99.1 97.4 96.7 Pulse 65 70 74 Resp 18 22 18 B/P (MAP) 135/63 155/81 156/72 Pulse Ox 99 97 95 O2 Delivery Nasal Cannula Nasal Cannula Nasal Cannula Nasal Cannula O2 Flow Rate 2.00 2.00 2.00 2.00 05/19/17 05/19/17 05/19/17 08:02 08:04 12:51 Temp 98.1 97.5 Pulse 69 56 Resp 18 16 B/P (MAP) 116/78 111/70 Pulse Ox 97 99 98 O2 Delivery Nasal Cannula Nasal Cannula Nasal Cannula O2 Flow Rate 2.00 2.00 2.00 Capillary Refill : Less Than 3 Seconds General Appearance: WD/WN, no apparent distress HEENT: PERRL/EOMI, normal ENT inspection, pharynx normal Neck: non-tender, full range of motion, supple, normal inspection Respiratory: lungs clear, normal breath sounds, no respiratory distress, no accessory muscle use Cardiovascular: regular rate, rhythm, no edema, no gallop, no JVD, no murmur Gastrointestinal: normal bowel sounds, non tender, soft, no organomegaly Extremities: normal range of motion, non-tender, normal inspection, no pedal edema, no calf tenderness, normal capillary refill Neurologic/Psychiatric: coal hauler II-XII nml as tested, no motor/sensory deficits, alert, normal mood/affect, oriented x 3 Skin: normal color, warm/dry Assessment/Plan Assessment/Plan Admission Dx SEE BELOW Plan ACUTE ON CHRONIC RENAL FAILURE DEHYDRATION VOMITING HYPKALEMIA ADM - gentle hydration at 100 cc/h. Will change to 1/2NS to decrase sodium load. Add Kcl to IVF, also give oral supplmemnt. Recheck tomorrow morning. reanl function improved. I suspect that she may have had a viral illness and then got behind on her fluid balance since she is on such high doses of diuretics. clear liquid diet until she is better able to keep food down. UNCONTROLLED T2DM SHELTER USE OF INSULIN ADM - patient states she does not take 65 untis of levemir BID, only at night. will give 20 units this morning. Use SSI since she is clear liquids only.. REPORTED HEMATEMESIS ADM - have ordered hemoccults, which we have not been able to collect yet. I did see some of her vomitus this morning, and I ddi not see any blood tinged material in it. Will continue Brilinta due to her extensive CV history, and ti is a greater risk to stop it at this point. CAD CHRONIC SYSTOLIC HEART FAILURE ADM - stable, no active issues at present. watching the fluid balance closely. SCDs for DVT prophylaxis Diagnosis/Problems: Clinical Quality Measures DVT/VTE Risk/Contraindication: Risk Factor Score Per Nursin RFS Level Per Nursing on Admit: 4+=Very High Copy Copies To 1: JOSE CARVALHO MD, JULIE A MD May 19, 2017 11:46 am
[2017-05-19] MEDS: inSUlin DETERMIR 1 UNIT/0.01 ML (LEVEMIR) CHARGE PER UNIT SQ SCH ×2 (12:21→21:33)
[2017-05-19] MEDS ORDERED: inSUlin DETERMIR 1 UNIT/0.01 ML (LEVEMIR) CHARGE PER UNIT SQ NR (12:30)
[2017-05-19] MEDS: KCL 20 MEQ TAB (K-DUR) PO SCH ×2 (17:20→19:44)
[2017-05-19] MEDS: 1/2 NS W/KCL 20 MEQ/L 1,000 ML IV SCH (17:20)
[2017-05-19] MEDS ORDERED: fentaNYL INJECTION 100 MCG/2 ML AMP IVP PRN (18:00)
[2017-05-19] MEDS ORDERED: ATORVASTATIN 80 MG (LIPITOR) TABLET PO SCH (21:00)
[2017-05-20] VITALS: BP 113/72
[2017-05-20] MEDS: 1/2 NS W/KCL 20 MEQ/L 1,000 ML IV SCH ×2 (02:35→11:20)
[2017-05-20] MEDS: inSUlin (REGULAR) HUMAN 1 UNIT/0.01 ML (CHARGE PER UNIT) SC SCH ×3 (06:00→14:55)
[2017-05-20 06:21] LABS: BASOPHILS % (AUTO) 0 % (0-10); EOSINOPHILS # (AUTO) 0.4 10^3/uL (0.0-0.3); EOSINOPHILS % (AUTO) 4 % (0-10); LYMPHOCYTES # (AUTO) 3.2 X 10^3 (1.0-4.0); LYMPHOCYTES % (AUTO) 32 % (12-44); MEAN CORPUSCULAR HEMOGLOBIN 30 PG (25-34); MEAN CORPUSCULAR HGB CONC 34 G/DL (32-36); MEAN CORPUSCULAR VOLUME 89 FL (80-99); MEAN PLATELET VOLUME 10.8 FL (7.4-10.4); MONOCYTES # (AUTO) 0.8 X 10^3 (0.0-1.0); MONOCYTES % (AUTO) 8 % (0-12); NEUTROPHILS # (AUTO) 5.7 X 10^3 (1.8-7.8); NEUTROPHILS % (AUTO) 56 % (42-75); PLATELET COUNT 304 10^3/uL (130-400); RED BLOOD COUNT 3.13 10^6/uL (4.35-5.85); RED CELL DISTRIBUTION WIDTH 13.1 % (10.0-14.5); WHITE BLOOD COUNT 10.2 10^3/uL (4.3-11.0)
[2017-05-20 06:41] LABS: CALCIUM 8.8 MG/DL (8.5-10.1); CREATININE SERUM 1.3 MG/DL (0.60-1.30); POTASSIUM 3.3 MMOL/L (3.6-5.0)
[2017-05-20 08:00] VITALS: BP 146/84
[2017-05-20] MEDS: LEVOTHYROXINE 75 MCG (LEVOTHROID) TABLET PO SCH (08:30)
[2017-05-20] MEDS: TICAGRELOR 90 MG TABLET (BRILINTA) PO SCH (08:30)
[2017-05-20] MEDS: PANTOPRAZOLE 40 MG (PROTONIX) TAB PO SCH (08:30)
[2017-05-20] MEDS: ASPIRIN E.C. 81 MG (ECOTRIN) TAB PO SCH (08:31)
[2017-05-20] MEDS: meTOprolol TARTRATE 25 MG (LOPRESSOR) TABLET PO SCH (08:31)
[2017-05-20] MEDS: amLODIPine 10 MG (NORVASC) TAB PO SCH (08:31)
[2017-05-20] MEDS: DULoxetine 30 MG (CYMBALTA) CAP PO SCH (08:31)
[2017-05-20] MEDS: ISOSORBIDE MONONITRATE 30 MG (IMDUR) TAB PO SCH (08:31)
[2017-05-20] MEDS: inSUlin DETERMIR 1 UNIT/0.01 ML (LEVEMIR) CHARGE PER UNIT SQ SCH (10:02)
--- NOTE | 2017-05-20 14:45 | Discharge Instructions ---
Discharge [facility] Discharge Medications New, Converted or Re-Newed RX: Other Continued Medications: Amlodipine Besylate (Amlodipine Besylate) 10 Mg Tablet 10 MG PO DAILY, TAB LAST FILLED 03/30/17 #30 Aspirin (Aspirin EC) 81 Mg Tablet.dr 81 MG PO BID, TAB Atorvastatin Calcium (Atorvastatin Calcium) 80 Mg Tablet 80 MG PO HS, TAB LAST FILLED 04/05/17 #30 Diphenoxylate HCl/Atropine (Lomotil 2.5-0.025 mg Tablet) 1 Each Tablet 2 TAB PO QID PRN for DIARRHEA, TAB Duloxetine HCl (Duloxetine HCl) 30 Mg Capsule.dr 30 MG PO DAILY, CAP LAST FILLED 04/15/17 #30 Furosemide (Furosemide) 80 Mg Tablet 80 MG PO BID, TAB Gabapentin (Gabapentin) 300 Mg Capsule 600 MG PO DAILY, CAP TAKES 2 (300 MG) CAPSULES Ibuprofen (Ibuprofen) 600 Mg Tablet 600 MG PO Q6H PRN for PAIN-MILD, TAB Insulin Aspart (Novolog) 100 Unit/1 Ml Susp 40 UNITS SQ TIDAC, ML Insulin Glargine,Hum.rec.anlog (Lantus) 100 Unit/1 Ml Vial 65 UNITS SQ BID, VIAL Isosorbide Mononitrate (Isosorbide Mononitrate ER) 30 Mg Tab.er.24h 30 MG PO DAILY, TAB LAST FILLED 04/16/17 #30 Ketorolac Tromethamine (Ketorolac Tromethamine) 5 Ml Drops 1 DROP OU QID, DROPS Levothyroxine Sodium (Levothyroxine Sodium) 75 Mcg Tablet 75 MCG PO DAILY, TAB Metolazone (Metolazone) 2.5 Mg Tablet 2.5 MG PO MoFr, TAB Metoprolol Tartrate (Metoprolol Tartrate) 25 Mg Tablet 25 MG PO BID, TAB Oxycodone HCl (Oxycodone HCl) 10 Mg Tablet 10 MG PO Q6H PRN for PAIN-SEVERE, TAB Pantoprazole Sodium (Pantoprazole Sodium) 40 Mg Tablet.dr 40 MG PO DAILY, TAB Prochlorperazine Maleate (Prochlorperazine Maleate) 5 Mg Tablet 5 MG PO BID PRN for NAUSEA/VOMITING-1ST LINE, TAB Scopolamine (Transderm-Scop) 1 Each Patch.td72 1 PATCH TD EVERY 3 DAYS PRN for NAUSEA/VOMITING, PATCH Ticagrelor (Brilinta) 90 Mg Tablet 90 MG PO BID, TAB Tramadol HCl (Tramadol HCl) 50 Mg Tablet 50 MG PO Q4H PRN for PAIN-MODERATE, TAB Patient Instructions Goal/Follow Up Appt: DR CARVALHO 05/25 AT 1:20 Patient Instructions: PLEASE TAKE ALL MEDICATIONS PRESCRIBED. DRINK LOTS OF FLUIDS, ESPECIALLY WHILE YOU HAVE DIARRHEA. Return to The Hospital For: FEVER, BRIGHT RED BLOOD IN STOOL Activity & Diet Discharge Diet: ADA Diet Activity as Tolerated: Yes Copy Copies To 1: MITCH CARVALHO MD, JULIE A MD May 20, 2017 2:45 pm
--- NOTE | 2017-05-20 14:45 | Discharge Summary ---
Diagnosis/Chief Complaint Date of Admission May 18, 2017 at 2:10 pm Date of Discharge Admission Diagnosis Admission Diagnosis SEE BELOW Chief Complaint/HPI Chief Complaint/HPI 56yo woman well known to medicine service admitted for complaints of nausea and vomiting. Patient states she has been vomiting for the past week and has seen some blood in her vomitus. 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 She has also had trouble keeping things down. In ER, she was foudn to have acute on chronic renal failure. In addition, her blood pressure was low but responded to fluids. She denies any diarrhea and has seen no blood in her stool. She reports no fever stating they do not own a thermometer. Diffuse abdominal pain, nonspecific, not localized. Discharge Summary-Simple/Stand Consultations Discharge Physical Examination Allergies: Coded Allergies: ondansetron (Verified Allergy, Severe, N/V, 02/26/17) Estrogens (Unverified Allergy, Unknown, BLISTERS ON BUTT, 02/26/17) metformin (Unverified Allergy, Unknown, BLISTERS ON BUTT, 02/26/17) Vitals & I&Os Vital Sign - Last 12Hours Date Time Temp Pulse Resp B/P (MAP) Pulse Ox O2 Delivery O2 Flow Rate FiO2 05/20/17 09:00 98 Nasal Cannula 1.50 05/20/17 08:00 96.6 95 16 146/84 Intake and Output 05/20/17 00:00 Intake Total 1155 ml Output Total 700 ml Balance 455 ml Hospital Course See final discharge diagnosis. Discharge Instructions to patient/family Please see electonic discharge instructions given to patient. Discharge Medications Reviewed and agree with Discharge Medication list on patient's Discharge Instruction sheet Clinical Quality Measures DVT/VTE Risk/Contraindication: Risk Factor Score Per Nursin RFS Level Per Nursing on Admit: 4+=Very High CLAUDIA FIGUEROA MD May 20, 2017 2:45 pm
[2017-05-20 14:55] VITALS: BP 146/84
== END 2017-05-20 14:55 | disposition home or self-care (01) | DRG 683 ==
LOC: EDUNIT# 12:39 → ER 12:41 → 4TH 14:10
PROVIDERS: ADMIT Pediatrics; ATTEND Pediatrics
DX: N17.9 Acute kidney failure, unspecified (principal); I13.0 Hypertensive heart and chronic kidney disease with heart failure and stage 1 through stage 4 chronic kidney disease, or unspecified chronic kidney disease; I50.22 Chronic systolic (congestive) heart failure; K92.0 Hematemesis; N18.9 Chronic kidney disease, unspecified; E86.0 Dehydration; E87.6 Hypokalemia; E11.65 Type 2 diabetes mellitus with hyperglycemia; I25.10 Atherosclerotic heart disease of native coronary artery without angina pectoris; E03.9 Hypothyroidism, unspecified; Z95.5 Presence of coronary angioplasty implant and graft; E66.01 Morbid (severe) obesity due to excess calories; G62.9 Polyneuropathy, unspecified; Z68.38 Body mass index [BMI] 38.0-38.9, adult; Z79.4 Long term (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
CPT/HCPCS: 36415; 51702; 71010; 80048; 80053; 81000; 82274; 82962; 83605; 85025; 85610; 85730; 86850; 86900; 86901; 87040; 87088; 87324; 87449; 94760; 96361; 96374; 96375; 96376

== ENCOUNTER 2017-06-17 12:04 | Observation (INO) | payer MEDICAID ==
[~2017-06-17] VITALS: Ht 165.1 cm; Wt 107.5 kg
[~2017-06-17 12:04] MED LIST changes: +ASPI-983 PO; +DIPH1TAB PO; +FURO80TA3 PO; +KETO5DRO14 OU; +METO2.5T PO; +OXYC10TA7 PO; -PROMETHAZINE INJ 25 MG/ML (PHENERGAN) AMP ONE; +SCOP1PAT TD
[2017-06-17 12:35] LABS: BASOPHILS # (AUTO) 0.1 10^3/uL (0.0-0.1); BASOPHILS % (AUTO) 1 % (0-10); EOSINOPHILS # (AUTO) 0.3 10^3/uL (0.0-0.3); EOSINOPHILS % (AUTO) 2 % (0-10); LYMPHOCYTES # (AUTO) 3.3 X 10^3 (1.0-4.0); LYMPHOCYTES % (AUTO) 31 % (12-44); MEAN CORPUSCULAR HEMOGLOBIN 30 PG (25-34); MEAN CORPUSCULAR HGB CONC 35 G/DL (32-36); MEAN CORPUSCULAR VOLUME 86 FL (80-99); MEAN PLATELET VOLUME 11.7 FL (7.4-10.4); MONOCYTES # (AUTO) 0.7 X 10^3 (0.0-1.0); MONOCYTES % (AUTO) 7 % (0-12); NEUTROPHILS # (AUTO) 6.1 X 10^3 (1.8-7.8); NEUTROPHILS % (AUTO) 59 % (42-75); PLATELET COUNT 284 10^3/uL (130-400); RED BLOOD COUNT 3.72 10^6/uL (4.35-5.85); RED CELL DISTRIBUTION WIDTH 12.5 % (10.0-14.5); WHITE BLOOD COUNT 10.4 10^3/uL (4.3-11.0)
[2017-06-17] MEDS ORDERED: PROMETHAZINE INJ 25 MG/ML (PHENERGAN) AMP ONE (12:50)
[2017-06-17 12:52] LABS: ALBUMIN 3.6 GM/DL (3.2-4.5); BILIRUBIN,TOTAL 0.5 MG/DL (0.1-1.0); CALCIUM 10.3 MG/DL (8.5-10.1); CREATININE SERUM 2.02 MG/DL (0.60-1.30); POTASSIUM 3.7 MMOL/L (3.6-5.0); TOTAL PROTEIN 7.8 GM/DL (6.4-8.2)
[2017-06-17 12:53] LABS: BILIRUBIN,URINE NEGATIVE (NEGATIVE); KETONES,URINE NEGATIVE (NEGATIVE); LEUKOCYTE ESTERASE ,URINE NEGATIVE (NEGATIVE); NITRITE,URINE NEGATIVE (NEGATIVE); PH,URINE 8 (5-9); PROTEIN,URINE 3+ (NEGATIVE); UROBILINOGEN,URINE NORMAL (NORMAL)
[2017-06-17] MEDS ORDERED: PROMETHAZINE INJ 25 MG/ML (PHENERGAN) AMP IVP ONE (13:00)
[2017-06-17 13:02] LABS: YEAST,URINE FEW /HPF
[2017-06-17] MEDS ORDERED: NS IV 1000 ML 1,000 ML IV SCH (13:15)
[2017-06-17] MEDS ORDERED: inSUlin (REGULAR) HUMAN 1 UNIT/0.01 ML (CHARGE PER UNIT) IV ONE (13:15)
--- NOTE | 2017-06-17 13:18 | ED General ---
General Chief Complaint: Chest Pain Stated Complaint: N/V,RESTLESS/ACHES Nursing Triage Note: PT STATES MID CHEST PAIN SINCE WEDNESDAY, HAS THROWN UP TWICE, COUGHING SINCE LAST WEDNESDAY AND IS GETTING WORSE, "FEELS LIKE WATER IN MY LUNGS." Nursing Sepsis Screen: No Definite Risk Source of Information: Patient Exam Limitations: No Limitations History of Present Illness Time Seen by Provider: 13:14 Initial Comments The patient is a 56-year-old white female with many complaints and problems. She presents to the emergency room with a complaint of chest pain since Wednesday. She began to experience vomiting with bilious liquid beginning this morning. She is a diabetic and reports that she has taken her insulin as scheduled through last night. She did not take this morning's dose. She also states there is a pain in her upper epigastrium which seems to be relieved by gentle compression on her part. Timing/Duration: 12 Hours Associated Systoms: Loss of Appetite, Nausea/Vomiting, Weakness Allergies and Home Medications Allergies Coded Allergies: ondansetron (Verified Allergy, Severe, N/V, 02/26/17) Estrogens (Unverified Allergy, Unknown, BLISTERS ON BUTT, 02/26/17) metformin (Unverified Allergy, Unknown, BLISTERS ON BUTT, 02/26/17) Home Medications Amlodipine Besylate 10 Mg Tablet, 10 MG PO DAILY, (Reported) LAST FILLED 03/30/17 #30 Aspirin 81 Mg Tablet.dr, 81 MG PO BID, (Reported) Atorvastatin Calcium 80 Mg Tablet, 80 MG PO HS, (Reported) LAST FILLED 04/05/17 #30 Diphenoxylate HCl/Atropine 1 Each Tablet, 2 TAB PO QID PRN for DIARRHEA, ( Reported) Duloxetine HCl 30 Mg Capsule.dr, 30 MG PO DAILY, (Reported) LAST FILLED 04/15/17 #30 Furosemide 80 Mg Tablet, 80 MG PO BID, (Reported) Gabapentin 300 Mg Capsule, 600 MG PO DAILY, (Reported) TAKES 2 (300 MG) CAPSULES Ibuprofen 600 Mg Tablet, 600 MG PO Q6H PRN for PAIN-MILD, (Reported) Insulin Aspart 100 Unit/1 Ml Susp, 40 UNITS SQ TIDAC, (Reported) Insulin Glargine,Hum.rec.anlog 100 Unit/1 Ml Vial, 65 UNITS SQ BID, (Reported) Isosorbide Mononitrate 30 Mg Tab.er.24h, 30 MG PO DAILY, (Reported) LAST FILLED 04/16/17 #30 Ketorolac Tromethamine 5 Ml Drops, 1 DROP OU QID, (Reported) Levothyroxine Sodium 75 Mcg Tablet, 75 MCG PO DAILY, (Reported) Metolazone 2.5 Mg Tablet, 2.5 MG PO MoFr, (Reported) Metoprolol Tartrate 25 Mg Tablet, 25 MG PO BID, (Reported) Oxycodone HCl 10 Mg Tablet, 10 MG PO Q6H PRN for PAIN-SEVERE, (Reported) Pantoprazole Sodium 40 Mg Tablet.dr, 40 MG PO DAILY, (Reported) Prochlorperazine Maleate 5 Mg Tablet, 5 MG PO BID PRN for NAUSEA/VOMITING-1ST LINE, (Reported) Scopolamine 1 Each Patch.td72, 1 PATCH TD EVERY 3 DAYS PRN for NAUSEA/VOMITING, (Reported) Ticagrelor 90 Mg Tablet, 90 MG PO BID, (Reported) Tramadol HCl 50 Mg Tablet, 50 MG PO Q4H PRN for PAIN-MODERATE, (Reported) Constitutional: see HPI EENTM: no symptoms reported Respiratory: no symptoms reported Cardiovascular: chest pain Gastrointestinal: abdominal pain, loss of appetite, nausea, vomiting Genitourinary: no symptoms reported Musculoskeletal: muscle pain, muscle weakness Psychiatric/Neurological: No Symptoms Reported Hematologic/Lymphatic: No Symptoms Reported Immunological/Allergic: no symptoms reported Past Ewwccim-Phcoqb-Xsjmyk Hx Patient Social History Alcohol Use: Denies Use Recreational Drug Use: No Smoking Status: Never a Smoker 2nd Hand Smoke Exposure: Yes Recent Foreign Travel: No Contact w/Someone Who Travel: No Recent Infectious Disease Expo: No Recent Hopitalizations: Yes (02/10/17-02/17/17, 02/23/17, dc 02/25/17, 03/2017) Immunizations Up To Date Tetanus Booster (TDap): Unknown PED Vaccines UTD: No Date of Pneumonia Vaccine: Sep 18, 2014 Date of Influenza Vaccine: Sep 16, 2016 Seasonal Allergies Seasonal Allergies: No Surgeries HX Surgeries: Yes (RIGHT FOREARM FX/ORIF; CARDIAC CATH--STENTS X 4; HYST/BSO) Surgeries: Cardiac, Coronary Stent, Gallbladder, Hysterectomy, Oophorectomy Respiratory Hx Respiratory Disorders: Yes Respiratory Disorders: Emphysema Cardiovascular Hx Cardiac Disorders: Yes (CAROTID DISEASE, STENTS X 4) Cardiac Disorders: Chronic Edema/Swelling, Coronary Artery Disease, Heart Attack, High Cholesterol, Hypertension, Peripheral Vascular Neurological Hx Neurological Disorders: Yes Neurological Disorders: Neuropathy, TIA Reproductive System Hx Reproductive Disorders: No Sexually Transmitted Disease: No HIV/AIDS: No Female Reproductive Disorders: Denies 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 Genitourinary Hx Genitourinary Disorders: Yes Genitourinary Disorders: Renal Failure Gastrointestinal Hx Gastrointestinal Disorders: Yes (S/P LIDYA) Gastrointestinal Disorders: Gastroesophageal Reflux, Gall Bladder Disease Musculoskeletal Hx Musculoskeletal Disorders: Yes (right arm fracture with screws and pin placements) Musculoskeletal Disorders: Arthritis, Fibromyalgia, Fractures Endocrine Hx Endocrine Disorders: Yes Endocrine Disorders: Diabetes, Insulin dep, Hypothyroidsim HEENT HX ENT Disorders: Yes (GLASSES) HEENT Disorders: Double Vision Hearing Impairment: Hard of Hearing Cancer Hx Cancer: Yes Cancer: Ovarian, Uterine Psychosocial Hx Psychiatric Problems: Yes Behavioral Health Disorders: Anxiety, Depression Integumentary HX Skin/Integumentary Disorder: Yes (DIABETIC SORES) Skin/Integumentary Disorders: Recent Skin Changes Blood Transfusions Hx Blood Disorders: Yes (ANEMIA) Adverse Reaction to a Blood Tr: No Family Medical History Significant Family History: Cancer, CAD Under 55 Years Old Family Medial History: Cardiovascular disease 19 FATHER G8 SISTER Diabetes mellitus 19 FATHER G8 BROTHER G8 SISTER FH: lung cancer 19 MOTHER FH: skin cancer 19 FATHER Parkinson's disease G8 SISTER Psychosocial problem G8 BROTHER Physical Exam Vital Signs Vital Sign - Last 12Hours 06/17/17 12:23 Temp 97.1 Pulse 73 Resp 20 B/P (MAP) 176/88 Pulse Ox 100 O2 Delivery Nasal Cannula O2 Flow Rate 2.00 Capillary Refill : Less Than 3 Seconds General Appearance: Mild Distress, Other (obese white female) Eyes: Bilateral Eye Normal Inspection HEENT: Normal ENT Inspection Neck: Normal Inspection Respiratory: Chest Non Tender, Lungs Clear, Normal Breath Sounds, No Accessory Muscle Use, No Respiratory Distress Cardiovascular: Regular Rate, Rhythm, No Edema, No Gallop, No JVD, No Murmur, Normal Peripheral Pulses Gastrointestinal: No Organomegaly, No Pulsatile Mass, Non Tender, Abnormal Bowel Sounds (decreased bowel sounds) Neurologic/Psychiatric: Alert, Oriented x3, No Motor/Sensory Deficits, Normal Mood/Affect Skin: Normal Color, Warm/Dry Lymphatic: No Adenopathy Progress/Results/Core Measures Results/Orders Lab Results Laboratory Tests Test 06/17/17 12:20 06/17/17 12:40 Range/Units White Blood Count 10.4 4.3-11.0 10^3/uL Red Blood Count 3.72 L 4.35-5.85 10^6/uL Hemoglobin 11.2 L 11.5-16.0 G/DL Hematocrit 32 L 35-52 % Mean Corpuscular Volume 86 80-99 FL Mean Corpuscular Hemoglobin 30 25-34 PG Mean Corpuscular Hemoglobin Concent 35 32-36 G/DL Red Cell Distribution Width 12.5 10.0-14.5 % Platelet Count 284 130-400 10^3/uL Mean Platelet Volume 11.7 H 7.4-10.4 FL Neutrophils (%) (Auto) 59 42-75 % Lymphocytes (%) (Auto) 31 12-44 % Monocytes (%) (Auto) 7 0-12 % Eosinophils (%) (Auto) 2 0-10 % Basophils (%) (Auto) 1 0-10 % Neutrophils # (Auto) 6.1 1.8-7.8 X 10^3 Lymphocytes # (Auto) 3.3 1.0-4.0 X 10^3 Monocytes # (Auto) 0.7 0.0-1.0 X 10^3 Eosinophils # (Auto) 0.3 0.0-0.3 10^3/uL Basophils # (Auto) 0.1 0.0-0.1 10^3/uL Sodium Level 133 L 135-145 MMOL/L Potassium Level 3.7 3.6-5.0 MMOL/L Chloride Level 84 L 98-107 MMOL/L Carbon Dioxide Level 33 H 21-32 MMOL/L Anion Gap 16 H 5-14 MMOL/L Blood Urea Nitrogen 57 H 7-18 MG/DL Creatinine 2.02 H 0.60-1.30 MG/DL Estimat Glomerular Filtration Rate 25 BUN/Creatinine Ratio 28 Glucose Level 609 *H 70-105 MG/DL Calcium Level 10.3 H 8.5-10.1 MG/DL Total Bilirubin 0.5 0.1-1.0 MG/DL Aspartate Amino Transf (AST/SGOT) 33 5-34 U/L Alanine Aminotransferase (ALT/SGPT) 38 0-55 U/L Alkaline Phosphatase 322 H 40-136 U/L Troponin I < 0.30 <0.30 NG/ML Total Protein 7.8 6.4-8.2 GM/DL Albumin 3.6 3.2-4.5 GM/DL Urine Color YELLOW Urine Clarity CLEAR Urine pH 8 5-9 Urine Specific [place] 1.015 L 1.016-1.022 Urine Protein 3+ H NEGATIVE Urine Glucose (UA) 4+ H NEGATIVE Urine Ketones NEGATIVE NEGATIVE Urine Nitrite NEGATIVE NEGATIVE Urine Bilirubin NEGATIVE NEGATIVE Urine Urobilinogen NORMAL NORMAL MG/DL Urine Leukocyte Esterase NEGATIVE NEGATIVE Urine RBC (Auto) 1+ H NEGATIVE Urine RBC 0-2 /HPF Urine WBC NONE /HPF Urine Squamous Epithelial Cells 10-25 H /HPF Urine Crystals NONE /LPF Urine Bacteria FEW H /HPF Urine Casts NONE /LPF Urine Mucus NEGATIVE /LPF Urine Yeast FEW H /HPF Urine Culture Indicated NO My Orders Orders - FABIAN RAO MD Cbc With Automated Diff (06/17/17 12:13) Comprehensive Metabolic Panel (06/17/17 12:13) Ua Culture If Indicated (06/17/17 12:13) Ekg Tracing (06/17/17 12:13) Troponin I (06/17/17 12:38) Chest 1 View, Ap/Pa Only (06/17/17 12:38) Promethazine Injection (Phenergan Injec (06/17/17 13:00) Promethazine Injection (Phenergan Injec (06/17/17 12:50) Ns Iv 1000 Ml (Sodium Chloride 0.9%) (06/17/17 13:15) Insulin (Regular) Human (Humulin R (Per (06/17/17 13:15) Medications Given in ED Current Medications Medications Dose Ordered Sig/Irineo Route Start Time Stop Time Status Last Admin Dose Admin Promethazine HCl 25 mg ONCE ONCE IVP 06/17/17 13:00 06/17/17 13:01 DC 06/17/17 13:00 25 MG Vital Signs/I&O Vital Sign - Last 12Hours 06/17/17 06/17/17 12:23 12:28 Temp 97.1 Pulse 73 Resp 20 B/P (MAP) 176/88 Pulse Ox 100 O2 Delivery Nasal Cannula Nasal Cannula O2 Flow Rate 2.00 2.00 Blood Pressure Mean: 117 Departure Communication Progress Notes Blood sugars 609 today. Her creatinine is up from 1.3 in May to 2.02 today. Carbon dioxide is 33. Impression Impression: Primary Impression: hyperglycemia Additional Impression: acute renal failure/dehydration Disposition: ADMITTED INPATIENT Condition: Stable/Unchanged Decision to Admit Reason: Admit from ER (General) Decision to Admit/Date: Jun 17, 2017 Time/Decision to Admit Time: 13:21 Departure-Patient Inst. Referrals: MITCH CARVALHO MD (PCP/Family) Primary Care Physician FABIAN RAO MD Jun 17, 2017 13:18
--- NOTE | 2017-06-17 13:21 | Diagnostic Imaging Report ---
INDICATION: Chest pain. COMPARISON: 05/18/2017. FINDINGS: Upright portable view of the chest is obtained. Heart size is normal. The pulmonary vessels appear unremarkable. There is no pneumothorax, mediastinal widening, or pleural fluid. Prominent density in the medial right chest is again likely related to prominent pericardial fat pad. There is persistent abnormal density at the left lung base likely related to atelectasis or infiltrate with a small effusion, overall similar to the prior study. No significant new abnormality is seen. IMPRESSION: Persistent airspace disease and probable pleural effusion at the left lung base, fairly similar to the prior study. Dictated by: Dictated on workstation # [id number]
[2017-06-17] MEDS ORDERED: KETOROLAC 30 MG/ML VIAL IVP ONE (13:30)
[2017-06-17 14:10] VITALS: BP 101/51
[2017-06-17] MEDS: inSUlin (REGULAR) HUMAN 1 UNIT/0.01 ML (CHARGE PER UNIT) IV PRN ×4 (14:48→20:07)
[2017-06-17] MEDS ORDERED: SUCR1TAB PO (14:59)
[2017-06-17 15:38] VITALS: BP 146/76
[2017-06-17 15:42] VITALS: BP 146/76
[2017-06-17] MEDS: NS IV 1000 ML 1,000 ML IV SCH ×2 (16:05→20:17)
[2017-06-17] MEDS ORDERED: NON-FORMULARY MEDICATION 1 EA EA (Ketorolac Tromethamine 1 DROP) OU SCH (17:00)
[2017-06-17 19:53] VITALS: BP 141/85
[2017-06-17 19:54] VITALS: BP 141/85
[2017-06-17 20:22] LABS: CALCIUM 9.5 MG/DL (8.5-10.1); CREATININE SERUM 1.85 MG/DL (0.60-1.30); POTASSIUM 3.4 MMOL/L (3.6-5.0)
[2017-06-17] MEDS ORDERED: ATORVASTATIN 80 MG (LIPITOR) TABLET PO SCH (21:00)
[2017-06-17] MEDS ORDERED: inSUlin DETERMIR 1 UNIT/0.01 ML (LEVEMIR) CHARGE PER UNIT SQ SCH (21:00)
[2017-06-17] MEDS: TICAGRELOR 90 MG TABLET (BRILINTA) PO SCH (21:11)
[2017-06-17] MEDS: meTOprolol TARTRATE 25 MG (LOPRESSOR) TABLET PO SCH (21:11)
[2017-06-17] MEDS: SUCRALFATE 1 GM (CARAFATE) TAB PO SCH (21:12)
[2017-06-18 00:15] VITALS: BP 165/75
[2017-06-18] MEDS: NS IV 1000 ML 1,000 ML IV SCH ×4 (00:21→08:20)
[2017-06-18 04:05] VITALS: BP 135/71
[2017-06-18 05:41] LABS: CALCIUM 8.5 MG/DL (8.5-10.1); CREATININE SERUM 1.49 MG/DL (0.60-1.30)
[2017-06-18 08:10] VITALS: BP 134/83
[2017-06-18] MEDS: SUCRALFATE 1 GM (CARAFATE) TAB PO SCH (08:17)
[2017-06-18] MEDS: TICAGRELOR 90 MG TABLET (BRILINTA) PO SCH (08:17)
[2017-06-18] MEDS: meTOprolol TARTRATE 25 MG (LOPRESSOR) TABLET PO SCH (08:17)
[2017-06-18] MEDS ORDERED: PANTOPRAZOLE 40 MG (PROTONIX) TAB PO SCH (09:00)
[2017-06-18] MEDS ORDERED: LEVOTHYROXINE 75 MCG (LEVOTHROID) TABLET PO SCH (09:00)
[2017-06-18] MEDS ORDERED: amLODIPine 10 MG (NORVASC) TAB PO SCH (09:00)
[2017-06-18] MEDS ORDERED: DULoxetine 30 MG (CYMBALTA) CAP PO SCH (09:00)
[2017-06-18] MEDS ORDERED: GABAPENTIN 300 MG (NEURONTIN) CAP PO SCH (09:00)
--- NOTE | 2017-06-20 04:41 | Short Stay Summary ---
HPI Attending Physician Claudia Figueroa MD PCP Jose Calderon MD Consult Date of Admission Jun 17, 2017 at 14:15 Home Medications Home Medications Reviewed patient Home Medication Reconciliation Form Allergies Coded Allergies: ondansetron (Verified Allergy, Severe, N/V, 02/26/17) Estrogens (Unverified Allergy, Unknown, BLISTERS ON BUTT, 02/26/17) metformin (Unverified Allergy, Unknown, BLISTERS ON BUTT, 02/26/17) OTG-Lcadvl-Zrypne Hx Patient Social History Alcohol Use: Denies Use Recreational Drug Use: No Smoking Status: Never a Smoker 2nd Hand Smoke Exposure: Yes Recent Foreign Travel: No Contact w/other who traveled: No Recent Hopitalizations: Yes (02/10/17-02/17/17, 02/23/17, dc 02/25/17, 03/2017) Recent Infectious Disease Expo: No Physical Abuse Screen: No Sexual Abuse: No Immunizations Up To Date Tetanus Booster (TDap): Unknown Date of Pneumonia Vaccine: Sep 18, 2014 Date of Influenza Vaccine: Sep 16, 2016 Past Medical History Past medical history 1. Diabetes mellitus2 2. Hypothyroidism 3. Peripheral neuropathy 4. Coronary artery disease with history of stent 5. Hypertension 6. Morbid obesity 7. Depression 8. Achilles tendon rupture Past surgical history 1. Cardiac catheterization 3 2. Cholecystectomy 3. Hysterectomy 4. Surgical repair of right arm fracture Family Medical History Significant Family History: Cancer, CAD Under 55 Years Old Family History: Cardiovascular disease 19 FATHER G8 SISTER Diabetes mellitus 19 FATHER G8 BROTHER G8 SISTER FH: lung cancer 19 MOTHER FH: skin cancer 19 FATHER Parkinson's disease G8 SISTER Psychosocial problem G8 BROTHER Physical Exam-([facility]) Physical Exam Vital Signs VS - Last 72 Hours, by Label 06/17/17 06/17/17 06/17/17 06/17/17 12:23 12:28 14:00 14:10 Temp 97.1 97.0 98.9 Pulse 73 93 91 Resp 20 20 24 B/P (MAP) 176/88 101/51 Pulse Ox 100 96 99 O2 Delivery Nasal Cannula Nasal Cannula Nasal Cannula Nasal Cannula O2 Flow Rate 2.00 2.00 2.00 2.00 06/17/17 06/17/17 06/17/17 06/17/17 14:15 15:38 15:42 19:53 Temp 98.9 98.9 98.0 Pulse 80 80 69 Resp 20 20 19 B/P (MAP) 146/76 146/76 141/85 Pulse Ox 96 99 98 100 O2 Delivery Room Air Nasal Cannula Nasal Cannula Nasal Cannula O2 Flow Rate 2.00 2.00 2.00 06/17/17 06/17/17 06/17/17 06/18/17 19:54 20:10 23:10 00:15 Temp 98.0 98.4 Pulse 69 61 Resp 19 20 B/P (MAP) 141/85 165/75 Pulse Ox 100 100 O2 Delivery Nasal Cannula Nasal Cannula Nasal Cannula Nasal Cannula O2 Flow Rate 2.00 2.00 2.00 2.00 06/18/17 06/18/17 06/18/17 06/18/17 04:05 06:56 08:00 08:10 Temp 98.4 98.0 Pulse 59 62 Resp 20 18 B/P (MAP) 135/71 134/83 Pulse Ox 94 100 100 O2 Delivery Room Air Room Air Nasal Cannula Nasal Cannula O2 Flow Rate 2.00 2.00 Capillary Refill : Less Than 3 Seconds Clinical Quality Measures AMI/AHF: ASA po Prior to arrival: Yes (162 MG THIS MORNING) DVT/VTE Risk/Contraindication: Risk Factor Score Per Nursin RFS Level Per Nursing on Admit: 2=Moderate CLAUDIA FIGUEROA MD Jun 20, 2017 04:41
== END 2017-06-18 11:35 | disposition left against medical advice (07) ==
LOC: EDUNIT# 12:04 → ER 12:06 → UNDOADMOB 13:30 → 4TH 13:30 → UNDODISOB 06-18 11:37
PROVIDERS: ADMIT Pediatrics; ATTEND Pediatrics
DX: E11.65 Type 2 diabetes mellitus with hyperglycemia (principal); E86.0 Dehydration; N17.9 Acute kidney failure, unspecified; E11.40 Type 2 diabetes mellitus with diabetic neuropathy, unspecified; I10 Essential (primary) hypertension; I25.10 Atherosclerotic heart disease of native coronary artery without angina pectoris; I25.2 Old myocardial infarction; E78.00 Pure hypercholesterolemia, unspecified; E03.9 Hypothyroidism, unspecified; E66.01 Morbid (severe) obesity due to excess calories; Z79.82 Long term (current) use of aspirin; Z79.4 Long term (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; Z79.899 Other long term (current) drug therapy; Z95.5 Presence of coronary angioplasty implant and graft; Z90.49 Acquired absence of other specified parts of digestive tract; Z90.710 Acquired absence of both cervix and uterus; Z86.73 Personal history of transient ischemic attack (TIA), and cerebral infarction without residual deficits
CPT/HCPCS: 36415; 71010; 80048; 80053; 81000; 82962; 84484; 85025; 93005; 96374; 96375; 99211; G0378